=== PATIENT | female | born 1975 | race Caucasian/White ===

== ENCOUNTER → 2017-11-06 | Outpatient (CLI) | payer MEDICARE, OTHER ==
--- NOTE | 2017-11-06 09:29 | MR ---
EXAMINATION TYPE: MR faheem wo con DATE OF EXAM: 11/06/2017 COMPARISON: NONE HISTORY: Low back pain / Cervicalgia TECHNIQUE: T1 and T2 axial and sagittal images of the lumbar spine are submitted. FINDINGS: There is no abnormal signal seen within the visualized spinal cord or paraspinal soft tissu es. At T11-12 and T12-L1 there are severe degenerative disc disease. Central disc bulging at both levels greater at T11-T12. No spinal cord contact. Neural foramina remain patent At L1-2 there is disc desiccation. There is circumferential disc bulging but no canal stenosis or for aminal encroachment. At L2-3 there is no disc herniation or canal stenosis. No foraminal encroachment At L3-4 there is disc desiccation and hypertrophic change of the facets. No foraminal encroachment or canal stenosis. At L4-5 there is no disc herniation or canal stenosis. There is more advanced arthropathy of the face t joints. No foraminal encroachment At L5-S1 there is generative disc disease with focal broad-based central disc herniation abutting the anterior margin of the thecal sac. There may be mild compression of the left exiting nerve root. The re is facet arthropathy. IMPRESSION: 1. Broad-based central disc herniation L5-S1 abutting the anterior margin of the thecal sac with mild compression of the left exiting nerve root suspected. 2. Severe degenerative disc disease T11-T12 and T12-L1 and with a central disc bulging. T11-T12 is on ly partially included on exam and could be correlated with thoracic spine MRI. Cannot exclude a disc herniation at T11-T12. 3. Multilevel facet arthropathy and mild degenerative disc disease. EXAMINATION TYPE: MR eitan wo con DATE OF EXAM: 11/06/2017 COMPARISON: NONE HISTORY: Low back pain / Cervicalgia TECHNIQUE: T1 sagittal and coronal, T2 sagittal, and gradient echo axial views of the cervical spine are submitted. FINDINGS: The cranial cervical junction is preserved. There is no abnormal signal seen within the sp inal cord or paraspinal soft tissues. Hypertrophy in the posterior nasopharynx adenoids suggested on the sagittal view. At C2-3 there is no disc herniation or canal stenosis. No foraminal encroachment At C3-4 there is mild disc desiccation but no disc herniation or canal stenosis. No foraminal encroac hment. At C4-5 there is degenerative disc disease with central disc bulging. No canal stenosis or foraminal encroachment. At C5-6 there is mild left paracentral broad-based disc bulging but no canal stenosis or foraminal en croachment. At C6-7 there is there is a focal right paracentral disc herniation resulting compression of thecal s ac. Although, there is no spinal cord contact there is displacement of the cord secondary to thecal s ac compression. Neural foramina remain patent. At C7-T1 there is minimal central disc bulging but no canal stenosis or foraminal encroachment. IMPRESSION: 1. At C6-C7 there is a focal right paracentral disc herniation with compression of the thecal sac. S ee above. 2. Disc bulging C6-C7, C5-C6, and C4-C5 with no evidence of canal stenosis or foraminal encroachment. 3. Multilevel degenerative disc disease 4. There is prominence of the adenoids within the posterior nasopharynx correlate clinically.
--- NOTE | 2017-11-06 09:41 | XR ---
EXAMINATION TYPE: XR knee complete bilateral DATE OF EXAM: 11/06/2017 COMPARISON: NONE HISTORY: Pain TECHNIQUE: Three views are submitted bilaterally. FINDINGS: Joint mild narrowing the medial compartment knee joint bilaterally. No erosive change.. Osseous stru ctures are intact. No acute fracture seen. There is a small amount of fluid in the suprapatellar bu rsa bilaterally. IMPRESSION: 1. No acute fracture or dislocation. 2. Small amount of fluid in the suprapatellar bursa bilaterally.
== END | disposition home or self-care (01) ==
LOC: RADMRIMAIN 08:21
PROVIDERS: ATTEND Anesthesiology Pain Medicine
DX: M51.27 Other intervertebral disc displacement, lumbosacral region (principal); M51.25 Other intervertebral disc displacement, thoracolumbar region; M51.36 Other intervertebral disc degeneration, lumbar region; M46.96 Unspecified inflammatory spondylopathy, lumbar region; M50.221 Other cervical disc displacement at C4-C5 level; M50.321 Other cervical disc degeneration at C4-C5 level; M25.562 Pain in left knee; M25.561 Pain in right knee
CPT/HCPCS: 72141; 72148

== ENCOUNTER 2018-11-05 05:18 | Emergency (ER) | payer MEDICARE, OTHER ==
[2018-11-05 05:29] VITALS: TEMP 98.6
[2018-11-05] MEDS ORDERED: KETOROLAC 30 MG/ML 1 ML VIAL IVP STA (05:53)
[2018-11-05 06:07] LABS: Basophils # (A) 0.1 k/uL (0-0.2); Basophils % (A) 1 %; Eosinophils # (A) 0.4 k/uL (0-0.7); Eosinophils % (A) 2 %; HCT 41.8 % (34.0-46.0); Hypochromasia Slight; Lymphocytes % (A) 10 %; MCH 28.5 pg (25.0-35.0); MCHC 31.2 g/dL (31.0-37.0); MCV 91.3 fL (80.0-100.0); Mean Platelet Volume 6.8; Monocytes # (A) 0.7 k/uL (0-1.0); Monocytes % (A) 4 %; Neutrophils # (A) 16.5 k/uL (1.3-7.7); Neutrophils % (A) 83 %; Platelet Count 341 k/uL (150-450); RBC 4.58 m/uL (3.80-5.40); RDW 15.2 % (11.5-15.5); WBC 19.9 k/uL (3.8-10.6)
--- NOTE | 2018-11-05 06:10 | ED ---
General Adult HPI - General Chief complaint: Recheck/Abnormal Lab/Rx Stated complaint: Body Pain NOS Time Seen by Provider: 11/05/18 05:40 Source: patient Mode of arrival: ambulatory Limitations: no limitations - History of Present Illness Initial comments: 's patient is a 43-year-old woman who presents to be evaluated for which she is describing as body aches everywhere. She states that approximately 2 days ago she noticed she was having some aching in her left shoulder. She then also is having some pains in the bilateral knees. She currently states that she feels like she is aching everywhere. Patient denies fever. No other focal complaints . No neurologic complaints. Onset/Timin -: days(s) Quality: aching Consistency: constant Improves with: none Worsens with: none Treatments Prior to Arrival: none - Related Data Previous Rx's Medication Instructions Recorded Ibuprofen 800 mg PO TID #20 tablet 11/05/18 Allergies Allergy/AdvReac Type Severity Reaction Status Date / Time No Known Allergies Allergy Verified 11/05/18 05:29 Review of Systems ROS Statement: Those systems with pertinent positive or pertinent negative responses have been documented in the HPI. ROS Other: All systems not noted in ROS Statement are negative. Constitutional: Denies: fever, chills, weakness Respiratory: Denies: cough, dyspnea Cardiovascular: Denies: chest pain, palpitations Gastrointestinal: Denies: abdominal pain, vomiting, diarrhea Genitourinary: Denies: dysuria Musculoskeletal: Reports: back pain, arthralgia, myalgia Skin: Denies: rash Neurological: Denies: headache, weakness, numbness Past Medical History Past Medical History: Diabetes Mellitus, Hypertension History of Any Multi-Drug Resistant Organisms: MRSA Date of last positivie culture/infection: 2013 MDRO Source:: left axillae Past Surgical History: Section, Hysterectomy Additional Past Surgical History / Comment(s): tooth extraction Past Psychological History: No Psychological Hx Reported Smoking Status: Current every day smoker Past Alcohol Use History: None Reported Past Drug Use History: None Reported General Exam Limitations: no limitations General appearance: alert, in no apparent distress Head exam: Present: atraumatic, normocephalic Eye exam: Present: normal appearance. Absent: scleral icterus, conjunctival injection ENT exam: Present: normal oropharynx Neck exam: Present: normal inspection, full ROM Respiratory exam: Present: normal lung sounds bilaterally. Absent: respiratory distress, wheezes, rales, rhonchi, stridor Cardiovascular Exam: Present: regular rate, normal rhythm, normal heart sounds. Absent: systolic murmur, diastolic murmur, rubs, gallop GI/Abdominal exam: Present: soft. Absent: tenderness Extremities exam: Present: normal inspection, normal capillary refill. Absent: pedal edema, calf tenderness Back exam: Present: normal inspection. Absent: CVA tenderness (R), CVA tenderness (L) Neurological exam: Present: alert Skin exam: Present: warm, dry, intact, normal color. Absent: rash Course Vital Signs 11/05/18 05:24 Temperature 98.6 F Pulse Rate 84 Respiratory 16 Rate Blood Pressure 138/88 O2 Sat by Pulse 100 Oximetry Medical Decision Making - Medical Decision Making This patient is a 43-year-old woman presenting with complaints of myalgias and joint pains. The patient does not have a focal location of the pain, but more generalized. No exam findings of a focal infectious process. We will have the patient follow with rheumatology for further studies. Discussed appropriate follow-up and also return parameters. - Lab Data Result diagrams: 11/05/18 05:44 11/05/18 05:44 Lab Results 11/05/18 11/05/18 11/05/18 Range/Units 05:44 05:44 05:44 WBC 19.9 H (3.8-10.6) k/uL RBC 4.58 (3.80-5.40) m/uL Hgb 13.0 (11.4-16.0) gm/dL Hct 41.8 (34.0-46.0) % MCV 91.3 (80.0-100.0) fL MCH 28.5 (25.0-35.0) pg MCHC 31.2 (31.0-37.0) g/dL RDW 15.2 (11.5-15.5) % Plt Count 341 (150-450) k/uL Neutrophils % 83 % Lymphocytes % 10 % Monocytes % 4 % Eosinophils % 2 % Basophils % 1 % Neutrophils # 16.5 H (1.3-7.7) k/uL Lymphocytes # 2.0 (1.0-4.8) k/uL Monocytes # 0.7 (0-1.0) k/uL Eosinophils # 0.4 (0-0.7) k/uL Basophils # 0.1 (0-0.2) k/uL Hypochromasia Slight D-Dimer 0.49 (<0.60) mg/L FEU Sodium 140 (137-145) mmol/L Potassium 4.6 (3.5-5.1) mmol/L Chloride 109 H (98-107) mmol/L Carbon Dioxide 26 (22-30) mmol/L Anion Gap 5 mmol/L BUN 15 (7-17) mg/dL Creatinine 0.75 (0.52-1.04) mg/dL Est GFR (CKD-EPI)AfAm >90 (>60 ml/min/1.73 sqM) Est GFR (CKD-EPI)NonAf >90 (>60 ml/min/1.73 sqM) Glucose 136 H (74-99) mg/dL Calcium 9.2 (8.4-10.2) mg/dL Total Bilirubin 0.3 (0.2-1.3) mg/dL AST 16 (14-36) U/L ALT 41 (9-52) U/L Alkaline Phosphatase 89 (38-126) U/L C-Reactive Protein 55.2 H (<10.0) mg/L Total Protein 6.4 (6.3-8.2) g/dL Albumin 3.7 (3.5-5.0) g/dL Disposition Clinical Impression: Myalgia Disposition: HOME SELF-CARE Condition: Fair Instructions (If sedation given, give patient instructions): Musculoskeletal P ain (ED) Prescriptions: Ibuprofen 800 mg PO TID #20 tablet Is patient prescribed a controlled substance at d/c from ED?: No Referrals: Nonstaff,Physician [Primary Care Provider] - 1-2 days Brenda Martinez MD [STAFF PHYSICIAN] - 1-2 days
[2018-11-05 06:19] LABS: ALT 41 U/L (9-52); AST 16 U/L (14-36); Albumin 3.7 g/dL (3.5-5.0); Alkaline Phosphatase 89 U/L (38-126); Anion Gap 5 mmol/L; Blood Urea Nitrogen 15 mg/dL (7-17); C Reactive Protein 55.2 mg/L (<10.0); Calcium 9.2 mg/dL (8.4-10.2); Carbon Dioxide 26 mmol/L (22-30); Chloride 109 mmol/L (98-107); Glucose 136 mg/dL (74-99); Potassium 4.6 mmol/L (3.5-5.1); Sodium 140 mmol/L (137-145); Total Bilirubin 0.3 mg/dL (0.2-1.3); Total Protein 6.4 g/dL (6.3-8.2)
[2018-11-05] MEDS ORDERED: MORPHINE SULFATE 4 MG/ML SYRINGE IV STA (06:58)
[2018-11-05 07:09] VITALS: BP 139/86; PULSE 88; RESP 18
== END 2018-11-05 07:17 | disposition home or self-care (01) ==
LOC: EC 05:18
DX: M79.18 Myalgia, other site (principal); F17.200 Nicotine dependence, unspecified, uncomplicated; Z86.14 Personal history of Methicillin resistant Staphylococcus aureus infection
CPT/HCPCS: 36415; 85379; 80053; 85025; 86140; 99283; 96374; 96375; J2270; J1885

== ENCOUNTER 2019-05-06 21:09 | Inpatient (IN) | payer MEDICARE, OTHER ==
[2019-05-06] MEDS ORDERED: SODIUM CHLORIDE 0.9% 1,000 ML IV ONE ×3 (21:37→23:32)
[2019-05-06 21:42] LABS: Glucose,Whole Blood 149 mg/dL (75-99)
--- NOTE | 2019-05-06 21:43 | ED ---
Altered Mental Status HPI - General Chief Complaint: Altered Mental Status Stated Complaint: Confusion Time Seen by Provider: 05/06/19 21:30 Source: family Mode of arrival: wheelchair Limitations: altered mental status - History of Present Illness Initial Comments: This patient is a 43-year-old woman who is here to be evaluated for altered mental status. History is from the patient's partner who states that he arrived home from [facility] at 7 PM and found her to be agitated and disoriented. He states that it appeared she was hallucinating. She was engaging in repetitive movements and also appearing to react to things which were not there. When I question the patient she is not able to provide any history. Per the patient's partner no history of alcohol or street drug use other than some marijuana. He states that she had appeared to be her usual self before he had gone to work in the morning. MD Complaint: altered mental status -: unknown Severity: severe Consistency of Symptoms: constant - Related Data Home Medications Medication Instructions Recorded Confirmed Baclofen [Lioresal] 20 mg PO QID 05/06/19 05/06/19 Diclofenac Sodium [Voltaren] 75 mg PO BID PRN 05/06/19 05/06/19 Esomeprazole Magnesium [NexIUM 20 mg PO DAILY PRN 05/06/19 05/06/19 24Hr] Ferrous Sulfate [Feosol] 325 mg PO DAILY 05/06/19 05/06/19 Folic Acid 1 mg PO DAILY 05/06/19 05/06/19 Lisinopril-Hctz 20-25 mg 1 tab PO DAILY 05/06/19 05/06/19 [Zestoretic 20-25] Melatonin 10 mg PO HS PRN 05/06/19 05/06/19 Omeprazole [PriLOSEC] 40 mg PO DAILY 05/06/19 05/06/19 Umeclidinium [place] [Incruse 62.5 mcg INHALATION RT-DAILY 05/06/19 05/06/19 Ellipta] Ziprasidone HCl [Geodon] 40 mg PO HS 05/06/19 05/06/19 Ziprasidone HCl [Geodon] 80 mg PO HS 05/06/19 05/06/19 metFORMIN HCL 1,000 mg PO BID 05/06/19 05/06/19 traZODone HCL 100 mg PO HS 05/06/19 05/06/19 Allergies Allergy/AdvReac Type Severity Reaction Status Date / Time No Known Allergies Allergy Verified 05/06/19 21:57 Review of Systems ROS Statement: Those systems with pertinent positive or pertinent negative responses have been documented in the HPI. ROS Other: All systems not noted in ROS Statement are negative. Limitations: ROS unobtainable due to patients medical condition Past Medical History Past Medical History: Diabetes Mellitus, Hypertension History of Any Multi-Drug Resistant Organisms: MRSA Date of last positivie culture/infection: 2013 MDRO Source:: left axillae Past Surgical History: Section, Hysterectomy Additional Past Surgical History / Comment(s): tooth extraction Past Psychological History: No Psychological Hx Reported Smoking Status: Current every day smoker Past Alcohol Use History: None Reported Past Drug Use History: None Reported - Past Family History Mother Family Medical History: Diabetes Mellitus Father History Unknown: Yes General Exam Limitations: no limitations General appearance: other (Patient appears to be delirious and agitated, rolling [id number] on the bed and appearing to reach for objects which are not there.) Head exam: Present: atraumatic, normocephalic Eye exam: Present: normal appearance, PERRL, EOMI. Absent: scleral icterus, conjunctival injection ENT exam: Present: mucous membranes dry Neck exam: Present: full ROM. Absent: tenderness, meningismus Respiratory exam: Present: normal lung sounds bilaterally, respiratory distress (Mild tachypnea). Absent: wheezes, rales, rhonchi, stridor, accessory muscle use, decreased breath sounds, prolonged expiratory Cardiovascular Exam: Present: regular rate, normal rhythm, normal heart sounds. Absent: systolic murmur, diastolic murmur, rubs, gallop GI/Abdominal exam: Present: soft. Absent: distended, tenderness, guarding, rebound, rigid Extremities exam: Present: normal inspection, normal capillary refill. Absent: pedal edema, calf tenderness Back exam: Present: normal inspection Neurological exam: Present: alert, other (GCS is 13 (E=4, M=5, V=4). Patient is not following commands but is moving all 4 extremities.). Absent: motor sensory deficit Psychiatric exam: Present: agitated Skin exam: Present: warm, dry, intact, normal color. Absent: rash Course Vital Signs 05/06/19 05/06/19 05/06/19 21:14 22:50 23:00 Temperature 98.6 F Pulse Rate 98 99 Respiratory 24 20 Rate Blood Pressure 184/76 170/94 155/89 O2 Sat by Pulse 98 96 Oximetry 05/06/19 05/06/19 05/06/19 23:15 23:30 23:45 Temperature Pulse Rate 90 69 101 H Respiratory 18 20 28 H Rate Blood Pressure 168/104 165/104 O2 Sat by Pulse 99 83 L Oximetry 05/07/19 05/07/19 05/07/19 00:00 00:15 00:22 Temperature Pulse Rate 73 77 71 Respiratory 20 16 19 Rate Blood Pressure 172/100 186/97 174/111 O2 Sat by Pulse 97 98 98 Oximetry 05/07/19 05/07/19 05/07/19 00:30 00:45 01:00 Temperature Pulse Rate 65 61 61 Respiratory 20 20 20 Rate Blood Pressure 174/111 173/108 175/106 O2 Sat by Pulse 98 98 99 Oximetry 05/07/19 05/07/19 05/07/19 01:12 01:15 01:30 Temperature 98.2 F Pulse Rate 64 60 58 L Respiratory 20 20 20 Rate Blood Pressure 175/108 175/108 172/110 O2 Sat by Pulse 98 98 99 Oximetry 05/07/19 05/07/19 05/07/19 01:45 02:00 02:15 Temperature Pulse Rate 55 L 74 73 Respiratory 20 16 15 Rate Blood Pressure 185/113 182/112 170/114 O2 Sat by Pulse 99 99 99 Oximetry 05/07/19 05/07/19 05/07/19 02:30 02:45 03:00 Temperature Pulse Rate 69 67 64 Respiratory 20 20 20 Rate Blood Pressure 185/114 178/108 172/108 O2 Sat by Pulse 99 99 99 Oximetry 05/07/19 05/07/19 03:15 03:31 Temperature Pulse Rate 63 Respiratory 20 Rate Blood Pressure 177/112 O2 Sat by Pulse 100 99 Oximetry - Reevaluation(s) Reevaluation #1: 05/06/19 22:17 The patient is given Ativan to facilitate computed tomography scan, but then was not adequately protecting her airway and also having sonorous respirations requiring nasal trumpet. For this reason patient is intubated for airway protection pending the computed tomography scan. Reevaluation #2: 05/07/19 02:14 The IV fluid boluses based on ideal body weight. Procedures - Intubation Sedative: Etomidate Paralytic: Succinylcholine Assist Device Used: fiber optic device ET Tube Size: 7 ET Tube Uncuffed: No Tube Secured Depth (cm): 21 Tube Secured Location: lips Tube Placement Confirmation: visualized tube passing through cords, equal breath sounds bilaterally, no breath sounds over epigastrium, confirmation by capnometry Patient Tolerated Procedure: well Intubation Complications: none - Sepsis Sepsis Focused Exam #1 Sepsis Focused Exam Date: 05/07/19 Sepsis Focused Exam Time: 02:00 Sepsis Focused Exam Complete: Yes Vital Signs & RN Notes Reviewed: Yes Capillary Refill: < 2 Seconds: Fingers Peripheral Pulses: Strong: Radial (R) Skin Color: Normal for Patient Respiratory Exam: rhonchi Cardiovascular Exam: regular rate, normal rhythm Medical Decision Making - Medical Decision Making Patient is a 43-year-old woman presenting with acute delirium. At this point it appears the patient may have taken more of her home medications. It is not possible to obtain inaccurate pill count is there of vials of different ages. The case is discussed with admitting physician Dr. Davila, and also with the motors assembler, Dr. Gutierrez, and there treatment recommendations are incorporated. The case is also discussed with poison control regarding possibility of overdose with her medications and recommendation is to continues supportive care. Given the patient's leukocytosis and mental status change, she is given ceftr iaxone 2 g, as prophylaxis though no signs of meningitis on the exam. - Lab Data Result diagrams: 05/08/19 05:13 05/08/19 05:13 Lab Results 05/06/19 05/06/19 05/06/19 Range/Units 21:41 22:17 22:17 WBC (3.8-10.6) k/uL RBC (3.80-5.40) m/uL Hgb (11.4-16.0) gm/dL Hct (34.0-46.0) % MCV (80.0-100.0) fL MCH (25.0-35.0) pg MCHC (31.0-37.0) g/dL RDW (11.5-15.5) % Plt Count (150-450) k/uL Neutrophils % % Lymphocytes % % Monocytes % % Eosinophils % % Basophils % % Neutrophils # (1.3-7.7) k/uL Lymphocytes # (1.0-4.8) k/uL Monocytes # (0-1.0) k/uL Eosinophils # (0-0.7) k/uL Basophils # (0-0.2) k/uL Manual Slide Review Large Platelets Polychromasia Hypochromasia Anisocytosis (manual) PT (9.0-12.0) sec INR (<1.2) APTT (22.0-30.0) sec Sample Site ABG pH (7.35-7.45) ABG pCO2 (35-45) mmHg ABG pO2 (83-108) mmHg ABG HCO3 (21-25) mmol/L ABG Total CO2 (19-24) mmol/L ABG O2 Saturation (94-97) % ABG Base Excess mmol/L Clement Test VBG pH (7.31-7.41) VBG pCO2 (37-51) mmHg VBG HCO3 (24-28) mmol/L FiO2 % Sodium 139 (137-145) mmol/L Potassium 4.8 (3.5-5.1) mmol/L Chloride 107 (98-107) mmol/L Carbon Dioxide 10 L (22-30) mmol/L Anion Gap 22 mmol/L BUN 14 (7-17) mg/dL Creatinine 0.95 (0.52-1.04) mg/dL Est GFR (CKD-EPI)AfAm 87 (>60 ml/min/1.73 sqM) Est GFR (CKD-EPI)NonAf 75 (>60 ml/min/1.73 sqM) Glucose 200 H (74-99) mg/dL POC Glucose (mg/dL) 149 H (75-99) mg/dL POC Glu Director Transition ID Jaz Abigail Lactic Ac Sepsis Rflx Plasma Lactic Acid Bill 10.1 H* (0.7-2.0) mmol/L Calcium 8.7 (8.4-10.2) mg/dL Total Bilirubin 0.5 (0.2-1.3) mg/dL AST 30 (14-36) U/L ALT 37 (9-52) U/L Alkaline Phosphatase 69 (38-126) U/L Ammonia 95 H (<30) umol/L CK-MB (CK-2) (0.0-2.4) ng/mL Troponin I (0.000-0.034) ng/mL Total Protein 7.7 (6.3-8.2) g/dL Albumin 4.5 (3.5-5.0) g/dL Urine Color Urine Appearance (Clear) Urine pH (5.0-8.0) Ur Specific [place] (1.001-1.035) Urine Protein (Negative) Urine Glucose (UA) (Negative) Urine Ketones (Negative) Urine Blood (Negative) Urine Nitrite (Negative) Urine Bilirubin (Negative) Urine Urobilinogen (<2.0) mg/dL Ur Leukocyte Esterase (Negative) Urine RBC (0-5) /hpf Ur Squamous Epith Cells (0-4) /hpf Amorphous Sediment (None) /hpf Hyaline Casts (0-2) /lpf Urine Mucus (None) /hpf Urine HCG, Qual (Not Detectd) Salicylates mg/dL Urine Opiates Screen (NotDetected) Ur Oxycodone Screen (NotDetected) Urine Methadone Screen (NotDetected) Ur Propoxyphene Screen (NotDetected) Acetaminophen ug/mL Ur Barbiturates Screen (NotDetected) U Tricyclic Antidepress (NotDetected) Ur Phencyclidine Scrn (NotDetected) Ur Amphetamines Screen (NotDetected) U Methamphetamines Scrn (NotDetected) U Benzodiazepines Scrn (NotDetected) Urine Cocaine Screen (NotDetected) U Marijuana (THC) Screen (NotDetected) Serum Alcohol <10 mg/dL Acetone, Qual (Negative) 05/06/19 05/06/19 05/06/19 Range/Units 22:17 22:17 22:17 WBC 21.9 H (3.8-10.6) k/uL RBC 4.60 (3.80-5.40) m/uL Hgb 14.1 (11.4-16.0) gm/dL Hct 44.1 (34.0-46.0) % MCV 95.9 (80.0-100.0) fL MCH 30.6 (25.0-35.0) pg MCHC 31.9 (31.0-37.0) g/dL RDW 15.9 H (11.5-15.5) % Plt Count 376 (150-450) k/uL Neutrophils % 64 % Lymphocytes % 27 % Monocytes % 5 % Eosinophils % 2 % Basophils % 1 % Neutrophils # 14.0 H (1.3-7.7) k/uL Lymphocytes # 5.9 H (1.0-4.8) k/uL Monocytes # 1.0 (0-1.0) k/uL Eosinophils # 0.4 (0-0.7) k/uL Basophils # 0.2 (0-0.2) k/uL Manual Slide Review Performed Large Platelets Present Polychromasia Present Hypochromasia Slight Anisocytosis (manual) Present PT 9.4 (9.0-12.0) sec INR 0.9 (<1.2) APTT 21.4 L (22.0-30.0) sec Sample Site ABG pH (7.35-7.45) ABG pCO2 (35-45) mmHg ABG pO2 (83-108) mmHg ABG HCO3 (21-25) mmol/L ABG Total CO2 (19-24) mmol/L ABG O2 Saturation (94-97) % ABG Base Excess mmol/L Clement Test VBG pH (7.31-7.41) VBG pCO2 (37-51) mmHg VBG HCO3 (24-28) mmol/L FiO2 % Sodium (137-145) mmol/L Potassium (3.5-5.1) mmol/L Chloride (98-107) mmol/L Carbon Dioxide (22-30) mmol/L Anion Gap mmol/L BUN (7-17) mg/dL Creatinine (0.52-1.04) mg/dL Est GFR (CKD-EPI)AfAm (>60 ml/min/1.73 sqM) Est GFR (CKD-EPI)NonAf (>60 ml/min/1.73 sqM) Glucose (74-99) mg/dL POC Glucose (mg/dL) (75-99) mg/dL POC Glu Director Transition ID Lactic Ac Sepsis Rflx Plasma Lactic Acid Bill (0.7-2.0) mmol/L Calcium (8.4-10.2) mg/dL Total Bilirubin (0.2-1.3) mg/dL AST (14-36) U/L ALT (9-52) U/L Alkaline Phosphatase (38-126) U/L Ammonia (<30) umol/L CK-MB (CK-2) (0.0-2.4) ng/mL Troponin I <0.012 (0.000-0.034) ng/mL Total Protein (6.3-8.2) g/dL Albumin (3.5-5.0) g/dL Urine Color Urine Appearance (Clear) Urine pH (5.0-8.0) Ur Specific [place] (1.001-1.035) Urine Protein (Negative) Urine Glucose (UA) (Negative) Urine Ketones (Negative) Urine Blood (Negative) Urine Nitrite (Negative) Urine Bilirubin (Negative) Urine Urobilinogen (<2.0) mg/dL Ur Leukocyte Esterase (Negative) Urine RBC (0-5) /hpf Ur Squamous Epith Cells (0-4) /hpf Amorphous Sediment (None) /hpf Hyaline Casts (0-2) /lpf Urine Mucus (None) /hpf Urine HCG, Qual (Not Detectd) Salicylates mg/dL Urine Opiates Screen (NotDetected) Ur Oxycodone Screen (NotDetected) Urine Methadone Screen (NotDetected) Ur Propoxyphene Screen (NotDetected) Acetaminophen ug/mL Ur Barbiturates Screen (NotDetected) U Tricyclic Antidepress (NotDetected) Ur Phencyclidine Scrn (NotDetected) Ur Amphetamines Screen (NotDetected) U Methamphetamines Scrn (NotDetected) U Benzodiazepines Scrn (NotDetected) Urine Cocaine Screen (NotDetected) U Marijuana (THC) Screen (NotDetected) Serum Alcohol mg/dL Acetone, Qual (Negative) 05/06/19 05/06/19 05/06/19 Range/Units 22:17 22:17 23:07 WBC (3.8-10.6) k/uL RBC (3.80-5.40) m/uL Hgb (11.4-16.0) gm/dL Hct (34.0-46.0) % MCV (80.0-100.0) fL MCH (25.0-35.0) pg MCHC (31.0-37.0) g/dL RDW (11.5-15.5) % Plt Count (150-450) k/uL Neutrophils % % Lymphocytes % % Monocytes % % Eosinophils % % Basophils % % Neutrophils # (1.3-7.7) k/uL Lymphocytes # (1.0-4.8) k/uL Monocytes # (0-1.0) k/uL Eosinophils # (0-0.7) k/uL Basophils # (0-0.2) k/uL Manual Slide Review Large Platelets Polychromasia Hypochromasia Anisocytosis (manual) PT (9.0-12.0) sec INR (<1.2) APTT (22.0-30.0) sec Sample Site ABG pH (7.35-7.45) ABG pCO2 (35-45) mmHg ABG pO2 (83-108) mmHg ABG HCO3 (21-25) mmol/L ABG Total CO2 (19-24) mmol/L ABG O2 Saturation (94-97) % ABG Base Excess mmol/L Clement Test VBG pH (7.31-7.41) VBG pCO2 (37-51) mmHg VBG HCO3 (24-28) mmol/L FiO2 % Sodium (137-145) mmol/L Potassium (3.5-5.1) mmol/L Chloride (98-107) mmol/L Carbon Dioxide (22-30) mmol/L Anion Gap mmol/L BUN (7-17) mg/dL Creatinine (0.52-1.04) mg/dL Est GFR (CKD-EPI)AfAm (>60 ml/min/1.73 sqM) Est GFR (CKD-EPI)NonAf (>60 ml/min/1.73 sqM) Glucose (74-99) mg/dL POC Glucose (mg/dL) (75-99) mg/dL POC Glu Director Transition ID Lactic Ac Sepsis Rflx Y Plasma Lactic Acid Bill (0.7-2.0) mmol/L Calcium (8.4-10.2) mg/dL Total Bilirubin (0.2-1.3) mg/dL AST (14-36) U/L ALT (9-52) U/L Alkaline Phosphatase (38-126) U/L Ammonia (<30) umol/L CK-MB (CK-2) 4.8 H (0.0-2.4) ng/mL Troponin I (0.000-0.034) ng/mL Total Protein (6.3-8.2) g/dL Albumin (3.5-5.0) g/dL Urine Color Urine Appearance (Clear) Urine pH (5.0-8.0) Ur Specific [place] (1.001-1.035) Urine Protein (Negative) Urine Glucose (UA) (Negative) Urine Ketones (Negative) Urine Blood (Negative) Urine Nitrite (Negative) Urine Bilirubin (Negative) Urine Urobilinogen (<2.0) mg/dL Ur Leukocyte Esterase (Negative) Urine RBC (0-5) /hpf Ur Squamous Epith Cells (0-4) /hpf Amorphous Sediment (None) /hpf Hyaline Casts (0-2) /lpf Urine Mucus (None) /hpf Urine HCG, Qual (Not Detectd) Salicylates <1.0 mg/dL Urine Opiates Screen (NotDetected) Ur Oxycodone Screen (NotDetected) Urine Methadone Screen (NotDetected) Ur Propoxyphene Screen (NotDetected) Acetaminophen <10.0 ug/mL Ur Barbiturates Screen (NotDetected) U Tricyclic Antidepress (NotDetected) Ur Phencyclidine Scrn (NotDetected) Ur Amphetamines Screen (NotDetected) U Methamphetamines Scrn (NotDetected) U Benzodiazepines Scrn (NotDetected) Urine Cocaine Screen (NotDetected) U Marijuana (THC) Screen (NotDetected) Serum Alcohol mg/dL Acetone, Qual Negative (Negative) 05/06/19 05/06/19 05/07/19 Range/Units 23:25 23:25 00:10 WBC (3.8-10.6) k/uL RBC (3.80-5.40) m/uL Hgb (11.4-16.0) gm/dL Hct (34.0-46.0) % MCV (80.0-100.0) fL MCH (25.0-35.0) pg MCHC (31.0-37.0) g/dL RDW (11.5-15.5) % Plt Count (150-450) k/uL Neutrophils % % Lymphocytes % % Monocytes % % Eosinophils % % Basophils % % Neutrophils # (1.3-7.7) k/uL Lymphocytes # (1.0-4.8) k/uL Monocytes # (0-1.0) k/uL Eosinophils # (0-0.7) k/uL Basophils # (0-0.2) k/uL Manual Slide Review Large Platelets Polychromasia Hypochromasia Anisocytosis (manual) PT (9.0-12.0) sec INR (<1.2) APTT (22.0-30.0) sec Sample Site r rad ABG pH 7.26 L (7.35-7.45) ABG pCO2 48 H (35-45) mmHg ABG pO2 184 H (83-108) mmHg ABG HCO3 21 (21-25) mmol/L ABG Total CO2 23 (19-24) mmol/L ABG O2 Saturation 98.8 H (94-97) % ABG Base Excess -5.6 mmol/L Clement Test Yes VBG pH (7.31-7.41) VBG pCO2 (37-51) mmHg VBG HCO3 (24-28) mmol/L FiO2 100 % Sodium (137-145) mmol/L Potassium (3.5-5.1) mmol/L Chloride (98-107) mmol/L Carbon Dioxide (22-30) mmol/L Anion Gap mmol/L BUN (7-17) mg/dL Creatinine (0.52-1.04) mg/dL Est GFR (CKD-EPI)AfAm (>60 ml/min/1.73 sqM) Est GFR (CKD-EPI)NonAf (>60 ml/min/1.73 sqM) Glucose (74-99) mg/dL POC Glucose (mg/dL) (75-99) mg/dL POC Glu Director Transition ID Lactic Ac Sepsis Rflx Plasma Lactic Acid Bill (0.7-2.0) mmol/L Calcium (8.4-10.2) mg/dL Total Bilirubin (0.2-1.3) mg/dL AST (14-36) U/L ALT (9-52) U/L Alkaline Phosphatase (38-126) U/L Ammonia (<30) umol/L CK-MB (CK-2) (0.0-2.4) ng/mL Troponin I (0.000-0.034) ng/mL Total Protein (6.3-8.2) g/dL Albumin (3.5-5.0) g/dL Urine Color Yellow Urine Appearance Cloudy H (Clear) Urine pH 5.5 (5.0-8.0) Ur Specific [place] 1.016 (1.001-1.035) Urine Protein 2+ H (Negative) Urine Glucose (UA) 3+ H (Negative) Urine Ketones 1+ H (Negative) Urine Blood Small H (Negative) Urine Nitrite Negative (Negative) Urine Bilirubin Negative (Negative) Urine Urobilinogen <2.0 (<2.0) mg/dL Ur Leukocyte Esterase Negative (Negative) Urine RBC 2 (0-5) /hpf Ur Squamous Epith Cells 1 (0-4) /hpf Amorphous Sediment Few H (None) /hpf Hyaline Casts 32 H (0-2) /lpf Urine Mucus Rare H (None) /hpf Urine HCG, Qual Not Detected (Not Detectd) Salicylates mg/dL Urine Opiates Screen Not Detected (NotDetected) Ur Oxycodone Screen Not Detected (NotDetected) Urine Methadone Screen Not Detected (NotDetected) Ur Propoxyphene Screen Not Detected (NotDetected) Acetaminophen ug/mL Ur Barbiturates Screen Not Detected (NotDetected) U Tricyclic Antidepress Not Detected (NotDetected) Ur Phencyclidine Scrn Not Detected (NotDetected) Ur Amphetamines Screen Not Detected (NotDetected) U Methamphetamines Scrn Not Detected (NotDetected) U Benzodiazepines Scrn Not Detected (NotDetected) Urine Cocaine Screen Not Detected (NotDetected) U Marijuana (THC) Screen Detected H (NotDetected) Serum Alcohol mg/dL Acetone, Qual (Negative) 05/07/19 Range/Units 01:24 WBC (3.8-10.6) k/uL RBC (3.80-5.40) m/uL Hgb (11.4-16.0) gm/dL Hct (34.0-46.0) % MCV (80.0-100.0) fL MCH (25.0-35.0) pg MCHC (31.0-37.0) g/dL RDW (11.5-15.5) % Plt Count (150-450) k/uL Neutrophils % % Lymphocytes % % Monocytes % % Eosinophils % % Basophils % % Neutrophils # (1.3-7.7) k/uL Lymphocytes # (1.0-4.8) k/uL Monocytes # (0-1.0) k/uL Eosinophils # (0-0.7) k/uL Basophils # (0-0.2) k/uL Manual Slide Review Large Platelets Polychromasia Hypochromasia Anisocytosis (manual) PT (9.0-12.0) sec INR (<1.2) APTT (22.0-30.0) sec Sample Site ABG pH (7.35-7.45) ABG pCO2 (35-45) mmHg ABG pO2 (83-108) mmHg ABG HCO3 (21-25) mmol/L ABG Total CO2 (19-24) mmol/L ABG O2 Saturation (94-97) % ABG Base Excess mmol/L Clement Test VBG pH 7.31 (7.31-7.41) VBG pCO2 38 (37-51) mmHg VBG HCO3 19 L (24-28) mmol/L FiO2 % Sodium (137-145) mmol/L Potassium (3.5-5.1) mmol/L Chloride (98-107) mmol/L Carbon Dioxide (22-30) mmol/L Anion Gap mmol/L BUN (7-17) mg/dL Creatinine (0.52-1.04) mg/dL Est GFR (CKD-EPI)AfAm (>60 ml/min/1.73 sqM) Est GFR (CKD-EPI)NonAf (>60 ml/min/1.73 sqM) Glucose (74-99) mg/dL POC Glucose (mg/dL) (75-99) mg/dL POC Glu Director Transition ID Lactic Ac Sepsis Rflx Plasma Lactic Acid Bill (0.7-2.0) mmol/L Calcium (8.4-10.2) mg/dL Total Bilirubin (0.2-1.3) mg/dL AST (14-36) U/L ALT (9-52) U/L Alkaline Phosphatase (38-126) U/L Ammonia (<30) umol/L CK-MB (CK-2) (0.0-2.4) ng/mL Troponin I (0.000-0.034) ng/mL Total Protein (6.3-8.2) g/dL Albumin (3.5-5.0) g/dL Urine Color Urine Appearance (Clear) Urine pH (5.0-8.0) Ur Specific [place] (1.001-1.035) Urine Protein (Negative) Urine Glucose (UA) (Negative) Urine Ketones (Negative) Urine Blood (Negative) Urine Nitrite (Negative) Urine Bilirubin (Negative) Urine Urobilinogen (<2.0) mg/dL Ur Leukocyte Esterase (Negative) Urine RBC (0-5) /hpf Ur Squamous Epith Cells (0-4) /hpf Amorphous Sediment (None) /hpf Hyaline Casts (0-2) /lpf Urine Mucus (None) /hpf Urine HCG, Qual (Not Detectd) Salicylates mg/dL Urine Opiates Screen (NotDetected) Ur Oxycodone Screen (NotDetected) Urine Methadone Screen (NotDetected) Ur Propoxyphene Screen (NotDetected) Acetaminophen ug/mL Ur Barbiturates Screen (NotDetected) U Tricyclic Antidepress (NotDetected) Ur Phencyclidine Scrn (NotDetected) Ur Amphetamines Screen (NotDetected) U Methamphetamines Scrn (NotDetected) U Benzodiazepines Scrn (NotDetected) Urine Cocaine Screen (NotDetected) U Marijuana (THC) Screen (NotDetected) Serum Alcohol mg/dL Acetone, Qual (Negative) - EKG Data -: EKG Interpreted by Me EKG shows normal: sinus rhythm, axis (Normal), intervals (Normal), QRS complexes (Low voltage QRS complex), ST-T waves (Normal) Rate: normal (Rate 70 bpm) Critical Care Time Critical Care Time: Yes (60 minutes) Disposition Clinical Impression: Lactic acid acidosis, Altered mental status, Acute delirium, Acute respiratory failure Disposition: ADMITTED IP TO THIS [facility] Condition: Serious Is patient prescribed a controlled substance at d/c from ED?: No
[2019-05-06] MEDS: LORazepam 2 MG/ML INJ IV STA ×3 (21:47→22:23)
[2019-05-06] MEDS ORDERED: ETOMIDATE 2 MG/ML 10 ML VIAL IVP STA (22:02)
[2019-05-06] MEDS: SUCCINYLCHOLINE CHLORIDE VIAL 200 MG/10 ML VIAL IV STA ×2 (22:04→22:34)
[2019-05-06] MEDS ORDERED: ROCURONIUM BROMIDE 10 MG/ML 10 ML VIAL IV STA (22:37)
[2019-05-06 22:41] LABS: Basophils # (A) 0.2 k/uL (0-0.2); Basophils % (A) 1 %; Eosinophils # (A) 0.4 k/uL (0-0.7); Eosinophils % (A) 2 %; HCT 44.1 % (34.0-46.0); HGB 14.1 gm/dL (11.4-16.0); Hypochromasia Slight; Lymphocytes # (A) 5.9 k/uL (1.0-4.8); Lymphocytes % (A) 27 %; MCH 30.6 pg (25.0-35.0); MCHC 31.9 g/dL (31.0-37.0); MCV 95.9 fL (80.0-100.0); Mean Platelet Volume 7.7; Monocytes % (A) 5 %; Neutrophils % (A) 64 %; Platelet Count 376 k/uL (150-450); RDW 15.9 % (11.5-15.5); WBC 21.9 k/uL (3.8-10.6)
[2019-05-06 22:55] LABS: INR 0.9 (<1.2); Prothrombin Time 9.4 sec (9.0-12.0)
[2019-05-06 22:58] LABS: ALT 37 U/L (9-52); AST 30 U/L (14-36); African American GFR (CKD) 87 (>60 ml/min/1.73 sqM); Albumin 4.5 g/dL (3.5-5.0); Alcohol <10 mg/dL; Alkaline Phosphatase 69 U/L (38-126); Anion Gap 22 mmol/L; Blood Urea Nitrogen 14 mg/dL (7-17); Calcium 8.7 mg/dL (8.4-10.2); Carbon Dioxide 10 mmol/L (22-30); Chloride 107 mmol/L (98-107); Glucose 200 mg/dL (74-99); Sodium 139 mmol/L (137-145); Total Bilirubin 0.5 mg/dL (0.2-1.3); Total Protein 7.7 g/dL (6.3-8.2)
[2019-05-06] MEDS ORDERED: PROPOFOL 1,000 MG in EMPTY BAG 1 BAG IV ONE (23:01)
--- NOTE | 2019-05-06 23:03 | XR ---
EXAM: XR Chest, 1 View CLINICAL HISTORY: altered mental status TECHNIQUE: Frontal view of the chest. COMPARISON: No relevant prior studies available. FINDINGS: Lungs: Hypoventilatory lungs with bilateral volume loss. Pleural space: No significant pleural effusions or pneumothorax. Heart: Prominence of the cardiomediastinal silhouette is likely in part due to low lung volumes. Mediastinum: See above. Bones/joints: No acute osseous abnormality. Tubes, lines and devices: Endotracheal tube terminates approximately 3. 6 cm above the veena. Esophagogastric tube traverses the diaphragm and extends off the [id number]. IMPRESSION: 1. Endotracheal tube terminates approximately 3.6 cm above the veena. No pneumothorax. 2. Esophagogastric tube traverses the diaphragm and extends off the [id number].
[2019-05-06 23:05] LABS: Potassium 4.8 mmol/L (3.5-5.1)
[2019-05-06 23:06] LABS: Lactic Acid, Venous 10.1 mmol/L (0.7-2.0)
[2019-05-06 23:22] LABS: Partial Thromboplastin Time 21.4 sec (22.0-30.0)
--- NOTE | 2019-05-06 23:24 | CT ---
EXAM: CT Head Without Intravenous Contrast CLINICAL HISTORY: altered mental status TECHNIQUE: Axial computed tomography images of the head/brain without intravenous contrast. CTDI is 0.085, 0.085, 49.1 mGy and DLP is 1101.4 mGy-cm. This CT exam was performed using one or more of the following dose reduction techniques: automated exposure control, adjustment of the mA and/or kV according to patient size, and/or use of iterative reconstruction technique. COMPARISON: No relevant prior studies available. FINDINGS: Brain: Unremarkable. No acute hemorrhage, large hypodensity, or significant mass effect. Ventricles: Unremarkable. No ventriculomegaly. Bones/joints: Unremarkable. No acute fracture. Soft tissues: Unremarkable. Sinuses: Mild mucosal thickening in the paranasal sinuses. No air- fluid levels. Mastoid air cells: Opacification of bilateral mastoid air cells. IMPRESSION: 1. No acute intracranial abnormality. 2. Bilateral mastoid effusions.
[2019-05-06] MEDS ORDERED: SODIUM CHLORIDE 0.9% 500 ML 500 ML IV STA (23:32)
[2019-05-07 00:02] LABS: Amorphous Sediment,Urine Few /hpf; Appearance,Urine Cloudy (Clear); Bilirubin,Urine Negative (Negative); Blood,Urine Small (Negative); Color,Urine Yellow; Glucose,Urine (UA) 3+ (Negative); Hyaline Casts,Urine 32 /lpf (0-2); Ketones,Urine 1+ (Negative); Leukocyte Esterase,Urine Negative (Negative); Mucus,Urine Rare /hpf; Nitrite,Urine Negative (Negative); PH, Urine 5.5 (5.0-8.0); Protein,Urine 2+ (Negative); RBC,Urine 2 /hpf (0-5); Specific Gravity,Urine 1.016 (1.001-1.035); Squamous Epithelial Cell,Urine 1 /hpf (0-4); Urobilinogen,Urine <2.0 mg/dL (<2.0)
[2019-05-07 00:05] LABS: Amphetamine Screen,Urine Not Detected (NotDetected); Barbiturate Screen,Urine Not Detected (NotDetected); Benzodiazepines Screen,Urine Not Detected (NotDetected); Cocaine Screen,Urine Not Detected (NotDetected); Methadone Screen, Urine Not Detected (NotDetected); Opiate Screen,Urine Not Detected (NotDetected); Oxycodone Screen, Urine Not Detected (NotDetected); Phencyclidine Screen,Urine Not Detected (NotDetected); Tricyclic Antidepressant,Urine Not Detected (NotDetected); Urn Cannabinoid Scrn Detected (NotDetected)
[2019-05-07] MEDS: LORazepam 2 MG/ML INJ IV STA ×4 (00:05→03:53)
[2019-05-07 00:21] LABS: ABG Base Excess -5.6 mmol/L; ABG HCO3 21 mmol/L (21-25); ABG Oxygen Saturation 98.8 % (94-97); ABG PCO2 48 mmHg (35-45); ABG PH 7.26 (7.35-7.45); ABG PO2 184 mmHg (83-108); ABG TCO2 23 mmol/L (19-24); Allen Test Performed? Yes
[2019-05-07 00:50] LABS: Anisocytosis (M) Present; Large Platelets Present; Polychromasia Present
[2019-05-07] MEDS: MORPHINE SULFATE 4 MG/ML SYRINGE IVP PRN ×2 (01:08→03:52)
[2019-05-07] MEDS ORDERED: hydrALAZINE HCL 20 MG/ML 1 ML VIAL IVP STA (01:40)
[2019-05-07 01:43] LABS: VBG PH 7.31 (7.31-7.41)
[2019-05-07] MEDS ORDERED: NALOXONE 0.4 MG/ML 1 ML VIAL IV PRN (02:08)
[2019-05-07 02:15] LABS: Acetaminophen <10.0 ug/mL; Salicylate <1.0 mg/dL
[2019-05-07] MEDS: SODIUM CHLORIDE 0.9% 1,000 ML IV SCH ×2 (03:05→03:18)
[2019-05-07] MEDS ORDERED: ROCURONIUM BROMIDE 10 MG/ML 10 ML VIAL IV STA (03:51)
[2019-05-07 04:01] LABS: Glucose,Whole Blood 86 mg/dL (75-99)
[2019-05-07] MEDS: PROPOFOL 1,000 MG in EMPTY BAG 1 BAG IV SCH ×2 (04:36→07:38)
[2019-05-07 06:02] LABS: ABG HCO3 22 mmol/L (21-25); ABG Oxygen Saturation 98.9 % (94-97); ABG PCO2 35 mmHg (35-45); ABG PH 7.42 (7.35-7.45); ABG PO2 143 mmHg (83-108); ABG TCO2 24 mmol/L (19-24); Allen Test Performed? Yes
[2019-05-07 06:05] LABS: Basophils # (A) 0.1 k/uL (0-0.2); Basophils % (A) 0 %; Eosinophils # (A) 0.1 k/uL (0-0.7); Eosinophils % (A) 0 %; HCT 41.4 % (34.0-46.0); HGB 13.3 gm/dL (11.4-16.0); Lymphocytes # (A) 2.4 k/uL (1.0-4.8); Lymphocytes % (A) 15 %; MCH 29.6 pg (25.0-35.0); MCHC 32.1 g/dL (31.0-37.0); MCV 92.4 fL (80.0-100.0); Mean Platelet Volume 7.1; Monocytes # (A) 0.9 k/uL (0-1.0); Monocytes % (A) 6 %; Neutrophils # (A) 12.1 k/uL (1.3-7.7); Neutrophils % (A) 77 %; Platelet Count 322 k/uL (150-450); RBC 4.48 m/uL (3.80-5.40); WBC 15.7 k/uL (3.8-10.6)
[2019-05-07 06:34] LABS: African American GFR (CKD) >90 (>60 ml/min/1.73 sqM); Anion Gap 8 mmol/L; Blood Urea Nitrogen 12 mg/dL (7-17); Calcium 8.6 mg/dL (8.4-10.2); Carbon Dioxide 24 mmol/L (22-30); Chloride 112 mmol/L (98-107); Creatine Kinase 402 U/L (30-135); Glucose 75 mg/dL (74-99); Potassium 4.1 mmol/L (3.5-5.1); Sodium 144 mmol/L (137-145)
[2019-05-07 06:38] LABS: Appearance,Urine Clear (Clear); Bilirubin,Urine Negative (Negative); Blood,Urine Moderate (Negative); Color,Urine Light Yellow; Glucose,Urine (UA) Negative (Negative); Ketones,Urine 1+ (Negative); Leukocyte Esterase,Urine Negative (Negative); Mucus,Urine Rare /hpf; Nitrite,Urine Negative (Negative); PH, Urine 5.5 (5.0-8.0); Protein,Urine Negative (Negative); RBC,Urine 53 /hpf (0-5); Urobilinogen,Urine <2.0 mg/dL (<2.0)
[2019-05-07 07:26] LABS: Glucose,Whole Blood 90 mg/dL (75-99)
--- NOTE | 2019-05-07 08:27 | XR ---
EXAMINATION TYPE: XR chest 1V portable DATE OF EXAM: 05/07/2019 COMPARISON: 05/06/2019 HISTORY: Altered mental status TECHNIQUE: Single frontal view of the chest is obtained. FINDINGS: ET and NG tubes stable with bilateral infiltrate and pleural effusion. No sizable pneumoth orax. Heart size stable. Osseous structures stable. IMPRESSION: 1. Bilateral infiltrate and pleural effusion are stable. Correlate for pneumonia versus CHF.
[2019-05-07] MEDS: FAMOTIDINE 20 MG/2 ML VIAL IV SCH ×2 (08:28→20:32)
[2019-05-07] MEDS: NYSTATIN 100,000 UNIT/GM OINT 30 GM TUBE TOPICAL SCH ×2 (08:28→22:03)
[2019-05-07] MEDS ORDERED: CHLORHEXIDINE GLUCONATE 15 ML CUP MUCOUS MEM SCH (09:00)
[2019-05-07] MEDS ORDERED: IPRATROPIUM-ALBUTEROL 3 ML NEB INHALATION PRN (10:58)
--- NOTE | 2019-05-07 10:58 | P.CNPUL ---
<Denia Brooks M - Last Filed: 05/07/19 10:27> History of Present Illness Consult date: 05/07/19 Requesting physician: Juan Jose Davila Reason for consult: other Chief complaint: Altered mentation History of present illness: This is a 43-year-old white female patient with past medical history of psychiatric disorder, possibly depression or a mood disorder, who had a recent increase of her Geodon dose according to the patient's boyfriend related to her depressed mood, and patient was brought into the emergency department on 05/06/2019 at 20/100 in the evening for evaluation of altered mental status. A detailed medical history is not available to us, some limited history available from the boyfriend, history is positive for diabetes mellitus, hypertension, previous MRSA infection in the left axilla patient was hospitalized 2 months according to the boyfriend, previous history of , hysterectomy, current every day smoker. Apparently yesterday he arrived home from work at 7 PM and found to be agitated and disoriented and hallucinating. Patient was having repetitive movements and reacting to things that were not there. No history of alcohol or street drug use other than marijuana, urine drug screen was positive for marijuana only, salicylate level was less than 1, and serum alcohol was less than 10, serum acetone was negative, test was negative. White blood cell count was elevated at 21.9, coagulation profile was within normal limits, serum sodium was 139, potassium is 4.8, chloride was 107, CO2 on initial blood work was only 10, BUN was 14, creatinine was 0.95, serum glucose was 200, plasma lactic acid was 10.1 on the initial labs, urinalysis showed 3+ glucose and 1+ ketones small amount of blood, but negative for any signs of infection. Brain CT showed no acute intracranial abnormality, and bilateral mastoid effusions. In the emergency department patient was given a dose of Ativan for agitation, after which she became quite lethargic, with sonorous respirations requiring placement of a nasal trumpet, subsequently she was intubated and placed on mechanical ventilator for protection of her airway, blood gas was completed, showing pH of 7.26, pCO2 48, and pO2 of 184. This morning she seen in the intensive care unit, she is intubated, on mechanical ventilator, her current vent settings are assist control mode of ventilation with a rate of 20, tidal volume 500, FiO2 of 50% and PEEP of 5, and this morning's blood gas showed a pO2 is 143, pCO2 of 35, pH of 7.43, it was done on FiO2 of 60%. This morning chest x-ray shows bilateral infiltrates and pleural effusions, the possibility of pneumonia or fluid overload. A dose of IV Rocephin was given, patient was fluid resuscitated, this morning his blood work has been reviewed, with the lactic acid down to 0.8. Patient is not requiring any vasopressor support, hemodynamically stable, afebrile. Review of Systems All systems: negative Constitutional: Denies chills, Denies fever Eyes: denies blurred vision, denies pain Ears, nose, mouth and throat: Denies headache, Denies sore throat Cardiovascular: Denies chest pain, Denies shortness of breath Respiratory: Denies cough Gastrointestinal: Denies abdominal pain, Denies diarrhea, Denies nausea, Denies vomiting Genitourinary: Denies dysuria, Denies hematuria Musculoskeletal: Denies myalgias Integumentary: Denies pruritus, Denies rash Neurological: Reports change in mentation, Denies numbness, Denies weakness Psychiatric: Denies anxiety, Denies depression Endocrine: Denies fatigue, Denies weight change Past Medical History Past Medical History: Diabetes Mellitus, Hypertension Additional Past Medical History / Comment(s): Degenerative disc disease History of Any Multi-Drug Resistant Organisms: MRSA Date of last positivie culture/infection: 2013 MDRO Source:: left axillae Past Surgical History: Section, Hysterectomy Additional Past Surgical History / Comment(s): tooth extraction Smoking Status: Current every day smoker - Past Family History Mother Family Medical History: Diabetes Mellitus Father History Unknown: Yes Medications and Allergies Home Medications Medication Instructions Recorded Confirmed Type Baclofen [Lioresal] 20 mg PO QID 05/06/19 05/06/19 History Diclofenac Sodium [Voltaren] 75 mg PO BID PRN 05/06/19 05/06/19 History Esomeprazole Magnesium [NexIUM 20 mg PO DAILY PRN 05/06/19 05/06/19 History 24Hr] Ferrous Sulfate [Feosol] 325 mg PO DAILY 05/06/19 05/06/19 History Folic Acid 1 mg PO DAILY 05/06/19 05/06/19 History Lisinopril-Hctz 20-25 mg 1 tab PO DAILY 05/06/19 05/06/19 History [Zestoretic 20-25] Melatonin 10 mg PO HS PRN 05/06/19 05/06/19 History Omeprazole [PriLOSEC] 40 mg PO DAILY 05/06/19 05/06/19 History Umeclidinium [place] [Incruse 62.5 mcg INHALATION RT-DAILY 05/06/19 05/06/19 History Ellipta] Ziprasidone HCl [Geodon] 40 mg PO HS 05/06/19 05/06/19 History Ziprasidone HCl [Geodon] 80 mg PO HS 05/06/19 05/06/19 History metFORMIN HCL 1,000 mg PO BID 05/06/19 05/06/19 History traZODone HCL 100 mg PO HS 05/06/19 05/06/19 History Allergies Allergy/AdvReac Type Severity Reaction Status Date / Time No Known Allergies Allergy Verified 05/06/19 21:57 Physical Exam Vitals: Vital Signs Temp Pulse Pulse Resp BP BP Pulse Ox 05/07/19 07:00 58 L 20 153/109 99 05/07/19 06:00 61 20 143/92 100 05/07/19 05:11 98.8 F 64 65 20 143/92 152/96 99 05/07/19 03:31 99 05/07/19 03:15 63 20 177/112 100 05/07/19 03:00 64 20 172/108 99 05/07/19 02:45 67 20 178/108 99 05/07/19 02:30 69 20 185/114 99 05/07/19 02:15 73 15 170/114 99 05/07/19 02:00 74 16 182/112 99 05/07/19 01:45 55 L 20 185/113 99 05/07/19 01:30 58 L 20 172/110 99 05/07/19 01:15 60 20 175/108 98 05/07/19 01:12 98.2 F 64 20 175/108 98 05/07/19 01:00 61 20 175/106 99 05/07/19 00:45 61 20 173/108 98 05/07/19 00:30 65 20 174/111 98 05/07/19 00:22 71 19 174/111 98 05/07/19 00:15 77 16 186/97 98 05/07/19 00:00 73 20 172/100 97 05/06/19 23:45 101 H 28 H 165/104 83 L 05/06/19 23:30 69 20 168/104 99 05/06/19 23:15 90 18 05/06/19 23:00 155/89 05/06/19 22:50 99 20 170/94 96 05/06/19 21:14 98.6 F 98 24 184/76 98 Intake and Output 05/06/19 05/07/19 05/07/19 22:59 06:59 14:59 Intake Total 159.813 69.533 Output Total 1605 370 Balance -1445.187 -300.467 Intake: IV 60 20 Sodium Chloride 0.9% 1, 60 20 000 ml @ 20 mls/hr IV . Q24H [facility] Rx#:[id number] Intake, IV Titration 99.813 49.533 Amount Propofol 1,000 mg In 56.473 Empty Bag 1 bag @ Titrate IV .Q0M [facility] Rx#: [id number] Propofol 1,000 mg In 43.34 49.533 Empty Bag 1 bag @ Titrate IV .Q0M [facility] Rx#: [id number] Output: Gastric Drainage 250 270 Urine 1355 100 Other: Voiding Method Indwelling Catheter Weight 136.078 kg GENERAL EXAM: Intubated, sedated, 43-year-old obese white female, on mechanical ventilator, comfortable in no apparent distress. HEAD: Normocephalic/atraumatic. EYES: Normal reaction of pupils, equal size. Conjunctiva pink, sclera white. NOSE: Clear with pink turbinates. THROAT: No erythema or exudates. NECK: No masses, no JVD, no thyroid enlargement, no adenopathy. CHEST: No chest wall deformity. Symmetrical expansion. LUNGS: Equal air entry with no crackles, wheeze, rhonchi or dullness. CVS: Regular rate and rhythm, normal S1 and S2, no gallops, no murmurs, no rubs ABDOMEN: Soft, nontender. No hepatosplenomegaly, normal bowel sounds, no guarding or rigidity. EXTREMITIES: No clubbing, no edema, no cyanosis, 2+ pulses and upper and lower extremities. MUSCULOSKELETAL: Muscle strength and tone normal. SPINE: No scoliosis or deformity SKIN: No rashes CENTRAL NERVOUS SYSTEM: Intubated, sedated. No focal deficits, tone is normal in all 4 extremities. Results - Laboratory Findings CBC and BMP: 05/07/19 05:13 05/07/19 05:13 ABG ABG pH 7.42 (7.35-7.45) 05/07/19 06:00 ABG pCO2 35 mmHg (35-45) 05/07/19 06:00 ABG pO2 143 mmHg (83-108) H 05/07/19 06:00 ABG O2 Saturation 98.9 % (94-97) H 05/07/19 06:00 PT/INR, D-dimer PT 9.4 sec (9.0-12.0) 05/06/19 22:17 INR 0.9 (<1.2) 05/06/19 22:17 Abnormal lab findings: Abnormal Labs 05/06/19 05/06/19 05/06/19 21:41 22:17 22:17 WBC RDW Neutrophils # Lymphocytes # APTT ABG pH ABG pCO2 ABG pO2 ABG O2 Saturation VBG HCO3 Chloride Carbon Dioxide 10 L Glucose 200 H POC Glucose (mg/dL) 149 H Plasma Lactic Acid Bill 10.1 H* Ammonia 95 H Creatine Kinase CK-MB (CK-2) Urine Appearance Urine Protein Urine Glucose (UA) Urine Ketones Urine Blood Urine RBC Amorphous Sediment Hyaline Casts Urine Mucus U Marijuana (THC) Screen 05/06/19 05/06/19 05/06/19 22:17 22:17 22:17 WBC 21.9 H RDW 15.9 H Neutrophils # 14.0 H Lymphocytes # 5.9 H APTT 21.4 L ABG pH ABG pCO2 ABG pO2 ABG O2 Saturation VBG HCO3 Chloride Carbon Dioxide Glucose POC Glucose (mg/dL) Plasma Lactic Acid Bill Ammonia Creatine Kinase CK-MB (CK-2) 4.8 H Urine Appearance Urine Protein Urine Glucose (UA) Urine Ketones Urine Blood Urine RBC Amorphous Sediment Hyaline Casts Urine Mucus U Marijuana (THC) Screen 05/06/19 05/07/19 05/07/19 23:25 00:10 01:24 WBC RDW Neutrophils # Lymphocytes # APTT ABG pH 7.26 L ABG pCO2 48 H ABG pO2 184 H ABG O2 Saturation 98.8 H VBG HCO3 19 L Chloride Carbon Dioxide Glucose POC Glucose (mg/dL) Plasma Lactic Acid Bill Ammonia Creatine Kinase CK-MB (CK-2) Urine Appearance Cloudy H Urine Protein 2+ H Urine Glucose (UA) 3+ H Urine Ketones 1+ H Urine Blood Small H Urine RBC Amorphous Sediment Few H Hyaline Casts 32 H Urine Mucus Rare H U Marijuana (THC) Screen Detected H 05/07/19 05/07/19 05/07/19 05:13 05:13 05:30 WBC 15.7 H RDW 16.0 H Neutrophils # 12.1 H Lymphocytes # APTT ABG pH ABG pCO2 ABG pO2 ABG O2 Saturation VBG HCO3 Chloride 112 H Carbon Dioxide Glucose POC Glucose (mg/dL) Plasma Lactic Acid Bill Ammonia Creatine Kinase 402 H CK-MB (CK-2) Urine Appearance Urine Protein Urine Glucose (UA) Urine Ketones 1+ H Urine Blood Moderate H Urine RBC 53 H Amorphous Sediment Hyaline Casts Urine Mucus Rare H U Marijuana (THC) Screen 05/07/19 06:00 WBC RDW Neutrophils # Lymphocytes # APTT ABG pH ABG pCO2 ABG pO2 143 H ABG O2 Saturation 98.9 H VBG HCO3 Chloride Carbon Dioxide Glucose POC Glucose (mg/dL) Plasma Lactic Acid Bill Ammonia Creatine Kinase CK-MB (CK-2) Urine Appearance Urine Protein Urine Glucose (UA) Urine Ketones Urine Blood Urine RBC Amorphous Sediment Hyaline Casts Urine Mucus U Marijuana (THC) Screen - Diagnostic Findings Chest x-ray: report reviewed, image reviewed Additional studies: Brain CT, EKG reviewed Assessment and Plan Plan: Assessment: #1. Acute hypercapnic and hypoxemic respiratory failure related to hypoventilation, and decrease in level of consciousness, following administration of benzodiazepines #2. Acute agitated delirium, psychosis of unclear etiology, possible reaction of antipsychotics, drug screen is negative with the exception of marijuana #3. History of psychiatric disorder, possible mood disorder, on Geodon #4. Leukocytosis, lactic acidosis, rule out sepsis #5. Anion gap metabolic acidosis related to lactic acidosis #6. Diabetes mellitus type 2 #7. Morbid obesity #8. Possible sleep apnea #9. Hypertension #10. History of MRSA infection in the left axilla in 2013 #11. Current smoker Plan: We'll continue vent support, we will place the patient on Zosyn, blood cultures have been sent, and are pending at this time, patient is afebrile, today's chest x-ray shows bilateral infiltrates and pleural effusion, patient has been fluid resuscitated, did receive a flu and a half liters of 0.9 normal saline and today her lactic acid is within normal limits, hemodynamically stable, she is afebrile. Brain CT did not show any acute intracranial abnormality, we will likely proceed with the sedation holiday day, and assess patient's mentation. Patient's acute respiratory failure seems to have been related to administration of benzodiazepines for acute agitation, delirium and psychosis. We'll likely consult psychiatry after extubation. We'll try to obtain a more detailed medical history from the patient's primary care providers. We'll continue to monitor, will add DVT and GI prophylaxis. I performed a history & physical examination of the patient and discussed their management with my nurse practitioner, Denia Brooks. I reviewed the nurse practitioner's note and agree with the documented findings and plan of care. Lung sounds are positive for a few coarse rhonchi. The findings and the impression was discussed with the patient. I attest to the documentation by the nurse practitioner. Time with Patient: Greater than 30 <Donald Gutierrez - Last Filed: 05/07/19 16:55> Physical Exam Vitals: Vital Signs Temp Pulse Pulse Resp BP BP Pulse Ox 05/07/19 16:36 112 H 05/07/19 16:25 114 H 98 05/07/19 16:00 99.6 F 96 16 159/98 94 L 05/07/19 15:00 104 H 21 139/101 94 L 05/07/19 14:00 71 20 144/91 99 05/07/19 13:00 61 20 123/90 97 05/07/19 12:00 99.6 F 66 20 166/97 96 05/07/19 11:25 80 05/07/19 11:12 101 H 05/07/19 11:00 89 20 121/76 97 05/07/19 10:00 58 L 20 115/88 98 05/07/19 09:00 57 L 20 127/93 98 05/07/19 08:00 99.0 F 64 20 119/101 98 05/07/19 07:00 58 L 20 153/109 99 05/07/19 06:00 61 20 143/92 100 05/07/19 05:11 98.8 F 64 65 20 143/92 152/96 99 05/07/19 03:31 99 05/07/19 03:15 63 20 177/112 100 05/07/19 03:00 64 20 172/108 99 05/07/19 02:45 67 20 178/108 99 05/07/19 02:30 69 20 185/114 99 05/07/19 02:15 73 15 170/114 99 05/07/19 02:00 74 16 182/112 99 05/07/19 01:45 55 L 20 185/113 99 05/07/19 01:30 58 L 20 172/110 99 05/07/19 01:15 60 20 175/108 98 05/07/19 01:12 98.2 F 64 20 175/108 98 05/07/19 01:00 61 20 175/106 99 05/07/19 00:45 61 20 173/108 98 05/07/19 00:30 65 20 174/111 98 05/07/19 00:22 71 19 174/111 98 05/07/19 00:15 77 16 186/97 98 05/07/19 00:00 73 20 172/100 97 05/06/19 23:45 101 H 28 H 165/104 83 L 05/06/19 23:30 69 20 168/104 99 05/06/19 23:15 90 18 05/06/19 23:00 155/89 05/06/19 22:50 99 20 170/94 96 05/06/19 21:14 98.6 F 98 24 184/76 98 Intake and Output 05/07/19 05/07/19 05/07/19 06:59 14:59 22:59 Intake Total 159.813 209.533 90 Output Total 1605 820 135 Balance -1445.187 -610.467 -45 Intake: IV 60 160 90 Piperacillin-Tazobactam 3 50 .375 gm In Sodium Chloride 0.9% 100 ml @ 25 mls/hr IVPB Q8H [facility] Rx#: [id number] Sodium Chloride 0.9% 1, 60 160 40 000 ml @ 20 mls/hr IV . Q24H [facility] Rx#:[id number] Intake, IV Titration 99.813 49.533 Amount Propofol 1,000 mg In 56.473 Empty Bag 1 bag @ Titrate IV .Q0M [facility] Rx#: [id number] Propofol 1,000 mg In 43.34 49.533 Empty Bag 1 bag @ Titrate IV .Q0M [facility] Rx#: [id number] Output: Gastric Drainage 250 270 Urine 1355 550 135 Other: Voiding Method Indwelling Catheter Weight 136.078 kg Results - Laboratory Findings CBC and BMP: 05/07/19 05:13 05/07/19 05:13 ABG ABG pH 7.42 (7.35-7.45) 05/07/19 06:00 ABG pCO2 35 mmHg (35-45) 05/07/19 06:00 ABG pO2 143 mmHg (83-108) H 05/07/19 06:00 ABG O2 Saturation 98.9 % (94-97) H 05/07/19 06:00 PT/INR, D-dimer PT 9.4 sec (9.0-12.0) 05/06/19 22:17 INR 0.9 (<1.2) 05/06/19 22:17 Abnormal lab findings: Abnormal Labs 05/06/19 05/06/19 05/06/19 21:41 22:17 22:17 WBC RDW Neutrophils # Lymphocytes # APTT ABG pH ABG pCO2 ABG pO2 ABG O2 Saturation VBG HCO3 Chloride Carbon Dioxide 10 L Glucose 200 H POC Glucose (mg/dL) 149 H Plasma Lactic Acid Bill 10.1 H* Ammonia 95 H Creatine Kinase CK-MB (CK-2) Urine Appearance Urine Protein Urine Glucose (UA) Urine Ketones Urine Blood Urine RBC Amorphous Sediment Hyaline Casts Urine Mucus U Marijuana (THC) Screen 05/06/19 05/06/19 05/06/19 22:17 22:17 22:17 WBC 21.9 H RDW 15.9 H Neutrophils # 14.0 H Lymphocytes # 5.9 H APTT 21.4 L ABG pH ABG pCO2 ABG pO2 ABG O2 Saturation VBG HCO3 Chloride Carbon Dioxide Glucose POC Glucose (mg/dL) Plasma Lactic Acid Bill Ammonia Creatine Kinase CK-MB (CK-2) 4.8 H Urine Appearance Urine Protein Urine Glucose (UA) Urine Ketones Urine Blood Urine RBC Amorphous Sediment Hyaline Casts Urine Mucus U Marijuana (THC) Screen 05/06/19 05/07/19 05/07/19 23:25 00:10 01:24 WBC RDW Neutrophils # Lymphocytes # APTT ABG pH 7.26 L ABG pCO2 48 H ABG pO2 184 H ABG O2 Saturation 98.8 H VBG HCO3 19 L Chloride Carbon Dioxide Glucose POC Glucose (mg/dL) Plasma Lactic Acid Bill Ammonia Creatine Kinase CK-MB (CK-2) Urine Appearance Cloudy H Urine Protein 2+ H Urine Glucose (UA) 3+ H Urine Ketones 1+ H Urine Blood Small H Urine RBC Amorphous Sediment Few H Hyaline Casts 32 H Urine Mucus Rare H U Marijuana (THC) Screen Detected H 05/07/19 05/07/19 05/07/19 05:13 05:13 05:30 WBC 15.7 H RDW 16.0 H Neutrophils # 12.1 H Lymphocytes # APTT ABG pH ABG pCO2 ABG pO2 ABG O2 Saturation VBG HCO3 Chloride 112 H Carbon Dioxide Glucose POC Glucose (mg/dL) Plasma Lactic Acid Bill Ammonia Creatine Kinase 402 H CK-MB (CK-2) Urine Appearance Urine Protein Urine Glucose (UA) Urine Ketones 1+ H Urine Blood Moderate H Urine RBC 53 H Amorphous Sediment Hyaline Casts Urine Mucus Rare H U Marijuana (THC) Screen 05/07/19 06:00 WBC RDW Neutrophils # Lymphocytes # APTT ABG pH ABG pCO2 ABG pO2 143 H ABG O2 Saturation 98.9 H VBG HCO3 Chloride Carbon Dioxide Glucose POC Glucose (mg/dL) Plasma Lactic Acid Bill Ammonia Creatine Kinase CK-MB (CK-2) Urine Appearance Urine Protein Urine Glucose (UA) Urine Ketones Urine Blood Urine RBC Amorphous Sediment Hyaline Casts Urine Mucus U Marijuana (THC) Screen Assessment and Plan Plan: This is a joint evaluation that was done along with a nurse practitioner. The patient was seen earlier this morning and the patient was in acute hypoxic and hypercapnic respiratory failure probably later to her underlying del irium/psychosis which was further complicate by intake of benzodiazepine that was given to her in the emergency department. Note that the patient is morbidly obese and she has obvious features of obstructive sleep apnea. She is intubated by a #7 orotracheal tube. Adequate ventilation. Adequate o xygenation. Lactic acidosis recovered. Hemodynamically stable. EKG was discussed with the neurologist and there is some burst suppression consistent with metabolic encephalopathy rather than seizure activity. The patient has not been placed on any form of antiepileptic. She was placed on IV Zosyn as an empiric antibiotic coverage. I stopped the sedation later on during the day and on 10 mics of propofol the patient seemed to be alert. She was not following any commands pH was able to move all extremities. I made decision to extubate this patient to a nasal cannula and she is currently on 4 L. She is yelling at times. She is not fully communicating yet. There may be still a component of encephalopathy. Suspect drug-induced encephalopathy. Suspect acute psychosis. Will involve neurology. We'll also involve psychiatry. We'll control her agitation with IV Haldol. Avoid benzodiazepines. The chest with critical. We'll continue to follow and we'll keep the patient ICU for now.
[2019-05-07] MEDS: IPRATROPIUM-ALBUTEROL 3 ML NEB INHALATION SCH ×3 (11:06→19:14)
[2019-05-07 11:22] VITALS: BMI 58.6
[2019-05-07 11:54] LABS: Glucose,Whole Blood 96 mg/dL (75-99)
--- NOTE | 2019-05-07 12:13 | P.HPIM ---
History of Present Illness This is a pleasant 43 years old female who presents with altered mental status of one-day duration. She has past medical history of diabetes mellitus, hypertension, hysterectomy psychiatric disorder and she was on Geodon, which was increased recently by per family/boyfriend. Patient is nonverbal currently at all formation taken from the staff and medical records. Patient says that yesterday morning she was at herself however and he came back around evening patient was more confused so he brought her to the emergency room. She got 1 dose of benzodiazepine of the emergency room. Patient eventually she got more confused and obtunded, she has to be intubated to protect her airways. Was in control has been contacted emergency room and the recommended to continue with supportive care. Currently vitals are stable. Labs showing mild leukocytosis, down from 21.9k down to 15.7k, however she has history of leukocytosis on 11/05/2018@19.9k.However there is no fever. Creatinine within normal limits. Urinalysis of low suspicious source for infection. Urine drug screen is positive for marijuana only. Sputum cultures pending. Blood cultures ordered. neurologist recommended EEG. Chest x-ray showed bilateral infiltrates and pleural effusion. EKG showing normal sinus rhythm at 70 bpm with no significant ST-T changes CT of the head: No acute intracranial process. Patient got 1 dose of ceftriaxone in the emergency room, she was started on Zosyn. Review of Systems None applicable Past Medical History Past Medical History: Diabetes Mellitus, Hypertension Additional Past Medical History / Comment(s): Degenerative disc disease History of Any Multi-Drug Resistant Organisms: MRSA Date of last positivie culture/infection: 2013 MDRO Source:: left axillae Past Surgical History: Section, Hysterectomy Additional Past Surgical History / Comment(s): tooth extraction Smoking Status: Current every day smoker - Past Family History Mother Family Medical History: Diabetes Mellitus Father History Unknown: Yes Medications and Allergies Home Medications Medication Instructions Recorded Confirmed Type Baclofen [Lioresal] 20 mg PO QID 05/06/19 05/06/19 History Diclofenac Sodium [Voltaren] 75 mg PO BID PRN 05/06/19 05/06/19 History Esomeprazole Magnesium [NexIUM 20 mg PO DAILY PRN 05/06/19 05/06/19 History 24Hr] Ferrous Sulfate [Feosol] 325 mg PO DAILY 05/06/19 05/06/19 History Folic Acid 1 mg PO DAILY 05/06/19 05/06/19 History Lisinopril-Hctz 20-25 mg 1 tab PO DAILY 05/06/19 05/06/19 History [Zestoretic 20-25] Melatonin 10 mg PO HS PRN 05/06/19 05/06/19 History Omeprazole [PriLOSEC] 40 mg PO DAILY 05/06/19 05/06/19 History Umeclidinium [place] [Incruse 62.5 mcg INHALATION RT-DAILY 05/06/19 05/06/19 History Ellipta] Ziprasidone HCl [Geodon] 40 mg PO HS 05/06/19 05/06/19 History Ziprasidone HCl [Geodon] 80 mg PO HS 05/06/19 05/06/19 History metFORMIN HCL 1,000 mg PO BID 05/06/19 05/06/19 History traZODone HCL 100 mg PO HS 05/06/19 05/06/19 History Allergies Allergy/AdvReac Type Severity Reaction Status Date / Time No Known Allergies Allergy Verified 05/06/19 21:57 Physical Exam Vitals: Vital Signs Temp Pulse Pulse Resp BP BP Pulse Ox 05/07/19 11:25 80 05/07/19 11:12 101 H 05/07/19 11:00 89 20 121/76 97 05/07/19 10:00 58 L 20 115/88 98 05/07/19 09:00 57 L 20 127/93 98 05/07/19 08:00 99.0 F 64 20 119/101 98 05/07/19 07:00 58 L 20 153/109 99 05/07/19 06:00 61 20 143/92 100 05/07/19 05:11 98.8 F 64 65 20 143/92 152/96 99 05/07/19 03:31 99 05/07/19 03:15 63 20 177/112 100 05/07/19 03:00 64 20 172/108 99 05/07/19 02:45 67 20 178/108 99 05/07/19 02:30 69 20 185/114 99 05/07/19 02:15 73 15 170/114 99 05/07/19 02:00 74 16 182/112 99 05/07/19 01:45 55 L 20 185/113 99 05/07/19 01:30 58 L 20 172/110 99 05/07/19 01:15 60 20 175/108 98 05/07/19 01:12 98.2 F 64 20 175/108 98 05/07/19 01:00 61 20 175/106 99 05/07/19 00:45 61 20 173/108 98 05/07/19 00:30 65 20 174/111 98 05/07/19 00:22 71 19 174/111 98 05/07/19 00:15 77 16 186/97 98 05/07/19 00:00 73 20 172/100 97 05/06/19 23:45 101 H 28 H 165/104 83 L 05/06/19 23:30 69 20 168/104 99 05/06/19 23:15 90 18 05/06/19 23:00 155/89 05/06/19 22:50 99 20 170/94 96 05/06/19 21:14 98.6 F 98 24 184/76 98 Intake and Output 05/06/19 05/07/19 05/07/19 22:59 06:59 14:59 Intake Total 159.813 69.533 Output Total 1605 370 Balance -1445.187 -300.467 Intake: IV 60 20 Sodium Chloride 0.9% 1, 60 20 000 ml @ 20 mls/hr IV . Q24H [facility] Rx#:[id number] Intake, IV Titration 99.813 49.533 Amount Propofol 1,000 mg In 56.473 Empty Bag 1 bag @ Titrate IV .Q0M [facility] Rx#: [id number] Propofol 1,000 mg In 43.34 49.533 Empty Bag 1 bag @ Titrate IV .Q0M [facility] Rx#: [id number] Output: Gastric Drainage 250 270 Urine 1355 100 Other: Voiding Method Indwelling Catheter Weight 136.078 kg 136.078 kg -GENERAL: The patient is intubated and sedated. Obese HEENT: Pupils are round and equally reacting to light. EOMI. No scleral icterus. No conjunctival pallor. Normocephalic, atraumatic. No pharyngeal erythema. No thyromegaly. CARDIOVASCULAR: S1 and S2 present. No murmurs, rubs, or gallops. PULMONARY: Chest is clear to auscultation, no wheezing or crackles. ABDOMEN: Soft, nontender, nondistended, normoactive bowel sounds. No palpable organomegaly. MUSCULOSKELETAL: No joint swelling or deformity. EXTREMITIES: No cyanosis, clubbing, or pedal edema. NEUROLOGICAL: Gross neurological examination did not reveal any focal deficits. SKIN: No rashes. Results CBC & Chem 7: 05/07/19 05:13 05/07/19 05:13 Labs: Abnormal Lab Results - Last 24 Hours (Table) 05/06/19 05/06/19 05/06/19 Range/Units 21:41 22:17 22:17 WBC (3.8-10.6) k/uL RDW (11.5-15.5) % Neutrophils # (1.3-7.7) k/uL Lymphocytes # (1.0-4.8) k/uL APTT (22.0-30.0) sec ABG pH (7.35-7.45) ABG pCO2 (35-45) mmHg ABG pO2 (83-108) mmHg ABG O2 Saturation (94-97) % VBG HCO3 (24-28) mmol/L Chloride (98-107) mmol/L Carbon Dioxide 10 L (22-30) mmol/L Glucose 200 H (74-99) mg/dL POC Glucose (mg/dL) 149 H (75-99) mg/dL Plasma Lactic Acid Bill 10.1 H* (0.7-2.0) mmol/L Ammonia 95 H (<30) umol/L Creatine Kinase (30-135) U/L CK-MB (CK-2) (0.0-2.4) ng/mL Urine Appearance (Clear) Urine Protein (Negative) Urine Glucose (UA) (Negative) Urine Ketones (Negative) Urine Blood (Negative) Urine RBC (0-5) /hpf Amorphous Sediment (None) /hpf Hyaline Casts (0-2) /lpf Urine Mucus (None) /hpf U Marijuana (THC) Screen (NotDetected) 05/06/19 05/06/19 05/06/19 Range/Units 22:17 22:17 22:17 WBC 21.9 H (3.8-10.6) k/uL RDW 15.9 H (11.5-15.5) % Neutrophils # 14.0 H (1.3-7.7) k/uL Lymphocytes # 5.9 H (1.0-4.8) k/uL APTT 21.4 L (22.0-30.0) sec ABG pH (7.35-7.45) ABG pCO2 (35-45) mmHg ABG pO2 (83-108) mmHg ABG O2 Saturation (94-97) % VBG HCO3 (24-28) mmol/L Chloride (98-107) mmol/L Carbon Dioxide (22-30) mmol/L Glucose (74-99) mg/dL POC Glucose (mg/dL) (75-99) mg/dL Plasma Lactic Acid Bill (0.7-2.0) mmol/L Ammonia (<30) umol/L Creatine Kinase (30-135) U/L CK-MB (CK-2) 4.8 H (0.0-2.4) ng/mL Urine Appearance (Clear) Urine Protein (Negative) Urine Glucose (UA) (Negative) Urine Ketones (Negative) Urine Blood (Negative) Urine RBC (0-5) /hpf Amorphous Sediment (None) /hpf Hyaline Casts (0-2) /lpf Urine Mucus (None) /hpf U Marijuana (THC) Screen (NotDetected) 05/06/19 05/07/19 05/07/19 Range/Units 23:25 00:10 01:24 WBC (3.8-10.6) k/uL RDW (11.5-15.5) % Neutrophils # (1.3-7.7) k/uL Lymphocytes # (1.0-4.8) k/uL APTT (22.0-30.0) sec ABG pH 7.26 L (7.35-7.45) ABG pCO2 48 H (35-45) mmHg ABG pO2 184 H (83-108) mmHg ABG O2 Saturation 98.8 H (94-97) % VBG HCO3 19 L (24-28) mmol/L Chloride (98-107) mmol/L Carbon Dioxide (22-30) mmol/L Glucose (74-99) mg/dL POC Glucose (mg/dL) (75-99) mg/dL Plasma Lactic Acid Bill (0.7-2.0) mmol/L Ammonia (<30) umol/L Creatine Kinase (30-135) U/L CK-MB (CK-2) (0.0-2.4) ng/mL Urine Appearance Cloudy H (Clear) Urine Protein 2+ H (Negative) Urine Glucose (UA) 3+ H (Negative) Urine Ketones 1+ H (Negative) Urine Blood Small H (Negative) Urine RBC (0-5) /hpf Amorphous Sediment Few H (None) /hpf Hyaline Casts 32 H (0-2) /lpf Urine Mucus Rare H (None) /hpf U Marijuana (THC) Screen Detected H (NotDetected) 05/07/19 05/07/19 05/07/19 Range/Units 05:13 05:13 05:30 WBC 15.7 H (3.8-10.6) k/uL RDW 16.0 H (11.5-15.5) % Neutrophils # 12.1 H (1.3-7.7) k/uL Lymphocytes # (1.0-4.8) k/uL APTT (22.0-30.0) sec ABG pH (7.35-7.45) ABG pCO2 (35-45) mmHg ABG pO2 (83-108) mmHg ABG O2 Saturation (94-97) % VBG HCO3 (24-28) mmol/L Chloride 112 H (98-107) mmol/L Carbon Dioxide (22-30) mmol/L Glucose (74-99) mg/dL POC Glucose (mg/dL) (75-99) mg/dL Plasma Lactic Acid Bill (0.7-2.0) mmol/L Ammonia (<30) umol/L Creatine Kinase 402 H (30-135) U/L CK-MB (CK-2) (0.0-2.4) ng/mL Urine Appearance (Clear) Urine Protein (Negative) Urine Glucose (UA) (Negative) Urine Ketones 1+ H (Negative) Urine Blood Moderate H (Negative) Urine RBC 53 H (0-5) /hpf Amorphous Sediment (None) /hpf Hyaline Casts (0-2) /lpf Urine Mucus Rare H (None) /hpf U Marijuana (THC) Screen (NotDetected) 05/07/19 Range/Units 06:00 WBC (3.8-10.6) k/uL RDW (11.5-15.5) % Neutrophils # (1.3-7.7) k/uL Lymphocytes # (1.0-4.8) k/uL APTT (22.0-30.0) sec ABG pH (7.35-7.45) ABG pCO2 (35-45) mmHg ABG pO2 143 H (83-108) mmHg ABG O2 Saturation 98.9 H (94-97) % VBG HCO3 (24-28) mmol/L Chloride (98-107) mmol/L Carbon Dioxide (22-30) mmol/L Glucose (74-99) mg/dL POC Glucose (mg/dL) (75-99) mg/dL Plasma Lactic Acid Bill (0.7-2.0) mmol/L Ammonia (<30) umol/L Creatine Kinase (30-135) U/L CK-MB (CK-2) (0.0-2.4) ng/mL Urine Appearance (Clear) Urine Protein (Negative) Urine Glucose (UA) (Negative) Urine Ketones (Negative) Urine Blood (Negative) Urine RBC (0-5) /hpf Amorphous Sediment (None) /hpf Hyaline Casts (0-2) /lpf Urine Mucus (None) /hpf U Marijuana (THC) Screen (NotDetected) Microbiology - Last 24 Hours (Table) 05/07/19 04:00 Sputum Culture - Preliminary Sputum Thrombosis Risk Factor Assmnt - Choose All That Apply Each Factor Represents 1 point: Age 41-60 years, Medical pt on bed rest, Obesity (BMI >25) Thrombosis Risk Factor Assessment Total Risk Factor Score: 3 Thrombosis Risk Factor Assessment Level: Moderate Risk Assessment and Plan Assessment: Altered mental status, could be multifactorial related to GERD and toxicity,vs sepsis Bilateral pulmonary infiltrates, suspicious for pneumonia Systemic inflammatory response with tachycardia at 101 at times and leukocytosis Sepsis secondary to above Acute hypoxic respiratory failure and patient status post intubation and to protect her airways. Chronic psychiatric illness, possible bipolar Diabetes mellitus Hypertension History of hysterectomy Plan: This is a pleasant 43 years old female who presents with altered mental status, status post intubation. Possible pneumonia and Geodon toxicity patient is admitted to the ICU. Follow-up pulmonary/critical care team recommendation. Continue with antibiotics. Follow-up culture results. Follow-up neurology recommendation and EEG results. Labs and medication were reviewed.. Continue same treatment. Continue with symptomatic treatment. Resume home medication. Monitor lytes and vitals. DVT and GI prophylaxis. Further recommendations of the clinical course of the patient DVT prophylaxis: Subcutaneous heparin GI Prophylaxis: Pepcid PT/OT: Pending Prognosis is guarded
--- NOTE | 2019-05-07 12:57 | CDI ---
Documentation Clarification Form Date: 05/07/2019 12:42:31 PM From: Annie Funk RN, CCDS Admit Date: 05/07/2019 2:08:00 AM Patient Name: Dora Holguin Visit Number: [id number] ATTENTION: The Clinical Documentation Specialists (CDI) and [facility] Coding Staff appreciate your assistance in clarifying documentation. Please respond to the clarification below the line at the bottom and electronically sign. The CDI & [facility] Coding staff will review the response and follow-up if needed. Please note: Queries are made part of the Legal Health Record. If you have any questions, please contact the author of this message via ITS. Dr. Juan Jose Davila Altered Mental Status was documented in the H&P and Consult and requires further clarification History/Risk Factors: DM, HTN Clinical Indicators: 05/07 H&P: "Altered mental status of one day duration, could be multifactorial related to GERD and toxicity vs sepsis Plan: This is a pleasant 43 years old female who presents with altered mental status, status post intubation. Labs: WBC 21.9/15.7, Plasma Lactic Acid 10.1, + Marijuana 05/07 CXR: "Bilateral infiltrate and pleural effusion are stable. Correlate for pneumonia versus CHF." CT Brain: 1.No acute intracranial abnormality. Bilateral mastoid effusions. Treatment: IV Antibiotics Morphine 4 mg IVP PRN 3.5L IVF Bolus In your professional opinion, please clarify the etiology of the Altered Mental Status, if known. Encephalopathy (specify Type- Metabolic, Anoxic, Septic and Underlying Medical Illness) Delirium (specify cause): Dementia (if know, specify Type and if with/without Behavioral Disturbance) Encephalopathy (specify Type and Underlying Medical Illness) Other condition (please specify) Unable to determine (Last Revision: December 2017) mostly metabolic encephalopathy with possibility of drug toxicity MTDD
[2019-05-07] MEDS ORDERED: HALOPERIDOL LACTATE 5 MG/ML 1 ML VIAL IM PRN (15:11)
[2019-05-07] MEDS: hydrALAZINE HCL 20 MG/ML 1 ML VIAL IVP PRN ×2 (15:25→19:21)
[2019-05-07] MEDS: PIPERACILLIN-TAZOBACTAM 3.375 GM in SODIUM CHLORIDE 0.9% 100 ML IVPB SCH ×2 (15:28→20:05)
[2019-05-07] MEDS ORDERED: HALOPERIDOL LACTATE 5 MG/ML 1 ML VIAL IM STA (16:34)
--- NOTE | 2019-05-07 17:04 | EEG ---
ELECTROENCEPHALOGRAM REPORT PROCEDURE DATE: 05/07/2019. ELECTROENCEPHALOGRAM (EEG) REPORT: TECHNIQUE: A routine 18-channel EEG was performed with video using the 10/20 international electrode placement system. HISTORY: Suspected overdose. The patient was found at home, agitated and hallucinating. In the emergency room patient was given Ativan, intubated. Patient is currently on propofol 40 mcg. CURRENT MEDICATIONS: 1. Nystatin. 2. Morphine. 3. Apresoline. 4. Famotidine. 5. Peridex. STUDY DURATION: 25 minutes. FINDINGS: BACKGROUND: A sustained posterior-dominant rhythm was not seen. Occasionally, frequencies of the posterior quadrants consisted of poorly modulated 2-3 Hz waveforms. ACTIVATION: Hyperventilation: Not performed. Photic stimulation: Mild symmetric driving seen. Sleep: Distinctive sleep stages not seen. ABNORMALITIES: 1. This EEG demonstrated a burst/suppression pattern. The duration of suppression average was 2 seconds. The bursts consisted of moderate to high-voltage triphasic waves accompanied by delta range slowing. 2. Diffuse synchronous and asynchronous 2-3 Hz slow-wave activity was seen. IMPRESSION: Abnormal EEG. This EEG demonstrates a burst/suppression pattern. The bursts consisted of delta range slowing as well as triphasic waves. Triphasic waves are not epileptiform in nature and can be seen in the setting of a metabolic encephalopathy. The diffuse low-frequency delta range slowing mentioned above is also not epileptiform in nature. In combination, these findings indicate severe diffuse cerebral dysfunction as may be seen in a toxometabolic encephalopathy. These findings may also be in part due to medication effect. These findings were called to the nurse taking care of the patient on 05/07/2019 at 4:37 p.m. MMESTEFANYL / JANICEN: [id number] /
[2019-05-07] MEDS: HALOPERIDOL LACTATE 5 MG/ML 1 ML VIAL IVP PRN ×2 (17:59→22:01)
[2019-05-07 18:09] LABS: Glucose,Whole Blood 141 mg/dL (75-99)
[2019-05-07 18:29] LABS: Appearance,Urine Cloudy (Clear); Bilirubin,Urine Negative (Negative); Blood,Urine Moderate (Negative); Color,Urine Yellow; Glucose,Urine (UA) Negative (Negative); Ketones,Urine 1+ (Negative); Leukocyte Esterase,Urine Negative (Negative); Mucus,Urine Rare /hpf; Nitrite,Urine Negative (Negative); Protein,Urine 1+ (Negative); RBC,Urine 91 /hpf (0-5); Specific Gravity,Urine 1.027 (1.001-1.035); Urobilinogen,Urine <2.0 mg/dL (<2.0)
[2019-05-07] MEDS ORDERED: ACETAMINOPHEN IV (For NPO) 1,000 MG in EMPTY BAG 1 BAG IVPB PRN (20:01)
[2019-05-07] MEDS: HEPARIN SODIUM,PORCINE 5,000 UNIT/ML 1 ML VIAL SQ SCH (20:32)
--- NOTE | 2019-05-07 22:56 | P.CNNES ---
History of Present Illness Consult date: 05/07/19 Reason for Consult: Altered mental status Chief complaint: Altered mental status History of Present Illness: REFERRING PHYSICIAN: Dr. Richard Jorge HISTORY OF PRESENT ILLNESS: Thank you for allowing me to evaluate Ms. Dora Holguin. Mrs. Holguin is a 43-year-old woman with past medical history of diabetes, hypertension and depression, presenting to [facility] for altered mental status and agitation. Unable to obtain information from patient. Per ED report, patient got out of bed to facilitate computed tomography scan, but patient was not adequately tucking her airway and having sonorous respirations, and for this reason, patient was intubated for airway protection. Per RN, patient has a boyfriend, with whom the RN spoke. Boyfriend did not endorse any symptoms of depression, but upon speaking to patient's sister, there was report that patient had had suicidal ideation about 5 years ago. Patient came with all her medication bottles, but some bottles had medications, so it is difficult to assess whether patient had overdosed on any of her medications. PAST MEDICAL HISTORY: Diabetes, hypertension PAST SURGICAL HISTORY: , hysterectomy HOME MEDICATIONS: Melatonin, Incruse Ellipta, lisinopril-hydrochlorothiazide 20-25mg, omeprazole 40 mg daily, folic acid 1 mg daily, ferrous sulfate 325mg daily, diclofenac 75mg PRN, metformin 1000 mg twice a day, trazodone 100 mg daily at bedtime, Geodon 40 mg& 80 mg daily at bedtime, baclofen QID, Nexium PRN ALLERGIES: No known ALLERGIES SOCIAL HISTORY: Current everyday smoker. FAMILY HISTORY: Unknown at this time. REVIEW OF SYSTEMS: The 14 systems are reviewed and no additional points are identified compared to the review of systems documented history and physical PHYSICAL EXAMINATION: VITAL SIGNS: 98.8 pulse rate 65 respiratory rate 20 blood pressure 150/96 O2 saturation 99% on 60% FiO2 via mechanical ventilator GEN.: obese, in distress, keeps saying "baby, i just can't" HEENT: NCAT, sclera without icterus SKIN AND EXTREMITIES: Warm to touch, no edema NEURO: MENTAL STATUS: Patient opens eyes to verbal demand intermittently but otherwise not following any commands. CRANIAL NERVES II THROUGH XII: No obvious facial asymmetry. Patient too agitated to assess pupil size. Patient with difficulty opening her R eye. Per RN, boyfriend reported that patient has had the eye swelling for months but cannot be confirmed. MOTOR/SENSORY: Moving all 4 extremities spontaneously against restraint REFLEXES: 1+ throughout COORDINATION/GAIT: deferred due to patient's agitation DIAGNOSTIC TESTING: LABORATORY: WBC 15.7 hemoglobin 13.3 platelets 322 sodium 144 potassium 4.1 chloride 112 bicarb 24 BUN 122 Cr 0.68 glucose 75 calcium 8.6 ammonia <9 CK 402 urinalysis nitrite/esterase negative. 1+ ketones and moderate blood hCG non-detected IMAGING: CT head without contrast 05/07/2019: No acute intracranial abnormality. Bilateral mastoid effusions. EEG 05/07/2019: Abnormal EEG. Demonstrates burst/suppression pattern. Bursts consisted of delta range slowing as well as triphasic waves. Triphasic waves are not epileptiform in nature and can be seen in the setting of a metabolic encephalopathy. Severe diffuse cerebral dysfunction most likely indicative of toxometabolic encephalopathy ASSESSMENT/RECOMMENDATIONS: Mrs. Holguin is a 43-year-old woman with past medical history of diabetes, hypertension and depression, presenting to [facility] for altered mental status and agitation. There is a possibility that patient overdosed on her home medications. EEG showing toxometabolic encephalopathy. Recommend psychiatry consult. Neurology will sign off at this time. Please call with any further questions or concerns. Past Medical History Past Medical History: Diabetes Mellitus, Hypertension History of Any Multi-Drug Resistant Organisms: MRSA Date of last positivie culture/infection: 2013 MDRO Source:: left axillae Past Surgical History: Section, Hysterectomy Additional Past Surgical History / Comment(s): tooth extraction Smoking Status: Current every day smoker - Past Family History Mother Family Medical History: Diabetes Mellitus Father History Unknown: Yes Medications and Allergies Home Medications Medication Instructions Recorded Confirmed Type Baclofen [Lioresal] 20 mg PO QID 05/06/19 05/06/19 History Diclofenac Sodium [Voltaren] 75 mg PO BID PRN 05/06/19 05/06/19 History Esomeprazole Magnesium [NexIUM 20 mg PO DAILY PRN 05/06/19 05/06/19 History 24Hr] Ferrous Sulfate [Feosol] 325 mg PO DAILY 05/06/19 05/06/19 History Folic Acid 1 mg PO DAILY 05/06/19 05/06/19 History Lisinopril-Hctz 20-25 mg 1 tab PO DAILY 05/06/19 05/06/19 History [Zestoretic 20-25] Melatonin 10 mg PO HS PRN 05/06/19 05/06/19 History Omeprazole [PriLOSEC] 40 mg PO DAILY 05/06/19 05/06/19 History Umeclidinium [place] [Incruse 62.5 mcg INHALATION RT-DAILY 05/06/19 05/06/19 History Ellipta] Ziprasidone HCl [Geodon] 40 mg PO HS 05/06/19 05/06/19 History Ziprasidone HCl [Geodon] 80 mg PO HS 05/06/19 05/06/19 History metFORMIN HCL 1,000 mg PO BID 05/06/19 05/06/19 History traZODone HCL 100 mg PO HS 05/06/19 05/06/19 History Allergies Allergy/AdvReac Type Severity Reaction Status Date / Time No Known Allergies Allergy Verified 05/06/19 21:57 Physical Examination - Vital Signs Vital Signs: Vital Signs Temp Pulse Pulse Resp BP BP Pulse Ox 05/07/19 07:00 58 L 20 153/109 99 05/07/19 06:00 61 20 143/92 100 05/07/19 05:11 98.8 F 64 65 20 143/92 152/96 99 05/07/19 03:31 99 05/07/19 03:15 63 20 177/112 100 05/07/19 03:00 64 20 172/108 99 05/07/19 02:45 67 20 178/108 99 05/07/19 02:30 69 20 185/114 99 05/07/19 02:15 73 15 170/114 99 05/07/19 02:00 74 16 182/112 99 05/07/19 01:45 55 L 20 185/113 99 05/07/19 01:30 58 L 20 172/110 99 05/07/19 01:15 60 20 175/108 98 05/07/19 01:12 98.2 F 64 20 175/108 98 05/07/19 01:00 61 20 175/106 99 05/07/19 00:45 61 20 173/108 98 05/07/19 00:30 65 20 174/111 98 05/07/19 00:22 71 19 174/111 98 05/07/19 00:15 77 16 186/97 98 05/07/19 00:00 73 20 172/100 97 05/06/19 23:45 101 H 28 H 165/104 83 L 05/06/19 23:30 69 20 168/104 99 05/06/19 23:15 90 18 05/06/19 23:00 155/89 05/06/19 22:50 99 20 170/94 96 05/06/19 21:14 98.6 F 98 24 184/76 98 Intake and Output 05/06/19 05/07/19 05/07/19 22:59 06:59 14:59 Intake Total 159.813 69.533 Output Total 1605 370 Balance -1445.187 -300.467 Intake: IV 60 20 Sodium Chloride 0.9% 1, 60 20 000 ml @ 20 mls/hr IV . Q24H [facility] Rx#:[id number] Intake, IV Titration 99.813 49.533 Amount Propofol 1,000 mg In 56.473 Empty Bag 1 bag @ Titrate IV .Q0M [facility] Rx#: [id number] Propofol 1,000 mg In 43.34 49.533 Empty Bag 1 bag @ Titrate IV .Q0M [facility] Rx#: [id number] Output: Gastric Drainage 250 270 Urine 1355 100 Other: Voiding Method Indwelling Catheter Weight 136.078 kg Results - Laboratory Findings CBC and BMP: 05/07/19 05:13 05/07/19 05:13 Abnormal Lab Findings: Abnormal Labs 05/06/19 05/06/19 05/06/19 21:41 22:17 22:17 WBC RDW Neutrophils # Lymphocytes # APTT ABG pH ABG pCO2 ABG pO2 ABG O2 Saturation VBG HCO3 Chloride Carbon Dioxide 10 L Glucose 200 H POC Glucose (mg/dL) 149 H Plasma Lactic Acid Bill 10.1 H* Ammonia 95 H Creatine Kinase CK-MB (CK-2) Urine Appearance Urine Protein Urine Glucose (UA) Urine Ketones Urine Blood Urine RBC Amorphous Sediment Hyaline Casts Urine Mucus U Marijuana (THC) Screen 05/06/19 05/06/19 05/06/19 22:17 22:17 22:17 WBC 21.9 H RDW 15.9 H Neutrophils # 14.0 H Lymphocytes # 5.9 H APTT 21.4 L ABG pH ABG pCO2 ABG pO2 ABG O2 Saturation VBG HCO3 Chloride Carbon Dioxide Glucose POC Glucose (mg/dL) Plasma Lactic Acid Bill Ammonia Creatine Kinase CK-MB (CK-2) 4.8 H Urine Appearance Urine Protein Urine Glucose (UA) Urine Ketones Urine Blood Urine RBC Amorphous Sediment Hyaline Casts Urine Mucus U Marijuana (THC) Screen 05/06/19 05/07/19 05/07/19 23:25 00:10 01:24 WBC RDW Neutrophils # Lymphocytes # APTT ABG pH 7.26 L ABG pCO2 48 H ABG pO2 184 H ABG O2 Saturation 98.8 H VBG HCO3 19 L Chloride Carbon Dioxide Glucose POC Glucose (mg/dL) Plasma Lactic Acid Bill Ammonia Creatine Kinase CK-MB (CK-2) Urine Appearance Cloudy H Urine Protein 2+ H Urine Glucose (UA) 3+ H Urine Ketones 1+ H Urine Blood Small H Urine RBC Amorphous Sediment Few H Hyaline Casts 32 H Urine Mucus Rare H U Marijuana (THC) Screen Detected H 05/07/19 05/07/19 05/07/19 05:13 05:13 05:30 WBC 15.7 H RDW 16.0 H Neutrophils # 12.1 H Lymphocytes # APTT ABG pH ABG pCO2 ABG pO2 ABG O2 Saturation VBG HCO3 Chloride 112 H Carbon Dioxide Glucose POC Glucose (mg/dL) Plasma Lactic Acid Bill Ammonia Creatine Kinase 402 H CK-MB (CK-2) Urine Appearance Urine Protein Urine Glucose (UA) Urine Ketones 1+ H Urine Blood Moderate H Urine RBC 53 H Amorphous Sediment Hyaline Casts Urine Mucus Rare H U Marijuana (THC) Screen 05/07/19 06:00 WBC RDW Neutrophils # Lymphocytes # APTT ABG pH ABG pCO2 ABG pO2 143 H ABG O2 Saturation 98.9 H VBG HCO3 Chloride Carbon Dioxide Glucose POC Glucose (mg/dL) Plasma Lactic Acid Bill Ammonia Creatine Kinase CK-MB (CK-2) Urine Appearance Urine Protein Urine Glucose (UA) Urine Ketones Urine Blood Urine RBC Amorphous Sediment Hyaline Casts Urine Mucus U Marijuana (THC) Screen
[2019-05-07] MEDS ORDERED: HYDROmorphone 1 MG/ML 1 ML SYRINGE IVP STA (23:36)
[2019-05-08 00:10] LABS: Glucose,Whole Blood 114 mg/dL (75-99)
[2019-05-08] MEDS: HYDROmorphone 0.5 MG/0.5 ML SYRINGE IVP PRN ×5 (03:02→17:21)
[2019-05-08] MEDS: PIPERACILLIN-TAZOBACTAM 3.375 GM in SODIUM CHLORIDE 0.9% 100 ML IVPB SCH (03:05)
[2019-05-08] MEDS: hydrALAZINE HCL 20 MG/ML 1 ML VIAL IVP PRN (03:11)
[2019-05-08 05:40] LABS: Anisocytosis Slight; Basophils # (A) 0.1 k/uL (0-0.2); Basophils % (A) 1 %; Eosinophils # (A) 0.1 k/uL (0-0.7); Eosinophils % (A) 1 %; HCT 38.9 % (34.0-46.0); HGB 12.8 gm/dL (11.4-16.0); Lymphocytes # (A) 3.3 k/uL (1.0-4.8); Lymphocytes % (A) 19 %; MCH 30.7 pg (25.0-35.0); Mean Platelet Volume 7.6; Monocytes # (A) 1.1 k/uL (0-1.0); Monocytes % (A) 6 %; Neutrophils # (A) 12.8 k/uL (1.3-7.7); Neutrophils % (A) 72 %; Platelet Count 341 k/uL (150-450); RBC 4.19 m/uL (3.80-5.40); RDW 17.3 % (11.5-15.5); WBC 17.7 k/uL (3.8-10.6)
[2019-05-08 06:10] LABS: Glucose,Whole Blood 102 mg/dL (75-99)
[2019-05-08 06:54] LABS: African American GFR (CKD) >90 (>60 ml/min/1.73 sqM); Anion Gap 12 mmol/L; Blood Urea Nitrogen 12 mg/dL (7-17); Calcium 8.5 mg/dL (8.4-10.2); Carbon Dioxide 18 mmol/L (22-30); Chloride 109 mmol/L (98-107); Glucose 93 mg/dL (74-99); Sodium 139 mmol/L (137-145)
[2019-05-08] MEDS: IPRATROPIUM-ALBUTEROL 3 ML NEB INHALATION SCH ×3 (07:00→15:54)
[2019-05-08 07:04] LABS: Potassium 3.8 mmol/L (3.5-5.1)
[2019-05-08] MEDS ORDERED: Potassium Replacement Protocol 1 EACH MISC MISCELLANE PRN (07:05)
[2019-05-08] MEDS ORDERED: POTASSIUM CHLORIDE ER 20 MEQ TAB.ER PO SCH (08:00)
--- NOTE | 2019-05-08 08:20 | XR ---
EXAMINATION TYPE: XR chest 1V portable DATE OF EXAM: 05/08/2019 COMPARISON: 05/07/2019 HISTORY: Tube placement TECHNIQUE: Single frontal view of the chest is obtained. FINDINGS: There is no focal air space opacity, pleural effusion, or pneumothorax seen. The cardiac silhouette size is within normal limits. The osseous structures are intact. ET and NG tube have bee n removed. No overt failure. IMPRESSION: 1. Bilateral infiltrate and pleural effusion is demonstrated near complete resolution..
[2019-05-08] MEDS ORDERED: LISINOPRIL-HCTZ 20-25 MG 1 EACH TAB PO SCH (09:00)
[2019-05-08] MEDS ORDERED: FERROUS SULFATE 325 MG TAB PO SCH (09:00)
[2019-05-08] MEDS ORDERED: FOLIC ACID 1 MG TAB PO SCH (09:00)
[2019-05-08] MEDS: NYSTATIN 100,000 UNIT/GM OINT 30 GM TUBE TOPICAL SCH (09:30)
[2019-05-08] MEDS: FAMOTIDINE 20 MG/2 ML VIAL IV SCH (09:39)
[2019-05-08] MEDS: metFORMIN 500 MG TAB PO SCH ×2 (09:39→17:38)
[2019-05-08] MEDS: HEPARIN SODIUM,PORCINE 5,000 UNIT/ML 1 ML VIAL SQ SCH (09:40)
[2019-05-08 12:07] LABS: Glucose,Whole Blood 106 mg/dL (75-99)
--- NOTE | 2019-05-08 12:47 | P.PN ---
Objective - Vital Signs Vital signs: Vital Signs Temp 98.1 F 05/08/19 08:00 Pulse 74 05/08/19 11:00 Resp 20 05/08/19 11:00 BP 156/77 05/08/19 11:00 Pulse Ox 94 L 05/08/19 11:00 Intake & Output 05/07/19 05/08/19 05/08/19 18:59 06:59 18:59 Intake Total 831.605 1738 400 Output Total 1080 1350 2150 Balance -644.977 7697 -1750 Weight 136.078 kg Intake: IV 295 290 100 Piperacillin-Tazobactam 3 75 50 .375 gm In Sodium Chloride 0.9% 100 ml @ 25 mls/hr IVPB Q8H [facility] Rx#: [id number] Sodium Chloride 0.9% 1, 220 240 100 000 ml @ 20 mls/hr IV . Q24H [facility] Rx#:[id number] Intake, IV Titration 49.533 Amount Propofol 1,000 mg In 49.533 Empty Bag 1 bag @ Titrate IV .Q0M [facility] Rx#: [id number] Oral 2400 300 Output: Gastric Drainage 270 Urine 810 1350 2150 Other: Voiding Method Indwelling Catheter Indwelling Catheter Indwelling Catheter - Exam This is a pleasant 43 years old female who presents with altered mental status of one-day duration. She has past medical history of diabetes mellitus, hypertension, hysterectomy psychiatric disorder and she was on Geodon, which was increased recently by per family/boyfriend. Patient is nonverbal currently at all formation taken from the staff and medical records. Patient says that yesterday morning she was at herself however and he came back around evening patient was more confused so he brought her to the emergency room. She got 1 dose of benzodiazepine of the emergency room. Patient eventually she got more confused and obtunded, she has to be intubated to protect her airways. Was in control has been contacted emergency room and the recommended to continue with supportive care. Currently vitals are stable. Labs showing mild leukocytosis, down from 21.9k down to 15.7k, however she has history of leukocytosis on 11/05/2018@19.9k.However there is no fever. Creatinine within normal limits. Urinalysis of low suspicious source for infection. Urine drug screen is positive for marijuana only. Sputum cultures pending. Blood cultures ordered. neurologist recommended EEG. Chest x-ray showed bilateral infiltrates and pleural effusion. EKG showing normal sinus rhythm at 70 bpm with no significant ST-T changes CT of the head: No acute intracranial process. Patient got 1 dose of ceftriaxone in the emergency room, she was started on Zosyn. 05/08/2019 Patient remains in the ICU, she is status post extubation. She was psychotic last night with education, however she is more calm this morning. She knows and she is oriented to time, place and person. She can give appropriate history and information about her health. She states she has history of psychiatric illnesses including bipolar disorder, posttraumatic stress disorder, anxiety, however she denies history of schizophrenia despite her history of psychosis. She says she hasn't seen a psychiatrist before and she is been managed by her primary care doctor who saw her about 2 weeks ago who increased her Geodon dose but she does not know why she increased her medicine she denies other symptoms. No chest pain. No dyspnea. She has cough with some phlegm, she is not sure about the color Active Medications Generic Name Dose Route Start Last Admin Trade Name Freq PRN Reason Stop Dose Admin Albuterol/Ipratropium 3 ml 05/07/19 10:58 Duoneb 0.5 Mg-3 Mg/3 Ml Soln INHALATION RT-Q2H PRN Shortness Of Breath Or Wheezing Albuterol/Ipratropium 3 ml 05/08/19 08:00 05/08/19 11:08 Duoneb 0.5 Mg-3 Mg/3 Ml Soln INHALATION Not Given RT-QID [facility] Famotidine 20 mg 05/07/19 09:00 05/08/19 09:39 Pepcid IV 20 mg Q12HR [facility] Administration Ferrous Sulfate 325 mg 05/08/19 09:00 05/08/19 09:39 Feosol PO 325 mg DAILY [facility] Administration Folic Acid 1 mg 05/08/19 09:00 05/08/19 09:39 Folic Acid PO 1 mg DAILY [facility] Administration Lisinopril/HCTZ 1 each 05/08/19 09:00 05/08/19 09:39 Zestoretic 20-25 PO 1 each DAILY [facility] Administration Haloperidol Lactate 3 mg 05/07/19 15:26 05/07/19 22:01 Haldol IVP 3 mg Q3H PRN Administration Agitation or Acute Psychosis Heparin Sodium (Porcine) 5,000 unit 05/07/19 21:00 05/08/19 09:40 Heparin SQ 5,000 unit Q12HR [facility] Administration Hydralazine HCl 10 mg 05/07/19 04:17 05/08/19 03:11 Apresoline IVP 10 mg Q6HR PRN Administration Blood Pressure - High Hydromorphone HCl 0.5 mg 05/08/19 02:52 05/08/19 09:33 Dilaudid IVP 0.5 mg Q3HR PRN Administration Pain Sodium Chloride 1,000 mls @ 20 mls/hr 05/07/19 02:15 05/07/19 03:18 Saline 0.9% IV 20 mls/hr .Q24H [facility] Administration Metformin HCl 1,000 mg 05/08/19 09:00 05/08/19 09:39 Glucophage PO 1,000 mg BID-W/MEALS [facility] Administration Miscellaneous Information 1 each 05/08/19 07:05 Potassium Per Protocol MISCELLANE DAILY PRN Per Protocol Protocol Morphine Sulfate 4 mg 05/07/19 01:08 05/07/19 03:52 Morphine Sulfate (Inj) IVP 4 mg ONCE PRN Administration Pain Naloxone HCl 0.2 mg 05/07/19 02:08 Narcan IV Q2M PRN Opioid Reversal Nystatin 1 applic 05/07/19 09:00 05/07/19 22:03 Mycostatin Oint TOPICAL 1 applic BID [facility] Administration . No abdominal pain or nausea vomiting. No change in bowel habits. She is able to move in the hallway with no problems. She has low-grade fever of 100.2 yesterday night, she has leukocytosis of 17.7 K,repeat chest x-ray showed bilateral infiltrates and pleural effusion. EMG showed Metabolic Encephalopathy Picture. Neurology Following the Case. Patient wanted to be discharged today, I explained to the patient and she is medically ready for discharge. She wanted to leave AMA pain. However she wants to wait till psychiatry see her first. There is a sitter at bedside. Risks including but not limited to risk of worsening agitation, worsening confusion and mental status, worsening psychiatric illness, infection, loss of organ dysfunction and/or are explained for the patient she verbalized understanding however she still wants to leave AMA after psychiatrist evaluate her. Patient give no specific reason why she wanted to leave AGAINST MEDICAL ADVICE. Discussed with the staff to update psychiatrist consult for a testing capacity to make medical decision Review of systems CONSTITUTIONAL: No fever, no malaise, no fatigue. HEENT: No recent visual problems or hearing problems. Denied any sore throat. CARDIOVASCULAR: No orthopnea, PND, no palpitations, no syncope. PULMONARY: No shortness of breath, no cough, no hemoptysis. GASTROINTESTINAL: No diarrhea, no nausea, no vomiting, no abdominal pain. Normoactive bowel sounds. NEUROLOGICAL: No headaches, no weakness, no numbness. HEMATOLOGICAL: Denies any bleeding or petechiae. GENITOURINARY: Denies any burning micturition, frequency, or urgency. MUSCULOSKELETAL/RHEUMATOLOGICAL: Denies any joint pain, swelling, or any muscle pain. ENDOCRINE: Denies any polyuria or polydipsia. - Labs CBC & Chem 7: 05/08/19 05:13 05/08/19 05:13 Labs: Abnormal Lab Results - Last 24 Hours (Table) 05/07/19 05/07/19 05/08/19 Range/Units 17:55 17:56 00:07 WBC (3.8-10.6) k/uL RDW (11.5-15.5) % Neutrophils # (1.3-7.7) k/uL Monocytes # (0-1.0) k/uL Chloride (98-107) mmol/L Carbon Dioxide (22-30) mmol/L POC Glucose (mg/dL) 141 H 114 H (75-99) mg/dL Urine Appearance Cloudy H (Clear) Urine Protein 1+ H (Negative) Urine Ketones 1+ H (Negative) Urine Blood Moderate H (Negative) Urine RBC 91 H (0-5) /hpf Urine Mucus Rare H (None) /hpf 05/08/19 05/08/19 05/08/19 Range/Units 05:13 05:13 05:54 WBC 17.7 H (3.8-10.6) k/uL RDW 17.3 H (11.5-15.5) % Neutrophils # 12.8 H (1.3-7.7) k/uL Monocytes # 1.1 H (0-1.0) k/uL Chloride 109 H (98-107) mmol/L Carbon Dioxide 18 L (22-30) mmol/L POC Glucose (mg/dL) 102 H (75-99) mg/dL Urine Appearance (Clear) Urine Protein (Negative) Urine Ketones (Negative) Urine Blood (Negative) Urine RBC (0-5) /hpf Urine Mucus (None) /hpf 05/08/19 Range/Units 12:04 WBC (3.8-10.6) k/uL RDW (11.5-15.5) % Neutrophils # (1.3-7.7) k/uL Monocytes # (0-1.0) k/uL Chloride (98-107) mmol/L Carbon Dioxide (22-30) mmol/L POC Glucose (mg/dL) 106 H (75-99) mg/dL Urine Appearance (Clear) Urine Protein (Negative) Urine Ketones (Negative) Urine Blood (Negative) Urine RBC (0-5) /hpf Urine Mucus (None) /hpf Microbiology - Last 24 Hours (Table) 05/07/19 05:13 Blood Culture - Preliminary Blood No Growth after 24 hours 05/07/19 04:00 Gram Stain - Preliminary Sputum Sputum Culture - Preliminary Assessment and Plan Assessment: Altered mental status, could be multifactorial related to GERD and toxicity,vs s epsis. Or multifactorial. Improving Psychiatric illness with bipolar, anxiety, PTSD. Call psychiatrist consult and to assess capacity Bilateral pulmonary infiltrates, suspicious for pneumonia Systemic inflammatory response with tachycardia at 101 at times and leukocytosis Sepsis secondary to above Acute hypoxic respiratory failure and patient status post intubation and to protect her airways. Chronic psychiatric illness, possible bipolar Diabetes mellitus Hypertension History of hysterectomy Plan: This is a pleasant 43 years old female who presents with altered mental status, status post intubation/extubation. Possible pneumonia and patient is admitted to the ICU. Follow-up pulmonary/critical care team recommendation. Subjecting was stopped, Start Augmentin. Follow-up culture results. Follow-up neurology recommendation and EEG as above. Follow-up with psychiatry evaluation to assess her psychiatric illness and her capacity to make medical decisions as patient says that she wants to leave AMA.Labs and medication were reviewed.. Continue same treatment. Continue with symptomatic treatment. Resume home medication. Monitor lytes and vitals. DVT and GI prophylaxis. Further recommendations of the clinical course of the patient DVT prophylaxis: Subcutaneous heparin GI Prophylaxis: Pepcid PT/OT: Pending Prognosis is guarded
[2019-05-08] MEDS ORDERED: AMOXIC-POT CLAV 875-125MG 1 EACH TAB PO SCH (13:00)
[2019-05-08] MEDS ORDERED: PANTOPRAZOLE 40 MG TABLET PO SCH (13:28)
--- NOTE | 2019-05-08 14:08 | P.PN ---
Subjective Progress Note Date: 05/08/19 This is a 43-year-old white female patient with past medical history of psychia tric disorder, possibly depression or a mood disorder, who had a recent increase of her Geodon dose according to the patient's boyfriend related to her depressed mood, and patient was brought into the emergency department on 05/06/2019 at 20/100 in the evening for evaluation of altered mental status. A detailed medical history is not available to us, some limited history available from the boyfriend, history is positive for diabetes mellitus, hypertension, previous MRSA infection in the left axilla patient was hospitalized 2 months according to the boyfriend, previous history of , hysterectomy, current every day smoker. Apparently yesterday he arrived home from work at 7 PM and found to be agitated and disoriented and hallucinating. Patient was having repetitive movements and reacting to things that were not there. No history of alcohol or street drug use other than marijuana, urine drug screen was positive for marijuana only, salicylate level was less than 1, and serum alcohol was less than 10, serum acetone was negative, test was negative. White blood cell count was elevated at 21.9, coagulation profile was within normal limits, serum sodium was 139, potassium is 4.8, chloride was 107, CO2 on initial blood work was only 10, BUN was 14, creatinine was 0.95, serum glucose was 200, plasma lactic acid was 10.1 on the initial labs, urinalysis showed 3+ glucose and 1+ ketones small amount of blood, but negative for any signs of infection. Brain CT showed no acute intracranial abnormality, and bilateral mastoid effusions. In the emergency department patient was given a dose of Ativan for agitation, after which she became quite lethargic, with sonorous respirations requiring placement of a nasal trumpet, subsequently she was intubated and [facility] for protection of her airway, blood gas was completed, showing pH of 7.26, pCO2 48, and pO2 of 184. This morning she seen in the intensive care unit, she is intubated, on mechanical ventilator, her current vent settings are assist control mode of ventilation with a rate of 20, tidal volume 500, FiO2 of 50% and PEEP of 5, and this morning's blood gas showed a pO2 is 143, pCO2 of 35, pH of 7.43, it was done on FiO2 of 60%. This morning chest x-ray shows bilateral infiltrates and pleural effusions, the possibility of pneumonia or fluid overload. A dose of IV Rocephin was given, patient was fluid resuscitated, this morning his blood work has been reviewed, with the lactic acid down to 0.8. Patient is not requiring any vasopressor support, hemodynamically stable, afebrile. On 05/08/2019 I'm seeing this patient for a follow-up. As stated earlier, the patient was weaned off the mechanical ventilator and the patient was extubated yesterday. Following extubation she has significant agitation and psychosis. She is seated total of 14 mg of IV Haldol which controlled her agitation and earlier this morning the patient was evaluated and she seemed to be calm and com fortable and alert and oriented 3. Nevertheless she was very labile in terms of any motions. She will cry easily. She wanted to go home and I think there may be still ongoing issues with bipolar/depression and it's very reasonable for this patient to undergo a psychiatric evaluation prior to her even leaving the intensive care unit. As such, I'm night going to release her from the ICU to the patient undergoes a psychiatric evaluation and I will petition her if needed. The patient has no headache. No seizure activity. She is moving all 4 extremities without any limitation. He did have a low-grade fever yesterday with a temperature 100.2 and current temperature is down to 8.6. Her vitals are all stable and the patient is pulse oxing 96% on room air. No nausea. No vomiting. No abdominal pain. No cough or sputum production. The chest x-ray from today shows possibility of bilateral pulmonate infiltrates and pleural effusion which seemed to be near completely resolved compared to previous chest x-rays. Otherwise, no other significant events overnight. The patient has been complaining of chronic pain. Apparently she was taking Percocet on outpatient basis. The patient will be given morphine on a when necessary basis for pain control to be alternating with Dilaudid on an as-needed basis. She was taken off the IV Zosyn and the patient was placed on oral Augmentin for the next 3 days. No other significant events otherwise. Awaiting psychiatric evaluation. Objective - Vital Signs Vital signs: Vital Signs Temp 98.6 F 05/08/19 12:00 Pulse 92 05/08/19 13:00 Resp 12 05/08/19 13:00 BP 164/90 05/08/19 13:00 Pulse Ox 96 05/08/19 13:00 Intake & Output 05/07/19 05/08/19 05/08/19 18:59 06:59 18:59 Intake Total 719.249 4980 1440 Output Total 1080 1350 2151 Balance -447.545 7585 -711 Weight 136.078 kg Intake: IV 295 290 140 Piperacillin-Tazobactam 3 75 50 .375 gm In Sodium Chloride 0.9% 100 ml @ 25 mls/hr IVPB Q8H MARCELO Rx#: [id number] Sodium Chloride 0.9% 1, 220 240 140 000 ml @ 20 mls/hr IV . Q24H MARCELO Rx#:[id number] Intake, IV Titration 49.533 Amount Propofol 1,000 mg In 49.533 Empty Bag 1 bag @ Titrate IV .Q0M MARCELO Rx#: [id number] Oral 2400 1300 Output: Gastric Drainage 270 Urine 810 1350 2150 Stool 1 Other: Voiding Method Indwelling Catheter Indwelling Catheter Indwelling Catheter # Voids 3 - Exam Calm comfortable nonacute distress obese female patient with a BMI 58.6, emotionally very labile, occasionally she would cry and then she will stop crying within a few seconds. Head exam was generally normal. There was no scleral icterus or corneal arcus. Mucous membranes were moist. Neck was supple and without jugular venous distension, thyromegaly, or carotid bruits. Carotids were easily palpable bilaterally. There was no adenopathy. The patient has significant crowding of the posterior oropharynx and the patient is a Mallampati class IV Lungs sounds are diminished bilaterally and the patient has few scattered rhonchi otherwise within normal limits. Cardiac exam revealed the PMI to be normally situated and sized. The rhythm was regular and no extrasystoles were noted during several minutes of auscultation. The first and second heart sounds were normal and physiologic splitting of the second heart sound was noted. There were no murmurs, rubs, clicks, or gallops. Abdominal exam revealed normal bowel sounds. The abdomen was soft, non-tender, and without masses, organomegaly, or appreciable enlargement of the abdominal aorta. Patient is morbidly obese and the patient has no direct tenderness or rebound tenderness or guarding. Examination of the extremities revealed easily palpable radial, femoral and pedal pulses. There was no cyanosis, clubbing or edema. Examination of the skin revealed no evidence of significant rashes, suspicious appearing nevi or other concerning lesions. Neurologically the patient is awake and alert 3 and there is no focal neurological deficits. Psychiatric given her she is still pending and the patient is recovering from an acute psychosis/delirium - Labs CBC & Chem 7: 05/08/19 05:13 05/08/19 05:13 Labs: Abnormal Lab Results - Last 24 Hours (Table) 05/07/19 05/07/19 05/08/19 Range/Units 17:55 17:56 00:07 WBC (3.8-10.6) k/uL RDW (11.5-15.5) % Neutrophils # (1.3-7.7) k/uL Monocytes # (0-1.0) k/uL Chloride (98-107) mmol/L Carbon Dioxide (22-30) mmol/L POC Glucose (mg/dL) 141 H 114 H (75-99) mg/dL Urine Appearance Cloudy H (Clear) Urine Protein 1+ H (Negative) Urine Ketones 1+ H (Negative) Urine Blood Moderate H (Negative) Urine RBC 91 H (0-5) /hpf Urine Mucus Rare H (None) /hpf 05/08/19 05/08/19 05/08/19 Range/Units 05:13 05:13 05:54 WBC 17.7 H (3.8-10.6) k/uL RDW 17.3 H (11.5-15.5) % Neutrophils # 12.8 H (1.3-7.7) k/uL Monocytes # 1.1 H (0-1.0) k/uL Chloride 109 H (98-107) mmol/L Carbon Dioxide 18 L (22-30) mmol/L POC Glucose (mg/dL) 102 H (75-99) mg/dL Urine Appearance (Clear) Urine Protein (Negative) Urine Ketones (Negative) Urine Blood (Negative) Urine RBC (0-5) /hpf Urine Mucus (None) /hpf 05/08/19 Range/Units 12:04 WBC (3.8-10.6) k/uL RDW (11.5-15.5) % Neutrophils # (1.3-7.7) k/uL Monocytes # (0-1.0) k/uL Chloride (98-107) mmol/L Carbon Dioxide (22-30) mmol/L POC Glucose (mg/dL) 106 H (75-99) mg/dL Urine Appearance (Clear) Urine Protein (Negative) Urine Ketones (Negative) Urine Blood (Negative) Urine RBC (0-5) /hpf Urine Mucus (None) /hpf Microbiology - Last 24 Hours (Table) 05/07/19 04:00 Gram Stain - Preliminary Sputum Sputum Culture - Preliminary 05/07/19 05:13 Blood Culture - Preliminary Blood No Growth after 24 hours Assessment and Plan Plan: #1. Acute hypercapnic and hypoxemic respiratory failure related to hypoventilation, and decrease in level of consciousness, following administration of benzodiazepines. The patient was weaned off the mechanical ventilated and the patient was extubated yesterday and currently she is on room air oxygen. #2. Acute agitated delirium, psychosis of unclear etiology, possible reaction of antipsychotics, drug screen is negative with the exception of marijuana. On today's evaluation the patient is awake and alert 3. I think there is ongoing issues with her psychiatric health as the patient may have still an issue with depression/bipolar disorder/anxiety. She has also chronic insomnia. Awaiting a psychiatric evaluation. #3. History of psychiatric disorder, possible mood disorder such as bipolar disorder #4. Leukocytosis, lactic acidosis, rule out sepsis, recovered and the patient lactic acid level is normalized. The white cell count elevated at 17.7. The patient is currently on oral Augmentin. #5. Anion gap metabolic acidosis related to lactic acidosis, recovered #6. Diabetes mellitus type 2 #7. Morbid obesity #8. Possible sleep apnea, no official evaluation has been done #9. Hypertension #10. History of MRSA infection in the left axilla in 2013 #11. Current smoker PLAN Advance diet. Continue monitoring her mental status and keep the sitter at the bedside at all times. Awaiting a psychiatric evaluation. Haldol as needed. Dilaudid for pain control. We'll hold on the Geodon and the trazodone for now. Hold on the baclofen for now. Restart the lisinopril hydrochlorothiazide for blood pressure control. Completed a course of Augmentin. We'll continue to follow.
--- NOTE | 2019-05-08 16:01 | P.CN ---
Psychiatric Consult - . Consult date: 05/08/19 Consult:: 05/08/19 15:42 IDENTIFYING DATA: This patient is a 43-year-old female with a history of bipolar disorder who lives in a house with her boyfriend and 2 kids and currently collects Social Security disability. HISTORY OF PRESENT ILLNESS: The patient was brought into the hospital for concerns of altered mental status and need for evaluation. Patient was found by her partner to be agitated and disoriented in the house and grew concerned. There is thought the patient may have been hallucinating at home. Patient was evaluated in the ER and needs to be intubated, had leukocytosis urine analysis was negative and UDS was negative except for cannabis. Chest x-ray was positive for bilateral infiltrates which could've an ammonia. EKG showed QTc interval at 429. Patient is to be assessed today I psychiatry for bipolar disorder and assessment of capacity. Ultrasound Specialist spoke with patient at the bedside who appeared to be calm and directable. Patient states that she did not feel well at home and became confused which she states escalated and she became agitated. Patient has poor recall of events and is a poor historian. Patient is concrete in her explanation. Patient also admitted that she was coughing and felt off. At this time patient denies any problems with her mood denies any depression at this time. Patient denies any anxiety. At this time patient does not endorse any manic symptoms and speech is non-pressured. At this time patient denies any suicidal or homical ideations, intent or plan. Patient denies any auditory, visual hallucinations and denies any paranoia or delusions. PAST PSYCHIATRIC HISTORY: patient claims have a diagnosis of bipolar disorder and PTSD. Patient claims that she is on Geodon 120 mg at night for mood stabilization. She also claims that she is on trazodone 100 mg daily at bedtime for mood and insomnia. Patient denies being seen by psychiatrist outpatient and claims that her primary care provider is the one prescribing her medications. She denies any previous suicide attempts. She denies any previous admissions to psychiatric facilities. PAST MEDICAL HISTORY: Diabetes mellitus hypertension COPD GERD ALLERGIES: No known drug allergies CHEMICAL DEPENDENCY HISTORY: UDS is positive for marijuana however patient denies any substance use. FAMILY PSYCHIATRIC/SUBSTANCE USE HISTORY: claims her mother has bipolar disorder SOCIAL HISTORY: she states that she grew up in [place] [facility] and moved to [place]. Patient claims that she only related to eighth grade and currently collects Social Security disability. She lives with her boyfriend and 2 kids in a home. MENTAL STATUS EXAM: General Appearance: Patient appears to be overweight, alert however is directable and cooperative. Patient appears to have fair hygiene and fair grooming. Behavior: [Patient is sitting on the side of the bed without any agitated behavior. Speech: Patient's speech is fluent and nonpressured. Mood/Affect: Patient reports their mood is fine, affect is congruent Suicidality/Homicidality: Patient denies having any suicidal or homicidal ideation intent or plan. Perceptions: Patient denies any auditory or visual hallucinations. Though content/process: There is no evidence of any delusional thought content and thought process is linear and goal-directed. Patient is concrete. Memory and concentration: AOX3, grossly intact for the purposes of this session. Can spell "WORLD" backwards Judgment and insight: fair IMPRESSIONS: History of Bipolar disorder unspecified Cannabis abuse PLAN: At this time patient patient does NOT meet criteria for inpatient psychiatric admission. Patient DOES have decision making capacity at this time to sign AMA if she desires. Patient is able to appreciate and communicate the risks, benefits and alternatives to treatment. Delirium precautions recommended with patient including - avoiding use of narcotics and MINT MACHINE OPERATOR sedatives, limit anticholinergic medications when possible, frequent re-orientation, minimize use of restraints, open window shades during the day and close them at night -Would recommend the following medication changes/additions: restarted patient on home dose of Geodon at 120 mg daily at bedtime for mood stabilization. Can continue on trazodone 100 mg daily at bedtime for mood and insomnia. -Continue 1:1 sitter for safety. May discontinue sitter in 24 hours if patient does not have any behavioral concerns. -Cannot leave AMA at this time. Patient will need a petition and certification if attempting to leave AMA. Psychiatry will sign off at this point Thank you for the consult 05/08/19 15:51 05/08/19 15:59
[2019-05-08 17:24] LABS: Glucose,Whole Blood 106 mg/dL (75-99)
[2019-05-08 18:00] VITALS: BP 132/68; PULSE 86; RESP 21; TEMP 98.7
[2019-05-08] MEDS ORDERED: ZIPRASIDONE 60 MG CAP PO SCH ×2 (21:00)
--- NOTE | 2019-05-12 07:58 | CDI ---
Documentation Clarification Form Date: 05/12/2019 From: Rosalinda Gong Phone: If questions call Tika Carver @ [phone], Hours-8:30 am & 5 pm M- Jaja Admit Date: 05/07/2019 2:08:00 AM Patient Name: Dora Holguin Visit Number: [id number] Discharge Date: 05/08/2019 6:27:00 PM ATTENTION: The Clinical Documentation Specialists (CDI) and [facility] Coding Staff appreciate your assistance in clarifying documentation. Please respond to the clarification below the line at the bottom and electronically sign. The CDI & [facility] Coding staff will review the response and follow-up if needed. Please note: Queries are made part of the Legal Health Record. If you have any questions, please contact the author of this message via ITS. Dr. Ingram Sheet The diagnosis sepsis was documented in the ED Note, HP & PNs , but is not consistently noted in subsequent documentation. History/Risk Factors: DM, HTN, Bipolar Clinical Indicators: encephalopathy, acute respiratory failure, lactic acid 10.1, WBC 21.9, Neutrophils 14.0 Treatment: IV fluids, IV Rocephin, IV Zosyn Please clarify if the sepsis was: Present/active/Treated this admission Sepsis Ruled out Other, please specify Clinically unable to determine pt unlikely has sepsis MTDD
--- NOTE | 2019-05-13 09:36 | P.DS ---
Providers Date of admission: 05/07/19 02:08 Attending physician: Juan Jose Davila MD Consults: 05/07/19 02:08 Consult Physician Stat Consulting Provider: Donald Gutierrez Consult Reason/Comments: Altered mental status. Suspect overdose. Leukocytosis. Lactic acidosis. Do you want consulting provider notified?: Already Contacted Consult Physician Urgent Consulting Provider: Yoselin Ramirez Consult Reason/Comments: Altered mental status. Do you want consulting provider notified?: Yes 05/07/19 16:36 Consult Physician Routine Consulting Provider: Champ Collins Consult Reason/Comments: bipolar disorder, assess capacity to make medical decision Do you want consulting provider notified?: Yes, Notify in am Primary care physician: Stated None Hospital Course: PT WAS NOT DISCHARGED BUT SIGNED LEAVING AMA Dx Altered mental status, could be multifactorial related to Godon toxicity,vs sepsis. Or multifactorial. Improved and pt is back to her mental baseline on the day she singed AMA Bipolar disorder unspecified Cannabis abuse Bilateral pulmonary infiltrates, suspicious for pneumonia Systemic inflammatory response with tachycardia at 101 at times and leukocytosis Sepsis secondary to above Acute hypoxic respiratory failure and patient status post intubation and to protect her airways. Chronic psychiatric illness, possible bipolar Diabetes mellitus Hypertension History of hysterectomy hospital course This is a pleasant 43 years old female who presents with altered mental status of one-day duration. She has past medical history of diabetes mellitus, hypertension, hysterectomy psychiatric disorder and she was on Geodon, which was increased recently by per family/boyfriend. on admission pt recieved benzodiazepine in the ed and she eventually needed intubation to protect her airway and her mental status changes. in the ICU pt was extubated next day and she is back to her baseline mental status . pt showed interest in leaving ama abhilash castanon finishing her hospital stay . psychiatrist evaluated pt and found her to have capacity to make medical decision and he informed the bed side RN with this , however there was conflicting documentation in his note that he corrected later by his addendum and he confirmed that pt does has capacity to make medical decision. therefor medical team could not hold her against her will . i have already explained risks , benefits and alternerative for leaving AMA including but not limited to risk of and she verbalized understanding but refused to stay. later on she left AMA Before i have a chance to talk to he again. d/w bed side RN Patient Condition at Discharge: Serious Plan - Discharge Summary Discharge Rx Participant: Yes New Discharge Prescriptions: No Action Umeclidinium [place] [Incruse Ellipta] 62.5 mcg INHALATION RT-DAILY Melatonin 10 mg PO HS PRN PRN Reason: Insomnia Lisinopril-Hctz 20-25 mg [Zestoretic 20-25] 1 tab PO DAILY Omeprazole [PriLOSEC] 40 mg PO DAILY Folic Acid 1 mg PO DAILY Ferrous Sulfate [Feosol] 325 mg PO DAILY Diclofenac Sodium [Voltaren] 75 mg PO BID PRN PRN Reason: Pain traZODone HCL 100 mg PO HS metFORMIN HCL 1,000 mg PO BID Ziprasidone HCl [Geodon] 40 mg PO HS Ziprasidone HCl [Geodon] 80 mg PO HS Baclofen [Lioresal] 20 mg PO QID Esomeprazole Magnesium [NexIUM 24Hr] 20 mg PO DAILY PRN PRN Reason: Gi Upset Discharge Medication List Baclofen [Lioresal] 20 mg PO QID 05/06/19 [History] Diclofenac Sodium [Voltaren] 75 mg PO BID PRN 05/06/19 [History] Esomeprazole Magnesium [NexIUM 24Hr] 20 mg PO DAILY PRN 05/06/19 [History] Ferrous Sulfate [Feosol] 325 mg PO DAILY 05/06/19 [History] Folic Acid 1 mg PO DAILY 05/06/19 [History] Lisinopril-Hctz 20-25 mg [Zestoretic 20-25] 1 tab PO DAILY 05/06/19 [History] Melatonin 10 mg PO HS PRN 05/06/19 [History] Omeprazole [PriLOSEC] 40 mg PO DAILY 05/06/19 [History] Umeclidinium [place]is [Incruse Ellipta] 62.5 mcg INHALATION RT-DAILY 05/06/19 [History] Ziprasidone HCl [Geodon] 40 mg PO HS 05/06/19 [History] Ziprasidone HCl [Geodon] 80 mg PO HS 05/06/19 [History] metFORMIN HCL 1,000 mg PO BID 05/06/19 [History] traZODone HCL 100 mg PO HS 05/06/19 [History] Follow up Appointment(s)/Referral(s): Nonstaff,Physician [REFERRING] - 1-2 days Discharge Disposition: Left Against Medical Advice
== END 2019-05-08 18:27 | disposition left against medical advice (07) | DRG 91 ==
LOC: EC 21:09 → 2SICU 05-07 02:08
PROVIDERS: ADMIT Internal Medicine; ATTEND Internal Medicine
PROC: 0BH17EZ Insertion of Endotracheal Airway into Trachea, Via Natural or Artificial Opening (ICD-10-PCS; principal; 2019-05-06)
PROC: 5A1935Z Respiratory Ventilation, Less than 24 Consecutive Hours (ICD-10-PCS; 2019-05-06)
DX: G92 Toxic encephalopathy (principal); J96.02 Acute respiratory failure with hypercapnia; J96.01 Acute respiratory failure with hypoxia; J18.9 Pneumonia, unspecified organism; E87.2 Acidosis; Z68.43 Body mass index [BMI] 50.0-59.9, adult; J90 Pleural effusion, not elsewhere classified; E66.01 Morbid (severe) obesity due to excess calories; G47.33 Obstructive sleep apnea (adult) (pediatric); G89.29 Other chronic pain; F31.9 Bipolar disorder, unspecified; T43.505A Adverse effect of unspecified antipsychotics and neuroleptics, initial encounter; I10 Essential (primary) hypertension; F43.10 Post-traumatic stress disorder, unspecified; E11.9 Type 2 diabetes mellitus without complications; F12.10 Cannabis abuse, uncomplicated; F17.210 Nicotine dependence, cigarettes, uncomplicated; Z79.84 Long term (current) use of oral hypoglycemic drugs; Z79.899 Other long term (current) drug therapy; Z91.5 Personal history of self-harm; Z71.3 Dietary counseling and surveillance; Z86.14 Personal history of Methicillin resistant Staphylococcus aureus infection; Z98.891 History of uterine scar from previous surgery; Z90.710 Acquired absence of both cervix and uterus; Z98.890 Other specified postprocedural states; Y92.009 Unspecified place in unspecified non-institutional (private) residence as the place of occurrence of the external cause; Z83.3 Family history of diabetes mellitus
CPT/HCPCS: 31500; 36415; 36600; 70450; 71045; 80048; 80053; 80306; 80320; 80329; 81001; 81025; 82009; 82140; 82550; 82553; 82803; 82805; 83520; 83605; 83880; 84145; 84484; 84703; 85025; 85610; 85730; 87040; 87070; 87205; 93005; 94002; 94003; 94640; 95816; 96361; 96365; 96375; 96376; 99291

== ENCOUNTER 2019-05-31 00:24 | Observation (INO) | payer MEDICARE, OTHER ==
[2019-05-31 00:35] LABS: Glucose,Whole Blood 133 mg/dL (75-99)
[2019-05-31] MEDS ORDERED: SODIUM CHLORIDE 0.9% 1,000 ML IV ONE (00:40)
--- NOTE | 2019-05-31 00:44 | ED ---
Lower Extremity Injury HPI - General Chief Complaint: Extremity Injury, Lower Stated Complaint: syncope Time Seen by Provider: 05/31/19 00:25 Source: patient, family, EMS Mode of arrival: EMS Limitations: altered mental status - History of Present Illness Initial Comments: This patient is a 43-year-old woman who presents to be evaluated after she had a fall at home. The patient states that she had been in bed and then had gotten up to use the bathroom. She states that she then fell backwards landing on her buttocks and also injuring her right lower leg. She indicates pain in the low back and just above the ankle. The patient was given some medication by EMS. On arrival here, the patient also is having some difficulty remaining awake during the history and physical exam. History is therefore somewhat limited. MD Complaint: leg injury -: minutes(s) Injury: Leg: Right Place: home Severity: severe Improves With: nothing Worsens With: movement Context: fall - Related Data Home Medications Medication Instructions Recorded Confirmed Baclofen [Lioresal] 20 mg PO QID 05/06/19 05/31/19 Diclofenac Sodium [Voltaren] 75 mg PO BID PRN 05/06/19 05/31/19 Esomeprazole Magnesium [NexIUM 20 mg PO DAILY PRN 05/06/19 05/31/19 24Hr] Ferrous Sulfate [Feosol] 325 mg PO DAILY 05/06/19 05/31/19 Folic Acid 1 mg PO DAILY 05/06/19 05/31/19 Lisinopril-Hctz 20-25 mg 1 tab PO DAILY 05/06/19 05/31/19 [Zestoretic 20-25] Melatonin 10 mg PO HS PRN 05/06/19 05/31/19 Omeprazole [PriLOSEC] 40 mg PO DAILY 05/06/19 05/31/19 Umeclidinium [place] [Incruse 62.5 mcg INHALATION RT-DAILY 05/06/19 05/31/19 Ellipta] Ziprasidone HCl [Geodon] 40 mg PO HS 05/06/19 05/31/19 Ziprasidone HCl [Geodon] 80 mg PO HS 05/06/19 05/31/19 metFORMIN HCL 1,000 mg PO BID 05/06/19 05/31/19 traZODone HCL 100 mg PO HS 05/06/19 05/31/19 Previous Rx's Medication Instructions Recorded Aspirin 325 mg PO DAILY #30 tab 06/02/19 HYDROcodone/APAP 7.5-325MG [[place] 1 each PO Q6HR PRN #28 tab 06/02/19 7.5] Allergies Allergy/AdvReac Type Severity Reaction Status Date / Time No Known Allergies Allergy Verified 05/31/19 07:29 Review of Systems ROS Statement: Those systems with pertinent positive or pertinent negative responses have been documented in the HPI. ROS Other: All systems not noted in ROS Statement are negative. Limitations: ROS unobtainable due to patients medical condition Cardiovascular: Denies: chest pain Musculoskeletal: Reports: as per HPI, back pain, arthralgia Neurological: Denies: headache Past Medical History Past Medical History: Diabetes Mellitus, Hypertension Additional Past Medical History / Comment(s): Degenerative disc disease History of Any Multi-Drug Resistant Organisms: MRSA Date of last positivie culture/infection: 2013 MDRO Source:: left axillae Past Surgical History: Section, Hysterectomy Additional Past Surgical History / Comment(s): tooth extraction Past Psychological History: No Psychological Hx Reported Smoking Status: Current every day smoker Past Alcohol Use History: None Reported Past Drug Use History: None Reported - Past Family History Mother Family Medical History: Diabetes Mellitus Father History Unknown: Yes General Exam Limitations: no limitations General appearance: other (Patient is very somnolent and arouses only to noxious stimuli) Eye exam: Present: PERRL, nystagmus. Absent: scleral icterus, conjunctival injection ENT exam: Present: mucous membranes dry Neck exam: Present: normal inspection, full ROM. Absent: tenderness, meningismus Respiratory exam: Present: wheezes. Absent: respiratory distress, rales, rhonchi, stridor Cardiovascular Exam: Present: regular rate, normal rhythm, normal heart sounds. Absent: systolic murmur, diastolic murmur, rubs, gallop GI/Abdominal exam: Present: soft. Absent: distended, tenderness, guarding, rebound, rigid, mass Extremities exam: Present: tenderness, normal capillary refill, joint swelling. Absent: pedal edema, calf tenderness Neurological exam: Present: altered. Absent: motor sensory deficit Skin exam: Present: warm, dry, intact, normal color. Absent: rash Course Vital Signs 09/28/19 09/28/19 09/28/19 00:25 02:57 04:00 Temperature 99.5 F Pulse Rate 115 H 94 101 H Respiratory 20 18 18 Rate Blood Pressure 160/120 131/90 139/89 O2 Sat by Pulse 96 95 97 Oximetry 05/31/19 05/31/19 05/31/19 04:53 05:00 06:00 Temperature 99.3 F Pulse Rate 89 94 75 Respiratory 20 20 20 Rate Blood Pressure 143/87 130/90 145/85 O2 Sat by Pulse 97 97 97 Oximetry 05/31/19 07:00 Temperature Pulse Rate 85 Respiratory 20 Rate Blood Pressure 146/86 O2 Sat by Pulse 97 Oximetry Medical Decision Making - Lab Data Result diagrams: 06/02/19 06:25 05/31/19 00:43 Lab Results 05/31/19 05/31/19 05/31/19 Range/Units 00:33 00:43 00:43 WBC 17.5 H (3.8-10.6) k/uL RBC 4.47 (3.80-5.40) m/uL Hgb 13.3 (11.4-16.0) gm/dL Hct 39.3 (34.0-46.0) % MCV 88.0 D (80.0-100.0) fL MCH 29.8 (25.0-35.0) pg MCHC 33.9 (31.0-37.0) g/dL RDW 14.6 (11.5-15.5) % Plt Count 479 H (150-450) k/uL Neutrophils % 63 % Lymphocytes % 26 % Monocytes % 5 % Eosinophils % 3 % Basophils % 1 % Neutrophils # 11.0 H (1.3-7.7) k/uL Lymphocytes # 4.6 (1.0-4.8) k/uL Monocytes # 0.9 (0-1.0) k/uL Eosinophils # 0.5 (0-0.7) k/uL Basophils # 0.1 (0-0.2) k/uL PT (9.0-12.0) sec INR (<1.2) APTT (22.0-30.0) sec VBG pH (7.31-7.41) VBG pCO2 (37-51) mmHg VBG HCO3 (24-28) mmol/L Sodium 134 L (137-145) mmol/L Potassium 4.6 (3.5-5.1) mmol/L Chloride 97 L (98-107) mmol/L Carbon Dioxide 26 (22-30) mmol/L Anion Gap 11 mmol/L BUN 24 H (7-17) mg/dL Creatinine 0.97 (0.52-1.04) mg/dL Est GFR (CKD-EPI)AfAm 84 (>60 ml/min/1.73 sqM) Est GFR (CKD-EPI)NonAf 73 (>60 ml/min/1.73 sqM) Glucose 138 H (74-99) mg/dL POC Glucose (mg/dL) 133 H (75-99) mg/dL POC Glu Medical Aide ID Hortencia Shipman Plasma Lactic Acid Bill (0.7-2.0) mmol/L Calcium 8.8 (8.4-10.2) mg/dL Total Bilirubin 0.2 (0.2-1.3) mg/dL AST 21 (14-36) U/L ALT 30 (9-52) U/L Alkaline Phosphatase 98 (38-126) U/L Troponin I (0.000-0.034) ng/mL Total Protein 7.1 (6.3-8.2) g/dL Albumin 3.9 (3.5-5.0) g/dL Urine Color Urine Appearance (Clear) Urine pH (5.0-8.0) Ur Specific [place] (1.001-1.035) Urine Protein (Negative) Urine Glucose (UA) (Negative) Urine Ketones (Negative) Urine Blood (Negative) Urine Nitrite (Negative) Urine Bilirubin (Negative) Urine Urobilinogen (<2.0) mg/dL Ur Leukocyte Esterase (Negative) Urine Opiates Screen (NotDetected) Ur Oxycodone Screen (NotDetected) Urine Methadone Screen (NotDetected) Ur Propoxyphene Screen (NotDetected) Ur Barbiturates Screen (NotDetected) U Tricyclic Antidepress (NotDetected) Ur Phencyclidine Scrn (NotDetected) Ur Amphetamines Screen (NotDetected) U Methamphetamines Scrn (NotDetected) U Benzodiazepines Scrn (NotDetected) Urine Cocaine Screen (NotDetected) U Marijuana (THC) Screen (NotDetected) Serum Alcohol <10 mg/dL 0905/31/19 05/31/19 Range/Units 00:43 00:43 00:43 WBC (3.8-10.6) k/uL RBC (3.80-5.40) m/uL Hgb (11.4-16.0) gm/dL Hct (34.0-46.0) % MCV (80.0-100.0) fL MCH (25.0-35.0) pg MCHC (31.0-37.0) g/dL RDW (11.5-15.5) % Plt Count (150-450) k/uL Neutrophils % % Lymphocytes % % Monocytes % % Eosinophils % % Basophils % % Neutrophils # (1.3-7.7) k/uL Lymphocytes # (1.0-4.8) k/uL Monocytes # (0-1.0) k/uL Eosinophils # (0-0.7) k/uL Basophils # (0-0.2) k/uL PT 9.3 (9.0-12.0) sec INR 0.8 (<1.2) APTT 23.8 (22.0-30.0) sec VBG pH (7.31-7.41) VBG pCO2 (37-51) mmHg VBG HCO3 (24-28) mmol/L Sodium (137-145) mmol/L Potassium (3.5-5.1) mmol/L Chloride (98-107) mmol/L Carbon Dioxide (22-30) mmol/L Anion Gap mmol/L BUN (7-17) mg/dL Creatinine (0.52-1.04) mg/dL Est GFR (CKD-EPI)AfAm (>60 ml/min/1.73 sqM) Est GFR (CKD-EPI)NonAf (>60 ml/min/1.73 sqM) Glucose (74-99) mg/dL POC Glucose (mg/dL) (75-99) mg/dL POC Glu Medical Aide ID Plasma Lactic Acid Bill 1.5 (0.7-2.0) mmol/L Calcium (8.4-10.2) mg/dL Total Bilirubin (0.2-1.3) mg/dL AST (14-36) U/L ALT (9-52) U/L Alkaline Phosphatase (38-126) U/L Troponin I <0.012 (0.000-0.034) ng/mL Total Protein (6.3-8.2) g/dL Albumin (3.5-5.0) g/dL Urine Color Urine Appearance (Clear) Urine pH (5.0-8.0) Ur Specific [place] (1.001-1.035) Urine Protein (Negative) Urine Glucose (UA) (Negative) Urine Ketones (Negative) Urine Blood (Negative) Urine Nitrite (Negative) Urine Bilirubin (Negative) Urine Urobilinogen (<2.0) mg/dL Ur Leukocyte Esterase (Negative) Urine Opiates Screen (NotDetected) Ur Oxycodone Screen (NotDetected) Urine Methadone Screen (NotDetected) Ur Propoxyphene Screen (NotDetected) Ur Barbiturates Screen (NotDetected) U Tricyclic Antidepress (NotDetected) Ur Phencyclidine Scrn (NotDetected) Ur Amphetamines Screen (NotDetected) U Methamphetamines Scrn (NotDetected) U Benzodiazepines Scrn (NotDetected) Urine Cocaine Screen (NotDetected) U Marijuana (THC) Screen (NotDetected) Serum Alcohol mg/dL 05/31/19 05/31/19 Range/Units 01:38 01:40 WBC (3.8-10.6) k/uL RBC (3.80-5.40) m/uL Hgb (11.4-16.0) gm/dL Hct (34.0-46.0) % MCV (80.0-100.0) fL MCH (25.0-35.0) pg MCHC (31.0-37.0) g/dL RDW (11.5-15.5) % Plt Count (150-450) k/uL Neutrophils % % Lymphocytes % % Monocytes % % Eosinophils % % Basophils % % Neutrophils # (1.3-7.7) k/uL Lymphocytes # (1.0-4.8) k/uL Monocytes # (0-1.0) k/uL Eosinophils # (0-0.7) k/uL Basophils # (0-0.2) k/uL PT (9.0-12.0) sec INR (<1.2) APTT (22.0-30.0) sec VBG pH 7.41 (7.31-7.41) VBG pCO2 44 (37-51) mmHg VBG HCO3 28 (24-28) mmol/L Sodium (137-145) mmol/L Potassium (3.5-5.1) mmol/L Chloride (98-107) mmol/L Carbon Dioxide (22-30) mmol/L Anion Gap mmol/L BUN (7-17) mg/dL Creatinine (0.52-1.04) mg/dL Est GFR (CKD-EPI)AfAm (>60 ml/min/1.73 sqM) Est GFR (CKD-EPI)NonAf (>60 ml/min/1.73 sqM) Glucose (74-99) mg/dL POC Glucose (mg/dL) (75-99) mg/dL POC Glu Medical Aide ID Plasma Lactic Acid [place] (0.7-2.0) mmol/L Calcium (8.4-10.2) mg/dL Total Bilirubin (0.2-1.3) mg/dL AST (14-36) U/L ALT (9-52) U/L Alkaline Phosphatase (38-126) U/L Troponin I (0.000-0.034) ng/mL Total Protein (6.3-8.2) g/dL Albumin (3.5-5.0) g/dL Urine Color Light Yellow Urine Appearance Clear (Clear) Urine pH 6.5 (5.0-8.0) Ur Specific [place] 1.005 (1.001-1.035) Urine Protein Negative (Negative) Urine Glucose (UA) Negative (Negative) Urine Ketones Negative (Negative) Urine Blood Negative (Negative) Urine Nitrite Negative (Negative) Urine Bilirubin Negative (Negative) Urine Urobilinogen <2.0 (<2.0) mg/dL Ur Leukocyte Esterase Negative (Negative) Urine Opiates Screen Not Detected (NotDetected) Ur Oxycodone Screen Not Detected (NotDetected) Urine Methadone Screen Not Detected (NotDetected) Ur Propoxyphene Screen Not Detected (NotDetected) Ur Barbiturates Screen Not Detected (NotDetected) U Tricyclic Antidepress Not Detected (NotDetected) Ur Phencyclidine Scrn Not Detected (NotDetected) Ur Amphetamines Screen Not Detected (NotDetected) U Methamphetamines Scrn Not Detected (NotDetected) U Benzodiazepines Scrn Not Detected (NotDetected) Urine Cocaine Screen Not Detected (NotDetected) U Marijuana (THC) Screen Detected H (NotDetected) Serum Alcohol mg/dL - EKG Data -: EKG Interpreted by Me EKG shows normal: sinus rhythm, axis (Normal), intervals (Normal), QRS complexes (Low-voltage QRS complex), ST-T waves (Normal) Rate: tachycardia (Rate 104 bpm) Disposition Clinical Impression: Ankle fracture Narrative: This is the initial visit for a right ankle trimalleolar fracture. Disposition: ADMITTED IP TO THIS [facility] Condition: Good Is patient prescribed a controlled substance at d/c from ED?: No
[2019-05-31 00:56] LABS: Basophils # (A) 0.1 k/uL (0-0.2); Basophils % (A) 1 %; Eosinophils # (A) 0.5 k/uL (0-0.7); Eosinophils % (A) 3 %; HCT 39.3 % (34.0-46.0); HGB 13.3 gm/dL (11.4-16.0); Lymphocytes # (A) 4.6 k/uL (1.0-4.8); Lymphocytes % (A) 26 %; MCH 29.8 pg (25.0-35.0); MCHC 33.9 g/dL (31.0-37.0); Mean Platelet Volume 6.1; Monocytes # (A) 0.9 k/uL (0-1.0); Monocytes % (A) 5 %; Neutrophils % (A) 63 %; Platelet Count 479 k/uL (150-450); RBC 4.47 m/uL (3.80-5.40); RDW 14.6 % (11.5-15.5); WBC 17.5 k/uL (3.8-10.6)
[2019-05-31 01:04] LABS: ALT 30 U/L (9-52); AST 21 U/L (14-36); African American GFR (CKD) 84 (>60 ml/min/1.73 sqM); Albumin 3.9 g/dL (3.5-5.0); Alcohol <10 mg/dL; Alkaline Phosphatase 98 U/L (38-126); Anion Gap 11 mmol/L; Blood Urea Nitrogen 24 mg/dL (7-17); Calcium 8.8 mg/dL (8.4-10.2); Carbon Dioxide 26 mmol/L (22-30); Chloride 97 mmol/L (98-107); Glucose 138 mg/dL (74-99); Potassium 4.6 mmol/L (3.5-5.1); Sodium 134 mmol/L (137-145); Total Bilirubin 0.2 mg/dL (0.2-1.3); Total Protein 7.1 g/dL (6.3-8.2)
[2019-05-31 01:10] LABS: INR 0.8 (<1.2); Partial Thromboplastin Time 23.8 sec (22.0-30.0); Prothrombin Time 9.3 sec (9.0-12.0)
--- NOTE | 2019-05-31 01:31 | XR ---
EXAMINATION TYPE: XR tibia fibula RT DATE OF EXAM: 05/31/2019 COMPARISON: NONE HISTORY: Pain after fall TECHNIQUE: 5 views FINDINGS: There is nondisplaced oblique fracture of the distal shaft of the fibula. There is mild sof t tissue swelling around the lower leg. The posterior malleolus appears to have nondisplaced chip fra cture. There is probably of vertical fracture through the medial malleolus. The knee joint appears in tact. IMPRESSION: There is evidence of trimalleolar fracture of the ankle without significant displacement. Soft tissue swelling.
--- NOTE | 2019-05-31 01:31 | XR ---
EXAMINATION TYPE: XR lumbar spine 2 or 3V DATE OF EXAM: 05/31/2019 COMPARISON: NONE HISTORY: Pain TECHNIQUE: 4 views FINDINGS: Exam is limited by patient's size. Lumbar vertebra have normal alignment. Disc spaces are f airly normal. There is no compression fracture. Posterior elements are intact. Sacroiliac joints are intact. IMPRESSION: Negative lumbar spine exam. No fracture.
--- NOTE | 2019-05-31 01:36 | CT ---
EXAMINATION TYPE: CT brain wo con DATE OF EXAM: 05/31/2019 COMPARISON: 05/06/2019 HISTORY: syncope CT DLP: 1149.40 mGycm. Automated Exposure Control for Dose Reduction was Utilized. TECHNIQUE: CT scan of the head is performed without contrast. FINDINGS: Ventricles have normal size. There is no mass effect nor midline shift. There is no sign of intracranial hemorrhage. The calvarium is intact. IMPRESSION: Negative CT scan of the brain. No change.
[2019-05-31 01:44] LABS: Appearance,Urine Clear (Clear); Bilirubin,Urine Negative (Negative); Blood,Urine Negative (Negative); Color,Urine Light Yellow; Glucose,Urine (UA) Negative (Negative); Ketones,Urine Negative (Negative); Leukocyte Esterase,Urine Negative (Negative); Nitrite,Urine Negative (Negative); PH, Urine 6.5 (5.0-8.0); Protein,Urine Negative (Negative); Specific Gravity,Urine 1.005 (1.001-1.035); Urobilinogen,Urine <2.0 mg/dL (<2.0)
[2019-05-31 01:54] LABS: VBG PH 7.41 (7.31-7.41)
[2019-05-31 02:03] LABS: Amphetamine Screen,Urine Not Detected (NotDetected); Barbiturate Screen,Urine Not Detected (NotDetected); Benzodiazepines Screen,Urine Not Detected (NotDetected); Cocaine Screen,Urine Not Detected (NotDetected); Methadone Screen, Urine Not Detected (NotDetected); Opiate Screen,Urine Not Detected (NotDetected); Oxycodone Screen, Urine Not Detected (NotDetected); Phencyclidine Screen,Urine Not Detected (NotDetected); Tricyclic Antidepressant,Urine Not Detected (NotDetected); Urn Cannabinoid Scrn Detected (NotDetected)
[2019-05-31] MEDS ORDERED: MORPHINE SULFATE 4 MG/ML SYRINGE IV STA (04:24)
[2019-05-31] MEDS ORDERED: NALOXONE 0.4 MG/ML 1 ML VIAL IV PRN (06:01)
[2019-05-31] MEDS ORDERED: MELATONIN 5 MG TABLET PO PRN (06:03)
[2019-05-31] MEDS ORDERED: ETODOLAC 400 MG TAB PO PRN (06:03)
[2019-05-31] MEDS ORDERED: NON FORMULARY DRUG (Esomeprazole Magnesium [Nexium 24hr] 20 MG) PO PRN (06:03)
[2019-05-31] MEDS: MORPHINE SULFATE 4 MG/ML SYRINGE IV PRN ×5 (06:14→23:08)
[2019-05-31] MEDS: SODIUM CHLORIDE 0.9% 1,000 ML IV SCH ×2 (06:16→20:09)
--- NOTE | 2019-05-31 06:47 | XR ---
EXAMINATION TYPE: XR ankle limited RT DATE OF EXAM: 05/31/2019 COMPARISON: Today HISTORY: Ankle fracture TECHNIQUE: 2 views FINDINGS: Frontal and lateral views show fractures of the posterior and lateral malleolus. There is l ateral subluxation of the talus. The medial malleolus is not seen to best advantage. Exam is limited by the splint. IMPRESSION: Fractures of the distal fibula and the posterior malleolus with lateral displacement of t he talus. No dislocation. There is probably no change compared to exam 5 hours ago.
[2019-05-31] MEDS ORDERED: metFORMIN 500 MG TAB PO SCH (07:30)
[2019-05-31] MEDS: PANTOPRAZOLE 40 MG TABLET PO SCH (08:17)
[2019-05-31] MEDS: FOLIC ACID 1 MG TAB PO SCH (08:17)
[2019-05-31] MEDS: FERROUS SULFATE 325 MG TAB PO SCH (08:17)
[2019-05-31] MEDS: BACLOFEN 10 MG TAB PO SCH ×4 (08:17→20:09)
[2019-05-31] MEDS: HYDROcodone/APAP 5-325MG 1 EACH TAB PO PRN ×3 (08:18→20:14)
[2019-05-31 08:20] LABS: Glucose,Whole Blood 114 mg/dL (75-99)
[2019-05-31] MEDS: LISINOPRIL-HCTZ 20-25 MG 1 EACH TAB PO SCH (08:23)
[2019-05-31] MEDS: IPRATROPIUM 0.5 MG/2.5 ML NEBU INHALATION SCH ×3 (08:24→19:32)
[2019-05-31 09:07] VITALS: BMI 51.5
[2019-05-31 11:00] LABS: Glucose,Whole Blood 94 mg/dL (75-99)
--- NOTE | 2019-05-31 11:06 | P.CONS ---
History of Present Illness - Reason for Consult Consult date: 05/31/19 - History of Present Illness The patient is a 43 yo F with a PMH of morbid obesity, HTN, and HLD who presented to the ED after a mechanical fall at home. The patient notes that she was walking to the bathroom when she slipped and fell backwards on her buttocks. She denied loss of consciousness or any head trauma. She stated she hurt her ankle during the fall. She also denied chest pain, SOB, or palpitations prior to the episode. She was brought into the ED via EMS and underwent an extensive evaluation w/ ankle x-rays showing fractures of the R distal fibula along with posterior malleolus. Brain CT was unremarkable and EKG (as reviewed by me) revealed a sinus tachycardia of [address]-T wave changes noted. Laboratory evaluation had revealed WBC count of 17.5, Na 134, BUN 24, Cr 0.97 and glucose 133. The patient was admitted under the surgical service for further management with medicine on consult. The patient was seen at the surgical unit at the bedside. She noted continued R ankle pain, currently at a 5/10, non- radiating. She otherwise denied fever, chills, chest pain, SOB, nausea, or vomiting. Review of Systems Pertinent positives and negatives as discussed in HPI, a complete review of systems was performed and all other systems are negative. Past Medical History Past Medical History: Diabetes Mellitus, Hypertension Additional Past Medical History / Comment(s): Degenerative disc disease History of Any Multi-Drug Resistant Organisms: MRSA Year Discovered:: 2013 MDRO Source:: left axillae Past Surgical History: Section, Hysterectomy Additional Past Surgical History / Comment(s): tooth extraction Past Psychological History: No Psychological Hx Reported Smoking Status: Former smoker Past Alcohol Use History: None Reported Past Drug Use History: None Reported - Past Family History Mother Family Medical History: Diabetes Mellitus Father History Unknown: Yes Medications and Allergies Home Medications Medication Instructions Recorded Confirmed Type Baclofen [Lioresal] 20 mg PO QID 05/06/19 05/31/19 History Diclofenac Sodium [Voltaren] 75 mg PO BID PRN 05/06/19 05/31/19 History Esomeprazole Magnesium [NexIUM 20 mg PO DAILY PRN 05/06/19 05/31/19 History 24Hr] Ferrous Sulfate [Feosol] 325 mg PO DAILY 05/06/19 05/31/19 History Folic Acid 1 mg PO DAILY 05/06/19 05/31/19 History Lisinopril-Hctz 20-25 mg 1 tab PO DAILY 05/06/19 05/31/19 History [Zestoretic 20-25] Melatonin 10 mg PO HS PRN 05/06/19 05/31/19 History Omeprazole [PriLOSEC] 40 mg PO DAILY 05/06/19 05/31/19 History Umeclidinium [place] [Incruse 62.5 mcg INHALATION RT-DAILY 05/06/19 05/31/19 History Ellipta] Ziprasidone HCl [Geodon] 40 mg PO HS 05/06/19 05/31/19 History Ziprasidone HCl [Geodon] 80 mg PO HS 05/06/19 05/31/19 History metFORMIN HCL 1,000 mg PO BID 05/06/19 05/31/19 History traZODone HCL 100 mg PO HS 05/06/19 05/31/19 History Allergies Allergy/AdvReac Type Severity Reaction Status Date / Time No Known Allergies Allergy Verified 05/31/19 07:29 Physical Exam Vitals: Vital Signs Temp Pulse Pulse Resp BP BP Pulse Ox 05/31/19 08:56 98.3 F 60 19 95/52 92 L 05/31/19 08:36 92 05/31/19 08:26 92 05/31/19 08:00 60 19 05/31/19 07:00 85 20 146/86 97 05/31/19 06:00 75 20 145/85 97 05/31/19 05:00 94 20 130/90 97 05/31/19 04:53 99.3 F 89 20 143/87 97 05/31/19 04:00 101 H 18 139/89 97 05/31/19 02:57 94 18 131/90 95 05/31/19 00:25 99.5 F 115 H 20 160/120 96 Intake and Output 05/30/19 05/31/19 05/31/19 22:59 06:59 14:59 Other: Voiding Method Incontinent Weight 136.078 kg General: non toxic, no distress, appears older than stated age, morbidly obese Derm: no unusual rashes/lesions no unusual ecchymoses, warm, dry Head: atraumatic, normocephalic, symmetric Eyes: EOMI, no lid lag, anicteric sclera, pupils equal round reactive to light ENT: Nose and ears atraumatic, no thrush, no pharyngeal erythema Neck: No thyromegaly, no cervical lymphadenopathy, trachea midline, supple Mouth: no lip lesion, mucus membranes moist Cardiovascular: S1S2 reg, no murmur, positive posterior tibial pulse bilateral, no edema, capillary refill less than 2 seconds Lungs: CTA bilateral, no rhonchi, no rales , no accessory muscle use Abdominal: obese, soft, nontender to palpation, no guarding, no appreciable organomegaly, normal bowel sounds Ext: R ankle brace with BRITNI bandage in place, clean, and dry, no gross muscle atrophy, muscle strength 5 out of 5 in all 4 extremities grossly, no contractures Neuro: CN II-XI grossly intact, light touch intact all 4 extremities, finger to nose within normal limits, Psych: Alert, oriented, appropriate affect Results CBC & Chem 7: 05/31/19 00:43 05/31/19 00:43 Labs: Abnormal Lab Results - Last 24 Hours (Table) 05/31/19 05/31/19 05/31/19 Range/Units 00:33 00:43 00:43 WBC 17.5 H (3.8-10.6) k/uL Plt Count 479 H (150-450) k/uL Neutrophils # 11.0 H (1.3-7.7) k/uL Sodium 134 L (137-145) mmol/L Chloride 97 L (98-107) mmol/L BUN 24 H (7-17) mg/dL Glucose 138 H (74-99) mg/dL POC Glucose (mg/dL) 133 H (75-99) mg/dL U Marijuana (THC) Screen (NotDetected) 05/31/19 05/31/19 Range/Units 01:38 08:07 WBC (3.8-10.6) k/uL Plt Count (150-450) k/uL Neutrophils # (1.3-7.7) k/uL Sodium (137-145) mmol/L Chloride (98-107) mmol/L BUN (7-17) mg/dL Glucose (74-99) mg/dL POC Glucose (mg/dL) 114 H (75-99) mg/dL U Marijuana (THC) Screen Detected H (NotDetected) Assessment and Plan Plan: R ankle fracture s/p mechanical fall -Management including pain control As per orthopedic surgery Type 2 DM -DASHA with FS -Patient notes good control of her DM at home HTN -C/w home meds Leukocytosis -Likely reactive from stress -No signs of infection at this time -Monitor CBC Morbid obesity -Advised on outpatient f/u for possible bariatric surgery vs lifestyle modifications
--- NOTE | 2019-05-31 11:06 | P.HPOR ---
History of Present Illness H&P Date: 05/31/19 Chief Complaint: Right trimalleolar ankle fracture Patient is a 43-year-old female who presented to [facility] early this morning after a fall that occurred at home. She was attending out of the bathroom when she lost her balance and fell twisting her right ankle. She was unable to weight-bear, EMS was called and brought patient hospital. On arrival to the hospital, multiple imaging test were done of the right lower extremity. She was noted to have a right trimalleolar displaced ankle fracture. I was contacted by the emergency room physician, I was able to review the images. Patient was admitted under our care with plan for likely surgical intervention. Internal medicine was placed on consult for medical management and clearance for surgery. Patient was evaluated today on the surgical floor, she is resting comfortably in bed. There is a posterior splint intact. She notes no other orthopedic complaints this time. She denies any previous surgery involving the right lower extremity. Review of Systems Constitutional: Reports as per HPI Past Medical History Past Medical History: Diabetes Mellitus, Hypertension Additional Past Medical History / Comment(s): Degenerative disc disease History of Any Multi-Drug Resistant Organisms: MRSA Date of last positivie culture/infection: 2013 MDRO Source:: left axillae Past Surgical History: Section, Hysterectomy Additional Past Surgical History / Comment(s): tooth extraction Past Psychological History: No Psychological Hx Reported Smoking Status: Former smoker Past Alcohol Use History: None Reported Past Drug Use History: None Reported - Past Family History Mother Family Medical History: Diabetes Mellitus Father History Unknown: Yes Medications and Allergies Home Medications Medication Instructions Recorded Confirmed Type Baclofen [Lioresal] 20 mg PO QID 05/06/19 05/31/19 History Diclofenac Sodium [Voltaren] 75 mg PO BID PRN 05/06/19 05/31/19 History Esomeprazole Magnesium [NexIUM 20 mg PO DAILY PRN 05/06/19 05/31/19 History 24Hr] Ferrous Sulfate [Feosol] 325 mg PO DAILY 05/06/19 05/31/19 History Folic Acid 1 mg PO DAILY 05/06/19 05/31/19 History Lisinopril-Hctz 20-25 mg 1 tab PO DAILY 05/06/19 05/31/19 History [Zestoretic 20-25] Melatonin 10 mg PO HS PRN 05/06/19 05/31/19 History Omeprazole [PriLOSEC] 40 mg PO DAILY 05/06/19 05/31/19 History Umeclidinium [place] [Incruse 62.5 mcg INHALATION RT-DAILY 05/06/19 05/31/19 History Ellipta] Ziprasidone HCl [Geodon] 40 mg PO HS 05/06/19 05/31/19 History Ziprasidone HCl [Geodon] 80 mg PO HS 05/06/19 05/31/19 History metFORMIN HCL 1,000 mg PO BID 05/06/19 05/31/19 History traZODone HCL 100 mg PO HS 05/06/19 05/31/19 History Allergies Allergy/AdvReac Type Severity Reaction Status Date / Time No Known Allergies Allergy Verified 05/31/19 07:29 Physical Examination Right lower extremity: Posterior splint is in good position and condition. She is able to wiggle the toes to minimal difficulty, her sensory exam to light touch. Proximal distal splinter intact. Logroll maneuver of the right lower extremity reproduces no groin pain. No effusion present over the knee, no tenderness with palpation. Results - Labs Labs: Abnormal Lab Results - Last 24 Hours (Table) 05/31/19 05/31/19 05/31/19 Range/Units 00:33 00:43 00:43 WBC 17.5 H (3.8-10.6) k/uL Plt Count 479 H (150-450) k/uL Neutrophils # 11.0 H (1.3-7.7) k/uL Sodium 134 L (137-145) mmol/L Chloride 97 L (98-107) mmol/L BUN 24 H (7-17) mg/dL Glucose 138 H (74-99) mg/dL POC Glucose (mg/dL) 133 H (75-99) mg/dL U Marijuana (THC) Screen (NotDetected) 05/31/19 05/31/19 Range/Units 01:38 08:07 WBC (3.8-10.6) k/uL Plt Count (150-450) k/uL Neutrophils # (1.3-7.7) k/uL Sodium (137-145) mmol/L Chloride (98-107) mmol/L BUN (7-17) mg/dL Glucose (74-99) mg/dL POC Glucose (mg/dL) 114 H (75-99) mg/dL U Marijuana (THC) Screen Detected H (NotDetected) H & H 05/31/19 Range/Units 00:43 Hgb 13.3 (11.4-16.0) gm/dL Hct 39.3 (34.0-46.0) % Coagulation 05/31/19 Range/Units 00:43 INR 0.8 (<1.2) Result Diagrams: 05/31/19 00:43 05/31/19 00:43 - Diagnostic results Ankle/Foot x-ray: report reviewed, image reviewed Assessment and Plan Plan: Imaging: X-rays of the right ankle were reviewed, demonstrated displaced right trimalleolar ankle fracture. Assessment: 1. Displaced right trimalleolar ankle fracture 2. Status post fall from standing 3. Multiple medical comorbidities Plan: I was able to discuss the case, including with physical exam findings and imaging studies and the tendon Dr. Moon. We would like to proceed with surgical intervention, more specifically a open reduction internal fixation of the right trimalleolar ankle fracture. We would like to proceed with this on 06/01/2019. Obtain consent Pain control Nonweightbearing right lower extremity Nothing by mouth after midnight Ice and elevate Further recommendations to follow Time with Patient: Less than 30
[2019-05-31] MEDS: INSULIN ASPART (NovoLOG) 100 UNIT/ML VIAL SQ SCH ×3 (12:12→20:05)
[2019-05-31 16:47] LABS: Glucose,Whole Blood 101 mg/dL (75-99)
[2019-05-31] MEDS: traZODone HCL 100 MG TAB PO SCH (20:08)
[2019-05-31] MEDS: ZIPRASIDONE 40 MG CAP PO SCH (20:09)
[2019-05-31 20:17] LABS: Glucose,Whole Blood 107 mg/dL (75-99)
[2019-05-31] MEDS ORDERED: ZIPRASIDONE 80 MG CAP PO SCH (21:00)
[2019-06-01] MEDS: MORPHINE SULFATE 4 MG/ML SYRINGE IV PRN ×2 (03:24→08:36)
[2019-06-01] MEDS: HYDROcodone/APAP 5-325MG 1 EACH TAB PO PRN (06:38)
[2019-06-01 07:05] LABS: Glucose,Whole Blood 97 mg/dL (75-99)
[2019-06-01] MEDS: IPRATROPIUM 0.5 MG/2.5 ML NEBU INHALATION SCH ×4 (07:13→19:00)
[2019-06-01] MEDS: INSULIN ASPART (NovoLOG) 100 UNIT/ML VIAL SQ SCH ×4 (07:50→20:49)
[2019-06-01] MEDS ORDERED: SODIUM CHLORIDE 0.9% 1,000 ML IV ONE (09:04)
[2019-06-01] MEDS ORDERED: SUCCINYLCHOLINE CHLORIDE 100 MG/5 ML SYR IV ONE (09:09)
[2019-06-01] MEDS ORDERED: fentaNYL (PF) 50 MCG/ML 2 ML AMP ONE (09:09)
[2019-06-01] MEDS ORDERED: ROCURONIUM BROMIDE 10 MG/ML 10 ML VIAL IV ONE (09:09)
[2019-06-01] MEDS ORDERED: KETAMINE 10 MG/ML 20 ML VIAL ONE (09:09)
[2019-06-01] MEDS ORDERED: MIDAZOLAM 2 MG/2 ML VIAL ONE (09:09)
[2019-06-01] MEDS ORDERED: SODIUM CHLORIDE 0.9% 100 ML with ceFAZolin 3,000 MG IV ONE ×2 (09:15)
[2019-06-01] MEDS ORDERED: BUPIVACAINE (PF) 0.5% 30 ML VIAL SQ ONE ×2 (10:06)
--- NOTE | 2019-06-01 10:21 | FL ---
FLUOROSCOPY 12 seconds of fluoroscopy time were utilized during internal fixation of the right fibula. 3 images d ocument the procedure.
[2019-06-01] MEDS ORDERED: ACETAMINOPHEN TAB 325 MG TAB PO PRN (10:28)
[2019-06-01] MEDS ORDERED: MAGNESIUM HYDROXIDE 2,400 MG/10 ML CUP PO PRN (10:28)
[2019-06-01] MEDS ORDERED: ONDANSETRON 4 MG/2 ML VIAL IVP PRN (10:28)
[2019-06-01] MEDS ORDERED: HYDROmorphone 0.5 MG/0.5 ML SYRINGE IVP PRN (10:28)
[2019-06-01] MEDS ORDERED: traMADol 50 MG TAB PO PRN ×2 (10:28→10:38)
[2019-06-01] MEDS ORDERED: HYDROcodone/APAP 7.5-325MG 1 EACH TAB PO PRN (10:30)
--- NOTE | 2019-06-01 10:35 | P.OP ---
Date of Procedure: 06/01/19 Preoperative Diagnosis: Displaced right ankle lateral malleolus fracture Postoperative Diagnosis: Same Procedure(s) Performed: Open reduction and internal fixation right ankle lateral malleolus fracture Implants: Synthes 6-hole one third semitubular plate with 6 appropriate length screws Anesthesia: KELSIE local Surgeon: Darrell Moon Leasing Machine Tender #1: Dylan Cuevas Estimated Blood Loss (ml): 10 Pathology: none sent Condition: stable Disposition: PACU Indications for Procedure: 43-year-old patient seen with displaced right ankle lateral malleolus fracture along with a posterior malleolus fracture. I recommended open reduction and internal fixation. Patient was agreeable and consent was obtained. Operative Findings: See description of procedure Description of Procedure: The patient was taken to the operative suite. A spinal anesthetic was attempted and anesthesia decided to proceed with a general anesthetic. A general anesthetic was achieved. The patient received preoperative IV antibiotics. A well-padded tourniquet placed proximal right thigh. Right lower extremity prepped and draped in the normal sterile fashion. The tourniquet was insufflated to 300. An incision was made over the lateral malleolus. I dissected down to the lateral meniscus. I evacuated hematoma. There was a displaced comminuted lateral malleolar fracture. It was reduced anatomic position. I chose a 6 hole one third semitubular plate and appropriate contoured. It was secured. Appropriate drill holes were made appropriately screws were inserted all having good bite and purchase. I now reviewed the construct under AP lateral and oblique intraoperative imaging. The fracture was anatomically reduced. The mortise was congruent. The posterior malleolar fracture reduced nicely. It appeared stable intraoperatively while under fluoroscopy. The wound was irrigated with interbody irrigant. The subcu soft tissues were approximated 2-0 Vicryl. The skin is proximal skin evie. The area was infiltrated with 20 mL half percent plain Marcaine for postoperative pain control. Sterile dressings were applied. The tourniquet was released with immediate capillary refill of all toes noted. We then placed into a modified bulky Mckeon with ankle in neutral position. The patient was awakened, transferred to a bed and recovery stable condition. James LAINEZ assisted with the procedure.
[2019-06-01] MEDS: HYDROmorphone 1 MG/ML 1 ML SYRINGE IVP ONE ×2 (10:53→10:59)
[2019-06-01 11:10] LABS: Glucose,Whole Blood 96 mg/dL (75-99)
[2019-06-01] MEDS: BACLOFEN 10 MG TAB PO SCH ×4 (12:01→20:57)
[2019-06-01] MEDS: FERROUS SULFATE 325 MG TAB PO SCH (12:01)
[2019-06-01] MEDS: PANTOPRAZOLE 40 MG TABLET PO SCH (12:02)
[2019-06-01] MEDS: FOLIC ACID 1 MG TAB PO SCH (12:02)
[2019-06-01] MEDS: LISINOPRIL-HCTZ 20-25 MG 1 EACH TAB PO SCH (12:02)
[2019-06-01] MEDS: HYDROmorphone 1 MG/ML 1 ML SYRINGE IVP PRN ×4 (12:03→20:57)
[2019-06-01] MEDS: HYDROcodone/APAP 7.5-325MG 1 EACH TAB PO PRN ×3 (12:53→23:46)
--- NOTE | 2019-06-01 14:47 | P.PN ---
Subjective Progress Note Date: 06/01/19 Patient is a 43-year-old female with a PMH of obesity, hypertension, and hyperlipidemia, who presented to the ED after a fall, was noted to have a right ankle fracture for which she underwent an open reduction internal fixation with repair on 06/01/2019. Patient was seen at the bedside and noted continued pain 8 out of 10 at the right ankle. She denied fever, chills, chest pain, shortness of breath, nausea, or vomiting. Objective - Vital Signs Vital signs: Vital Signs Temp 98.3 F 06/01/19 11:15 Pulse 79 06/01/19 12:45 Resp 16 06/01/19 11:15 BP 144/93 06/01/19 12:45 Pulse Ox 94 L 06/01/19 11:15 Intake & Output 05/31/19 06/01/19 06/01/19 18:59 06:59 18:59 Intake Total 838 570 Output Total 10 Balance 838 560 Weight 136.078 kg Intake: IV 350 Oral 838 220 Output: Estimated Blood Loss 10 Other: Voiding Method Bedside Commode Bedside Commode # Voids 2 3 # Bowel Movements 1 - Exam General: Non-toxic, in no acute distress, appears older than stated age, morbidly obese HEENT: NC/AT, anicteric sclerae, moist conjunctiva, no lid-lag, PERRLA Cardiovascular: S1/S2 wnl, no murmurs, rubs, or gallops Lungs: Clear to auscultation, normal respiratory effort, no accessory muscle use Abdominal: Obese, soft, non-tender, non-distended, no guarding, rebound, or rigidity Skin: Warm, dry Extremities: No edema or contractures, right ankle brace and dressings in place, clean and dry Psychiatric: Alert and oriented to person, place and time, appropriate affect Neuro: CN II-XII grossly intact, Strength 5/5 in all 4 extremities except for right lower extremity due to pain, Speech intact, Sensation to light touch grossly intact throughout - Labs CBC & Chem 7: 05/31/19 00:43 05/31/19 00:43 Labs: Abnormal Lab Results - Last 24 Hours (Table) 05/31/19 05/31/19 Range/Units 16:36 20:05 POC Glucose (mg/dL) 101 H 107 H (75-99) mg/dL Assessment and Plan Plan: R ankle fracture s/p ORIF POD # 0 -Management including pain control as per orthopedic surgery Type 2 DM -DASHA with FS -Patient notes good control of her DM at home HTN -C/w home meds Leukocytosis -Likely reactive from stress -No signs of infection at this time -Monitor CBC Morbid obesity -Advised on outpatient f/u for possible bariatric surgery vs lifestyle modifications
[2019-06-01] MEDS: ceFAZolin 3 GM in SODIUM CHLORIDE 0.9% 100 ML IVPB SCH ×2 (16:20→23:12)
[2019-06-01 16:59] LABS: Glucose,Whole Blood 112 mg/dL (75-99)
[2019-06-01] MEDS: traZODone HCL 100 MG TAB PO SCH (20:57)
[2019-06-01 21:00] LABS: Glucose,Whole Blood 117 mg/dL (75-99)
[2019-06-01] MEDS ORDERED: SENNOSIDES-DOCUSATE SODIUM 1 EACH TAB PO SCH (21:00)
[2019-06-01] MEDS: ZIPRASIDONE 40 MG CAP PO SCH (21:41)
[2019-06-02 02:05] VITALS: PULSE 86
[2019-06-02] MEDS: HYDROmorphone 1 MG/ML 1 ML SYRINGE IVP PRN (03:28)
[2019-06-02] MEDS: SODIUM CHLORIDE 0.9% 1,000 ML IV SCH (05:45)
[2019-06-02 07:00] LABS: HCT 33.4 % (34.0-46.0); HGB 11.1 gm/dL (11.4-16.0); Hypochromasia Slight; MCH 30.1 pg (25.0-35.0); MCHC 33.2 g/dL (31.0-37.0); MCV 90.8 fL (80.0-100.0); Mean Platelet Volume 6.2; Platelet Count 345 k/uL (150-450); RBC 3.67 m/uL (3.80-5.40); RDW 14.7 % (11.5-15.5); WBC 10.9 k/uL (3.8-10.6)
[2019-06-02 07:07] LABS: Glucose,Whole Blood 108 mg/dL (75-99)
[2019-06-02] MEDS: HYDROcodone/APAP 7.5-325MG 1 EACH TAB PO PRN ×2 (07:17→12:52)
[2019-06-02] MEDS: BACLOFEN 10 MG TAB PO SCH ×2 (07:17→12:53)
[2019-06-02] MEDS: FOLIC ACID 1 MG TAB PO SCH (07:17)
[2019-06-02] MEDS: PANTOPRAZOLE 40 MG TABLET PO SCH (07:19)
[2019-06-02] MEDS: LISINOPRIL-HCTZ 20-25 MG 1 EACH TAB PO SCH (07:19)
[2019-06-02] MEDS: FERROUS SULFATE 325 MG TAB PO SCH (07:19)
[2019-06-02] MEDS: IPRATROPIUM 0.5 MG/2.5 ML NEBU INHALATION SCH ×2 (07:34→10:52)
[2019-06-02 07:41] VITALS: BP 164/86; RESP 16; TEMP 98.8
[2019-06-02] MEDS: INSULIN ASPART (NovoLOG) 100 UNIT/ML VIAL SQ SCH ×2 (08:29→12:52)
[2019-06-02] MEDS ORDERED: ENOXAPARIN 40 MG/0.4 ML SYRINGE SQ SCH (09:00)
[2019-06-02 11:39] LABS: Glucose,Whole Blood 108 mg/dL (75-99)
--- NOTE | 2019-06-02 12:14 | P.PN ---
Subjective Progress Note Date: 06/02/19 Patient is a 43-year-old female with a PMH of obesity, hypertension, and hyperlipidemia, who presented to the ED after a fall, was noted to have a right ankle fracture for which she underwent an open reduction internal fixation with repair on 06/01/2019. Patient was seen at the bedside on 06/02. The patient notes significant improvement in her right ankle pain, currently at a 4 out of 10. She otherwise denied any additional complaints and was in good spirits. She denied chest pain, shortness of no nausea, vomiting, fever, or chills. Objective - Vital Signs Vital signs: Vital Signs Temp 98.8 F 06/02/19 07:00 Pulse 86 06/02/19 07:00 Resp 16 06/02/19 07:00 BP 164/86 06/02/19 07:00 Pulse Ox 97 06/02/19 07:00 Intake & Output 06/01/19 06/02/19 06/02/19 18:59 06:59 18:59 Intake Total 570 Output Total 10 Balance 560 Weight 136.078 kg Intake: IV 350 Oral 220 Output: Estimated Blood Loss 10 Other: Voiding Method Bedside Commode Bedside Commode # Voids 2 - Exam General: Non-toxic, in no acute distress, appears older than stated age, morbidly obese HEENT: NC/AT, anicteric sclerae, moist conjunctiva, no lid-lag, PERRLA Cardiovascular: S1/S2 wnl, no murmurs, rubs, or gallops Lungs: Clear to auscultation, normal respiratory effort, no accessory muscle use Abdominal: Obese, soft, non-tender, non-distended, no guarding, rebound, or rigidity Skin: Warm, dry Extremities: No edema or contractures, right ankle brace and dressings in place, clean and dry Psychiatric: Alert and oriented to person, place and time, appropriate affect Neuro: CN II-XII grossly intact, Strength 5/5 in all 4 extremities except for right lower extremity due to pain, Speech intact, Sensation to light touch grossly intact throughout - Labs CBC & Chem 7: 06/02/19 06:25 05/31/19 00:43 Labs: Abnormal Lab Results - Last 24 Hours (Table) 06/01/19 06/01/19 06/02/19 Range/Units 16:42 20:49 06:25 WBC 10.9 H (3.8-10.6) k/uL RBC 3.67 L (3.80-5.40) m/uL Hgb 11.1 L (11.4-16.0) gm/dL Hct 33.4 L (34.0-46.0) % POC Glucose (mg/dL) 112 H 117 H (75-99) mg/dL 06/02/19 06/02/19 Range/Units 07:05 11:36 WBC (3.8-10.6) k/uL RBC (3.80-5.40) m/uL Hgb (11.4-16.0) gm/dL Hct (34.0-46.0) % POC Glucose (mg/dL) 108 H 108 H (75-99) mg/dL Assessment and Plan Plan: R ankle fracture s/p ORIF POD # 1 -Management including pain control as per orthopedic surgery Type 2 DM -DASHA with FS -Patient notes good control of her DM at home HTN -C/w home meds Leukocytosis -Resolved Morbid obesity -Advised on outpatient f/u for possible bariatric surgery vs lifestyle modifications
--- NOTE | 2019-06-02 12:58 | P.PN ---
Subjective Progress Note Date: 06/02/19 Principal diagnosis: Status post ORIF right lateral malleolus fracture Patient evaluated at bedside today, she is resting comfortably. Pain is well- controlled. She has no chest pain or shortness of breath. Objective - Vital Signs Vital signs: Vital Signs Temp 98.8 F 06/02/19 07:00 Pulse 86 06/02/19 07:00 Resp 16 06/02/19 07:00 BP 164/86 06/02/19 07:00 Pulse Ox 97 06/02/19 07:00 Intake & Output 06/01/19 06/02/19 06/02/19 18:59 06:59 18:59 Intake Total 570 Output Total 10 Balance 560 Weight 136.078 kg Intake: IV 350 Oral 220 Output: Estimated Blood Loss 10 Other: Voiding Method Bedside Commode Bedside Commode # Voids 2 - Exam Right lower extremity: Postop splint is in good position and condition. sensation to light touch proximal distal splinter intact. She is able to wiggle the toes with no difficulty. - Labs CBC & Chem 7: 06/02/19 06:25 05/31/19 00:43 Labs: Abnormal Lab Results - Last 24 Hours (Table) 06/01/19 06/01/19 06/02/19 Range/Units 16:42 20:49 06:25 WBC 10.9 H (3.8-10.6) k/uL RBC 3.67 L (3.80-5.40) m/uL Hgb 11.1 L (11.4-16.0) gm/dL Hct 33.4 L (34.0-46.0) % POC Glucose (mg/dL) 112 H 117 H (75-99) mg/dL 06/02/19 06/02/19 Range/Units 07:05 11:36 WBC (3.8-10.6) k/uL RBC (3.80-5.40) m/uL Hgb (11.4-16.0) gm/dL Hct (34.0-46.0) % POC Glucose (mg/dL) 108 H 108 H (75-99) mg/dL Assessment and Plan Plan: Assessment: 1. Postop day 1 status post ORIF lateral malleolus fracture right ankle Plan: Pain control, we'll discharge home on oral medication GI and DVT prophylaxis, aspirin 325 mg daily Nonweightbearing right lower extremity Other center medical specialist recommendations Plan for discharge home today Time with Patient: Less than 30
--- NOTE | 2019-06-02 13:01 | P.DS ---
Providers Date of admission: 05/31/19 06:02 Expected date of discharge: 06/02/19 Attending physician: Darrell Moon Consults: 05/31/19 09:19 Consult Physician Routine Consulting Provider: Patricia Gamez Consult Reason/Comments: Medical Management Do you want consulting provider notified?: Yes Primary care physician: Stated None Hospital Course: Date of admission: 05/31/2019 Date of discharge: 06/02/2019 Admission diagnosis: Displaced right ankle lateral malleolus fracture Discharge diagnosis: Status post ORIF right ankle lateral malleolus fracture Attending physician: Dr. Moon Surgical procedures: Open reduction internal fixation right ankle lateral malleolus fracture Brief history: Patient is a 43-year-old female who was brought to [facility] on 05/31/2019 after falling at her home. She injured her right ankle at that time, it was determined she had a displaced lateral malleolus fracture. Patient was scheduled for surgery on 06/01/[address] Moon. Hospital course: Details of patient's surgery can be found in operative report. Patient tolerated the procedure well and was subsequently transported to orthopedic floor. Patient's orthopeidc and medical care was provided daily. Patient had daily laboratory tests performed for evaluation of overall blood counts. Patient had daily physical therapy to include strengthening range of motion as well as education with walker ambulation. Patient was treated with Lovenox for their postoperative DVT prophylaxis during their inpatient stay. Patient was noted to have a relatively uneventful postoperative course. Patient reported satisfactory pain control with oral pain medications by postoperative day 0. Patient showed satisfactory progress with physical therapy. Patient mov ed steadily through the program and had no difficulty meeting the goals by postoperative day 1. Given patient's otherwise satisfactory course and having met physical therapy goals, plan is to discharge patient home on postoperative day 1. Discharge condition/disposition: Patient will be discharged home in stable condition. Discharge medications: Instructions are given on resumption of patient's normal daily medications per primary care recommendation, in addition patient will be prescribed Picabo 7.5 mg/25 mg, aspirin 325 mg. Discharge instructions: 1. Wound care and infection precautions, keep incision dry and covered while showering, no lotions, creams, moisturizers. No soaking, tubs, pools, hottubs. Do not scrub over the incision. 2. Nonweightbearing right lower extremity, utilize a walker or wheelchai. 3. Ice and elevate when necessary. Do not exceed 20 minutes per hour with ice pack. 4. Utilize compression sleeve until seen at first follow up appointment. 7. Pain meds and anticoagulants per prescription. 8. Pain medication has potential to cause constipation. Increase oral fluid and fiber intake. Contact primary care provider if you have not had a bowel movement within 48 hours after discharge 9. No anti-inflammatory medication until discussed at first post operative visit, this including Motrin, Aleve, Mobic, Diclofenac 10. Follow up in office at 2 weeks postop with James Cuevas PA-C 11. Follow up with your primary care doctor 7-10 days after discharge. 12. Contact [facility] with any questions, . Procedures: Open reduction internal fixation right ankle lateral malleolus fracture Patient Condition at Discharge: Good Plan - Discharge Summary New Discharge Prescriptions: New Aspirin 325 mg PO DAILY #30 tab HYDROcodone/APAP 7.5-325MG [Picabo 7.5] 1 each PO Q6HR PRN #28 tab PRN Reason: Pain No Action Umeclidinium Prospect [Incruse Ellipta] 62.5 mcg INHALATION RT-DAILY Melatonin 10 mg PO HS PRN PRN Reason: Insomnia Lisinopril-Hctz 20-25 mg [Zestoretic 20-25] 1 tab PO DAILY Omeprazole [PriLOSEC] 40 mg PO DAILY Folic Acid 1 mg PO DAILY Ferrous Sulfate [Feosol] 325 mg PO DAILY Diclofenac Sodium [Voltaren] 75 mg PO BID PRN PRN Reason: Pain traZODone HCL 100 mg PO HS metFORMIN HCL 1,000 mg PO BID Ziprasidone HCl [Geodon] 40 mg PO HS Ziprasidone HCl [Geodon] 80 mg PO HS Baclofen [Lioresal] 20 mg PO QID Esomeprazole Magnesium [NexIUM 24Hr] 20 mg PO DAILY PRN PRN Reason: Gi Upset Discharge Medication List Baclofen [Lioresal] 20 mg PO QID 05/06/19 [History] Diclofenac Sodium [Voltaren] 75 mg PO BID PRN 05/06/19 [History] Esomeprazole Magnesium [NexIUM 24Hr] 20 mg PO DAILY PRN 05/06/19 [History] Ferrous Sulfate [Feosol] 325 mg PO DAILY 05/06/19 [History] Folic Acid 1 mg PO DAILY 05/06/19 [History] Lisinopril-Hctz 20-25 mg [Zestoretic 20-25] 1 tab PO DAILY 05/06/19 [History] Melatonin 10 mg PO HS PRN 05/06/19 [History] Omeprazole [PriLOSEC] 40 mg PO DAILY 05/06/19 [History] Umeclidinium Prospect [Incruse Ellipta] 62.5 mcg INHALATION RT-DAILY 05/06/19 [History] Ziprasidone HCl [Geodon] 40 mg PO HS 05/06/19 [History] Ziprasidone HCl [Geodon] 80 mg PO HS 05/06/19 [History] metFORMIN HCL 1,000 mg PO BID 05/06/19 [History] traZODone HCL 100 mg PO HS 05/06/19 [History] Aspirin 325 mg PO DAILY #30 tab 06/02/19 [Rx] HYDROcodone/APAP 7.5-325MG [[place] 7.5] 1 each PO Q6HR PRN #28 tab 06/02/19 [Rx] Follow up Appointment(s)/Referral(s): [facility], [NON-STAFF] - Dylan Cuevas PAC [PHYSICIAN CROSS ROLLER] - 2 Weeks None,Stated [Primary Care Provider] - 1-2 days Activity/Diet/Wound Care/Special Instructions: Orthopedic discharge instructions: 1. Resume home medications 2. Pain medication as needed 3. Aspirin 325 mg daily for DVT prophylaxis 4. Nonweightbearing right lower extremity 5. Ice and elevate often 6. Plan for follow-up at [facility] in 2 weeks Discharge Disposition: HOME SELF-CARE
[2019-06-02 17:52] LABS: Hemoglobin A1C 6.2 % (4.0-6.0)
== END 2019-06-02 14:42 | disposition home or self-care (01) ==
LOC: EC 00:24 → 4SSUR 06:02
PROVIDERS: ADMIT Orthopaedic Surgery; ATTEND Orthopaedic Surgery
DX: S82.61XA Displaced fracture of lateral malleolus of right fibula, initial encounter for closed fracture (principal); M54.5 Low back pain; I10 Essential (primary) hypertension; E78.5 Hyperlipidemia, unspecified; E66.01 Morbid (severe) obesity due to excess calories; Z68.43 Body mass index [BMI] 50.0-59.9, adult; E11.9 Type 2 diabetes mellitus without complications; D72.829 Elevated white blood cell count, unspecified; Y92.002 Bathroom of unspecified non-institutional (private) residence as the place of occurrence of the external cause; Z86.14 Personal history of Methicillin resistant Staphylococcus aureus infection; Z87.891 Personal history of nicotine dependence; Z79.899 Other long term (current) drug therapy; Z79.84 Long term (current) use of oral hypoglycemic drugs; W01.0XXA Fall on same level from slipping, tripping and stumbling without subsequent striking against object, initial encounter; Y93.01 Activity, walking, marching and hiking; Z83.3 Family history of diabetes mellitus
CPT/HCPCS: 27792; 96376 ×2; 96361; 96374; 96375; 99285; 36415; 94640 ×2; 94760; 93005; 97161; 80053; 82803; 83605; 84484; 85025; 85027; 85610; 85730; 81003; 80306; 83036; 72100; 73590; 73600 ×2; 70450; G0378 ×3; C1713; G0480; J2250; J2270 ×2; J0690 ×2; J1650; J3010; J1170 ×2; J0330; 80320

== ENCOUNTER 2019-08-21 15:06 | Day surgery (SDC) | payer MEDICARE, OTHER ==
[2019-08-20 09:22] VITALS: BMI 53.1
--- NOTE | 2019-08-20 14:59 | HP ---
HISTORY AND PHYSICAL DATE OF SURGERY: 08/21/2019 Dora Holguin is a 43-year-old patient who was seen after having undergone ORIF right lateral malleolar fracture on 06/01/2019. She was seen in the office on 08/19/2019 AND noted to have some dehiscence of the wound. I recommended repair. We discussed the procedure, risks, complications, benefits, recovery. She was agreeable. Consent was obtained. PAST MEDICAL HISTORY: Akj-[id number] diabetes, hypertension. PAST SURGICAL HISTORY: ORIF right ankle. DAILY MEDICATIONS: 1. Lisinopril. 2. Metformin. 3. Nexium. ALLERGIES: None reported. SOCIAL HISTORY: Smokes 1 pack of cigarettes a day. PHYSICAL EVALUATION OF THE RIGHT ANKLE: There is some dehiscence of the wound measuring 2 cm, approximately 1 cm distally. There is no exposed hardware. There is no erythema or infective process. There is no obvious drainage. There is limited range of motion. Distal neurovascular exam is intact. RADIOGRAPHS OF RIGHT ANKLE: Revealed a stable ORIF of the lateral malleolar fracture. Mortise remains congruent. IMPRESSION: 1. Right ankle lateral wound dehiscence .. 2. Status post ORIF right ankle lateral malleolar fracture. 3. Hef-lwqpejv-juwliwxzl diabetes. 4. Hypertension. 5. Morbid obesity. 6. Tobacco use. PLAN: Repair right ankle wound dehiscence. MMODL / IJN: [id number] /
[~2019-08-21 15:06] MED LIST: DEXAMETHASONE SOD PHOSPHATE 10 MG/ML 1 ML VIAL IV ONE; LACTATED RINGERS 1,000 ML IV SCH; LIDOCAINE 1% 20 ML VIAL (10MG/ML) FOR IV START INTRADERMA PRN; MIDAZOLAM 2 MG/2 ML VIAL IV PRN; ONDANSETRON 4 MG/2 ML VIAL IVP ONE; SCOPOLAMINE 1.5MG/72HR PATCH TRANSDERM ONE; ceFAZolin 3 GM in SODIUM CHLORIDE 0.9% 100 ML IVPB ONE
[2019-08-21] MEDS ORDERED: LACTATED RINGERS 1,000 ML IV ONE (15:31)
[2019-08-21 15:38] LABS: Glucose,Whole Blood 112 mg/dL (75-99)
[2019-08-21 15:43] LABS: Basophils # (A) 0.1 k/uL (0-0.2); Basophils % (A) 1 %; Eosinophils # (A) 0.2 k/uL (0-0.7); Eosinophils % (A) 2 %; HCT 41.3 % (34.0-46.0); HGB 13.2 gm/dL (11.4-16.0); Lymphocytes % (A) 18 %; MCH 29.2 pg (25.0-35.0); Mean Platelet Volume 7.5; Monocytes # (A) 0.6 k/uL (0-1.0); Monocytes % (A) 5 %; Neutrophils # (A) 8.4 k/uL (1.3-7.7); Neutrophils % (A) 73 %; Platelet Count 316 k/uL (150-450); RBC 4.54 m/uL (3.80-5.40); RDW 15.7 % (11.5-15.5); WBC 11.5 k/uL (3.8-10.6)
[2019-08-21 15:55] LABS: African American GFR (CKD) >90 (>60 ml/min/1.73 sqM); Anion Gap 6 mmol/L; Blood Urea Nitrogen 9 mg/dL (7-17); Calcium 9.1 mg/dL (8.4-10.2); Carbon Dioxide 29 mmol/L (22-30); Chloride 104 mmol/L (98-107); Glucose 114 mg/dL (74-99); Non-African American GFR(CKD) >90 (>60 ml/min/1.73 sqM); Potassium 3.9 mmol/L (3.5-5.1); Sodium 139 mmol/L (137-145)
[2019-08-21] MEDS ORDERED: PROPOFOL 10 MG/ML 20 ML VIAL IV ONE (16:10)
[2019-08-21] MEDS ORDERED: MIDAZOLAM 2 MG/2 ML VIAL ONE (16:10)
[2019-08-21] MEDS ORDERED: SUCCINYLCHOLINE CHLORIDE 100 MG/5 ML SYR IV ONE (16:10)
[2019-08-21] MEDS ORDERED: fentaNYL (PF) 50 MCG/ML 2 ML AMP ONE (16:10)
[2019-08-21] MEDS ORDERED: LIDOCAINE 1% INJ 10MG/ML (20 ML MDV) ONE (16:10)
[2019-08-21] MEDS ORDERED: ONDANSETRON 4 MG/2 ML VIAL IVP PRN (16:17)
[2019-08-21] MEDS ORDERED: HYDROcodone/APAP 5-325MG 1 EACH TAB PO PRN (16:17)
[2019-08-21] MEDS ORDERED: HYDROmorphone 0.5 MG/0.5 ML SYRINGE IVP PRN (16:17)
[2019-08-21] MEDS ORDERED: BUPIVACAINE (PF) 0.5% 30 ML VIAL SQ ONE (16:43)
--- NOTE | 2019-08-21 16:55 | P.OP ---
Date of Procedure: 08/21/19 Preoperative Diagnosis: right ankle lateral wound dehiscence Postoperative Diagnosis: right ankle lateral wound dehiscence measuring 2 cm and 1 cm Procedure(s) Performed: incision with irrigation/debridement and secondary closure right lateral ankle wounds Anesthesia: KELSIE, local Surgeon: Darrell Moon Estimated Blood Loss (ml): 10 Pathology: none sent Condition: stable Disposition: PACU Indications for Procedure: 43-year-old patient seen with right lateral ankle wound dehiscence with previous ORIF lateral ankle fracture. I recommended incision irrigation debridement and secondary closure. Patient was agreeable and consent was obtained. Operative Findings: see description of procedure Description of Procedure: Patient was taken to the operative suite. The patient did received preoperative IV antibiotics. A well-padded tourniquet placed proximal right thigh. The right lower extremity was prepped and draped in the normal sterile orthopedic fashion. I now evaluated the lateral wounds. There was 2 separate wounds. One measured 2 cm which was more distal in the more proximal wound measured 1 cm. I debrided some of the necrotic appearing tissue with a 15 blade getting down to viable tissue. The depth of both wound debridements measured 3-4 mm. Again the length was 2 cm and 1 cm. We had good bleeding tissue. Both wounds were irrigated with irresept. I did not see any exposed hardware. There was no evidence for any deep infective soft tissue process. I repaired both the wounds with nylon suture. I infiltrated the area with half percent plain Marcaine totaling 20 mL for postoperative analgesia. Sterile dressings were applied. The patient was awakened transferred to a bed and taken recovery stable condition. No tourniquet was utilized.
[2019-08-21] MEDS ORDERED: MELATONIN 5 MG TABLET PO PRN (17:00)
[2019-08-21] MEDS: HYDROmorphone 0.5 MG/0.5 ML SYRINGE IVP PRN ×2 (17:00→17:34)
[2019-08-21] MEDS: HYDROcodone/APAP 5-325MG 1 EACH TAB PO PRN (20:30)
[2019-08-21] MEDS ORDERED: PANTOPRAZOLE 40 MG TABLET PO SCH (21:00)
[2019-08-21] MEDS ORDERED: ZIPRASIDONE 80 MG CAP PO SCH (21:00)
[2019-08-21] MEDS: traZODone HCL 100 MG TAB PO SCH ×2 (21:41→21:46)
[2019-08-21] MEDS: BACLOFEN 10 MG TAB PO SCH (21:41)
[2019-08-21] MEDS: ceFAZolin 3 GM in SODIUM CHLORIDE 0.9% 100 ML IVPB SCH (22:57)
[2019-08-22 07:35] VITALS: BP 153/88; PULSE 70; RESP 15; TEMP 98.2
[2019-08-22] MEDS: ceFAZolin 3 GM in SODIUM CHLORIDE 0.9% 100 ML IVPB SCH (08:25)
[2019-08-22] MEDS: BACLOFEN 10 MG TAB PO SCH (08:25)
[2019-08-22] MEDS: HYDROcodone/APAP 5-325MG 1 EACH TAB PO PRN (08:26)
[2019-08-22] MEDS ORDERED: LISINOPRIL-HCTZ 20-25 MG 1 EACH TAB PO SCH (09:00)
--- NOTE | 2019-08-22 11:37 | P.PN ---
Subjective Progress Note Date: 08/22/19 Principal diagnosis: status post incision with irrigation and debridement and secondary wound closure right ankle wound Patient evaluated today, she is doing very well. Her pain is under control. She denies chest pain or shortness of breath Objective - Vital Signs Vital signs: Vital Signs Temp 98.2 F 08/22/19 07:00 Pulse 70 08/22/19 08:00 Resp 15 08/22/19 08:00 BP 153/88 08/22/19 07:00 Pulse Ox 97 08/22/19 07:00 Intake & Output 08/21/19 08/22/19 08/22/19 18:59 06:59 18:59 Intake Total 950 Output Total 10 Balance 940 Weight 140.2 kg 140.2 kg Intake: IV 950 Output: Estimated Blood Loss 10 Other: Voiding Method Toilet Toilet # Voids 2 - Exam Right lower extremity: Initial postoperative bandage is in good position and condition. Sensory exam light touch is intact throughout the extremity, skin is warm to touch - Labs CBC & Chem 7: 08/21/19 15:34 08/21/19 15:34 Labs: Abnormal Lab Results - Last 24 Hours (Table) 08/21/19 08/21/19 08/21/19 Range/Units 15:34 15:34 15:36 WBC 11.5 H (3.8-10.6) k/uL RDW 15.7 H (11.5-15.5) % Neutrophils # 8.4 H (1.3-7.7) k/uL Glucose 114 H (74-99) mg/dL POC Glucose (mg/dL) 112 H (75-99) mg/dL Assessment and Plan Plan: Assessment: 1. Postop day #1 status post incision with irrigation and debridement and secondary wound closure right ankle wound Plan: Pain control, plan for discharge on oral medication Weight-bear as tolerated Wound care instructions discussed Plan for discharge home today, follow-up in 2 weeks Time with Patient: Less than 30
--- NOTE | 2019-08-22 11:42 | P.DS ---
Providers Date of admission: 08/21/2019 Expected date of discharge: 08/22/19 Attending physician: Darrell Moon Primary care physician: Jacqueline Abad Hospital Course: Date of admission: 08/21/2019 Date of discharge: 08/22/2019 Admission diagnosis: Status post incision with irrigation and debridement and secondary wound closure right ankle wound Discharge diagnosis: Same Attending physician: Dr. Moon Surgical procedures: Incision with irrigation and debridement and secondary wound closure right ankle wound Brief history: Patient is a 43-year-old female with a history of a previous ORIF of her right ankle. Patient had been doing very well for about 2 months, she also noticed a dehiscence and her wound along the right ankle. She was evaluated by Dr. Moon in the outpatient setting, she was scheduled for surgery on 08/21/2019. Hospital course: Details of patient's surgery can be found in operative report. Patient tolerated the procedure well and was subsequently transported to orthopedic floor. Patient's orthopeidc and medical care was provided daily. Patient had daily laboratory tests performed for evaluation of overall blood counts. Patient had daily physical therapy to include strengthening range of motion as well as education with walker ambulation. Patient was noted to have a relatively uneventful postoperative course. Patient reported satisfactory pain control with oral pain medications by postoperative day 0. Patient showed satisfactory progress with physical therapy. Patient moved steadily through the program and had no difficulty meeting the goals by postoperative day 1. Given patient's otherwise satisfactory course and having met physical therapy goals, plan is to discharge patient home on postoperative day 1. Discharge condition/disposition: Patient will be discharged home in stable condition. Discharge medications: Instructions are given on resumption of patient's normal daily medications per primary care recommendation, in addition patient will be prescribed [place] 5 mg/25 mg. Discharge instructions: 1. Wound care and infection precautions, keep incision dry and covered while showering, no lotions, creams, moisturizers. No soaking, tubs, pools, hottubs. Do not scrub over the incision. 2. Weight-bear as tolerated with walker / cane until follow-up. 3. Ice and elevate when necessary. Do not exceed 20 minutes per hour with ice pack. Procedures: Incision with irrigation and debridement and secondary wound closure right ankle wound Patient Condition at Discharge: Good Plan - Discharge Summary Discharge Rx Participant: Yes New Discharge Prescriptions: New Hydrocodone/Acetaminophen [[place] 5-325] 1 each PO Q6HR PRN #15 tab PRN Reason: Pain No Action Umeclidinium [place] [Incruse Ellipta] 62.5 mcg INHALATION RT-DAILY Melatonin 10 mg PO HS PRN PRN Reason: Insomnia Lisinopril-Hctz 20-25 mg [Zestoretic 20-25] 1 tab PO DAILY Omeprazole [PriLOSEC] 40 mg PO HS Diclofenac Sodium [Voltaren] 75 mg PO BID PRN PRN Reason: Pain traZODone HCL 300 mg PO HS Ziprasidone HCl [Geodon] 160 mg PO HS Baclofen [Lioresal] 20 mg PO QID Esomeprazole Magnesium [NexIUM 24Hr] 20 mg PO DAILY PRN PRN Reason: Gi Upset Discharge Medication List Baclofen [Lioresal] 20 mg PO QID 05/06/19 [History] Diclofenac Sodium [Voltaren] 75 mg PO BID PRN 05/06/19 [History] Esomeprazole Magnesium [NexIUM 24Hr] 20 mg PO DAILY PRN 05/06/19 [History] Lisinopril-Hctz 20-25 mg [Zestoretic 20-25] 1 tab PO DAILY 05/06/19 [History] Melatonin 10 mg PO HS PRN 05/06/19 [History] Omeprazole [PriLOSEC] 40 mg PO HS 05/06/19 [History] Umeclidinium [place] [Incruse Ellipta] 62.5 mcg INHALATION RT-DAILY 05/06/19 [History] Ziprasidone HCl [Geodon] 160 mg PO HS 05/06/19 [History] traZODone HCL 300 mg PO HS 05/06/19 [History] Hydrocodone/Acetaminophen [[place] 5-325] 1 each PO Q6HR PRN #15 tab 08/22/19 [Rx] Follow up Appointment(s)/Referral(s): Dylan Cuevas PAC [[employer]] - 2 Weeks Activity/Diet/Wound Care/Special Instructions: Orthopedic discharge instructions: 1. Okay to remove postop bandage on Sunday 2. Keep incision covered and dry while showering 3. Ice and elevate often 4. Pain medication as needed 5. Plan [facility] weeks Discharge Disposition: HOME SELF-CARE
--- NOTE | 2019-08-22 13:47 | P.CONS ---
History of Present Illness - Reason for Consult Consult date: 08/22/19 medical management Requesting physician: Darrell Moon - Chief Complaint ankle swelling, pain - History of Present Illness Dora Holguin is a 43 yo F with hx recent R mallolar fracture, bipolar disorder, HTN who is admitted for R ankle wound dehiscence. She underwent ORIF on 06/01 and was recently seen in ortho clinic where she complained of ankle swelling and pain as well as skin dehiscence. This was operatively repaired on 08/21 and currently pt is feeling well. She reports only minimal pain and is ambulating without difficulty. Her vitals and labs are stable and pt denies chest pain, shortness of breath, fever, chills. Review of Systems All systems: negative Constitutional: Denies chills, Denies fever Eyes: denies blurred vision, denies pain Ears, nose, mouth and throat: Denies headache, Denies sore throat Cardiovascular: Denies chest pain, Denies shortness of breath Respiratory: Denies cough Gastrointestinal: Denies abdominal pain, Denies diarrhea, Denies nausea, Denies vomiting Genitourinary: Denies dysuria, Denies hematuria Musculoskeletal: Denies myalgias Integumentary: Reports lesions, Reports wounds, Denies pruritus, Denies rash Neurological: Denies numbness, Denies weakness Psychiatric: Denies anxiety, Denies depression Endocrine: Denies fatigue, Denies weight change Past Medical History Past Medical History: COPD, Diabetes Mellitus, GERD/Reflux, Hypertension, Musculoskeletal Disorder Additional Past Medical History / Comment(s): Degenerative disc disease, right ankle boot, drsg. to wound right ankle, no longer on med for diabetes, edema lower extremities History of Any Multi-Drug Resistant Organisms: MRSA Year Discovered:: 2013 MDRO Source:: left axillae Past Surgical History: Appendectomy, Section, Hysterectomy Additional Past Surgical History / Comment(s): tooth extraction, ORIF right an kle Past Anesthesia/Blood Transfusion Reactions: No Reported Reaction Past Psychological History: Bipolar Smoking Status: Current every day smoker Past Alcohol Use History: None Reported Additional Past Alcohol Use History / Comment(s): 1ppd Past Drug Use History: None Reported - Past Family History Mother Family Medical History: Diabetes Mellitus Father History Unknown: Yes Medications and Allergies Home Medications Medication Instructions Recorded Confirmed Type Baclofen [Lioresal] 20 mg PO QID 05/06/19 08/21/19 History Diclofenac Sodium [Voltaren] 75 mg PO BID PRN 05/06/19 08/20/19 History Esomeprazole Magnesium [NexIUM 20 mg PO DAILY PRN 05/06/19 08/20/19 History 24Hr] Lisinopril-Hctz 20-25 mg 1 tab PO DAILY 05/06/19 08/20/19 History [Zestoretic 20-25] Melatonin 10 mg PO HS PRN 05/06/19 08/20/19 History Omeprazole [PriLOSEC] 40 mg PO HS 05/06/19 08/20/19 History Umeclidinium [place] [Incruse 62.5 mcg INHALATION RT-DAILY 05/06/19 08/20/19 History Ellipta] Ziprasidone HCl [Geodon] 160 mg PO HS 05/06/19 08/20/19 History traZODone HCL 300 mg PO HS 05/06/19 08/20/19 History Hydrocodone/Acetaminophen [[place] 1 each PO Q6HR PRN #15 tab 08/22/19 Rx 5-325] Allergies Allergy/AdvReac Type Severity Reaction Status Date / Time No Known Allergies Allergy Verified 08/20/19 09:16 Physical Exam Vitals: Vital Signs Temp Pulse Pulse Resp BP BP Pulse Ox 08/22/19 08:00 70 15 08/22/19 07:00 98.2 F 70 15 153/88 97 08/22/19 03:02 18 08/22/19 02:20 98.3 F 59 L 18 141/77 95 08/22/19 00:00 18 08/21/19 20:21 18 08/21/19 19:58 98.0 F 74 18 146/83 94 L 08/21/19 18:06 73 16 122/74 92 L 08/21/19 17:50 65 16 124/68 91 L 08/21/19 17:35 76 16 123/80 92 L 08/21/19 17:20 75 16 130/75 93 L 08/21/19 17:08 85 16 115/58 93 L 08/21/19 16:53 97.0 F L 100 16 145/84 96 08/21/19 15:29 97.8 F 78 18 147/73 96 Intake and Output 08/21/19 08/22/19 08/22/19 22:59 06:59 14:59 Intake Total 950 Output Total 10 Balance 940 Intake: IV 950 Output: Estimated Blood Loss 10 Other: Voiding Method Toilet Toilet Toilet # Voids 2 Weight 140.2 kg General: well nourished, well developed, NAD. Vitals reviewed Eyes: PERRL, EOMI, conjunctiva normal HENT: normocephalic, mucus membranes moist Neck: supple, no JVD Lungs: normal respiratory effort, no wheezes or rales CV: Regular rate and rhythm, no murmur. Peripheral pulses 2+ Abdomen: soft, nondistended, no organomegaly Lymph: no cervical or axillary LAD Skin: warm and dry. R ankle incision c/d/i Neuro: A&Ox3, normal mood and affect Results CBC & Chem 7: 08/21/19 15:34 08/21/19 15:34 Labs: Abnormal Lab Results - Last 24 Hours (Table) 08/21/19 08/21/19 08/21/19 Range/Units 15:34 15:34 15:36 WBC 11.5 H (3.8-10.6) k/uL RDW 15.7 H (11.5-15.5) % Neutrophils # 8.4 H (1.3-7.7) k/uL Glucose 114 H (74-99) mg/dL POC Glucose (mg/dL) 112 H (75-99) mg/dL Assessment and Plan (1) Wound dehiscence Status: Acute Code(s): T81.30XA - DISRUPTION OF WOUND, UNSPECIFIED, INITIAL ENCOUNTER SNOMED Code(s): 349992828 (2) Bipolar disorder in remission Status: Acute Code(s): F31.70 - BIPOLAR DISORD, CURRENTLY IN REMIS, MOST RECENT EPISODE UNSP SNOMED Code(s): 00323963 (3) Hypertension Status: Acute Code(s): I10 - ESSENTIAL (PRIMARY) HYPERTENSION SNOMED Code(s): 06915561 (4) Insomnia Status: Acute Code(s): G47.00 - INSOMNIA, UNSPECIFIED SNOMED Code(s): 972046377 Plan: 1. Wound dehiscence. Operatively repaired. Medically stable for dc. F/u with PCP and ortho outpatient 2. Bipolar disorder. Continue geodon, baclofen, trazodone 3. HTN. Continue lisinopril, HCTZ
== END 2019-08-22 13:20 | disposition home or self-care (01) ==
LOC: OR 15:06 → 4SSUR 17:41 → OR 08-22 13:20
PROVIDERS: ATTEND Orthopaedic Surgery
DX: T81.30XA Disruption of wound, unspecified, initial encounter (principal); E11.9 Type 2 diabetes mellitus without complications; I10 Essential (primary) hypertension; F17.210 Nicotine dependence, cigarettes, uncomplicated; E66.01 Morbid (severe) obesity due to excess calories; Z68.43 Body mass index [BMI] 50.0-59.9, adult; J44.9 Chronic obstructive pulmonary disease, unspecified; K21.9 Gastro-esophageal reflux disease without esophagitis; Z86.14 Personal history of Methicillin resistant Staphylococcus aureus infection; F31.70 Bipolar disorder, currently in remission, most recent episode unspecified; G47.00 Insomnia, unspecified; Z90.710 Acquired absence of both cervix and uterus; Z83.3 Family history of diabetes mellitus; Z79.1 Long term (current) use of non-steroidal anti-inflammatories (NSAID); Z79.84 Long term (current) use of oral hypoglycemic drugs; Z79.899 Other long term (current) drug therapy
CPT/HCPCS: 80048; 85025; 12020; J2250; J1100; J0690 ×2; J2405; J2001; J3010; J0330; J2704; J1170 ×2

== ENCOUNTER 2019-11-23 15:13 | Emergency (ER) | payer MEDICARE, OTHER ==
[2019-11-23 15:22] VITALS: BP 176/110; PULSE 90; RESP 18; TEMP 98.5
[2019-11-23] MEDS ORDERED: Acetaminophen-Codeine 300-30mg TAB PO STA (15:39)
--- NOTE | 2019-11-23 15:42 | ED ---
Skin/Abscess/FB HPI - General Chief complaint: Skin/Abscess/Foreign Body Stated complaint: infected wound Time Seen by Provider: 11/23/19 15:26 Source: patient Mode of arrival: ambulatory Limitations: no limitations - History of Present Illness Initial comments: Patient is a 44-year-old diabetic female presenting to the emergency department with a chief complaint of ankle pain. Patient reports a wound that started on her right ankle about a week ago. Patient states she has a home nurse that comes in 3 times per week. Patient reports about 5 days ago the wound care nurse came and contacted the wound care center who prescribed her antibiotics. Patient states she is unsure of the antibiotic. Patient reports that the debridement, she developed pain in the region. States it feels sore. Patient does report some numbness and tingling but states that his due to her diabetic neuropathy. Denies any fevers or chills. Denies any temperature changes. Denies any ecchymosis in the region. - Related Data Home Medications Medication Instructions Recorded Confirmed Baclofen [Lioresal] 20 mg PO QID 05/06/19 08/21/19 Diclofenac Sodium [Voltaren] 75 mg PO BID PRN 05/06/19 08/20/19 Esomeprazole Magnesium [NexIUM 20 mg PO DAILY PRN 05/06/19 08/20/19 24Hr] Lisinopril-Hctz 20-25 mg 1 tab PO DAILY 05/06/19 08/20/19 [Zestoretic 20-25] Melatonin 10 mg PO HS PRN 05/06/19 08/20/19 Omeprazole [PriLOSEC] 40 mg PO HS 05/06/19 08/20/19 Umeclidinium [place] [Incruse 62.5 mcg INHALATION RT-DAILY 05/06/19 08/20/19 Ellipta] Ziprasidone HCl [Geodon] 160 mg PO HS 05/06/19 08/20/19 traZODone HCL 300 mg PO HS 05/06/19 08/20/19 Previous Rx's Medication Instructions Recorded Hydrocodone/Acetaminophen [[place] 1 each PO Q6HR PRN #15 tab 08/22/19 5-325] Allergies Allergy/AdvReac Type Severity Reaction Status Date / Time No Known Allergies Allergy Verified 11/23/19 15:22 Review of Systems ROS Statement: Those systems with pertinent positive or pertinent negative responses have been documented in the HPI. ROS Other: All systems not noted in ROS Statement are negative. Past Medical History Past Medical History: COPD, Diabetes Mellitus, GERD/Reflux, Hypertension, Musculoskeletal Disorder Additional Past Medical History / Comment(s): Degenerative disc disease, right ankle boot, drsg. to wound right ankle, no longer on med for diabetes, edema lower extremities History of Any Multi-Drug Resistant Organisms: MRSA Date of last positivie culture/infection: 2013 MDRO Source:: left axillae Past Surgical History: Appendectomy, Section, Hysterectomy Additional Past Surgical History / Comment(s): tooth extraction, ORIF right ankle Past Anesthesia/Blood Transfusion Reactions: No Reported Reaction Past Psychological History: Bipolar Smoking Status: Current every day smoker Past Alcohol Use History: None Reported Past Drug Use History: None Reported - Past Family History Mother Family Medical History: Diabetes Mellitus Father History Unknown: Yes General Exam Limitations: no limitations General appearance: alert, in no apparent distress Head exam: Present: atraumatic, normocephalic, normal inspection Eye exam: Present: normal appearance Pupils: Present: normal accommodation ENT exam: Present: normal exam Neck exam: Present: normal inspection, full ROM Respiratory exam: Present: normal lung sounds bilaterally Cardiovascular Exam: Present: regular rate, normal rhythm, normal heart sounds Extremities exam: Present: full ROM, tenderness. Absent: normal inspection (2 open wounds on the lateral aspect of the right lower leg slightly superior to the lateral malleolus. Not erythematous. No cellulitic changes. Medihoney notede from last dressing change) Back exam: Present: normal inspection, full ROM Neurological exam: Present: alert, oriented X3 Psychiatric exam: Present: normal affect, normal mood Skin exam: Present: warm, dry, intact, normal color Course Vital Signs 11/23/19 15:19 Temperature 98.5 F Pulse Rate 90 Respiratory 18 Rate Blood Pressure 176/110 O2 Sat by Pulse 97 Oximetry Disposition Clinical Impression: Open wound, lower leg, Ankle pain, right Disposition: HOME SELF-CARE Condition: Stable Instructions (If sedation given, give patient instructions): Wound Infection (DC), Acute Wound Care (ED) Additional Instructions: Follow-up with [facility]. Return to emergency department if symptoms worsen. Continue taking antibiotics. Is patient prescribed a controlled substance at d/c from ED?: No Referrals: Jacqueline Abad DO [Primary Care Provider] - 1-2 days Time of Disposition: 16:27
--- NOTE | 2019-11-23 15:59 | XR ---
EXAMINATION TYPE: XR ankle complete RT DATE OF EXAM: 11/23/2019 COMPARISON: 05/31/2019 HISTORY: Pain nonhealing wound. TECHNIQUE: 3 views. FINDINGS: There is a plate with screws fixing the distal fibula. Detail is limited by the bandages around the a nkle. Ankle mortise is anatomic. There is plantar calcaneal spurring. There is apparent ulcer defect over the lateral aspect of the di stal fibula. This is at the proximal end of the plate. IMPRESSION: No sign of osteomyelitis. There is probably also over the lateral aspect of the distal fi bula. There is subcutaneous edema around the lower leg.
[2019-11-23] MEDS ORDERED: ACET/COD 300 MG/30 MG STARTER PACK 6 TAB BTL PO STA (16:25)
== END 2019-11-23 16:37 | disposition home or self-care (01) ==
LOC: EC 15:13
DX: S91.001A Unspecified open wound, right ankle, initial encounter (principal); J44.9 Chronic obstructive pulmonary disease, unspecified; E11.40 Type 2 diabetes mellitus with diabetic neuropathy, unspecified; I10 Essential (primary) hypertension; K21.9 Gastro-esophageal reflux disease without esophagitis; F31.9 Bipolar disorder, unspecified; F17.200 Nicotine dependence, unspecified, uncomplicated; Z79.899 Other long term (current) drug therapy
CPT/HCPCS: 99283

== ENCOUNTER 2019-12-15 16:48 | Inpatient (IN) | payer MEDICARE, OTHER ==
[2019-12-15] MEDS ORDERED: SODIUM CHLORIDE 0.9% 500 ML 500 ML IV ONE (18:07)
[2019-12-15] MEDS ORDERED: MORPHINE SULFATE 4 MG/ML SYRINGE IV STA (18:07)
[2019-12-15] MEDS ORDERED: PIPERACILLIN-TAZOBACTAM 3.375 GM in SODIUM CHLORIDE 0.9% 100 ML IVPB STA (18:09)
[2019-12-15] MEDS ORDERED: VANCOMYCIN IV PER PHARMACY 1 EACH MISC MISCELLANE PRN (18:09)
--- NOTE | 2019-12-15 18:21 | ED ---
General Adult HPI - General Chief complaint: Skin/Abscess/Foreign Body Stated complaint: incision infection Time Seen by Provider: 12/15/19 17:05 Source: patient, family, RN notes reviewed, old records reviewed Mode of arrival: wheelchair Limitations: no limitations - History of Present Illness Initial comments: 44-year-old female patient past history significant for COPD, type 2 diabetes, hypertension, status post hysterectomy presents to ED for evaluation of possible right ankle infection. Patient reports that she had an operation by Dr. Sarai mai in May. Reports that she has had persistent wound issues since. States that for the last month she has had pain, redness, ulceration around her lateral malleoli region where she had hardware placed. States that she hasn't following up at the wound clinic. Reports that the wound was mary jo rided and her visiting nurse believes that there is infection. Patient denies any systemic symptoms of infection including nausea fever. Does report pain in the ankle but denies any other area of focal pain. Systemic: Pt denies fatigue, fever/chills, rash. Pt denies weakness, night sweats, weight loss. Neuro: Pt denies headache, visual disturbances, syncope or pre-syncope. HEENT: Pt denies ocular discharge or irritation, otalgia, rhinorrhea, pharyngitis or notable lymphadenopathy. Cardiopulmonary: Pt denies chest pain, SOB, heart palpitations, dyspnea on exertion. Abdominal/GI: Pt denies abdominal pain, n/v/d. : Pt denies dysuria, burning w/ urination, frequency/urgency. Denies new onset urinary or bowel incontinence. MSK: Pt denies myalgia, loss of strength or function in extremities. Neuro: Pt denies new onset weakness, paresthesias. - Related Data Home Medications Medication Instructions Recorded Confirmed Baclofen [Lioresal] 20 mg PO QID 05/06/19 08/21/19 Diclofenac Sodium [Voltaren] 75 mg PO BID PRN 05/06/19 08/20/19 Esomeprazole Magnesium [NexIUM 20 mg PO DAILY PRN 05/06/19 08/20/19 24Hr] Lisinopril-Hctz 20-25 mg 1 tab PO DAILY 05/06/19 08/20/19 [Zestoretic 20-25] Melatonin 10 mg PO HS PRN 05/06/19 08/20/19 Omeprazole [PriLOSEC] 40 mg PO HS 05/06/19 08/20/19 Umeclidinium [place] [Incruse 62.5 mcg INHALATION RT-DAILY 05/06/19 08/20/19 Ellipta] Ziprasidone HCl [Geodon] 160 mg PO HS 05/06/19 08/20/19 traZODone HCL 300 mg PO HS 05/06/19 08/20/19 Previous Rx's Medication Instructions Recorded Hydrocodone/Acetaminophen [[place] 1 each PO Q6HR PRN #15 tab 08/22/19 5-325] Allergies Allergy/AdvReac Type Severity Reaction Status Date / Time No Known Allergies Allergy Verified 11/23/19 15:22 Review of Systems ROS Statement: Those systems with pertinent positive or pertinent negative responses have been documented in the HPI. ROS Other: All systems not noted in ROS Statement are negative. Past Medical History Past Medical History: COPD, Diabetes Mellitus, GERD/Reflux, Hypertension, Musculoskeletal Disorder Additional Past Medical History / Comment(s): Degenerative disc disease, right ankle boot, drsg. to wound right ankle, no longer on med for diabetes, edema lower extremities History of Any Multi-Drug Resistant Organisms: MRSA Date of last positivie culture/infection: 2013 MDRO Source:: left axillae Past Surgical History: Appendectomy, Section, Hysterectomy Additional Past Surgical History / Comment(s): tooth extraction, ORIF right ankle Past Anesthesia/Blood Transfusion Reactions: No Reported Reaction Past Psychological History: Bipolar Smoking Status: Current every day smoker Past Alcohol Use History: None Reported Past Drug Use History: None Reported - Past Family History Mother Family Medical History: Diabetes Mellitus Father History Unknown: Yes General Exam - General Exam Comments Initial Comments: Constitutional: NAD, AOX3, Pt has pleasant affect. HEENT: NC/AT, trachea midline, neck supple, no lymphadenopathy. Posterior pharynx non erythematous, without exudates. External ears appear normal, without discharge. Mucous membranes moist. Eyes PERRLA, EOM intact. There is no scleral icterus. No pallor noted. Cardiopulmonary: RRR, no murmurs, rubs or gallops, no JVD noted. Lungs CTAB in anterior and posterior barbour. Abdominal exam: Abdomen soft and non-distended. Abdomen non-tender to palpation in all 4 quadrants. Bowel sounds active in LLQ. No hepatosplenomegaly. No ecchymosis Neuro: CN II-XII grossly intact. No nuchal rigidity. No raccon eyes, no antonio sign, no hemotympanum. No cervical spinal tenderness. MSK: 5 x 2 cm region of skin ulceration noted on the lateral aspect of right ankle. Mild amount of surrounding erythema. No posterior calf tenderness bilaterally, homans sign negative bilaterally. Posterior tibialis and radial pulse +2 bilaterally. Sensation intact in upper and lower extremities. Full active ROM in upper and lower extremities, 5/5 stregnth. Limitations: no limitations Course Vital Signs 12/15/19 16:54 Temperature 98.2 F Pulse Rate 72 Respiratory 18 Rate Blood Pressure 108/69 O2 Sat by Pulse 97 Oximetry Medical Decision Making - Medical Decision Making 44-year-old female patient presents to ED for evaluation of potential infection from Luis and right ankle. Patient had at fever fracture in which a plate was put in in May 2019. At that issues displayed poorly since. Patient has had an open wound on her right lateral malleolus region for the last 4 weeks. This felt similar stable, afebrile. Physical exam displayed approximate 5 x 2 cm ulceration right malleolar region. I do not appreciate any exposed hardware at this time. Left investigations were conducted. Mild leukocytosis noted. Plain films displayed soft tissue cellulitis. Patient should have vancomycin and Zosyn. Prior culture grew Pseudomonas Klebsiella and staph aureus. Case discussed with dylan wilkins PA-C [facility]. He recommended admission, nothing by mouth from midnight and plan for operative management tomorrow. This was discussed with patient. Infectious disease and internal medicine will be consulted. Case discussed with Dr. Ruiz. - Lab Data Result diagrams: 12/15/19 18:00 12/15/19 18:00 Lab Results 12/15/19 12/15/19 12/15/19 Range/Units 18:00 18:00 18:00 WBC 11.5 H (3.8-10.6) k/uL RBC 4.47 (3.80-5.40) m/uL Hgb 13.4 (11.4-16.0) gm/dL Hct 39.9 (34.0-46.0) % MCV 89.4 (80.0-100.0) fL MCH 30.1 (25.0-35.0) pg MCHC 33.7 (31.0-37.0) g/dL RDW 15.0 (11.5-15.5) % Plt Count 326 (150-450) k/uL Neutrophils % 56 % Lymphocytes % 34 % Monocytes % 5 % Eosinophils % 3 % Basophils % 1 % Neutrophils # 6.4 (1.3-7.7) k/uL Lymphocytes # 3.9 (1.0-4.8) k/uL Monocytes # 0.6 (0-1.0) k/uL Eosinophils # 0.4 (0-0.7) k/uL Basophils # 0.1 (0-0.2) k/uL Sodium 131 L (137-145) mmol/L Potassium 4.7 (3.5-5.1) mmol/L Chloride 99 (98-107) mmol/L Carbon Dioxide 26 (22-30) mmol/L Anion Gap 6 mmol/L BUN 19 H (7-17) mg/dL Creatinine 0.79 (0.52-1.04) mg/dL Est GFR (CKD-EPI)AfAm >90 (>60 ml/min/1.73 sqM) Est GFR (CKD-EPI)NonAf >90 (>60 ml/min/1.73 sqM) Glucose 100 H (74-99) mg/dL Plasma Lactic Acid Bill 1.3 (0.7-2.0) mmol/L Calcium 9.4 (8.4-10.2) mg/dL Total Bilirubin 0.5 (0.2-1.3) mg/dL AST 29 (14-36) U/L ALT 25 (4-34) U/L Alkaline Phosphatase 58 (38-126) U/L Total Protein 6.6 (6.3-8.2) g/dL Albumin 3.8 (3.5-5.0) g/dL Urine Color Urine Appearance (Clear) Urine pH (5.0-8.0) Ur Specific [place] (1.001-1.035) Urine Protein (Negative) Urine Glucose (UA) (Negative) Urine Ketones (Negative) Urine Blood (Negative) Urine Nitrite (Negative) Urine Bilirubin (Negative) Urine Urobilinogen (<2.0) mg/dL Ur Leukocyte Esterase (Negative) 12/15/19 Range/Units 18:00 WBC (3.8-10.6) k/uL RBC (3.80-5.40) m/uL Hgb (11.4-16.0) gm/dL Hct (34.0-46.0) % MCV (80.0-100.0) fL MCH (25.0-35.0) pg MCHC (31.0-37.0) g/dL RDW (11.5-15.5) % Plt Count (150-450) k/uL Neutrophils % % Lymphocytes % % Monocytes % % Eosinophils % % Basophils % % Neutrophils # (1.3-7.7) k/uL Lymphocytes # (1.0-4.8) k/uL Monocytes # (0-1.0) k/uL Eosinophils # (0-0.7) k/uL Basophils # (0-0.2) k/uL Sodium (137-145) mmol/L Potassium (3.5-5.1) mmol/L Chloride (98-107) mmol/L Carbon Dioxide (22-30) mmol/L Anion Gap mmol/L BUN (7-17) mg/dL Creatinine (0.52-1.04) mg/dL Est GFR (CKD-EPI)AfAm (>60 ml/min/1.73 sqM) Est GFR (CKD-EPI)NonAf (>60 ml/min/1.73 sqM) Glucose (74-99) mg/dL Plasma Lactic Acid Bill (0.7-2.0) mmol/L Calcium (8.4-10.2) mg/dL Total Bilirubin (0.2-1.3) mg/dL AST (14-36) U/L ALT (4-34) U/L Alkaline Phosphatase (38-126) U/L Total Protein (6.3-8.2) g/dL Albumin (3.5-5.0) g/dL Urine Color Yellow Urine Appearance Clear (Clear) Urine pH 6.0 (5.0-8.0) Ur Specific [place] 1.015 (1.001-1.035) Urine Protein Negative (Negative) Urine Glucose (UA) Negative (Negative) Urine Ketones Negative (Negative) Urine Blood Negative (Negative) Urine Nitrite Negative (Negative) Urine Bilirubin Negative (Negative) Urine Urobilinogen <2.0 (<2.0) mg/dL Ur Leukocyte Esterase Negative (Negative) Disposition Clinical Impression: Post-operative infection Disposition: ADMITTED IP TO THIS HOSP Condition: Serious Is patient prescribed a controlled substance at d/c from ED?: No Referrals: Jacqueline Abad DO [Primary Care Provider] - 1-2 days
[2019-12-15 18:31] LABS: Basophils # (A) 0.1 k/uL (0-0.2); Basophils % (A) 1 %; Eosinophils # (A) 0.4 k/uL (0-0.7); Eosinophils % (A) 3 %; HCT 39.9 % (34.0-46.0); HGB 13.4 gm/dL (11.4-16.0); Lymphocytes # (A) 3.9 k/uL (1.0-4.8); Lymphocytes % (A) 34 %; MCH 30.1 pg (25.0-35.0); MCHC 33.7 g/dL (31.0-37.0); MCV 89.4 fL (80.0-100.0); Mean Platelet Volume 7.6; Monocytes # (A) 0.6 k/uL (0-1.0); Monocytes % (A) 5 %; Neutrophils # (A) 6.4 k/uL (1.3-7.7); Neutrophils % (A) 56 %; Platelet Count 326 k/uL (150-450); RBC 4.47 m/uL (3.80-5.40); WBC 11.5 k/uL (3.8-10.6)
[2019-12-15 18:33] LABS: Appearance,Urine Clear (Clear); Bilirubin,Urine Negative (Negative); Blood,Urine Negative (Negative); Color,Urine Yellow; Glucose,Urine (UA) Negative (Negative); Ketones,Urine Negative (Negative); Leukocyte Esterase,Urine Negative (Negative); Nitrite,Urine Negative (Negative); Protein,Urine Negative (Negative); Specific Gravity,Urine 1.015 (1.001-1.035); Urobilinogen,Urine <2.0 mg/dL (<2.0)
--- NOTE | 2019-12-15 18:39 | XR ---
EXAMINATION TYPE: XR ankle complete RT DATE OF EXAM: 12/15/2019 COMPARISON: 11/23/2019 HISTORY: Pain FINDINGS: Three views of the ankle demonstrate the ankle mortise to be intact and symmetric. The joint spaces are preserved. Extensive soft tissue edema is noted. There is postsurgical changes across the fractur e of the distal fibula. Slight irregularity of the epidermis could be related to a soft tissue wound. No acute fracture. Calcaneal spur noted. Fracture also seen involving the posterior margin of the ti tarun suspected. Mildly displaced. IMPRESSION: 1. Extensive soft tissue edema questionable skin wound adjacent to the postsurgical site across the f racture of the distal fibula correlate for cellulitis. 2. Fracture involving the posterior tibia stable from prior exam.
[2019-12-15 18:42] LABS: ALT 25 U/L (4-34); AST 29 U/L (14-36); African American GFR (CKD) >90 (>60 ml/min/1.73 sqM); Albumin 3.8 g/dL (3.5-5.0); Alkaline Phosphatase 58 U/L (38-126); Anion Gap 6 mmol/L; Blood Urea Nitrogen 19 mg/dL (7-17); Calcium 9.4 mg/dL (8.4-10.2); Carbon Dioxide 26 mmol/L (22-30); Chloride 99 mmol/L (98-107); Glucose 100 mg/dL (74-99); Non-African American GFR(CKD) >90 (>60 ml/min/1.73 sqM); Potassium 4.7 mmol/L (3.5-5.1); Sodium 131 mmol/L (137-145); Total Bilirubin 0.5 mg/dL (0.2-1.3); Total Protein 6.6 g/dL (6.3-8.2)
[2019-12-15] MEDS ORDERED: VANCOMYCIN 2,500 MG in SODIUM CHLORIDE 0.9% 500 ML 500 ML IVPB ONE (19:00)
[2019-12-15] MEDS ORDERED: NALOXONE 0.4 MG/ML 1 ML VIAL IV PRN (19:24)
[2019-12-15] MEDS: SODIUM CHLORIDE 0.9% 1,000 ML IV SCH (19:53)
[2019-12-15] MEDS: MORPHINE SULFATE 4 MG/ML SYRINGE IV PRN (21:31)
[2019-12-15] MEDS: traZODone HCL 100 MG TAB PO SCH (22:23)
[2019-12-15] MEDS: MELATONIN 5 MG TABLET PO PRN (22:23)
[2019-12-15] MEDS: PANTOPRAZOLE 40 MG TABLET PO SCH (22:24)
[2019-12-15] MEDS: tiZANidine 4 MG TAB PO SCH (22:45)
[2019-12-15] MEDS: ZIPRASIDONE 80 MG CAP PO SCH (22:45)
[2019-12-16] MEDS: PIPERACILLIN-TAZOBACTAM 3.375 GM in SODIUM CHLORIDE 0.9% 100 ML IVPB SCH ×3 (01:40→18:58)
[2019-12-16] MEDS: MORPHINE SULFATE 4 MG/ML SYRINGE IV PRN ×3 (02:31→11:43)
[2019-12-16] MEDS ORDERED: DOXYCYCLINE 100 MG CAP PO SCH (09:00)
[2019-12-16] MEDS: SODIUM CHLORIDE 0.9% 1,000 ML IV SCH (09:37)
[2019-12-16] MEDS: OXcarbazepine 150 MG TAB PO SCH (09:40)
[2019-12-16] MEDS: tiZANidine 4 MG TAB PO SCH ×3 (09:40→21:05)
[2019-12-16] MEDS: POTASSIUM CHLORIDE ER 20 MEQ TAB.ER PO SCH (09:40)
[2019-12-16] MEDS: FUROSEMIDE 40 MG TAB PO SCH ×2 (09:40→20:30)
[2019-12-16] MEDS: VANCOMYCIN 2,500 MG in SODIUM CHLORIDE 0.9% 500 ML 500 ML IVPB SCH ×2 (09:41→21:04)
[2019-12-16 11:51] LABS: Glucose,Whole Blood 94 mg/dL (75-99)
--- NOTE | 2019-12-16 13:51 | P.HPOR ---
History of Present Illness H&P Date: 12/16/19 Chief Complaint: Right ankle wound Patient is a 44-year-old female who presented to [facility] yesterday due to increasing pain involving a wound on her right ankle. Patient has a known history of an open reduction internal fixation procedure of a lateral malleolus fracture of the right ankle back in May [address] Moon. She subsequently develope wound dehiscence on 2 separate areas of the incision, she was taken back for an incision and irrigation with debridement along with secondary closure of those wounds in August 2019. We have not seen the patient in the office for quite some time, she had been doing fairly well. She states about 4 weeks ago she developed to separate wounds along that same incision. She has been followed by the wound care center along with home care visits be available wound care nurse for checks of the right ankle. She was evaluated in the emergency room on 11/22/2018 with regards to the same problem. She was started prescribed antibiotics by the wound care center, she's been taking them as prescribed. A wound culture was obtained on 12/08/2019, the final results have revealed 3 different organisms. She's resting today at bedside, she notes discomfort along the right ankle wound. She is very agitated and upset at this time, she was crying at bedside. She has no other orthopedic complaints. Review of Systems Constitutional: Reports as per HPI Past Medical History Past Medical History: COPD, Diabetes Mellitus, GERD/Reflux, Hypertension, Musculoskeletal Disorder Additional Past Medical History / Comment(s): Degenerative disc disease, right ankle boot, drsg. to wound right ankle, no longer on med for diabetes, edema lower extremities History of Any Multi-Drug Resistant Organisms: MRSA Date of last positivie culture/infection: 2013 MDRO Source:: left axillae Past Surgical History: Appendectomy, Section, Hysterectomy Additional Past Surgical History / Comment(s): tooth extraction, ORIF right ankle Past Anesthesia/Blood Transfusion Reactions: No Reported Reaction Past Psychological History: Bipolar Smoking Status: Current every day smoker Past Alcohol Use History: None Reported Additional Past Alcohol Use History / Comment(s): 1ppd Past Drug Use History: None Reported - Past Family History Mother Family Medical History: Diabetes Mellitus Father History Unknown: Yes Medications and Allergies Home Medications Medication Instructions Recorded Confirmed Type Lisinopril-Hctz 20-25 mg 1 tab PO DAILY 05/06/19 12/15/19 History [Zestoretic 20-25] Melatonin 10 mg PO HS PRN 05/06/19 12/15/19 History Omeprazole [PriLOSEC] 40 mg PO HS 05/06/19 12/15/19 History Ziprasidone HCl [Geodon] 160 mg PO HS 05/06/19 12/15/19 History Albuterol Inhaler [Ventolin Hfa 2 puff INHALATION RT-Q4H PRN 12/15/19 12/15/19 History Inhaler] Ciprofloxacin HCl [Cipro] 500 mg PO BID 12/15/19 12/15/19 History Doxycycline Monohydrate [Monodox] 100 mg PO BID 12/15/19 12/15/19 History Furosemide [Lasix] 40 mg PO BID 12/15/19 12/15/19 History Hydrocodone/Acetaminophen [[place] 1 each PO BID PRN 12/15/19 12/15/19 History 5-325] OXcarbazepine [Trileptal] 150 mg PO DAILY 12/15/19 12/15/19 History Potassium Chloride ER [K-Dur 20] 20 meq PO DAILY 12/15/19 12/15/19 History Tiotropium [place] [Spiriva] 1 cap INHALATION RT-DAILY 12/15/19 12/15/19 History metFORMIN HCL ER [Glucophage Xr] 1,000 mg PO BID 12/15/19 12/15/19 History tiZANidine HCL 4 mg PO TID 12/15/19 12/15/19 History traZODone HCL 300 mg PO HS 12/15/19 12/15/19 History Allergies Allergy/AdvReac Type Severity Reaction Status Date / Time No Known Allergies Allergy Verified 12/15/19 20:26 Physical Examination Right lower extremity: Obvious wound noted over the lateral ankle, measures about 5 cm x 3 cm, it is noted along the more proximal aspect of the previous incision. There is granulation tissue present throughout the area. The skin edges are slightly red. There is no obvious drainage. There is no fall odor appreciated. I'm unable to appreciate any areas of fluctuance along the skin edges. There is no streaking erythema noted. She has known diabetic neuropathy, her sensory exam to light touch is diminished throughout most the foot. Radial pulses 2+. Calf is soft, no tenderness with palpation. Results - Labs Labs: Abnormal Lab Results - Last 24 Hours (Table) 12/15/19 12/15/19 Range/Units 18:00 18:00 WBC 11.5 H (3.8-10.6) k/uL Sodium 131 L (137-145) mmol/L BUN 19 H (7-17) mg/dL Glucose 100 H (74-99) mg/dL H & H 12/15/19 Range/Units 18:00 Hgb 13.4 (11.4-16.0) gm/dL Hct 39.9 (34.0-46.0) % Result Diagrams: 12/15/19 18:00 12/15/19 18:00 - Diagnostic results Ankle/Foot x-ray: report reviewed, image reviewed Assessment and Plan Plan: Imaging: X-rays were reviewed of the right ankle. Images demonstrated hardware involving the distal fibula. The hardware appears to be intact. Ankle mortise is in good position. Obvious soft tissue defect is appreciated on x-ray. Assessment: Right lateral ankle wound/infection History of right ankle fracture with surgical fixation Plan: I was able to discuss the case, including with physical exam findings and imaging studies my attending Dr. Moon. We like to proceed with a incision with irrigation and debridement of the right lateral ankle wound along with hardware removal. We'll also attempt a secondary wound closure. I discussed with the patient the risk of the surgery, this to include infection, blood loss, neurovascular injury, development blood clots, and adequate healing of wound, need for subsequent surgery. Discussed with her specifically that she may need a plastic surgery evaluation with possible skin graft procedure depending on her findings at surgery. Obtain consent Continue nothing by mouth until after surgery Other medical assembler recommendations Further recommendations to follow after surgery Time with Patient: Less than 30
[2019-12-16] MEDS ORDERED: IV FLUID CONTINUATION 1,000 ML IV ONE (14:44)
[2019-12-16] MEDS ORDERED: ONDANSETRON 4 MG/2 ML VIAL IVP ONE (14:52)
[2019-12-16] MEDS ORDERED: DEXAMETHASONE SOD PHOS (MDV) 100 MG/10 ML VIAL IVP ONE (14:52)
[2019-12-16] MEDS ORDERED: LACTATED RINGERS 1,000 ML IV ONE (16:24)
[2019-12-16] MEDS ORDERED: ACETAMINOPHEN TAB 325 MG TAB PO PRN (16:54)
--- NOTE | 2019-12-16 16:56 | P.OP ---
Date of Procedure: 12/16/19 Preoperative Diagnosis: Right ankle lateral wound with probable infected hardware Postoperative Diagnosis: Same Procedure(s) Performed: Removal hardware right ankle with irrigation and secondary wound closure Anesthesia: KELSIE Surgeon: Darrell Moon [employer] Servicer #1: Dlyan Cuevas Estimated Blood Loss (ml): 10 Pathology: none sent Condition: stable Disposition: PACU Indications for Procedure: 46-year-old patient seen with persistent right ankle lateral wound with with probable underlying infected hardware. I recommended removal of the hardware with irrigation and wound closure. Patient was agreeable. Consent was obtained. Operative Findings: See description of procedure Description of Procedure: Patient was taken to the operative suite. Patient underwent a general anesthetic by the department of anesthesia. A well-padded tourniquet placed proximal right thigh. The right lower extremity was prepped and draped in the normal extremity fashion. Extremity elevated. Tourniquet insufflated to 300. An incision was now made over the midportion of the wound as well as the remaining cicatrix distally sharply through skin. I debrided some of the superficial wound with a 15 blade knife abrading out any necrotic-appearing tissue getting down to stable healthy looking tissue. We now dissected down to the hardware. There was no evidence for any purulence or abnormal fluid. The hardware was now removed without difficulty. The lateral malleolar fracture. Well-healed. The wound was irrigated copiously with saline solution. We noted good bleeding along the soft tissue edges. I now repaired the wound utilizing #1 nylon sutures and multiple simple interrupted suture fashion. We had reasonable approximation of the wound with excellent soft tissue coverage of the bone. We now applied sterile dressings. Strength is May capillary refill the entire extremity noted. Sterile web roll and [place] bandage were applied. The patient was awakened, transferred to a stable satisfactory condition. Her prognosis remains guarded given the long-standing wound healing issues this patient has.
[2019-12-16 16:57] LABS: Glucose,Whole Blood 116 mg/dL (75-99)
[2019-12-16] MEDS ORDERED: diphenhydrAMINE 50 MG/ML 1 ML VIAL IVP ONE (17:03)
[2019-12-16] MEDS ORDERED: KETOROLAC 30 MG/ML 1 ML VIAL IVP ONE (17:07)
[2019-12-16] MEDS: HYDROmorphone 1 MG/ML 1 ML SYRINGE IVP ONE ×4 (17:11→17:29)
[2019-12-16] MEDS: traMADol 50 MG TAB PO SCH ×2 (19:41→21:09)
[2019-12-16] MEDS: traZODone HCL 100 MG TAB PO SCH (20:30)
[2019-12-16] MEDS: MELATONIN 5 MG TABLET PO PRN (20:30)
[2019-12-16] MEDS: PANTOPRAZOLE 40 MG TABLET PO SCH (20:30)
[2019-12-16] MEDS: HYDROcodone/APAP 7.5-325MG 1 EACH TAB PO PRN (20:31)
[2019-12-16] MEDS: ZIPRASIDONE 80 MG CAP PO SCH (21:04)
[2019-12-16 21:16] LABS: Glucose,Whole Blood 178 mg/dL (75-99)
--- NOTE | 2019-12-16 23:27 | P.CONS ---
History of Present Illness - Reason for Consult Consult date: 12/16/19 infected right ankle wound Requesting physician: Darrell Moon - Chief Complaint non healing right lateral ankle wound and pain x weeks - History of Present Illness Patient is 44-year-old female with a past medical history significant for lateral malleolus fracture of the right ankle back in May 2019 that was surgically repaired by apparently the patient seemed to have problem with nonhealing wound and the patient did have a I&D with secondary closure of these wounds in August 2019 primarily patient was doing well however did have reopening of the wound in November 2019 and has been under care of home care nurse local wound care has been shanel honey she was noticed to have a more drainage and erythema around the wound around December 07, the home care nurse did took some cultures which are now growing 3 different pathogen including MSSA Pseudomonas and Klebsiella patient says she was on antibiotic however is not sure about the name of those antibiotic with persistent nonhealing of this wound and worsening pain patient presented to hospital and apparently is scheduled for removal of the infected hardware this afternoon patient was started on vancomycin and Zosyn infectious disease was consulted for further recommendation about antibiotics. Patient has been complaining of excruciating pain to the right lateral ankle wound area describing to be 10 out of 10 with no radiation denies high-grade fever did have some chills no nausea no vomiting abdominal pain no diarrhea Review of Systems positive point has been mentioned in HPI rest of the systems are negative. Past Medical History Past Medical History: COPD, Diabetes Mellitus, GERD/Reflux, Hypertension, Musculoskeletal Disorder Additional Past Medical History / Comment(s): Degenerative disc disease, right ankle boot, drsg. to wound right ankle, no longer on med for diabetes, edema lower extremities History of Any Multi-Drug Resistant Organisms: MRSA Year Discovered:: 2013 MDRO Source:: left axillae Past Surgical History: Appendectomy, Section, Hysterectomy Additional Past Surgical History / Comment(s): tooth extraction, ORIF right ank le Past Anesthesia/Blood Transfusion Reactions: No Reported Reaction Past Psychological History: Bipolar Smoking Status: Current every day smoker Past Alcohol Use History: None Reported Additional Past Alcohol Use History / Comment(s): 1ppd Past Drug Use History: None Reported - Past Family History Mother Family Medical History: Diabetes Mellitus Father History Unknown: Yes Medications and Allergies Home Medications Medication Instructions Recorded Confirmed Type Lisinopril-Hctz 20-25 mg 1 tab PO DAILY 05/06/19 12/15/19 History [Zestoretic 20-25] Melatonin 10 mg PO HS PRN 05/06/19 12/15/19 History Omeprazole [PriLOSEC] 40 mg PO HS 05/06/19 12/15/19 History Ziprasidone HCl [Geodon] 160 mg PO HS 05/06/19 12/15/19 History Albuterol Inhaler [Ventolin Hfa 2 puff INHALATION RT-Q4H PRN 12/15/19 12/15/19 History Inhaler] Ciprofloxacin HCl [Cipro] 500 mg PO BID 12/15/19 12/15/19 History Doxycycline Monohydrate [Monodox] 100 mg PO BID 12/15/19 12/15/19 History Furosemide [Lasix] 40 mg PO BID 12/15/19 12/15/19 History Hydrocodone/Acetaminophen [[place] 1 each PO BID PRN 12/15/19 12/15/19 History 5-325] OXcarbazepine [Trileptal] 150 mg PO DAILY 12/15/19 12/15/19 History Potassium Chloride ER [K-Dur 20] 20 meq PO DAILY 12/15/19 12/15/19 History Tiotropium [place] [Spiriva] 1 cap INHALATION RT-DAILY 12/15/19 12/15/19 History metFORMIN HCL ER [Glucophage Xr] 1,000 mg PO BID 12/15/19 12/15/19 History tiZANidine HCL 4 mg PO TID 12/15/19 12/15/19 History traZODone HCL 300 mg PO HS 12/15/19 12/15/19 History Allergies Allergy/AdvReac Type Severity Reaction Status Date / Time No Known Allergies Allergy Verified 12/15/19 20:26 Physical Exam Vitals: Vital Signs Temp Pulse Resp BP Pulse Ox 12/16/19 22:00 98.4 F 77 108/69 93 L 12/16/19 17:31 72 16 175/79 92 L 12/16/19 17:15 83 16 160/79 100 12/16/19 17:04 83 16 156/83 100 12/16/19 16:51 97.0 F L 94 16 126/89 99 12/16/19 15:52 77 12/16/19 14:45 98.0 F 77 18 170/74 99 12/16/19 08:10 80 12/16/19 06:00 98.3 F 80 18 135/83 96 Intake and Output 12/16/19 12/16/19 12/17/19 14:59 22:59 06:59 Intake Total 700 1450 Output Total 210 Balance 700 1240 Intake: IV 700 600 Oral 850 Output: Urine 200 Estimated Blood Loss 10 Other: Voiding Method Bedside Commode # Voids 4 1 Weight 142.882 kg GENERAL DESCRIPTION: Middle-aged female lying in bed, no distress. No tachypnea or accessory muscle of respiration use. HEENT: Shows Pallor , no scleral icterus. Oral mucous membrane is dry. NECK: Trachea central, no thyromegaly. LUNGS: Unlabored breathing. Clear to auscultation anteriorly. No wheeze or crackle. HEART: S1, S2, regular rate and rhythm. ABDOMEN: Soft, no tenderness , guarding or rigidity EXTREMITIES: Right lateral ankle wound slough tissue at the base some soreness swelling no redness or any foul-smelling drainage. SKIN: No rash, no masses palpable. NEUROLOGICAL: The patient is awake, alert, oriented x3, mood and affect very agitated and abusive. Results CBC & Chem 7: 12/15/19 18:00 12/15/19 18:00 Labs: Abnormal Lab Results - Last 24 Hours (Table) 12/16/19 12/16/19 Range/Units 16:55 21:15 POC Glucose (mg/dL) 116 H 178 H (75-99) mg/dL Microbiology - Last 24 Hours (Table) 12/15/19 18:00 Blood Culture - Preliminary Blood No Growth after 24 hours Assessment and Plan Assessment: patient presented to hospital with chronic nonhealing wound to the right lateral ankle area in this patient who did have a previous ORIF of the right lateral malleolus back in May subsequent nonhealing of this wound with concern for underlying hardware infection and likely underlying osteomyelitis, with outpatient culture did grew MSSA Pseudomonas and Klebsiella (1) Ankle osteomyelitis, right Current Visit: Yes Status: Acute Code(s): M86.9 - OSTEOMYELITIS, UNSPECIFIED SNOMED Code(s): 3000495525704377 (2) Post-operative infection Current Visit: Yes Status: Acute Code(s): T81.40XA - INFECTION FOLLOWING A PROCEDURE, UNSPECIFIED, INIT SNOMED Code(s): 91711530 Plan: 1-we will recommend obtaining deep cultures at the time of surgical removal hardware today 2-discontinue the vancomycin and Zosyn 3-we will start the patient cefepime 2 g every 12 hours 4-patient will likely need PICC line for outpatient IV antibiotic therapy We will follow on clinical condition and cultures to further adjust medication if needed Thank you for this consultation we will follow the patient along with you
[2019-12-17] MEDS: CEFEPIME 2 GM in SODIUM CHLORIDE 0.9% 100 ML IVPB SCH ×3 (00:13→19:33)
[2019-12-17] MEDS: SODIUM CHLORIDE 0.9% 1,000 ML IV SCH ×3 (00:14→23:08)
--- NOTE | 2019-12-17 00:56 | P.CONS ---
History of Present Illness - Reason for Consult Consult date: 12/16/19 wound Requesting physician: Darrell Moon - Chief Complaint pain - History of Present Illness Dora Holguin is a 44 yo F with hx asthma, T2DM, fibromyalgia who presnted to the ED for worsening R ankle pain. She states she has been dealing with a chronic nonhealing wound of the ankle since August 2019, she had a previous surgical correction but wound continued to slowly drain clear fluid and did not heal. Pt had been following with her PCP and ortho about this the past few months, she was initially given lasix and antibiotics, then seen at the wound center where she had sharp debridement. She had a wound culture performed last week which was positive for multiple organisms. Pt again followed up in PCP office and home care was ordered. During a dressing change pt's home care nurse saw hardware protruding so recommended pt to present to the ED. On arrival her WBC was 11.5, she was started on zosyn and vancomycin and scheduled for hardware removal. Review of Systems All systems: negative Constitutional: Reports as per HPI, Reports malaise, Reports weakness, Denies chills, Denies fever Eyes: denies blurred vision, denies pain Ears, nose, mouth and throat: Denies headache, Denies sore throat Cardiovascular: Denies chest pain, Denies shortness of breath Respiratory: Denies cough Gastrointestinal: Denies abdominal pain, Denies diarrhea, Denies nausea, Denies vomiting Genitourinary: Denies dysuria, Denies hematuria Musculoskeletal: Denies myalgias Musculoskeletal: right: ankle pain, ankle swelling, as per HPI Integumentary: Denies pruritus, Denies rash Neurological: Denies numbness, Denies weakness Psychiatric: Denies anxiety, Denies depression Endocrine: Denies fatigue, Denies weight change Past Medical History Past Medical History: COPD, Diabetes Mellitus, GERD/Reflux, Hypertension, Musculoskeletal Disorder Additional Past Medical History / Comment(s): Degenerative disc disease, right ankle boot, drsg. to wound right ankle, no longer on med for diabetes, edema lower extremities History of Any Multi-Drug Resistant Organisms: MRSA Year Discovered:: 2013 MDRO Source:: left axillae Past Surgical History: Appendectomy, Section, Hysterectomy Additional Past Surgical History / Comment(s): tooth extraction, ORIF right ankle Past Anesthesia/Blood Transfusion Reactions: No Reported Reaction Past Psychological History: Bipolar Smoking Status: Current every day smoker Past Alcohol Use History: None Reported Additional Past Alcohol Use History / Comment(s): 1ppd Past Drug Use History: None Reported - Past Family History Mother Family Medical History: Diabetes Mellitus Father History Unknown: Yes Medications and Allergies Home Medications Medication Instructions Recorded Confirmed Type Lisinopril-Hctz 20-25 mg 1 tab PO DAILY 05/06/19 12/15/19 History [Zestoretic 20-25] Melatonin 10 mg PO HS PRN 05/06/19 12/15/19 History Omeprazole [PriLOSEC] 40 mg PO HS 05/06/19 12/15/19 History Ziprasidone HCl [Geodon] 160 mg PO HS 05/06/19 12/15/19 History Albuterol Inhaler [Ventolin Hfa 2 puff INHALATION RT-Q4H PRN 12/15/19 12/15/19 History Inhaler] Ciprofloxacin HCl [Cipro] 500 mg PO BID 12/15/19 12/15/19 History Doxycycline Monohydrate [Monodox] 100 mg PO BID 12/15/19 12/15/19 History Furosemide [Lasix] 40 mg PO BID 12/15/19 12/15/19 History Hydrocodone/Acetaminophen [[place] 1 each PO BID PRN 12/15/19 12/15/19 History 5-325] OXcarbazepine [Trileptal] 150 mg PO DAILY 12/15/19 12/15/19 History Potassium Chloride ER [K-Dur 20] 20 meq PO DAILY 12/15/19 12/15/19 History Tiotropium [place] [Spiriva] 1 cap INHALATION RT-DAILY 12/15/19 12/15/19 History metFORMIN HCL ER [Glucophage Xr] 1,000 mg PO BID 12/15/19 12/15/19 History tiZANidine HCL 4 mg PO TID 12/15/19 12/15/19 History traZODone HCL 300 mg PO HS 12/15/19 12/15/19 History Allergies Allergy/AdvReac Type Severity Reaction Status Date / Time No Known Allergies Allergy Verified 12/15/19 20:26 Physical Exam Vitals: Vital Signs Temp Pulse Resp BP Pulse Ox 12/16/19 22:00 98.4 F 77 108/69 93 L 12/16/19 17:31 72 16 175/79 92 L 12/16/19 17:15 83 16 160/79 100 12/16/19 17:04 83 16 156/83 100 12/16/19 16:51 97.0 F L 94 16 126/89 99 12/16/19 15:52 77 12/16/19 14:45 98.0 F 77 18 170/74 99 12/16/19 08:10 80 12/16/19 06:00 98.3 F 80 18 135/83 96 Intake and Output 12/16/19 12/16/19 12/17/19 14:59 22:59 06:59 Intake Total 700 1450 Output Total 210 Balance 700 1240 Intake: IV 700 600 Oral 850 Output: Urine 200 Estimated Blood Loss 10 Other: Voiding Method Bedside Commode # Voids 4 1 Weight 142.882 kg General: well nourished, well developed, obese, NAD. Vitals reviewed Eyes: PERRL, EOMI, conjunctiva normal HENT: normocephalic, mucus membranes moist Neck: supple, no JVD Lungs: normal respiratory effort, no wheezes or rales CV: Regular rate and rhythm, no murmur. Peripheral pulses 2+. BLE edema 2+ Abdomen: soft, nondistended, no organomegaly Lymph: no cervical or axillary LAD Skin: R ankle wound wrapped in gauze Neuro: A&Ox3, normal mood and affect Results CBC & Chem 7: 12/15/19 18:00 12/15/19 18:00 Labs: Abnormal Lab Results - Last 24 Hours (Table) 12/16/19 12/16/19 Range/Units 16:55 21:15 POC Glucose (mg/dL) 116 H 178 H (75-99) mg/dL Microbiology - Last 24 Hours (Table) 12/15/19 18:00 Blood Culture - Preliminary Blood No Growth after 24 hours Assessment and Plan (1) Ankle osteomyelitis, right Current Visit: Yes Status: Acute Code(s): M86.9 - OSTEOMYELITIS, UNSPECIFIED SNOMED Code(s): 2093159946157702 (2) Post-operative infection Current Visit: Yes Status: Acute Code(s): T81.40XA - INFECTION FOLLOWING A PROCEDURE, UNSPECIFIED, INIT SNOMED Code(s): 40887532 (3) Bipolar disorder in remission Current Visit: No Status: Acute Code(s): F31.70 - BIPOLAR DISORD, CURRENTLY IN REMIS, MOST RECENT EPISODE [facility] SNOMED Code(s): 09380170 (4) Open wound, lower leg Current Visit: No Status: Acute Code(s): S81.809A - UNSPECIFIED OPEN WOUND, UNSPECIFIED LOWER LEG, INIT ENCNTR SNOMED Code(s): 410421901 Plan: 1. Chronic nonhealing ankle wound. Pt for hardware removal per ortho. ID consulted. Wound culture growing multiple organisms. Continue cefepime and vanc omycin. Pain control 2. Bipolar disorder. Continue geodon, trileptal, zanaflex 3. Lower extremity edema. Continue lasix 40 mg 4. Insomina. continue trazodone
[2019-12-17] MEDS: HYDROcodone/APAP 7.5-325MG 1 EACH TAB PO PRN ×3 (01:21→14:01)
[2019-12-17 06:55] LABS: Glucose,Whole Blood 114 mg/dL (75-99)
[2019-12-17 07:53] LABS: Basophils % (A) 0 %; Eosinophils % (A) 0 %; HCT 42.1 % (34.0-46.0); HGB 13.4 gm/dL (11.4-16.0); Lymphocytes # (A) 2.4 k/uL (1.0-4.8); Lymphocytes % (A) 15 %; MCH 29.2 pg (25.0-35.0); MCHC 31.8 g/dL (31.0-37.0); MCV 91.9 fL (80.0-100.0); Monocytes # (A) 0.9 k/uL (0-1.0); Monocytes % (A) 5 %; Neutrophils # (A) 13.1 k/uL (1.3-7.7); Neutrophils % (A) 79 %; Platelet Count 275 k/uL (150-450); RBC 4.58 m/uL (3.80-5.40); RDW 15.2 % (11.5-15.5); WBC 16.6 k/uL (3.8-10.6)
[2019-12-17] MEDS: POTASSIUM CHLORIDE ER 20 MEQ TAB.ER PO SCH (08:00)
[2019-12-17] MEDS: FUROSEMIDE 40 MG TAB PO SCH ×2 (08:00→19:35)
[2019-12-17] MEDS: OXcarbazepine 150 MG TAB PO SCH (08:00)
[2019-12-17] MEDS: tiZANidine 4 MG TAB PO SCH ×3 (08:00→20:57)
[2019-12-17] MEDS: traMADol 50 MG TAB PO SCH ×4 (08:01→20:55)
[2019-12-17 08:25] LABS: Potassium 4.3 mmol/L (3.5-5.1)
[2019-12-17 10:09] LABS: Erythrocyte Sedimentation Rate 9 mm/hr (0-20)
--- NOTE | 2019-12-17 11:23 | P.PN ---
Subjective Progress Note Date: 12/17/19 Dora Holguin is a 44 yo F with hx asthma, T2DM, fibromyalgia who presnted to the ED for worsening R ankle pain. She states she has been dealing with a chronic nonhealing wound of the ankle since August 2019, she had a previous surgical correction but wound continued to slowly drain clear fluid and did not heal. Pt had been following with her PCP and ortho about this the past few months, she was initially given lasix and antibiotics, then seen at the wound center where she had sharp debridement. She had a wound culture performed last week which was positive for multiple organisms. Pt again followed up in PCP office and home care was ordered. During a dressing change pt's home care nurse saw hardware protruding so recommended pt to present to the ED. On arrival her WBC was 11.5, she was started on zosyn and vancomycin and scheduled for hardware removal. 12/17/2019 status post hardware removal yesterday as per orthopedic surgery, tolerated procedure well. Antibiotics adjusted as per infectious disease currently covered with cefepime. Positive bowel movement last night denies abdominal pain. No nausea vomiting or diarrhea. Afebrile, WBC 16.6 Objective - Vital Signs Vital signs: Vital Signs Temp 98.6 F 12/17/19 07:00 Pulse 77 12/17/19 07:00 Resp 16 12/17/19 07:00 BP 155/101 12/17/19 07:00 Pulse Ox 98 12/17/19 07:00 Intake & Output 12/16/19 12/17/19 12/17/19 18:59 06:59 18:59 Intake Total 1300 1330 Output Total 10 200 Balance 1290 1130 Weight 142.882 kg Intake: IV 1300 Oral 1330 Output: Urine 200 Estimated Blood Loss 10 Other: Voiding Method Bedside Commode # Voids 4 1 - Exam General: well nourished, well developed, obese, NAD. Vitals reviewed Eyes: PERRL, EOMI, conjunctiva normal HENT: normocephalic, mucus membranes moist Neck: supple, no JVD Lungs: normal respiratory effort, no wheezes or rales CV: Regular rate and rhythm, no murmur. Peripheral pulses 2+. BLE edema decreas ed Abdomen: soft, nondistended, no organomegaly Lymph: no cervical or axillary LAD Skin: R ankle [place] wrap clean dry and intact Neuro: A&Ox3, normal mood and affect - Labs CBC & Chem 7: 12/17/19 07:07 12/17/19 07:07 Labs: Abnormal Lab Results - Last 24 Hours (Table) 12/16/19 12/16/19 12/17/19 Range/Units 16:55 21:15 06:54 WBC (3.8-10.6) k/uL Neutrophils # (1.3-7.7) k/uL POC Glucose (mg/dL) 116 H 178 H 114 H (75-99) mg/dL 12/17/19 Range/Units 07:07 WBC 16.6 H (3.8-10.6) k/uL Neutrophils # 13.1 H (1.3-7.7) k/uL POC Glucose (mg/dL) (75-99) mg/dL Microbiology - Last 24 Hours (Table) 12/15/19 18:00 Blood Culture - Preliminary Blood No Growth after 24 hours Assessment and Plan Assessment: (1) Ankle osteomyelitis, right.Outpatient culture 12/07 reporting Pseudomonas aeruginosa, Klebsiella and MSSA Current Visit: Yes Status: Acute Code(s): M86.9 - OSTEOMYELITIS, UNSPECIFIED SNOMED Code(s): 6530578261419878 (2) Post-operative infection. Previous ORIF of right lateral malleous. Status post removal hardware right ankle with irrigation Current Visit: Yes Status: Acute Code(s): T81.40XA - INFECTION FOLLOWING A PROCEDURE, UNSPECIFIED, INIT SNOMED Code(s): 43311112 (3) Bipolar disorder in remission Current Visit: No Status: Acute Code(s): F31.70 - BIPOLAR DISORD, CURRENTLY IN REMIS, MOST RECENT EPISODE [facility] SNOMED Code(s): 87951673 (4) Open wound, lower leg Current Visit: No Status: Acute Code(s): S81.809A - UNSPECIFIED OPEN WOUND, UNSPECIFIED LOWER LEG, INIT ENCNTR SNOMED Code(s): 714345332 (5) Insomnia Plan: Continue on current medication regime ,monitoring and symptomatic treatment. Medically cleared for discharge pending DC antibiotic recommendations/PICC line as per ID. Follow with PCP in 1 week. Thank you for the consult. The impression and plan of care has been dictated as directed. : I performed a history and examination of this patient, discussed the same with the dictator. I agree with the dictator's note ,documented as a scribe. Any additional findings or plans will be noted.
[2019-12-17 11:28] LABS: Glucose,Whole Blood 102 mg/dL (75-99)
--- NOTE | 2019-12-17 15:14 | P.PN ---
Subjective Progress Note Date: 12/17/19 Principal diagnosis: Status post incision with irrigation and debridement right ankle wound/hardware removal removal Patient evaluated today at bedside, she is resting comfortably. She admits to some generalized discomfort in the ankle region. She denies any fevers or chills. Objective - Vital Signs Vital signs: Vital Signs Temp 98.6 F 12/17/19 07:00 Pulse 77 12/17/19 08:06 Resp 16 12/17/19 08:06 BP 155/101 12/17/19 07:00 Pulse Ox 98 12/17/19 07:00 Intake & Output 12/16/19 12/17/19 12/17/19 18:59 06:59 18:59 Intake Total 1300 1330 100 Output Total 10 200 2 Balance 1290 1130 98 Weight 142.882 kg Intake: IV 1300 Intake, IV Titration 100 Amount Cefepime 2 gm In Sodium 100 Chloride 0.9% 100 ml @ 200 mls/hr IVPB Q12HR [facility] Rx#:[id number] Oral 1330 Output: Urine 200 Stool 2 Estimated Blood Loss 10 Other: Voiding Method Bedside Commode Bedside Commode # Voids 4 1 - Exam Right lower extremity: [place] bandage was removed today at bedside. The postsurgical silver dressing is intact. There is bloody drainage noted to the bandage, no active drainage visualized. Dorsalis pedis pulses 2+. - Labs CBC & Chem 7: 12/17/19 07:07 12/17/19 07:07 Labs: Abnormal Lab Results - Last 24 Hours (Table) 12/16/19 12/16/19 12/17/19 Range/Units 16:55 21:15 06:54 WBC (3.8-10.6) k/uL Neutrophils # (1.3-7.7) k/uL POC Glucose (mg/dL) 116 H 178 H 114 H (75-99) mg/dL C-Reactive Protein (<10.0) mg/L 12/17/19 12/17/19 12/17/19 Range/Units 07:07 07:07 11:26 WBC 16.6 H (3.8-10.6) k/uL Neutrophils # 13.1 H (1.3-7.7) k/uL POC Glucose (mg/dL) 102 H (75-99) mg/dL C-Reactive Protein 16.0 H (<10.0) mg/L Microbiology - Last 24 Hours (Table) 12/15/19 18:00 Blood Culture - Preliminary Blood No Growth after 24 hours Assessment and Plan Plan: Assessment: Postoperative day #1 status post incision with irrigation and debridement right ankle wound/hardware removal Plan: Discussed the case with infectious disease doctor today, she'll be scheduled for a PICC line likely tomorrow. She will remain inpatient until then. Dressing change before discharge, place on another silver dressing Patient will need wound care set up before discharge Pain control, continue current medication Other medical aides teacher and recommendations Further recommendations to follow Time with Patient: Less than 30
[2019-12-17 16:26] LABS: Glucose,Whole Blood 126 mg/dL (75-99)
--- NOTE | 2019-12-17 16:47 | PN ---
PROGRESS NOTE DATE OF SERVICE: 12/17/2019 REASON FOR FOLLOWUP: Left lateral ankle infected wound and a question of osteomyelitis. INTERVAL HISTORY: The patient is currently afebrile. She seems to be appropriate today than yesterday. Still complaining of pain, though controlled with pain medication. No chest pain or cough. No abdominal pain or any diarrhea. The patient is insistent on going home. PHYSICAL EXAMINATION: Blood pressure 165/95 with a pulse of 77, temperature 98.6. She is 98% on room air. General description is a middle-aged female lying in bed in no distress. EXAMINATION OF THE LEFT LATERAL ANKLE: Wound is currently dressed with a dressing. Minimal drainage on the dressing. Some surrounding swelling. No redness was noticed. LABS: Hemoglobin is 13.4, white count 16.3. BUN of 13, creatinine 0.91. DIAGNOSTIC IMPRESSION AND PLAN: Patient with left lateral ankle chronic nonhealing wound with secondary cellulitis in this patient who did have hardware which has been removed. No OR cultures were done. Outpatient culture positive for MSSA and Pseudomonas and Klebsiella. Currently on cefepime 2 grams q.12. Will get a PICC line to continue with IV antibiotic for at least 4-6 weeks with close outpatient followup in view of chronicity of this wound. Plan of care was discussed with Orthopedics. MMODL / IJN: [id number] /
[2019-12-17] MEDS: MORPHINE SULFATE 4 MG/ML SYRINGE IV PRN (19:33)
[2019-12-17] MEDS: traZODone HCL 100 MG TAB PO SCH (19:34)
[2019-12-17] MEDS: ZIPRASIDONE 80 MG CAP PO SCH (19:35)
[2019-12-17] MEDS: MELATONIN 5 MG TABLET PO PRN (19:35)
[2019-12-17] MEDS: PANTOPRAZOLE 40 MG TABLET PO SCH (19:35)
[2019-12-17 20:28] LABS: Glucose,Whole Blood 115 mg/dL (75-99)
[2019-12-18] MEDS: HYDROcodone/APAP 7.5-325MG 1 EACH TAB PO PRN ×2 (01:38→12:37)
[2019-12-18 06:55] LABS: Glucose,Whole Blood 94 mg/dL (75-99)
[2019-12-18] MEDS ORDERED: VANCOMYCIN TROUGH DUE 1 EACH MISC MISCELLANE ONE (07:00)
[2019-12-18] MEDS: MORPHINE SULFATE 4 MG/ML SYRINGE IV PRN (07:17)
[2019-12-18 08:08] LABS: African American GFR (CKD) >90 (>60 ml/min/1.73 sqM); Non-African American GFR(CKD) 84 (>60 ml/min/1.73 sqM)
[2019-12-18] MEDS: POTASSIUM CHLORIDE ER 20 MEQ TAB.ER PO SCH (08:15)
[2019-12-18] MEDS: traMADol 50 MG TAB PO SCH ×2 (08:15→12:38)
[2019-12-18] MEDS: FUROSEMIDE 40 MG TAB PO SCH (08:15)
[2019-12-18] MEDS: tiZANidine 4 MG TAB PO SCH (08:16)
[2019-12-18] MEDS: CEFEPIME 2 GM in SODIUM CHLORIDE 0.9% 100 ML IVPB SCH ×2 (08:16→14:18)
[2019-12-18] MEDS: OXcarbazepine 150 MG TAB PO SCH (08:16)
[2019-12-18] MEDS: SODIUM CHLORIDE 0.9% 1,000 ML IV SCH (11:21)
[2019-12-18 11:26] LABS: Glucose,Whole Blood 126 mg/dL (75-99)
--- NOTE | 2019-12-18 12:43 | P.PN ---
Subjective Progress Note Date: 12/18/19 Principal diagnosis: Status post incision with irrigation and debridement right ankle wound/hardware removal removal Patient evaluated today at bedside, she is resting comfortably. She admits to some generalized discomfort in the ankle region. She denies any fevers or chills. Objective - Vital Signs Vital signs: Vital Signs Temp 98.6 F 12/18/19 07:00 Pulse 81 12/18/19 07:00 Resp 22 12/18/19 07:00 BP 168/93 12/18/19 07:00 Pulse Ox 95 12/18/19 07:00 Intake & Output 12/17/19 12/18/19 12/18/19 18:59 06:59 18:59 Intake Total 100 480 Output Total 2 1 Balance 98 480 -1 Intake: Intake, IV Titration 100 Amount Cefepime 2 gm In Sodium 100 Chloride 0.9% 100 ml @ 200 mls/hr IVPB Q12HR [facility] Rx#:[id number] Oral 480 Output: Stool 2 1 Other: Voiding Method Bedside Commode Bedside Commode Bedside Commode # Voids 2 1 - Exam Right lower extremity: [place] bandage was removed today at bedside. The postsurgical silver dressing was removed at bedside, the nylon sutures are intact. There is some bloody drainage. There is no obvious purulent material noted. Dorsalis pedis pulses 2+. - Labs CBC & Chem 7: 12/17/19 07:07 12/18/19 07:27 Labs: Abnormal Lab Results - Last 24 Hours (Table) 12/17/19 12/17/19 12/18/19 Range/Units 16:24 20:27 11:25 POC Glucose (mg/dL) 126 H 115 H 126 H (75-99) mg/dL Microbiology - Last 24 Hours (Table) 12/15/19 18:00 Blood Culture - Preliminary Blood No Growth after 48 hours Assessment and Plan Plan: Assessment: Postoperative day #2 status post incision with irrigation and debridement right ankle wound/hardware removal Plan: Awaiting PICC line placement, she will be on IV antibiotics in the outpatient setting A silver dressing was again placed today on the wound. An order will be placed for dressing change instructions for home care nurse Anticipate the need for wound care follow-up after sutures are removed Pain control, plan for discharge on [place] 7.5 mg/325 mg for 7-10 days Other esthetician and manager medical spa and recommendations Hopeful discharge home today after the PICC line has been placed Time with Patient: Less than 30
--- NOTE | 2019-12-18 13:38 | P.PN ---
Subjective Progress Note Date: 12/18/19 Dora Holguin is a 44 yo F with hx asthma, T2DM, fibromyalgia who presnted to the ED for worsening R ankle pain. She states she has been dealing with a chronic nonhealing wound of the ankle since August 2019, she had a previous surgical correction but wound continued to slowly drain clear fluid and did not heal. Pt had been following with her PCP and ortho about this the past few months, she was initially given lasix and antibiotics, then seen at the wound center where she had sharp debridement. She had a wound culture performed last week which was positive for multiple organisms. Pt again followed up in PCP office and home care was ordered. During a dressing change pt's home care nurse saw hardware protruding so recommended pt to present to the ED. On arrival her WBC was 11.5, she was started on zosyn and vancomycin and scheduled for hardware removal. 12/17/2019 status post hardware removal yesterday as per orthopedic surgery, tolerated procedure well. Antibiotics adjusted as per infectious disease currently covered with cefepime. Positive bowel movement last night denies abdominal pain. No nausea vomiting or diarrhea. Afebrile, WBC 16.6 12/18/2019 no overnight events. Maintained on cefepime. Afebrile. Good diet intake with no nausea vomiting or diarrhea. Denies abdominal pain. Positive flatus, positive bowel movement. PICC line placement pending. Denies chest pain, palpitations or shortness of breath. Blood sugars controlled. Eager for discharge. Objective - Vital Signs Vital signs: Vital Signs Temp 98.6 F 12/18/19 07:00 Pulse 81 12/18/19 07:00 Resp 22 12/18/19 07:00 BP 168/93 12/18/19 07:00 Pulse Ox 95 12/18/19 07:00 Intake & Output 12/17/19 12/18/19 12/18/19 18:59 06:59 18:59 Intake Total 100 480 Output Total 2 1 Balance 98 480 -1 Intake: Intake, IV Titration 100 Amount Cefepime 2 gm In Sodium 100 Chloride 0.9% 100 ml @ 200 mls/hr IVPB Q12HR [facility] Rx#:[id number] Oral 480 Output: Stool 2 1 Other: Voiding Method Bedside Commode Bedside Commode Bedside Commode # Voids 2 1 - Exam General: Sitting up in bed, NAD. Vitals reviewed Eyes: PERRL, EOMI, conjunctiva normal HENT: normocephalic, mucus membranes moist Neck: supple, no JVD Lungs: normal respiratory effort, no wheezes or rales CV: Regular rate and rhythm, no murmur. Peripheral pulses 2+. BLE edema decreased Abdomen: soft, nondistended, no organomegaly Lymph: no cervical or axillary LAD Skin: R ankle [place] wrap clean dry and intact. Neuro: A&Ox3, normal mood and affect - Labs CBC & Chem 7: 12/17/19 07:07 12/18/19 07:27 Labs: Abnormal Lab Results - Last 24 Hours (Table) 12/17/19 12/17/19 12/18/19 Range/Units 16:24 20:27 11:25 POC Glucose (mg/dL) 126 H 115 H 126 H (75-99) mg/dL Microbiology - Last 24 Hours (Table) 12/15/19 18:00 Blood Culture - Preliminary Blood No Growth after 48 hours Assessment and Plan Assessment: (1) Ankle osteomyelitis, right.Outpatient culture 12/07 reporting Pseudomonas aeruginosa, Klebsiella and MSSA Current Visit: Yes Status: Acute Code(s): M86.9 - OSTEOMYELITIS, UNSPECIFIED SNOMED Code(s): 9015963485397360 (2) Post-operative infection. Previous ORIF of right lateral malleous. Status post removal hardware right ankle with irrigation Current Visit: Yes Status: Acute Code(s): T81.40XA - INFECTION FOLLOWING A PROCEDURE, UNSPECIFIED, INIT SNOMED Code(s): 92635313 (3) Bipolar disorder in remission Current Visit: No Status: Acute Code(s): F31.70 - BIPOLAR DISORD, CURRENTLY IN REMIS, MOST RECENT EPISODE [facility] SNOMED Code(s): 46448769 (4) Open wound, lower leg Current Visit: No Status: Acute Code(s): S81.809A - UNSPECIFIED OPEN WOUND, UNSPECIFIED LOWER LEG, INIT ENCNTR SNOMED Code(s): 391554728 (5) Insomnia Plan: Continue on current medication regime ,monitoring and symptomatic t reatment. Medically cleared for discharge pending DC antibiotic recommendations/PICC line as per ID. Follow with PCP in 1 week. Thank you for the consult. The impression and plan of care has been dictated as directed. : I performed a history and examination of this patient, discussed the same with the dictator. I agree with the dictator's note ,documented as a scribe. Any additional findings or plans will be noted.
[2019-12-18] MEDS ORDERED: LIDOCAINE 1% INJ 10MG/ML (20 ML MDV) SQ ONE (13:42)
--- NOTE | 2019-12-18 14:08 | PN ---
PROGRESS NOTE DATE OF SERVICE: 12/18/2019 REASON FOR FOLLOWUP: Left heel infection and osteomyelitis. INTERVAL HISTORY: The patient is currently afebrile, has been breathing comfortably, denies having any chest pain or cough. No nausea, no vomiting, no abdominal pain. The pain to the right left heel area has improved. PHYSICAL EXAMINATION: Blood pressure 150/93 with a pulse of 81, temperature 98.6, she is 95% on room air. General description is a middle-aged female, lying in bed in no distress. RESPIRATORY SYSTEM: Unlabored breathing, clear to auscultation anteriorly. HEART: S1, S2. Regular rate and rhythm. ABDOMEN: Soft, no tenderness. LABS: Blood culture has been negative. No CBC done today. DIAGNOSTIC IMPRESSION AND PLAN: Patient with left heel wound infection with concern for possible osteo. She is currently waiting for a PICC line and outpatient IV antibiotic therapy before discharge. Plan for cefepime 2 g q.12 for 4-6 week and close outpatient followup. MMODL / IJN: [id number] /
[2019-12-18 14:54] VITALS: BP 148/98; PULSE 80; RESP 18; TEMP 98.5
--- NOTE | 2019-12-18 14:59 | IR ---
EXAMINATION TYPE: IR cvc insert >=5 years DATE OF EXAM: 12/18/2019 COMPARISON: NONE CLINICAL HISTORY: Infection Needs long-term intravenous access for antibiotics. PROCEDURE: Hand hygiene obtained with alcohol-based hand rub. After informed consent, the skin overlying the left basilic vein was localized with ultrasound and no eitan to be compressible and patent. An ultrasound image was obtained and submitted on the patient's c cary. The overlying skin was prepped and draped and Lidocaine was used for local anesthesia. A skin dylan was made with a scalpel. Access was gained to the vein under ultrasound guidance with a 21 gau Vungle needle and a 0.018 inch wire was advanced. Access site was dilated with Peel-Away sheath and cath eter tailored to the appropriate length and advanced such that the distal tip is at the cavoatrial ju nction. Spot image was obtained verifying placement. Catheter was fixed to the skin and a sterile d ressing was placed following hemostasis. Catheter was aspirated and flushed with saline. Patient wa s discharged in stable condition without complication. Maximal barrier technique is utilized. Ultras ound image is documented on the chart. Ultrasound used with sterile technique. Fluoro time and fluoroscopic images submitted to document procedure: 178 intraoperative images, 0.5 m inutes fluoroscopy time IMPRESSION: STATUS POST ULTRASOUND AND FLUOROSCOPIC GUIDED PICC LINE PLACEMENT, READY FOR USE. THIS PROCEDURE WAS PERFORMED BY THE UNDERSIGNED.
--- NOTE | 2019-12-18 15:02 | P.DS ---
Providers Date of admission: 12/15/19 19:47 Expected date of discharge: 12/18/19 Attending physician: Darrell Moon Consults: 12/15/19 19:24 Consult Physician Stat Consulting Provider: Jae Morley Consult Reason/Comments: medical management, right ankle post operative infection Do you want consulting provider notified?: Yes Consult Physician Stat Consulting Provider: Gokul Jesus Consult Reason/Comments: post operative infection, right ankle Do you want consulting provider notified?: Yes Primary care physician: Jacqueline Abad Hospital Course: Date of admission: 12/15/2019 Date of discharge: 12/18/2019 Admission diagnosis: Infected right ankle wound Discharge diagnosis: Status post incision with irrigation and debridement right ankle wound/hardware removal Attending physician: Dr. Moon Surgical procedures: incision with irrigation and debridement right ankle wound/hardware removal Brief history: Patient is aa 44-year-old female who presented to [facility] in hospital on 12/15/2019 with regards to worsening pain of a right ankle wound. Patient had originally underwent a open reduction internal fixation of her right ankle back in May [address] Moon. 3 months postop she did develop wound dehiscence to her wound on the lateral aspect of the right ankle And subsequently underwent surgery in August 2019. After her most recent surgery, we did recommend wound care to help with management, we have last seen the patient in September 2019. After evaluating the patient in the hospital on recent admission, she admits to worsening changes of the wound, cultures were obtained by home nurse in early December. Upon arrival to the hospital at the most recent admission, she was admitted for worsening changes of the wound with likely infection involving the hardware. She was scheduled for surgery Dr. Moon on 12/16/2019. Hospital course: Details of patient's surgery can be found in operative report. Patient tolerated the procedure well and was subsequently transported to orthopedic floor. Patient's orthopeidc and medical care was provided daily. Patient had daily laboratory tests performed for evaluation of overall blood counts. Patient was noted to have a relatively uneventful postoperative course. Patient reported satisfactory pain control with oral pain medications by postoperative day 0. Patient showed satisfactory progress with physical therapy. Patient moved steadily through the program and had no difficulty meeting the goals by postoperative day 2. Given patient's otherwise satisfactory course and having met physical therapy goals, plan is to discharge patient home on postoperative day 2. Discharge condition/disposition: Patient will be discharged home in stable condition. Discharge medications: Instructions are given on resumption of patient's normal daily medications per primary care recommendation, in addition patient will be prescribed for 7.5 mg/325 mg, Cefepime 2g. Discharge instructions: 1. Wound care and infection precautions, keep incision dry and covered while showering, no lotions, creams, moisturizers. No soaking, tubs, pools, hottubs. Do not scrub over the incision. 2. Limit the amount of activity on the right lower extremity due to wound 3. Ice and elevate often 4. Visiting home nurse will change dressings every 3 days 5. Follow up in office at 2 weeks postop with James Cuevas PA-C 6. Follow up with your primary care doctor 7-10 days after discharge. 7. Contact [facility] with any questions, . Procedures: Incision with irrigation and debridement right ankle wound/hardware removal Patient Condition at Discharge: Serious Plan - Discharge Summary Discharge Rx Participant: No New Discharge Prescriptions: New HYDROcodone/APAP 7.5-325MG [[place] 7.5] 1 - 2 each PO Q6HR PRN #56 tab PRN Reason: Pain No Action Melatonin 10 mg PO HS PRN PRN Reason: Insomnia Lisinopril-Hctz 20-25 mg [Zestoretic 20-25] 1 tab PO DAILY Omeprazole [PriLOSEC] 40 mg PO HS Ziprasidone HCl [Ge[place]] 160 mg PO HS Hydrocodone/Acetaminophen [[place] 5-325] 1 each PO BID PRN PRN Reason: Pain Albuterol Inhaler [Ventolin Hfa Inhaler] 2 puff INHALATION RT-Q4H PRN PRN Reason: Shortness Of Breath Ciprofloxacin HCl [Cipro] 500 mg PO BID Doxycycline Monohydrate [Monodox] 100 mg PO BID Furosemide [Lasix] 40 mg PO BID metFORMIN HCL ER [Glucophage Xr] 1,000 mg PO BID OXcarbazepine [Trileptal] 150 mg PO DAILY Potassium Chloride ER [K-Dur 20] 20 meq PO DAILY Tiotropium [place] [Spiriva] 1 cap INHALATION RT-DAILY tiZANidine HCL 4 mg PO TID traZODone HCL 300 mg PO HS Discharge Medication List Lisinopril-Hctz 20-25 mg [Zestoretic 20-25] 1 tab PO DAILY 05/06/19 [History] Melatonin 10 mg PO HS PRN 05/06/19 [History] Omeprazole [PriLOSEC] 40 mg PO HS 05/06/19 [History] Ziprasidone HCl [Geodon] 160 mg PO HS 05/06/19 [History] Albuterol Inhaler [Ventolin Hfa Inhaler] 2 puff INHALATION RT-Q4H PRN 12/15/19 [History] Ciprofloxacin HCl [Cipro] 500 mg PO BID 12/15/19 [History] Doxycycline Monohydrate [Monodox] 100 mg PO BID 12/15/19 [History] Furosemide [Lasix] 40 mg PO BID 12/15/19 [History] Hydrocodone/Acetaminophen [[place] 5-325] 1 each PO BID PRN 12/15/19 [History] OXcarbazepine [Trileptal] 150 mg PO DAILY 12/15/19 [History] Potassium Chloride ER [K-Dur 20] 20 meq PO DAILY 12/15/19 [History] Tiotropium [place] [Spiriva] 1 cap INHALATION RT-DAILY 12/15/19 [History] metFORMIN HCL ER [Glucophage Xr] 1,000 mg PO BID 12/15/19 [History] tiZANidine HCL 4 mg PO TID 12/15/19 [History] traZODone HCL 300 mg PO HS 12/15/19 [History] HYDROcodone/APAP 7.5-325MG [[place] 7.5] 1 - 2 each PO Q6HR PRN #56 tab 12/18/19 [Rx] Follow up Appointment(s)/Referral(s): [facility], [NON-STAFF] - Dylan Cuevas PAC [PHYSICIAN PEER SPECIALIST] - 2 Weeks [facility], [REFERRING] - Jacqueline Abad DO [Primary Care Provider] - 1-2 days Activity/Diet/Wound Care/Special Instructions: Orthopedic discharge instructions: 1. Home nursing to change silver dressing every 3 days, okay to utilize basic [place] bandage over the dressing 2. Recommend limited ambulation and flexion of the ankle for wound healing purposes 3. Ice and elevate often 4. Keep incision covered and dry while showering 5. Plan for follow-up at [facility] days *Rx faxed to [facility] for Cefepime 2 grams IV every 12 hours for 6 weeks. [facility] will deliver supplies this evening between 6pm and 8pm (they will call first). [facility] will contact patient to set up a visit for 12/19/2019 in the morning to begin IV antibiotic infusions. Discharge Disposition: HOME WITH HOME HEALTH SERVICES
== END 2019-12-18 15:55 | disposition home health service (06) | DRG 464 ==
LOC: EC 16:48 → 6NMEDSUR 19:47 → 4SSUR 12-16 17:44
PROVIDERS: ADMIT Orthopaedic Surgery; ATTEND Orthopaedic Surgery
PROC: 0SPF04Z Removal of Internal Fixation Device from Right Ankle Joint, Open Approach (ICD-10-PCS; principal; 2019-12-16 16:00)
PROC: 0JBQ0ZZ Excision of Right Foot Subcutaneous Tissue and Fascia, Open Approach (ICD-10-PCS; principal; 2019-12-16 16:00)
PROC: 02HV33Z Insertion of Infusion Device into Superior Vena Cava, Percutaneous Approach (ICD-10-PCS; 2019-12-18)
DX: T84.624A Infection and inflammatory reaction due to internal fixation device of right fibula, initial encounter (principal); L03.115 Cellulitis of right lower limb; M86.161 Other acute osteomyelitis, right tibia and fibula; Z68.43 Body mass index [BMI] 50.0-59.9, adult; E11.40 Type 2 diabetes mellitus with diabetic neuropathy, unspecified; E11.69 Type 2 diabetes mellitus with other specified complication; E66.9 Obesity, unspecified; B95.61 Methicillin susceptible Staphylococcus aureus infection as the cause of diseases classified elsewhere; B96.5 Pseudomonas (aeruginosa) (mallei) (pseudomallei) as the cause of diseases classified elsewhere; B96.1 Klebsiella pneumoniae [K. pneumoniae] as the cause of diseases classified elsewhere; J44.9 Chronic obstructive pulmonary disease, unspecified; I10 Essential (primary) hypertension; M79.7 Fibromyalgia; K21.9 Gastro-esophageal reflux disease without esophagitis; F31.70 Bipolar disorder, currently in remission, most recent episode unspecified; G47.00 Insomnia, unspecified; F17.200 Nicotine dependence, unspecified, uncomplicated; Z79.84 Long term (current) use of oral hypoglycemic drugs; Z79.899 Other long term (current) drug therapy; Z86.14 Personal history of Methicillin resistant Staphylococcus aureus infection; Z90.710 Acquired absence of both cervix and uterus; Z90.49 Acquired absence of other specified parts of digestive tract; Z98.890 Other specified postprocedural states; Y83.4 Other reconstructive surgery as the cause of abnormal reaction of the patient, or of later complication, without mention of misadventure at the time of the procedure; Z83.3 Family history of diabetes mellitus
CPT/HCPCS: 36415; 36573; 80048; 80053; 81003; 82565; 83605; 85025; 85652; 86140; 87040; 96365; 96367; 96375; 99285

== ENCOUNTER 2020-02-29 11:34 | Inpatient (IN) | payer MEDICARE, OTHER ==
[2020-02-29] MEDS ORDERED: SODIUM CHLORIDE 0.9% 1,000 ML IV ONE (11:56)
[2020-02-29] MEDS ORDERED: HYDROcodone/APAP 5-325MG 1 EACH TAB PO STA (11:57)
[2020-02-29] MEDS ORDERED: VANCOMYCIN IV PER PHARMACY 1 EACH MISC MISCELLANE PRN (12:08)
[2020-02-29] MEDS ORDERED: PIPERACILLIN-TAZOBACTAM 3.375 GM in SODIUM CHLORIDE 0.9% 100 ML IVPB STA (12:08)
[2020-02-29] MEDS ORDERED: VANCOMYCIN 2,000 MG in SODIUM CHLORIDE 0.9% 500 ML 500 ML IVPB STA (12:12)
--- NOTE | 2020-02-29 12:12 | ED ---
General Adult HPI - General Chief complaint: Skin/Abscess/Foreign Body Stated complaint: infected surgical site rt foot Time Seen by Provider: 02/29/20 11:39 Source: patient, RN notes reviewed, old records reviewed Mode of arrival: wheelchair Limitations: no limitations - History of Present Illness Initial comments: Patient is a 44-year-old female who presents emergency department today for evaluation with chief complaint of a wound to the right ankle. Patient reports that she's been dealing with a chronic wound with poor healing due to diabetes after she broke her right ankle. Patient had ankle fracture in May and recently had hardware removed with the past 2 months. Patient with orthopedic surgeon is Dr. brayan Sanchez. Patient has been treated with IV antibiotics up until the past 3 weeks and was recently switched to Keflex and Bactrim by her primary care physician. She's been on the Keflex and Bactrim antibiotic for the past week. She reports that she is now developing a fever as well as having worsening pain and redness around the site of the wound. Patient states that she has positive wound culture for MRSA, pseudomonas and E cloacae. Patient does have a visiting nurse at this time comes to the report home to evaluate the wound and completely dressing changes and visiting nurse reported it seemed to be worse as well. Patient reports she does not see infectious disease doctor wound care doctor at this time. - Related Data Home Medications Medication Instructions Recorded Confirmed Lisinopril-Hctz 20-25 mg 1 tab PO DAILY 05/06/19 12/15/19 [Zestoretic 20-25] Melatonin 10 mg PO HS PRN 05/06/19 12/15/19 Omeprazole [PriLOSEC] 40 mg PO HS 05/06/19 12/15/19 Ziprasidone HCl [Geodon] 160 mg PO HS 05/06/19 12/15/19 Albuterol Inhaler [Ventolin Hfa 2 puff INHALATION RT-Q4H PRN 12/15/19 12/15/19 Inhaler] Ciprofloxacin HCl [Cipro] 500 mg PO BID 12/15/19 12/15/19 Doxycycline Monohydrate [Monodox] 100 mg PO BID 12/15/19 12/15/19 Furosemide [Lasix] 40 mg PO BID 12/15/19 12/15/19 Hydrocodone/Acetaminophen [[place] 1 each PO BID PRN 12/15/19 12/15/19 5-325] OXcarbazepine [Trileptal] 150 mg PO DAILY 12/15/19 12/15/19 Potassium Chloride ER [K-Dur 20] 20 meq PO DAILY 12/15/19 12/15/19 Tiotropium [place] [Spiriva] 1 cap INHALATION RT-DAILY 12/15/19 12/15/19 metFORMIN HCL ER [Glucophage Xr] 1,000 mg PO BID 12/15/19 12/15/19 tiZANidine HCL 4 mg PO TID 12/15/19 12/15/19 traZODone HCL 300 mg PO HS 12/15/19 12/15/19 Previous Rx's Medication Instructions Recorded HYDROcodone/APAP 7.5-325MG [[place] 1 - 2 each PO Q6HR PRN #56 tab 12/18/19 7.5] Allergies Allergy/AdvReac Type Severity Reaction Status Date / Time No Known Allergies Allergy Verified 02/29/20 11:39 Review of Systems ROS Statement: Those systems with pertinent positive or pertinent negative responses have been documented in the HPI. ROS Other: All systems not noted in ROS Statement are negative. Past Medical History Past Medical History: COPD, Diabetes Mellitus, GERD/Reflux, Hypertension, Musculoskeletal Disorder Additional Past Medical History / Comment(s): Degenerative disc disease, right ankle boot, drsg. to wound right ankle, no longer on med for diabetes, edema l ower extremities History of Any Multi-Drug Resistant Organisms: MRSA Date of last positivie culture/infection: 02/20/20 MDRO Source:: left axillae Past Surgical History: Appendectomy, Section, Hysterectomy Additional Past Surgical History / Comment(s): tooth extraction, ORIF right ankle Past Anesthesia/Blood Transfusion Reactions: No Reported Reaction Past Psychological History: Bipolar Smoking Status: Current every day smoker Past Alcohol Use History: None Reported Past Drug Use History: None Reported - Past Family History Mother Family Medical History: Diabetes Mellitus Father History Unknown: Yes General Exam - General Exam Comments Initial Comments: 44-year-old female. Alert and oriented 3. Limitations: no limitations General appearance: alert, in no apparent distress Head exam: Present: atraumatic, normocephalic, normal inspection Eye exam: Present: normal appearance, PERRL, EOMI. Absent: scleral icterus, conjunctival injection, periorbital swelling ENT exam: Present: normal exam, mucous membranes moist Neck exam: Present: normal inspection. Absent: tenderness, meningismus, lymphadenopathy Respiratory exam: Present: normal lung sounds bilaterally. Absent: respiratory distress, wheezes, rales, rhonchi, stridor Cardiovascular Exam: Present: regular rate, normal rhythm, normal heart sounds. Absent: systolic murmur, diastolic murmur, rubs, gallop, clicks GI/Abdominal exam: Present: soft, normal bowel sounds. Absent: distended, ten derness, guarding, rebound, rigid Right Upper Leg exam: Present: normal inspection, full ROM Knee exam: Present: normal inspection, full ROM Lower Leg exam: Present: normal inspection, full ROM Ankle exam: Present: full ROM, swelling, erythema (Patient has erythema surrounding ulceration wound over the lateral malleolus. Foot has some purulent drainage. Does have Adaptic dressing over top which is removed and wound was probed and culture swab completed.). Absent: normal inspection Foot/Toe exam: Present: normal inspection, full ROM Neurovascular tendon exam: Present: no vascular compromise Neurological exam: Present: alert, oriented X3, CN II-XII intact Psychiatric exam: Present: normal affect, normal mood Course Vital Signs 02/29/20 11:36 Temperature 99.3 F Pulse Rate 103 H Respiratory 18 Rate Blood Pressure 163/66 O2 Sat by Pulse 98 Oximetry - Reevaluation(s) Reevaluation #1: 02/29/20 12:11 Reviewed patient's previous wound culture from 02/20/20. Is positive for MRSA, pseudomonas and E. coli CA. This will be sensitive to Zosyn and vancomycin and Patient will be initiated on his antibiotics at this time. Medical Decision Making - Medical Decision Making 44-year-old female presents return today for failure of outpatient treatment for right ankle wound. She's been taking Bactrim and Keflex, and reports worsening drainage and swelling and pain to the right ankle. She had history of chronic wound since he ankle fracture in May. Patient's previous wound culture was positive for pseudomonas, MRSA, and E. coli CA. This was sensitive to use Zosyn and vancomycin and Patient was started on this at this time. X-ray today is completed and shows no signs of osteomyelitis. Due to concern for consistent worsening wound according to Patient and persist antibiotics and low-grade temperature 90.3 Patient will be admitted at this time. Inflammatory markers were mildly elevated with a CRP of 50. - Lab Data Result diagrams: 02/29/20 12:17 Lab Results 02/29/20 02/29/20 02/29/20 Range/Units 12:17 12:17 12:17 PT 9.4 (9.0-12.0) sec INR 0.9 (<1.2) APTT 22.4 (22.0-30.0) sec Sodium 132 L (137-145) mmol/L Potassium 5.0 (3.5-5.1) mmol/L Chloride 101 (98-107) mmol/L Carbon Dioxide 25 (22-30) mmol/L Anion Gap 6 mmol/L BUN 9 (7-17) mg/dL Creatinine 0.74 (0.52-1.04) mg/dL Est GFR (CKD-EPI)AfAm >90 (>60 ml/min/1.73 sqM) Est GFR (CKD-EPI)NonAf >90 (>60 ml/min/1.73 sqM) Glucose 101 H (74-99) mg/dL Plasma Lactic Acid Bill 1.3 (0.7-2.0) mmol/L Calcium 9.3 (8.4-10.2) mg/dL Total Bilirubin 0.9 (0.2-1.3) mg/dL AST 24 (14-36) U/L ALT 33 (4-34) U/L Alkaline Phosphatase 73 (38-126) U/L C-Reactive Protein 51.0 H (<10.0) mg/L Total Protein 6.7 (6.3-8.2) g/dL Albumin 3.8 (3.5-5.0) g/dL - Radiology Data Radiology results: report reviewed Ankle x-ray shows no acute osseous lesion. Calcaneal spur. Postsurgical clips. Disposition Clinical Impression: Wound of right ankle, Failure of outpatient treatment Disposition: ADMITTED IP TO THIS [facility] Condition: Stable Is patient prescribed a controlled substance at d/c from ED?: No Referrals: Jae Morley MD [Primary Care Provider] - 1-2 days Time of Disposition: 13:08
[2020-02-29 12:33] LABS: Basophils # (A) 0.1 k/uL (0-0.2); Basophils % (A) 1 %; Eosinophils # (A) 0.4 k/uL (0-0.7); Eosinophils % (A) 3 %; HCT 37.3 % (34.0-46.0); HGB 12.3 gm/dL (11.4-16.0); Lymphocytes # (A) 2.4 k/uL (1.0-4.8); Lymphocytes % (A) 18 %; MCH 29.5 pg (25.0-35.0); Mean Platelet Volume 7.4; Monocytes # (A) 0.6 k/uL (0-1.0); Monocytes % (A) 4 %; Neutrophils # (A) 9.7 k/uL (1.3-7.7); Neutrophils % (A) 73 %; Platelet Count 445 k/uL (150-450); RBC 4.17 m/uL (3.80-5.40); RDW 15.4 % (11.5-15.5); WBC 13.4 k/uL (3.8-10.6)
[2020-02-29] MEDS: SODIUM CHLORIDE 0.9% 1,000 ML IV SCH (12:38)
[2020-02-29 12:47] LABS: ALT 33 U/L (4-34); AST 24 U/L (14-36); African American GFR (CKD) >90 (>60 ml/min/1.73 sqM); Albumin 3.8 g/dL (3.5-5.0); Alkaline Phosphatase 73 U/L (38-126); Anion Gap 6 mmol/L; Blood Urea Nitrogen 9 mg/dL (7-17); Calcium 9.3 mg/dL (8.4-10.2); Carbon Dioxide 25 mmol/L (22-30); Chloride 101 mmol/L (98-107); Glucose 101 mg/dL (74-99); Non-African American GFR(CKD) >90 (>60 ml/min/1.73 sqM); Sodium 132 mmol/L (137-145); Total Bilirubin 0.9 mg/dL (0.2-1.3); Total Protein 6.7 g/dL (6.3-8.2)
[2020-02-29 12:48] LABS: INR 0.9 (<1.2); Partial Thromboplastin Time 22.4 sec (22.0-30.0); Prothrombin Time 9.4 sec (9.0-12.0)
--- NOTE | 2020-02-29 12:49 | XR ---
EXAMINATION TYPE: XR ankle complete RT , 3 VIEWS DATE OF EXAM ORDERED: 02/29/2020 HISTORY: wound. COMPARISON: Previous study dated 12/15/2019. FINDINGS: Metallic hardware has been removed. No fracture, dislocation or joint effusion is seen. No bony destructive lesion is seen. There is a small plantar calcaneal spur. IMPRESSION: 1. NO ACUTE OSSEOUS LESION. 2. CALCANEAL SPUR. 3. POSTSURGICAL CHANGE.
[2020-02-29] MEDS ORDERED: IBUPROFEN 400 MG TAB PO PRN (13:08)
[2020-02-29] MEDS ORDERED: ACETAMINOPHEN TAB 325 MG TAB PO PRN (13:08)
[2020-02-29] MEDS ORDERED: NALOXONE 0.4 MG/ML 1 ML VIAL IV PRN (13:08)
[2020-02-29] MEDS ORDERED: ONDANSETRON 4 MG/2 ML VIAL IVP PRN (13:08)
[2020-02-29 13:16] LABS: MCV 89.4 fL (80.0-100.0)
[2020-02-29 13:46] LABS: Glucose,Whole Blood 114 mg/dL (75-99)
[2020-02-29] MEDS: oxyCODONE-APAP 5-325MG 1 EACH TAB PO PRN (16:17)
[2020-02-29] MEDS ORDERED: ZIPRASIDONE 20 MG CAP PO STA (20:04)
[2020-02-29] MEDS: HYDROcodone/APAP 5-325MG 1 EACH TAB PO PRN (20:37)
[2020-02-29] MEDS ORDERED: HYDROmorphone 0.5 MG/0.5 ML SYRINGE IVP PRN (20:48)
[2020-02-29] MEDS ORDERED: MELATONIN 5 MG TABLET PO SCH (21:00)
[2020-02-29] MEDS ORDERED: traZODone HCL 100 MG TAB PO SCH (21:00)
[2020-02-29] MEDS ORDERED: MELATONIN 5 MG TABLET PO PRN (21:13)
[2020-02-29] MEDS ORDERED: ALBUTEROL NEBULIZED 2.5 MG/3 ML INHALATION PRN (21:13)
[2020-02-29] MEDS ORDERED: TEMAZEPAM 15 MG CAP PO PRN (21:15)
[2020-02-29] MEDS: CEFEPIME 2 GM in SODIUM CHLORIDE 0.9% 100 ML IVPB SCH (21:37)
[2020-02-29 21:50] LABS: Glucose,Whole Blood 166 mg/dL (75-99)
[2020-02-29] MEDS ORDERED: tiZANidine 4 MG TAB PO PRN (22:00)
[2020-03-01] MEDS ORDERED: VANCOMYCIN 2,250 MG in SODIUM CHLORIDE 0.9% 500 ML 500 ML IVPB SCH ×2
[2020-03-01] MEDS ORDERED: PIPERACILLIN-TAZOBACTAM 3.375 GM in SODIUM CHLORIDE 0.9% 100 ML IVPB SCH ×2
[2020-03-01 02:03] VITALS: PULSE 84
[2020-03-01] MEDS: HYDROcodone/APAP 5-325MG 1 EACH TAB PO PRN (02:06)
[2020-03-01] MEDS: SODIUM CHLORIDE 0.9% 1,000 ML IV SCH ×2 (02:12→11:09)
[2020-03-01] MEDS: oxyCODONE-APAP 5-325MG 1 EACH TAB PO PRN (07:32)
[2020-03-01] MEDS: CEFEPIME 2 GM in SODIUM CHLORIDE 0.9% 100 ML IVPB SCH (07:33)
[2020-03-01 07:36] LABS: Glucose,Whole Blood 110 mg/dL (75-99)
[2020-03-01] MEDS ORDERED: IPRATROPIUM 0.5 MG/2.5 ML NEBU INHALATION SCH (08:00)
[2020-03-01 08:06] LABS: African American GFR (CKD) >90 (>60 ml/min/1.73 sqM); Non-African American GFR(CKD) >90 (>60 ml/min/1.73 sqM)
[2020-03-01 08:15] VITALS: BP 192/99; RESP 18; TEMP 98.4
--- NOTE | 2020-03-01 08:44 | CONS ---
CONSULTATION DATE OF SERVICE: 02/29/2020 REASON FOR CONSULTATION: Right lateral ankle wound and a question of osteomyelitis. HISTORY OF PRESENT ILLNESS: The patient is a 44-year-old female with a past medical history significant for admission to this facility in December of 2019, the patient noticed a chronic nonhealing wound to the right lateral ankle area. This patient has previous history of fracture and did have a hardware placement. The patient did have I and D of the right lateral ankle along with removal of the hardware by Dr. Moon on December 16, 2019. The patient did have local wound cultures obtained, which came back positive for MSSA, Klebsiella and Pseudomonas aeruginosa. The patient did get a PICC line and she was advised a 6 week course of IV cefepime 2 grams q.12 hours which the patient completed in outpatient setting. The patient never followed up in the office and she was supposed to follow up within a week or 2 of discharge from the hospital, the patient apparently continued to have nonhealing of her right lateral ankle wound and is being managed by her primary care physician and home care nurse. The patient did have repeat cultures obtained on February 20, 2020, did grow MRSA Enterobacter and Pseudomonas. The patient apparently has been treated with oral Keflex and Bactrim by the primary care physician which the patient has been taking for about a week. However, the patient is now presenting to the hospital with worsening pain to the right lateral ankle wound area, describing it to be throbbing, almost 10/10 in severity, and worse with touching of the wound. Some relief with pain medication. The patient complaining of some fever and chills at home. With these symptoms, the patient presented to the hospital. On arrival to the ER, the patient did have a low-grade fever of 99.3. She did have white count of 13.4. The patient did have local wound cultures obtained, which are currently pending. X-rays of the ankle did show no acute osseous lesion. Calcaneus spur and postsurgical changes. The patient was started on vancomycin and Zosyn. Infectious Disease was consulted for further management of antibiotic therapy. REVIEW OF SYSTEMS: Positive points have been mentioned in HPI. Rest of systems are negative. PAST MEDICAL HISTORY: History of COPD, diabetes mellitus, GERD, hypertension, history of right ankle fracture. PAST SURGICAL HISTORY: Appendectomy, , hysterectomy, ORIF right ankle with recent removal of the hardware and debridement of the wound. SOCIAL HISTORY: Patient a current everyday smoker. Denies drinking or drug use. FAMILY HISTORY: Mother with history of diabetes mellitus. ALLERGIES: No known drug allergies. MEDICATIONS: The patient is currently on Tylenol, Jennings, Zosyn 3.375 grams q.8 hours. She is on Motrin, melatonin, Narcan, Zofran, Percocet, Protonix and vancomycin. Pharmacy to dose. PHYSICAL EXAMINATION: Blood pressure 158/79 with a pulse of 81, temperature 98.5. She is 95% on room air. General description: The patient is a middle-aged female lying in bed in no distress. No tachypnea or accessory muscles of respiration use. HEENT: Examination shows no pallor or scleral icterus. Oral mucosa membranes dry. No pharyngeal erythema or thrush. NECK: Trachea central. No thyromegaly. LUNGS unlabored breathing. Clear to auscultation anteriorly. No wheeze or crackles. HEART S1, S2. Regular rate and rhythm. ABDOMEN: Soft, no tenderness. No guarding or rigidity. EXTREMITIES: No edema of the feet. Examination right lateral ankle wound did have significant amount of slough tissue with some surrounding redness and tender to touch. NEUROLOGICAL: Patient is awake, alert and oriented times three. Mood and affect normal. LABS: White count 13.5, creatinine has been normal. X-ray did not show any acute changes. Cultures currently pending. DIAGNOSTIC IMPRESSION AND PLAN: Patient with chronic nonhealing wound with previous hardware that has been removed and concern for osteomyelitis for which the patient completed a 6 week course of IV cefepime as previous culture positive for MSSA, Pseudomonas and Klebsiella. The patient never followed up in the office or in the Wound Care for continued local wound care and has been managed by her PCP with recent culture in outpatient setting shows MRSA and Pseudomonas with likely concern for secondary infection of an open wound that has not healed. PLAN: 1. Local wound care with Medihoney followed by moist dressing to be changed daily. 2. Vancomycin, pharmacy to dose, vanc trough closely. 3. Cefepime 2 g q.12h. 4. Orthopedic evaluation for possible debridement of the wound and removal of the devitalized tissue. 5. We will follow on clinical condition and repeat culture to further adjust medication if needed. Thank you for this consultation. Will follow this patient with you. MMODL / IJN: [id number] /
[2020-03-01] MEDS ORDERED: metFORMIN 500 MG TAB PO SCH (09:00)
[2020-03-01] MEDS ORDERED: POTASSIUM CHLORIDE ER 20 MEQ TAB.ER PO SCH (09:00)
[2020-03-01] MEDS: INSULIN ASPART (NovoLOG) 100 UNIT/ML VIAL SQ SCH ×2 (09:00→11:13)
[2020-03-01] MEDS ORDERED: HEPARIN SODIUM,PORCINE 5,000 UNIT/ML 1 ML VIAL SQ SCH (09:00)
[2020-03-01] MEDS ORDERED: BUMETANIDE 1 MG TAB PO SCH (09:00)
[2020-03-01] MEDS ORDERED: LISINOPRIL-HCTZ 20-25 MG 1 EACH TAB PO SCH (09:00)
[2020-03-01] MEDS ORDERED: PANTOPRAZOLE 40 MG/10 ML VIAL IV SCH (09:00)
[2020-03-01] MEDS ORDERED: PANTOPRAZOLE 40 MG TABLET PO SCH (09:00)
--- NOTE | 2020-03-01 09:13 | HP ---
HISTORY AND PHYSICAL I am covering for Dr. Morley. DATE OF SERVICE: 02/29/2020 CHIEF COMPLAINTS: Nonhealing ulcer of the right ankle. HISTORY OF PRESENT ILLNESS: This 44-year-old woman with a past medical history of multiple medical problems including history of COPD, diabetes, GERD, hypertension, history of DJD being followed by Dr. Morley in the outpatient setting, having right ankle ulcer since last May. The patient had multiple treatments and also seen by Orthopedic surgery and as well as Infectious Disease and patient apparently had a PICC line insertion as well. The patient was treated with IV antibiotics for the past 3 weeks Keflex and Bactrim, but however the patient is complaining of increased swelling and pain and yellowish discharge and the patient came to [facility] for further evaluation and treatment. Patient also had some fever. The previous culture report showed a combination of MRSA, Enterobacter cloacae and Pseudomonas aeruginosa which were some other organisms rather resistant. There is no history any headache, loss conscious or seizures at this time. PAST MEDICAL HISTORY: History of COPD, diabetes, GERD, hypertension, DJD, history of appendectomy, Caesarean section. MEDICATIONS: Home medications are: 1. Trazodone 300 mg q.h.s. 3. Metformin 500 mg p.o. b.i.d. 4. Geodon 60 mg q.h.s. 5. Spiriva 1 puff daily. 6. K-Dur 10 mEq daily. 7. Prilosec 20 mg b.i.d. 8. Melatonin 10 mg q.h.s. 9. Zestoretic 1 tablet p.o. daily. 10.Clindamycin 300 mg q.h.s. 11.Bumex 2 mg. 12.Albuterol p.r.n. ALLERGIES: None. FAMILY HISTORY: Diabetes mellitus. SOCIAL HISTORY: History of smoking continued ongoing. REVIEW OF SYSTEMS: ENT: No diminished vision/hearing. CARDIOVASCULAR no angina or palpitations. RESPIRATORY: As mentioned earlier. GI: As mentioned earlier. no dysuria. NERVOUS SYSTEM: No numbness or weakness. ALLERGY/IMMUNOLOGY: None. MUSCULOSKELETAL as mentioned earlier. HEMATOLOGY/ONCOLOGY: No history of anemia. ENDOCRINE mentioned earlier. CONSTITUTIONAL: As mentioned. DERMATOLOGY: Negative. RHEUMATOLOGY: Negative. PSYCHIATRY: As mentioned earlier. PHYSICAL EXAMINATION: The patient is alert and oriented times three. Pulse 81. Blood pressure 150/70, respirations 14, temperature 98.4, pulse ox 94% on room air. HEENT: Conjunctivae normal. Oral mucosa moist. NECK is no jugular venous distention. No carotid bruit. No lymph node enlargement. CARDIOVASCULAR: S1, S2 muffled. No S3. No S4. RESPIRATORY: Breath sounds diminished in the bases. A few scattered rhonchi. ABDOMEN: Soft, obese, nontender. No mass palpable. LEGS: Significant ulceration and tenderness in the right ankle present. NERVOUS SYSTEM: Higher functions as mentioned. Moves all four limbs. LYMPHATICS: No lymph nodes palpable in the neck, axillae or groin. SKIN no ulcers, rashes or bleeding. JOINTS no active deforming arthropathy. LABS: WBC 13.2, hemoglobin 12.3, sodium 132. C-reactive protein is 51. ASSESSMENT: 1. Right ankle ulceration, acute on chronic, with failure of outpatient treatment. 2. Rule out osteomyelitis. 3. Hyponatremia. 4. Increased WBC. 5. Chronic obstructive pulmonary disease. 6. Diabetes mellitus type 2. 7. Hypertension. 8. History of degenerative joint disease. 9. History of MRSA, Enterobacter cloacae and Pseudomonas aeruginosa from the previous cultures. 10.History of appendectomy. 11.History of section. 12.History of bipolar. 13.Continued ongoing nicotine dependence. 14.Morbid obesity with body mass index of 58.5. RECOMMENDATIONS AND DISCUSSION: This 44-year-old woman who presented with multiple complex medical issues, at this time I recommend to continue current medications, symptomatic treatment and cultures. I would also recommend a bone scan. Otherwise, closely follow with Infectious Disease and continue to monitor. Monitor blood sugars closely. Resume the home medications. A copy of this dictation being forwarded to Dr. Morley who is the primary physician. Dr. Morley will follow the patient tomorrow. MMODL / IJN: [id number] / MTDD
[2020-03-01 11:12] LABS: Glucose,Whole Blood 122 mg/dL (75-99)
--- NOTE | 2020-03-01 15:49 | P.DS ---
<Do Wiseman - Last Filed: 03/01/20 15:43> Providers Expected date of discharge: 03/01/20 Hospital Course: Final diagnoses Right ankle ulceration, chronic with failure of outpatient treatment. Previous hardware removed, previous ORIF of right lateral malleus, completed 6 week course of IV cefepime for possible osteomyelitis. Recent outpatient culture reporting MRSA and Pseudomonas, suspected secondary infection. Current wound cultures reporting gram-negative bacilli. Bipolar disorder in remission Hospital course: This a 44-year-old female presented to the ER with nonhealing ulcer of the right ankle. Evaluated by infectious disease. Patient was discharged home on oral Zyvox, in a stable condition with guarded prognosis. Microbiology 02/29/20 12:17 Blood Blood Culture - Preliminary No Growth after 24 hours 02/29/20 12:17 Ankle - Right Gram Stain - Preliminary 02/29/20 12:17 Ankle - Right Wound Culture - Preliminary Gram Neg Bacilli The impression and plan of care has been dictated as directed. : I performed a history and examination of this patient, discussed the same with the dictator. I agree with the dictator's note ,documented as a scribe. Any additional findings or plans will be noted. Patient Condition at Discharge: Stable Plan - Discharge Summary Discharge Rx Participant: No New Discharge Prescriptions: New Linezolid 600 mg PO Q12H #28 tablet Continue Melatonin 10 mg PO HS PRN PRN Reason: Insomnia Lisinopril-Hctz 20-25 mg [Zestoretic 20-25] 1 tab PO DAILY Omeprazole [PriLOSEC] 20 mg PO BID Ziprasidone HCl [Geodon] 160 mg PO HS Albuterol Inhaler [Ventolin Hfa Inhaler] 2 puff INHALATION RT-Q4H PRN PRN Reason: Shortness Of Breath Potassium Chloride ER [K-Dur 20] 20 meq PO DAILY Tiotropium Hunters [Spiriva] 1 cap INHALATION RT-DAILY tiZANidine HCL 4 mg PO TID PRN PRN Reason: Muscle Spasticity traZODone HCL 300 mg PO HS Bumetanide 2 mg PO BID Clindamycin HCl 300 mg PO Q6H metFORMIN HCL [metFORMIN HCL ER] 500 mg PO BID Discharge Medication List Lisinopril-Hctz 20-25 mg [Zestoretic 20-25] 1 tab PO DAILY 09/03/19 [History] Melatonin 10 mg PO HS PRN 05/06/19 [History] Omeprazole [PriLOSEC] 20 mg PO BID 05/06/19 [History] Ziprasidone HCl [Geodon] 160 mg PO HS 05/06/19 [History] Albuterol Inhaler [Ventolin Hfa Inhaler] 2 puff INHALATION RT-Q4H PRN 12/15/19 [History] Potassium Chloride ER [K-Dur 20] 20 meq PO DAILY 12/15/19 [History] Tiotropium Hunters [Spiriva] 1 cap INHALATION RT-DAILY 12/15/19 [History] tiZANidine HCL 4 mg PO TID PRN 12/15/19 [History] traZODone HCL 300 mg PO HS 12/15/19 [History] Bumetanide 2 mg PO BID 02/29/20 [History] Clindamycin HCl 300 mg PO Q6H 02/29/20 [History] metFORMIN HCL [metFORMIN HCL ER] 500 mg PO BID 02/29/20 [History] Linezolid 600 mg PO Q12H #28 tablet 03/01/20 [Rx] Follow up Appointment(s)/Referral(s): Jae Morley MD [Primary Care Provider] - 3 Days Discharge Disposition: Left Against Medical Advice <Jae Morley - Last Filed: 03/01/20 22:54> Providers Date of admission: 02/29/20 12:07 Attending physician: Jae Morley MD Consults: 02/29/20 13:08 Consult Physician Stat Consulting Provider: Gokul Jesus Consult Reason/Comments: R ankle wound, failure outpt Do you want consulting provider notified?: Yes Primary care physician: Jae Morley MD Hospital Course: She was evaluated by ID and recommended to remain hospitalized or at the very least have a PICC line placed, but she insisted on signing out AMA to be with her children at home. Discussed risks and will dc on oral zyvox with close outpatient follow up.
[2020-03-01] MEDS ORDERED: ZIPRASIDONE 80 MG CAP PO SCH (21:00)
[2020-03-01] MEDS ORDERED: traZODone HCL 100 MG TAB PO SCH (21:00)
--- NOTE | 2020-03-02 13:37 | CDI ---
Documentation Clarification Form Date: 03/02/2020 01:16:51 PM From: Sharifa Calle Phone: If you have a question about this query, please contact Tika Carver, Tail Ripper at [phone] between 8am and 5pm. Admit Date: 02/29/2020 12:07:00 PM Patient Name: Dora Holguin Visit Number: [id number] Discharge Date: 03/01/2020 11:30:00 AM ATTENTION: The Clinical Documentation Specialists (CDI) and [facility] Coding Staff appreciate your assistance in clarifying documentation. Please respond to the clarification below the line at the bottom and electronically sign. The CDI & [facility] Coding staff will review the response and follow-up if needed. Please note: Queries are made part of the Legal Health Record. If you have any questions, please contact the author of this message via ITS. Dr. Jae Morley Conflicting documentation has been found in the medical record: ER documents patients infected ulcer is a surgical wound infection. H and P documents possible non healing wound due to Diabetes. Patient has had hardware removed from previous ankle fx. Please clarify if patients non healing would is post op surgical wound infection, possible osteomyelitis recently treated with course of IV Cefepime, or due to Diabetes. History/Risk Factors: woulnd culture positive for psuedomonas and MRSA, DM, Morbid obesity BMI 58.5 Clinical Indicators: MRSA Pseudomonas Treatment: Zyvox In your opinion, what is the most clinically appropriate diagnosis for this patient? non healing infected ankle ulcer post op infection Due to diabetes Due to osteomyelitis Other explanation of clinical findings Unable to determine (no explanation for clinical findings) Non healing infected ankle ulcer post op infection Complicated by diabetes and CHF MTDD
[2020-03-02] MEDS ORDERED: VANCOMYCIN TROUGH DUE 1 EACH MISC MISCELLANE ONE (23:00)
== END 2020-03-01 11:30 | disposition left against medical advice (07) | DRG 863 ==
LOC: EC 11:34 → 4SSUR 12:07 → 5NMEDONC 18:22 → 4SSUR 20:07
PROVIDERS: ADMIT Family Medicine; ATTEND Family Medicine
DX: T81.41XA Infection following a procedure, superficial incisional surgical site, initial encounter (principal); L97.319 Non-pressure chronic ulcer of right ankle with unspecified severity; Z68.43 Body mass index [BMI] 50.0-59.9, adult; E87.1 Hypo-osmolality and hyponatremia; B96.5 Pseudomonas (aeruginosa) (mallei) (pseudomallei) as the cause of diseases classified elsewhere; B95.62 Methicillin resistant Staphylococcus aureus infection as the cause of diseases classified elsewhere; E66.01 Morbid (severe) obesity due to excess calories; E11.622 Type 2 diabetes mellitus with other skin ulcer; Z79.84 Long term (current) use of oral hypoglycemic drugs; F17.210 Nicotine dependence, cigarettes, uncomplicated; F31.70 Bipolar disorder, currently in remission, most recent episode unspecified; J44.9 Chronic obstructive pulmonary disease, unspecified; I10 Essential (primary) hypertension; M77.30 Calcaneal spur, unspecified foot; Z83.3 Family history of diabetes mellitus; Z90.49 Acquired absence of other specified parts of digestive tract; K21.9 Gastro-esophageal reflux disease without esophagitis; Z90.710 Acquired absence of both cervix and uterus; M19.90 Unspecified osteoarthritis, unspecified site; Z87.81 Personal history of (healed) traumatic fracture; Z11.59 Encounter for screening for other viral diseases
CPT/HCPCS: 36415; 80053; 82565; 83605; 85025; 85610; 85730; 86140; 87040; 87070; 87077; 87186; 87205; 96361; 96365; 96366; 96367; 96368; 99285

== ENCOUNTER 2020-04-26 17:38 | Observation (INO) | payer MEDICARE, OTHER ==
[2020-04-26] MEDS ORDERED: PIPERACILLIN-TAZOBACTAM 3.375 GM in SODIUM CHLORIDE 0.9% 100 ML IVPB STA (18:34)
--- NOTE | 2020-04-26 18:40 | ED ---
General Adult HPI - General Chief complaint: Wound/Laceration Stated complaint: Wound infection sent from DR Time Seen by Provider: 04/26/20 17:40 Source: patient, family, RN notes reviewed, old records reviewed Mode of arrival: wheelchair Limitations: no limitations - History of Present Illness Initial comments: Is a 44-year-old female who presents emergency Department complaining of the wound on her right leg is infected again and she was told to come the emergency department and be admitted. Patient states the wound is more drainage it's more red and it's more painful. Patient states his been ongoing since May. Patient denies any new injury. Patient denies any fever or chills. Patient denies any other complaints. Patient denies any difficulty breathing first breath per patient denies any chest pain patient denies abdominal pain patient denies nausea vomiting diarrhea. - Related Data Home Medications Medication Instructions Recorded Confirmed Lisinopril-Hctz 20-25 mg 1 tab PO DAILY 05/06/19 04/26/20 [Zestoretic 20-25] Melatonin 10 mg PO HS PRN 05/06/19 04/26/20 Omeprazole [PriLOSEC] 20 mg PO BID 05/06/19 04/26/20 Ziprasidone HCl [Geodon] 160 mg PO HS 05/06/19 04/26/20 Albuterol Inhaler [Ventolin Hfa 2 puff INHALATION RT-Q4H PRN 12/15/19 04/26/20 Inhaler] Potassium Chloride ER [K-Dur 20] 20 meq PO DAILY 12/15/19 04/26/20 Tiotropium Purvis [Spiriva] 1 cap INHALATION RT-DAILY 12/15/19 04/26/20 tiZANidine HCL 4 mg PO TID PRN 12/15/19 04/26/20 traZODone HCL 300 mg PO HS 12/15/19 04/26/20 Bumetanide 2 mg PO BID 02/29/20 04/26/20 metFORMIN HCL [metFORMIN HCL ER] 500 mg PO BID 02/29/20 04/26/20 HYDROcodone/APAP 5-325MG [[place] 1 tab PO QID PRN 04/26/20 04/26/20 5-325] Allergies Allergy/AdvReac Type Severity Reaction Status Date / Time No Known Allergies Allergy Verified 04/26/20 19:18 Review of Systems ROS Statement: Those systems with pertinent positive or pertinent negative responses have been documented in the HPI. ROS Other: All systems not noted in ROS Statement are negative. Past Medical History Past Medical History: COPD, Diabetes Mellitus, Eye Disorder, GERD/Reflux, Hypertension, Musculoskeletal Disorder, Pneumonia Additional Past Medical History / Comment(s): NIDDM type II, neuropathy bilateral hands/feet, chronic cervical/back pain, DDD, edema bilateral lower legs/feet, bilateral astigmatism. History of Any Multi-Drug Resistant Organisms: MRSA Date of last positivie culture/infection: 02/29/20 MDRO Source:: R ankle Past Surgical History: Appendectomy, Section, Hysterectomy, Orthopedic Surgery Additional Past Surgical History / Comment(s): 05/2019 ORIF R ankle, R ankle repair of wound dehiscence, 12/2019 R ankle hardware removed/I&D, PICC, mulriple teeth extracted Past Anesthesia/Blood Transfusion Reactions: No Reported Reaction Past Psychological History: Bipolar, Depression Past Alcohol Use History: None Reported Past Drug Use History: None Reported - Past Family History Mother Family Medical History: Hyperlipidemia, Hypertension Additional Family Medical History / Comment(s): Pt does not know her mother's medical history very well, they do not communicate much. Father History Unknown: Yes Family Medical History: Congestive Heart Failure (CHF) Additional Family Medical History / Comment(s): Father of CHF at the age of 46 yrs. General Exam - General Exam Comments Initial Comments: GENERAL: Patient is well-developed and well-nourished. Patient is nontoxic and well-hydrated and is in mild distress. ENT: Neck is soft and supple. No significant lymphadenopathy is noted. Oropharynx is clear. Moist mucous membranes. Neck has full range of motion without eliciting any pain. EYES: The sclera were anicteric and conjunctiva were pink and moist. Extraocular movements were intact and pupils were equal round and reactive to light. Eyelids were unremarkable. PULMONARY: Unlabored respirations. Good breath sounds bilaterally. No audible rales rhonchi or wheezing was noted. CARDIOVASCULAR: There is a regular rate and rhythm without any murmurs gallops or rubs. ABDOMEN: Soft and nontender with normal bowel sounds. SKIN: Patient has an open wound on the distal aspect of the right leg it is erythematous around bright tender to palpation and there is quite a bit of drainage. NEUROLOGIC: Patient is alert and oriented x3. Cranial nerves II through XII are grossly intact. Motor and sensory are also intact. Normal speech, volume and content. Symmetrical smile. MUSCULOSKELETAL: Normal extremities with adequate strength and full range of motion. LYMPHATICS: No significant lymphadenopathy is noted PSYCHIATRIC: Normal psychiatric evaluation. Limitations: no limitations Course Vital Signs 04/26/20 17:39 Temperature 99.2 F Pulse Rate 101 H Respiratory 18 Rate Blood Pressure 152/89 O2 Sat by Pulse 98 Oximetry Medical Decision Making - Medical Decision Making X-ray shows no acute abnormality. The wound appears infected I started the patient on Zosyn and Vanco. I spoke with Dr. Morley he agreed to admit the patient admitted the patient wrote admitting orders. Consulted Dr. Medrano. EKG showed normal sinus rhythm at 90 bpm DE interval 134 QRS is 72 QT interval 346 QTC is 423. Patient's EKG shows no ST segment elevation or depression. - Lab Data Result diagrams: 04/26/20 19:14 04/26/20 19:14 Lab Results 04/26/20 04/26/20 04/26/20 Range/Units 19:14 19:14 19:14 WBC 16.8 H (3.8-10.6) k/uL RBC 4.64 (3.80-5.40) m/uL Hgb 11.8 (11.4-16.0) gm/dL Hct 38.4 (34.0-46.0) % MCV 82.7 D (80.0-100.0) fL MCH 25.5 (25.0-35.0) pg MCHC 30.8 L (31.0-37.0) g/dL RDW 15.8 H (11.5-15.5) % Plt Count 488 H (150-450) k/uL Neutrophils % 66 % Lymphocytes % 21 % Monocytes % 7 % Eosinophils % 4 % Basophils % 1 % Neutrophils # 11.1 H (1.3-7.7) k/uL Lymphocytes # 3.5 (1.0-4.8) k/uL Monocytes # 1.1 H (0-1.0) k/uL Eosinophils # 0.7 (0-0.7) k/uL Basophils # 0.2 (0-0.2) k/uL Hypochromasia Slight PT 9.6 (9.0-12.0) sec INR 0.9 (<1.2) APTT 21.6 L (22.0-30.0) sec Sodium 130 L (137-145) mmol/L Potassium 5.1 (3.5-5.1) mmol/L Chloride 101 (98-107) mmol/L Carbon Dioxide 23 (22-30) mmol/L Anion Gap 6 mmol/L BUN 12 (7-17) mg/dL Creatinine 0.84 (0.52-1.04) mg/dL Est GFR (CKD-EPI)AfAm >90 (>60 ml/min/1.73 sqM) Est GFR (CKD-EPI)NonAf 86 (>60 ml/min/1.73 sqM) Glucose 98 (74-99) mg/dL Plasma Lactic Acid Bill (0.7-2.0) mmol/L Calcium 8.7 (8.4-10.2) mg/dL Total Bilirubin 1.3 (0.2-1.3) mg/dL AST 40 H (14-36) U/L ALT 26 (4-34) U/L Alkaline Phosphatase 59 (38-126) U/L Total Protein 6.5 (6.3-8.2) g/dL Albumin 3.7 (3.5-5.0) g/dL 04/26/20 Range/Units 19:14 WBC (3.8-10.6) k/uL RBC (3.80-5.40) m/uL Hgb (11.4-16.0) gm/dL Hct (34.0-46.0) % MCV (80.0-100.0) fL MCH (25.0-35.0) pg MCHC (31.0-37.0) g/dL RDW (11.5-15.5) % Plt Count (150-450) k/uL Neutrophils % % Lymphocytes % % Monocytes % % Eosinophils % % Basophils % % Neutrophils # (1.3-7.7) k/uL Lymphocytes # (1.0-4.8) k/uL Monocytes # (0-1.0) k/uL Eosinophils # (0-0.7) k/uL Basophils # (0-0.2) k/uL Hypochromasia PT (9.0-12.0) sec INR (<1.2) APTT (22.0-30.0) sec Sodium (137-145) mmol/L Potassium (3.5-5.1) mmol/L Chloride (98-107) mmol/L Carbon Dioxide (22-30) mmol/L Anion Gap mmol/L BUN (7-17) mg/dL Creatinine (0.52-1.04) mg/dL Est GFR (CKD-EPI)AfAm (>60 ml/min/1.73 sqM) Est GFR (CKD-EPI)NonAf (>60 ml/min/1.73 sqM) Glucose (74-99) mg/dL Plasma Lactic Acid Bill 0.9 (0.7-2.0) mmol/L Calcium (8.4-10.2) mg/dL Total Bilirubin (0.2-1.3) mg/dL AST (14-36) U/L ALT (4-34) U/L Alkaline Phosphatase (38-126) U/L Total Protein (6.3-8.2) g/dL Albumin (3.5-5.0) g/dL Disposition Clinical Impression: Infected wound Disposition: ADMITTED IP TO THIS HOSP Referrals: Jae Morley MD [Primary Care Provider] - 1-2 days Time of Disposition: 20:40
[2020-04-26 19:38] LABS: Basophils # (A) 0.2 k/uL (0-0.2); Basophils % (A) 1 %; Eosinophils # (A) 0.7 k/uL (0-0.7); Eosinophils % (A) 4 %; HCT 38.4 % (34.0-46.0); HGB 11.8 gm/dL (11.4-16.0); Hypochromasia Slight; Lymphocytes # (A) 3.5 k/uL (1.0-4.8); Lymphocytes % (A) 21 %; MCH 25.5 pg (25.0-35.0); MCHC 30.8 g/dL (31.0-37.0); Mean Platelet Volume 7.4; Monocytes # (A) 1.1 k/uL (0-1.0); Monocytes % (A) 7 %; Neutrophils # (A) 11.1 k/uL (1.3-7.7); Neutrophils % (A) 66 %; Platelet Count 488 k/uL (150-450); RBC 4.64 m/uL (3.80-5.40); RDW 15.8 % (11.5-15.5); WBC 16.8 k/uL (3.8-10.6)
[2020-04-26 19:40] LABS: MCV 82.7 fL (80.0-100.0)
[2020-04-26 19:45] LABS: ALT 26 U/L (4-34); AST 40 U/L (14-36); African American GFR (CKD) >90 (>60 ml/min/1.73 sqM); Albumin 3.7 g/dL (3.5-5.0); Alkaline Phosphatase 59 U/L (38-126); Anion Gap 6 mmol/L; Blood Urea Nitrogen 12 mg/dL (7-17); Calcium 8.7 mg/dL (8.4-10.2); Carbon Dioxide 23 mmol/L (22-30); Chloride 101 mmol/L (98-107); Glucose 98 mg/dL (74-99); INR 0.9 (<1.2); Non-African American GFR(CKD) 86 (>60 ml/min/1.73 sqM); Potassium 5.1 mmol/L (3.5-5.1); Prothrombin Time 9.6 sec (9.0-12.0); Sodium 130 mmol/L (137-145); Total Bilirubin 1.3 mg/dL (0.2-1.3); Total Protein 6.5 g/dL (6.3-8.2)
[2020-04-26] MEDS ORDERED: HYDROmorphone 0.5 MG/0.5 ML SYRINGE IVP STA (19:45)
[2020-04-26] MEDS ORDERED: KETOROLAC 15 MG/ML 1 ML VIAL IVP STA (19:45)
[2020-04-26 19:48] LABS: Partial Thromboplastin Time 21.6 sec (22.0-30.0)
[2020-04-26] MEDS ORDERED: SODIUM CHLORIDE 0.9% 1,000 ML IV ONE (20:41)
[2020-04-26] MEDS ORDERED: VANCOMYCIN IV PER PHARMACY 1 EACH MISC MISCELLANE PRN (20:44)
[2020-04-26] MEDS ORDERED: VANCOMYCIN 2,000 MG in SODIUM CHLORIDE 0.9% 500 ML 500 ML IVPB STA (20:46)
--- NOTE | 2020-04-26 21:03 | XR ---
EXAMINATION TYPE: XR ankle limited RT DATE OF EXAM: 04/26/2020 CLINICAL HISTORY: Wound lateral side of right ankle. TECHNIQUE: Frontal and lateral images of the right ankle are obtained. COMPARISON: Right ankle radiograph 02/29/2020 FINDINGS: There is no acute fracture/dislocation evident in the right ankle. The ankle mortise appe ars within normal limits. Diffuse soft tissue swelling about the ankle. There is redemonstrated ulcer ation of the right lateral ankle at the distal fibula. There are redemonstrated postsurgical fracture deformity changes of the distal fibula, with no significant change in cortical contour or periosteal reaction. No definitive evidence of osseous erosion. The distal fibular fixation screw holes are les s evident than 02/29/2020 comparison. IMPRESSION: 1. No acute fracture or dislocation in the right ankle. 2. Diffuse ankle soft tissue swelling and right lateral ankle wound. The fracture deformity and perio steal reaction of the distal fibula in this region is not significantly changed versus 02/29/2020 comp bernarda, and there is no osseous erosion.
[2020-04-26] MEDS ORDERED: MELATONIN 5 MG TABLET PO PRN (23:09)
[2020-04-26] MEDS ORDERED: tiZANidine 4 MG TAB PO PRN (23:09)
[2020-04-27] MEDS: MORPHINE SULFATE 2 MG/ML SYRINGE IVP PRN ×2 (00:27→06:30)
[2020-04-27] MEDS: HYDROcodone/APAP 5-325MG 1 EACH TAB PO PRN ×2 (02:53→19:29)
[2020-04-27 03:15] LABS: Appearance,Urine Clear (Clear); Bilirubin,Urine Negative (Negative); Blood,Urine Negative (Negative); Color,Urine Colorless; Glucose,Urine (UA) Negative (Negative); Ketones,Urine Negative (Negative); Leukocyte Esterase,Urine Negative (Negative); Nitrite,Urine Negative (Negative); PH, Urine 6.5 (5.0-8.0); Protein,Urine Negative (Negative); Specific Gravity,Urine 1.005 (1.001-1.035); Urobilinogen,Urine <2.0 mg/dL (<2.0)
[2020-04-27] MEDS: PIPERACILLIN-TAZOBACTAM 3.375 GM in SODIUM CHLORIDE 0.9% 100 ML IVPB SCH ×3 (04:04→19:38)
[2020-04-27] MEDS: metFORMIN 500 MG TAB PO SCH ×2 (07:48→22:17)
[2020-04-27] MEDS: POTASSIUM CHLORIDE ER 20 MEQ TAB.ER PO SCH (07:48)
[2020-04-27] MEDS: LISINOPRIL-HCTZ 20-25 MG 1 EACH TAB PO SCH (07:48)
[2020-04-27] MEDS: PANTOPRAZOLE 40 MG TABLET PO SCH (07:49)
[2020-04-27] MEDS: VANCOMYCIN 2,000 MG in SODIUM CHLORIDE 0.9% 500 ML 500 ML IVPB SCH ×2 (08:14→23:46)
[2020-04-27] MEDS: LORazepam 0.5 MG TAB PO PRN ×3 (08:54→22:16)
[2020-04-27] MEDS: MORPHINE SULFATE 4 MG/ML SYRINGE IVP PRN ×3 (09:47→22:20)
[2020-04-27] MEDS ORDERED: ZIPRASIDONE 80 MG CAP PO SCH (21:00)
[2020-04-27] MEDS ORDERED: traZODone HCL 100 MG TAB PO SCH (21:00)
[2020-04-27] MEDS ORDERED: COLLAGENASE 250 UNIT/GM OINTMENT 30 GM TUBE TOPICAL SCH (21:00)
--- NOTE | 2020-04-27 23:26 | P.HPIM ---
History of Present Illness H&P Date: 04/27/20 Chief Complaint: R ankle wound Dora Holguin is a 44 yo F with PMH of morbid obesity, T2DM, diastolic CHF, HTN who presented from PCP office with worsening pain and drainage from RLE wound. She has been dealing with this since May 2019 after she had ORIF of a R ankle fracture. She initially suffered repeated dehiscence and then December of this year was admitted with removal of the hardware. The site subsequently became infected and became increasingly painful. Pt was recommended to complete a course of IV vancomycin but she left AMA and proceeded to try oral antibiotics at home. She has also been receiving home nursing. Over the past 4 months pt has not had any substantial healing of the RLE wound, she did complete a 14 day course of oral zyvox last month and although her pain improved during treatment it is now again severe and she rates 10/10. She denies fever or chills. On presentation she was tachycardic, T 99.2, WBC 16k. Ankle XR with no bony involvement. Review of Systems All systems: negative Constitutional: Denies chills, Denies fever Eyes: denies blurred vision, denies pain Ears, nose, mouth and throat: Denies headache, Denies sore throat Cardiovascular: Denies chest pain, Denies shortness of breath Respiratory: Denies cough Gastrointestinal: Denies abdominal pain, Denies diarrhea, Denies nausea, Denies vomiting Genitourinary: Denies dysuria, Denies hematuria Musculoskeletal: Denies myalgias Integumentary: Reports as per HPI, Reports sores, Reports wounds, Denies pruritus, Denies rash Neurological: Denies numbness, Denies weakness Psychiatric: Denies anxiety, Denies depression Endocrine: Denies fatigue, Denies weight change Past Medical History Past Medical History: COPD, Diabetes Mellitus, Eye Disorder, GERD/Reflux, Hypertension, Musculoskeletal Disorder, Pneumonia Additional Past Medical History / Comment(s): NIDDM type II, neuropathy bilateral hands/feet, chronic cervical/back pain, DDD, edema bilateral lower legs/feet, bilateral astigmatism. History of Any Multi-Drug Resistant Organisms: MRSA Date of last positivie culture/infection: 02/29/20 MDRO Source:: R ankle Past Surgical History: Appendectomy, Section, Hysterectomy, Orthopedic Surgery Additional Past Surgical History / Comment(s): 05/2019 ORIF R ankle, R ankle repair of wound dehiscence, 12/2019 R ankle hardware removed/I&D, PICC, mulriple teeth extracted Past Anesthesia/Blood Transfusion Reactions: No Reported Reaction Past Psychological History: Bipolar, Depression Additional Psychological History / Comment(s): Pt resides with her significant other. She has VNA for wound care to R ankle. She is in a wheelchair. She does not drive, significant other drives her to [employer]. Smoking Status: Current every day smoker Additional Past Alcohol Use History / Comment(s): pt states smokes 1 pck per day Past Drug Use History: None Reported - Past Family History Mother Family Medical History: Hyperlipidemia, Hypertension Additional Family Medical History / Comment(s): Pt does not know her mother's medical history very well, they do not communicate much. Father History Unknown: Yes Family Medical History: Congestive Heart Failure (CHF) Additional Family Medical History / Comment(s): Father of CHF at the age of 46 yrs. Medications and Allergies Home Medications Medication Instructions Recorded Confirmed Type Lisinopril-Hctz 20-25 mg 1 tab PO DAILY 05/06/19 04/26/20 History [Zestoretic 20-25] Melatonin 10 mg PO HS PRN 05/06/19 04/26/20 History Omeprazole [PriLOSEC] 20 mg PO BID 05/06/19 04/26/20 History Ziprasidone HCl [Geodon] 160 mg PO HS 05/06/19 04/26/20 History Albuterol Inhaler [Ventolin Hfa 2 puff INHALATION RT-Q4H PRN 12/15/19 04/26/20 History Inhaler] Potassium Chloride ER [K-Dur 20] 20 meq PO DAILY 12/15/19 04/26/20 History Tiotropium [place] [Spiriva] 1 cap INHALATION RT-DAILY 12/15/19 04/26/20 History tiZANidine HCL 4 mg PO TID PRN 12/15/19 04/26/20 History traZODone HCL 300 mg PO HS 12/15/19 04/26/20 History Bumetanide 2 mg PO BID 02/29/20 04/26/20 History metFORMIN HCL [metFORMIN HCL ER] 500 mg PO BID 02/29/20 04/26/20 History HYDROcodone/APAP 5-325MG [[place] 1 tab PO QID PRN 04/26/20 04/26/20 History 5-325] Allergies Allergy/AdvReac Type Severity Reaction Status Date / Time No Known Allergies Allergy Verified 04/26/20 19:18 Physical Exam Vitals: Vital Signs Temp Pulse Resp BP Pulse Ox 04/27/20 19:46 75 18 04/27/20 19:45 98.5 F 75 18 113/69 94 L 04/27/20 14:52 98.8 F 81 14 161/88 97 04/27/20 07:46 97.8 F 87 14 117/59 97 04/27/20 03:40 98.8 F 88 14 135/64 95 Intake and Output 04/27/20 04/27/20 04/27/20 06:59 14:59 22:59 Output Total 500 Balance -500 Output: Urine 500 Other: Voiding Method Toilet Toilet Toilet # Voids 2 1 1 # Bowel Movements 1 General: morbidly obese, well developed, NAD. Vitals reviewed Eyes: PERRL, EOMI, conjunctiva normal HENT: normocephalic, mucus membranes moist Neck: supple, no JVD Lungs: normal respiratory effort, no wheezes or rales CV: Regular rate and rhythm, no murmur. Peripheral pulses 2+ Abdomen: soft, nondistended, no organomegaly Lymph: no cervical or axillary LAD Skin: R lateral malleolus with 6x8x0.8 cm region of ulceration eroded to subcut aneous fat, there is scant purulent drainage, surrounding erythema Neuro: A&Ox3, normal mood and affect Results CBC & Chem 7: 04/26/20 19:14 04/26/20 19:14 Labs: Microbiology - Last 24 Hours (Table) 04/26/20 19:14 Blood Culture - Preliminary Blood No Growth after 24 hours Thrombosis Risk Factor Assmnt - Choose All That Apply Any of the Below Risk Factors Present?: Yes Each Factor Represents 1 point: Age 41-60 years Thrombosis Risk Factor Assessment Total Risk Factor Score: 1 Thrombosis Risk Factor Assessment Level: Low Risk Assessment and Plan (1) Nonhealing nonsurgical wound with fat layer exposed Current Visit: Yes Status: Acute Code(s): T14.8XXA - OTHER INJURY OF UNSPECIFIED BODY REGION, INITIAL ENCOUNTER SNOMED Code(s): 593283169 (2) Cellulitis Current Visit: Yes Status: Acute Code(s): L03.90 - CELLULITIS, UNSPECIFIED SNOMED Code(s): 882114476 (3) Sepsis Current Visit: Yes Status: Acute Code(s): A41.9 - SEPSIS, UNSPECIFIED ORGANISM SNOMED Code(s): 55275881 (4) Infected wound Current Visit: Yes Status: Acute Code(s): T14.8XXA - OTHER INJURY OF UNSPECIFIED BODY REGION, INITIAL ENCOUNTER; L08.9 - LOCAL INFECTION OF THE SKIN AND SUBCUTANEOUS TISSUE, UNSP SNOMED Code(s): 15093070 (5) Wound of right ankle Current Visit: No Status: Acute Code(s): S91.001A - UNSPECIFIED OPEN WOUND, RIGHT ANKLE, INITIAL ENCOUNTER SNOMED Code(s): 182996332 (6) Type 2 diabetes mellitus Current Visit: Yes Status: Acute Code(s): E11.9 - TYPE 2 DIABETES MELLITUS WITHOUT COMPLICATIONS SNOMED Code(s): 67403984 (7) Chronic diastolic CHF (congestive heart failure), NYHA class 1 Current Visit: Yes Status: Acute Code(s): I50.32 - CHRONIC DIASTOLIC (CONGESTIVE) HEART FAILURE SNOMED Code(s): 874149518 Plan: 1. Sepsis due to R lateral mallolus wound. ID consult. Start vancomycin and zosyn. Wound and blood cultures. Set pt up for PICC line anticipate IV antibiotics 2. Chronic diastolic CHF. Continue home lasix 3. T2DM. Continue metformin 4. HTN. Cont lisinopril, HCTZ
--- NOTE | 2020-04-27 23:43 | P.CONS ---
History of Present Illness - Reason for Consult Consult date: 04/27/20 Right lateral ankle wound and cellulitis Requesting physician: Jae Morley - Chief Complaint Nonhealing wound to the right lateral ankle and pain x months - History of Present Illness Patient is a 44-year-old female with a past medical history significant for a chronic nonhealing wound on the right lateral ankle area and this patient previous history of fracture repair with hardware and subsequently had removal of the hardware. An I&D of the right lateral ankle wound that was done on 12/16/2019 patient: Jorge L, positive for MSSA and the patient is a 6 week course of IV cefepime however the patient never follow-up in the office subsequently was readmitted to the hospital in February culture at that time were positive for Enterobacter pseudomonas and MRSA, patient was treated with vancomycin and cefepime subsequently the patient has been lost to follow-up patient has been following with her primary care physician for local wound care patient of presenting to [facility] yesterday with chief complaints of persistent nonhealing of her right lateral ankle wound patient complaining of exertional pain to the right lateral ankle wound area with pain intensity on nystatin and no radiation some surrounding swelling with significant redness she did have some yellowish drainage from the wound denies having any fever, wound to the patient did have low-grade fever of 99.2F did have white count is 16.8, ankle x-ray did not show any acute infection it was diffuse ankle soft tissue swelling and right lateral ankle wound the fracture d eformity and periosteal reaction of the distal for the is a significant change and no erosion patient has been started on Zosyn and vancomycin and infectious disease was consulted for management of antibiotic therapy Review of Systems .Positive point has been mentioned in the HPI rest of the systems are negative Past Medical History Past Medical History: COPD, Diabetes Mellitus, Eye Disorder, GERD/Reflux, Hypertension, Musculoskeletal Disorder, Pneumonia Additional Past Medical History / Comment(s): NIDDM type II, neuropathy bilateral hands/feet, chronic cervical/back pain, DDD, edema bilateral lower legs/feet, bilateral astigmatism. History of Any Multi-Drug Resistant Organisms: MRSA Year Discovered:: 02/29/20 MDRO Source:: R ankle Past Surgical History: Appendectomy, Section, Hysterectomy, Orthopedic Surgery Additional Past Surgical History / Comment(s): 05/2019 ORIF R ankle, R ankle repair of wound dehiscence, 12/2019 R ankle hardware removed/I&D, PICC, mulriple teeth extracted Past Anesthesia/Blood Transfusion Reactions: No Reported Reaction Past Psychological History: Bipolar, Depression Additional Psychological History / Comment(s): Pt resides with her significant other. She has VNA for wound care to R ankle. She is in a wheelchair. She does not drive, significant other drives her to [employer]. Smoking Status: Current every day smoker Additional Past Alcohol Use History / Comment(s): pt states smokes 1 pck per day Past Drug Use History: None Reported - Past Family History Mother Family Medical History: Hyperlipidemia, Hypertension Additional Family Medical History / Comment(s): Pt does not know her mother's medical history very well, they do not communicate much. Father History Unknown: Yes Family Medical History: Congestive Heart Failure (CHF) Additional Family Medical History / Comment(s): Father of CHF at the age of 46 yrs. Medications and Allergies Home Medications Medication Instructions Recorded Confirmed Type Lisinopril-Hctz 20-25 mg 1 tab PO DAILY 05/06/19 04/26/20 History [Zestoretic 20-25] Melatonin 10 mg PO HS PRN 05/06/19 04/26/20 History Omeprazole [PriLOSEC] 20 mg PO BID 05/06/19 04/26/20 History Ziprasidone HCl [Geodon] 160 mg PO HS 05/06/19 04/26/20 History Albuterol Inhaler [Ventolin Hfa 2 puff INHALATION RT-Q4H PRN 12/15/19 04/26/20 History Inhaler] Potassium Chloride ER [K-Dur 20] 20 meq PO DAILY 12/15/19 04/26/20 History Tiotropium [place] [Spiriva] 1 cap INHALATION RT-DAILY 12/15/19 04/26/20 History tiZANidine HCL 4 mg PO TID PRN 12/15/19 04/26/20 History traZODone HCL 300 mg PO HS 12/15/19 04/26/20 History Bumetanide 2 mg PO BID 02/29/20 04/26/20 History metFORMIN HCL [metFORMIN HCL ER] 500 mg PO BID 02/29/20 04/26/20 History HYDROcodone/APAP 5-325MG [[place] 1 tab PO QID PRN 04/26/20 04/26/20 History 5-325] Allergies Allergy/AdvReac Type Severity Reaction Status Date / Time No Known Allergies Allergy Verified 04/26/20 19:18 Physical Exam Vitals: Vital Signs Temp Pulse Pulse Resp BP BP Pulse Ox 04/27/20 07:46 97.8 F 87 14 117/59 97 04/27/20 03:40 98.8 F 88 14 135/64 95 04/26/20 21:43 98.4 F 85 14 159/74 95 04/26/20 21:16 98.3 F 52 L 18 141/86 98 04/26/20 17:39 99.2 F 101 H 18 152/89 98 Intake and Output 04/26/20 04/27/20 04/27/20 22:59 06:59 14:59 Intake Total 600 Output Total 500 Balance 600 -500 Intake: Oral 600 Output: Urine 500 Other: Voiding Method Toilet Toilet # Voids 2 1 Weight 142.882 kg GENERAL DESCRIPTION: Middle-aged female lying in bed, no distress. No tachypnea or accessory muscle of respiration use. HEENT: Shows Pallor , no scleral icterus. Oral mucous membrane is dry. No pharyngeal erythema or thrush NECK: Trachea central, no thyromegaly. LUNGS: Unlabored breathing. Clear to auscultation anteriorly. No wheeze or crackle. HEART: S1, S2, regular rate and rhythm. No loud murmur ABDOMEN: Soft, no tenderness , guarding or rigidity, no organomegaly EXTREMITIES: Right lateral ankle wound with slough tissue at the base some surrounding swelling no significant redness did have some drainage on the dressing SKIN: No rash, no masses palpable. NEUROLOGICAL: The patient is awake, alert, oriented x3, mood and affect normal. Results CBC & Chem 7: 04/26/20 19:14 04/26/20 19:14 Labs: Abnormal Lab Results - Last 24 Hours (Table) 04/26/20 04/26/20 04/26/20 Range/Units 19:14 19:14 19:14 WBC 16.8 H (3.8-10.6) k/uL MCHC 30.8 L (31.0-37.0) g/dL RDW 15.8 H (11.5-15.5) % Plt Count 488 H (150-450) k/uL Neutrophils # 11.1 H (1.3-7.7) k/uL Monocytes # 1.1 H (0-1.0) k/uL APTT 21.6 L (22.0-30.0) sec Sodium 130 L (137-145) mmol/L AST 40 H (14-36) U/L Assessment and Plan Assessment: 1- patient with a chronic nonhealing wound to the right lateral ankle area this started with the infected hardware that has been removed on 12/16/2019 this patient unfortunately did have significant noncompliance to outpatient follow-up more likely responsible for nonhealing of this wound last culture were positive for Enterobacter pseudomonas and MRSA and could be dealing with these pathogens this admission as well (1) Cellulitis of right leg Current Visit: Yes Status: Acute Code(s): L03.115 - CELLULITIS OF RIGHT LOWER LIMB SNOMED Code(s): 856105680 (2) Nonhealing nonsurgical wound with fat layer exposed Current Visit: Yes Status: Acute Code(s): T14.8XXA - OTHER INJURY OF UNSPECIFIED BODY REGION, INITIAL ENCOUNTER SNOMED Code(s): 374341016 Plan: 1- we will obtain a bone scan to rule out underlying osteomyelitis 2- check a sed rate and CRP 3- Vancomycin pharmacy to dose target trough of 15 while watching her kidney function and Vanco trough closely 4- switched to Zosyn to cefepime decrease risk of nephrotoxicity 5- local wound care with Santyl followed by moist dressing to be changed daily We will follow on clinical condition and cultures to further adjust medication if needed Thank you for this consultation will follow this patient with you Time with Patient: Greater than 30
[2020-04-28] MEDS: HYDROcodone/APAP 5-325MG 1 EACH TAB PO PRN ×2 (01:24→09:34)
[2020-04-28] MEDS: PIPERACILLIN-TAZOBACTAM 3.375 GM in SODIUM CHLORIDE 0.9% 100 ML IVPB SCH (04:17)
[2020-04-28] MEDS: MORPHINE SULFATE 4 MG/ML SYRINGE IVP PRN ×2 (05:45→11:42)
[2020-04-28 05:47] LABS: Basophils # (A) 0.1 k/uL (0-0.2); Basophils % (A) 1 %; Eosinophils # (A) 0.4 k/uL (0-0.7); Eosinophils % (A) 5 %; HCT 36.8 % (34.0-46.0); HGB 11.3 gm/dL (11.4-16.0); Hypochromasia Moderate; Lymphocytes # (A) 2.8 k/uL (1.0-4.8); Lymphocytes % (A) 29 %; MCHC 30.6 g/dL (31.0-37.0); MCV 84.8 fL (80.0-100.0); Mean Platelet Volume 7.3; Monocytes # (A) 0.6 k/uL (0-1.0); Monocytes % (A) 6 %; Neutrophils # (A) 5.5 k/uL (1.3-7.7); Neutrophils % (A) 57 %; Platelet Count 434 k/uL (150-450); RBC 4.34 m/uL (3.80-5.40); RDW 15.9 % (11.5-15.5); WBC 9.6 k/uL (3.8-10.6)
[2020-04-28 06:02] LABS: African American GFR (CKD) >90 (>60 ml/min/1.73 sqM); Anion Gap 4 mmol/L; Blood Urea Nitrogen 11 mg/dL (7-17); C Reactive Protein 9.2 mg/L (<10.0); Calcium 8.7 mg/dL (8.4-10.2); Carbon Dioxide 22 mmol/L (22-30); Chloride 108 mmol/L (98-107); Glucose 140 mg/dL (74-99); Non-African American GFR(CKD) >90 (>60 ml/min/1.73 sqM); Potassium 4.4 mmol/L (3.5-5.1); Sodium 134 mmol/L (137-145)
[2020-04-28 06:28] LABS: Erythrocyte Sedimentation Rate 16 mm/hr (0-20)
[2020-04-28] MEDS: metFORMIN 500 MG TAB PO SCH ×2 (07:12→07:17)
[2020-04-28] MEDS: PANTOPRAZOLE 40 MG TABLET PO SCH (07:12)
[2020-04-28] MEDS: LORazepam 0.5 MG TAB PO PRN (07:13)
[2020-04-28] MEDS: POTASSIUM CHLORIDE ER 20 MEQ TAB.ER PO SCH (07:13)
[2020-04-28] MEDS: LISINOPRIL-HCTZ 20-25 MG 1 EACH TAB PO SCH (07:13)
[2020-04-28 07:18] VITALS: BP 178/84; PULSE 76; RESP 14; TEMP 98.9
[2020-04-28] MEDS: VANCOMYCIN 2,000 MG in SODIUM CHLORIDE 0.9% 500 ML 500 ML IVPB SCH (08:05)
[2020-04-28] MEDS ORDERED: ENOXAPARIN 40 MG/0.4 ML SYRINGE SQ SCH (09:00)
[2020-04-28] MEDS ORDERED: CEFEPIME 2 GM in SODIUM CHLORIDE 0.9% 100 ML IVPB ONE (12:00)
--- NOTE | 2020-04-28 12:25 | P.PN ---
Subjective Progress Note Date: 04/28/20 Dora Holguin is a 44 yo F with PMH of morbid obesity, T2DM, diastolic CHF, HTN who presented from PCP office with worsening pain and drainage from RLE wound. She has been dealing with this since May 2019 after she had ORIF of a R ankle fracture. She initially suffered repeated dehiscence and then December of this year was admitted with removal of the hardware. The site subsequently became infected and became increasingly painful. Pt was recommended to complete a course of IV vancomycin but she left AMA and proceeded to try oral antibiotics at home. She has also been receiving home nursing. Over the past 4 months pt has not had any substantial healing of the RLE wound, she did complete a 14 day course of oral zyvox last month and although her pain improved during treatment it is now again severe and she rates 10/10. She denies fever or chills. On presentation she was tachycardic, T 99.2, WBC 16k. Ankle XR with no bony involvemen 04/28/2020 antibiotics adjusted, currently on cefepime ,vancomycin, local wound care with Santyl dressing. Bone scan in progress. PICC line placement on hold pending bone scan results. Creatinine 0.81. Afebrile, normal WBC. Objective - Vital Signs Vital signs: Vital Signs Temp 98.9 F 04/28/20 07:17 Pulse 76 04/28/20 07:17 Resp 14 04/28/20 07:17 BP 178/84 04/28/20 07:17 Pulse Ox 95 04/28/20 07:17 Intake & Output 04/27/20 04/28/20 04/28/20 18:59 06:59 18:59 Intake Total 500 Balance 500 Intake: Intake, IV Titration 500 Amount Vancomycin 2,000 mg In 500 Sodium Chloride 0.9% 500 ml 500 ml @ 167 mls/hr IVPB Q12H [facility] Rx#: [id number] Other: Voiding Method Toilet Toilet Toilet # Voids 1 1 3 # Bowel Movements 1 - Exam General: morbidly obese, sitting up in bed, NAD. Vitals reviewed Eyes: PERRL, EOMI, conjunctiva normal HENT: normocephalic, mucus membranes moist Neck: supple, no JVD Lungs: normal respiratory effort, no wheezes or rales CV: Regular rate and rhythm, no murmur. Peripheral pulses 2+ Abdomen: soft, nondistended, no organomegaly Skin: Right lower leg dressing clean dry and intact (R lateral malleolus with 6x8x0.8 cm region of ulceration eroded to subcutaneous fat, there is scant purulent drainage, surrounding erythema) Neuro: A&Ox3, normal mood and affect, no focal deficits Microbiology 04/26/20 19:14 Blood Blood Culture - Preliminary No Growth after 24 hours - Labs CBC & Chem 7: 04/28/20 05:27 04/28/20 05:27 Labs: Abnormal Lab Results - Last 24 Hours (Table) 04/28/20 04/28/20 Range/Units 05:27 05:27 Hgb 11.3 L (11.4-16.0) gm/dL MCHC 30.6 L (31.0-37.0) g/dL RDW 15.9 H (11.5-15.5) % Sodium 134 L (137-145) mmol/L Chloride 108 H (98-107) mmol/L Glucose 140 H (74-99) mg/dL Microbiology - Last 24 Hours (Table) 04/26/20 19:14 Blood Culture - Preliminary Blood No Growth after 24 hours Assessment and Plan Assessment: Sepsis secondary to chronic right lateral malleus wound, cellulitis , cultures pending. Possible osteomyelitis, bone scan in progress. Recent culture prior to admission reported Enterobacter pseudomonas, MRSA. Chronic diastolic CHF, NYHA class I Diabetes mellitus type 2 Hypertension Plan: Continue on current medication regime ,monitoring and symptomatic treatment. Continue IV antibiotics/local wound care as per ID, bone scan in progress. Hold off on PICC line placement-pending bone scan results. Discharge planning in progress. The impression and plan of care has been dictated as directed. : I performed a history and examination of this patient, discussed the same with the dictator. I agree with the dictator's note ,documented as a scribe. Any additional findings or plans will be noted.
--- NOTE | 2020-04-28 14:09 | NM ---
EXAMINATION TYPE: NM bone 3 phase DATE OF EXAM: 04/28/2020 COMPARISON: Limited right ankle radiograph 04/26/2020 HISTORY: Right lateral ankle nonhealing wound Triple phase bone scintigraphy was performed following the injection of 24 mCi Tc 99m MDP. Immediate images and 4 hours post injection images acquired. FINDINGS: Very minimal lateral ankle hyperemia seen on flow imaging. There is increased activity of the right l ateral ankle seen on blood pool and delayed images. Additional uptake of the bilateral ankles and fee t likely degenerative. IMPRESSION: Positive 3 phase nuclear medicine bone scan of the right lateral ankle. Findings may represent osteom yelitis of the distal fibula.
[2020-04-28] MEDS ORDERED: VANCOMYCIN TROUGH DUE 1 EACH MISC MISCELLANE ONE (20:00)
[2020-04-29] MEDS ORDERED: CEFEPIME 2 GM in SODIUM CHLORIDE 0.9% 100 ML IVPB SCH ×2
--- NOTE | 2020-05-04 23:04 | P.DS ---
Providers Date of admission: 04/26/20 20:41 Attending physician: Jae Morley MD Consults: 04/26/20 20:41 Consult Physician Urgent Consulting Provider: Gokul Jesus Consult Reason/Comments: Infected wound Do you want consulting provider notified?: Yes Primary care physician: Jae Morley MD - Discharge Diagnosis(es) (1) Nonhealing nonsurgical wound with fat layer exposed Status: Acute (2) Cellulitis Status: Acute (3) Sepsis Status: Acute (4) Infected wound Status: Acute (5) Wound of right ankle Status: Acute (6) Type 2 diabetes mellitus Status: Acute (7) Chronic diastolic CHF (congestive heart failure), NYHA class 1 Status: Acute Hospital Course: Dora Holguin is a 44 yo F with PMH of morbid obesity, T2DM, diastolic CHF, HTN who presented from PCP office with worsening pain and drainage from RLE wound. She has been dealing with this since May 2019 after she had ORIF of a R ankle fracture. She initially suffered repeated dehiscence and then December of this year was admitted with removal of the hardware. The site subsequently became infected and became increasingly painful. Pt was recommended to complete a course of IV vancomycin but she left AMA and proceeded to try oral antibiotics at home. She has also been receiving home nursing. Over the past 4 months pt has not had any substantial healing of the RLE wound, she did complete a 14 day course of oral zyvox last month and although her pain improved during treatment it is now again severe and she rates 10/10. She denies fever or chills. On presentation she was tachycardic, T 99.2, WBC 16k. Ankle XR with no bony involvemen 04/28/2020 antibiotics adjusted, currently on cefepime ,vancomycin, local wound care with Santyl dressing. Bone scan in progress. PICC line placement on hold pending bone scan results. Creatinine 0.81. Afebrile, normal WBC. On 04/28, pt left AMA before her bone scan could be read or PICC line placed. She is recommended to follow up with her PCP and the wound center for further management. Plan - Discharge Summary Discharge Rx Participant: No New Discharge Prescriptions: No Action Melatonin 20 mg PO HS PRN PRN Reason: Insomnia Lisinopril-Hctz 20-25 mg [Zestoretic 20-25] 1 tab PO DAILY Omeprazole [PriLOSEC] 40 mg PO HS Ziprasidone HCl [Geodon] 160 mg PO HS Albuterol Inhaler [Ventolin Hfa Inhaler] 2 puff INHALATION RT-QID PRN PRN Reason: Shortness Of Breath Potassium Chloride ER [K-Dur 20] 20 meq PO DAILY Tiotropium [place] [Spiriva] 1 cap INHALATION RT-DAILY tiZANidine HCL 4 mg PO QID PRN PRN Reason: Muscle Spasm traZODone HCL 300 mg PO HS Bumetanide 2 mg PO BID metFORMIN HCL [metFORMIN HCL ER] 1,000 mg PO BID HYDROcodone/APAP 5-325MG [[place] 5-325] 1 tab PO QID PRN PRN Reason: Pain HYDROcodone/APAP 7.5-325MG [[place] 7.5-325] 1 tab PO Q6HR PRN PRN Reason: Pain Naproxen Sodium [Aleve] 220 mg PO BID PRN PRN Reason: Pain Discharge Medication List Lisinopril-Hctz 20-25 mg [Zestoretic 20-25] 1 tab PO DAILY 05/06/19 [History] Melatonin 20 mg PO HS PRN 05/06/19 [History] Omeprazole [PriLOSEC] 40 mg PO HS 05/06/19 [History] Ziprasidone HCl [Geodon] 160 mg PO HS 05/06/19 [History] Albuterol Inhaler [Ventolin Hfa Inhaler] 2 puff INHALATION RT-QID PRN 12/15/19 [History] Potassium Chloride ER [K-Dur 20] 20 meq PO DAILY 12/15/19 [History] Tiotropium [place] [Spiriva] 1 cap INHALATION RT-DAILY 12/15/19 [History] tiZANidine HCL 4 mg PO QID PRN 12/15/19 [History] traZODone HCL 300 mg PO HS 12/15/19 [History] Bumetanide 2 mg PO BID 02/29/20 [History] metFORMIN HCL [metFORMIN HCL ER] 1,000 mg PO BID 02/29/20 [History] HYDROcodone/APAP 5-325MG [[place] 5-325] 1 tab PO QID PRN 04/26/20 [History] HYDROcodone/APAP 7.5-325MG [[place] 7.5-325] 1 tab PO Q6HR PRN 05/04/20 [History] Naproxen Sodium [Aleve] 220 mg PO BID PRN 05/04/20 [History] Follow up Appointment(s)/Referral(s): Jae Morley MD [Primary Care Provider] - 3 Days Activity/Diet/Wound Care/Special Instructions: Wound care center with Dr. Jesus, [place]. Discharge Disposition: Left Against Medical Advice
--- NOTE | 2020-05-05 15:45 | P.PN ---
Progress Note - Text Progress Note Date: 04/28/20 Patient is a 44-year-old female with a chronic healing wound to the right lateral ankle area with the patient has for more than a year now with previous episode of cellulitis admitted to hospital with worsening pain and nonhealing of this wound On today's evaluation that is 04/28/2020, the patient denies having any fever or any chills, pain to the right lateral ankle wound is currently controlled, denies any chest pain shortness with cough involvement no diarrhea On examination : Vital signs are stable T-max of 98 General description : Middle-age female up in the chair in no distress Respiratory system : Unlabored breathing clear auscultation anteriorly Heart: S1-S2 regular rate rhythm Right lateral leg wound is currently dressed no drainage on the dressing Labs : Reviewed bone scan suspicious for osteomyelitis 1-patient with a chronic nonhealing wound to the right lateral ankle area now with a bone scan suspicious for osteomyelitis patient will need a PICC line and outpatient IV antibiotic therapy and will likely need to cover for the gram- negative that she has grown in the past such as Pseudomonas however the patient has been insisting on going home and not waiting for the PICC line outpatient antibiotic arrangement she has been told, not healing or noncompliance can lead to worsening infection and limb loss however the patient is adamant about leaving
== END 2020-04-28 13:25 | disposition left against medical advice (07) ==
LOC: EC 17:38 → 1SOBS 20:41
PROVIDERS: ADMIT Family Medicine; ATTEND Family Medicine
DX: S91.001A Unspecified open wound, right ankle, initial encounter (principal); L03.115 Cellulitis of right lower limb; T81.49XA Infection following a procedure, other surgical site, initial encounter; A41.9 Sepsis, unspecified organism; Z53.29 Procedure and treatment not carried out because of patient's decision for other reasons; I11.0 Hypertensive heart disease with heart failure; I50.32 Chronic diastolic (congestive) heart failure; J44.9 Chronic obstructive pulmonary disease, unspecified; H52.203 Unspecified astigmatism, bilateral; K21.9 Gastro-esophageal reflux disease without esophagitis; E11.42 Type 2 diabetes mellitus with diabetic polyneuropathy; G89.29 Other chronic pain; M54.2 Cervicalgia; M54.9 Dorsalgia, unspecified; M51.9 Unspecified thoracic, thoracolumbar and lumbosacral intervertebral disc disorder; F31.9 Bipolar disorder, unspecified; F17.210 Nicotine dependence, cigarettes, uncomplicated; E66.01 Morbid (severe) obesity due to excess calories; Z91.19 Patient's noncompliance with other medical treatment and regimen; Z68.43 Body mass index [BMI] 50.0-59.9, adult; Z79.899 Other long term (current) drug therapy; Z79.84 Long term (current) use of oral hypoglycemic drugs; Z87.39 Personal history of other diseases of the musculoskeletal system and connective tissue; Z87.01 Personal history of pneumonia (recurrent); Z86.14 Personal history of Methicillin resistant Staphylococcus aureus infection; Z90.49 Acquired absence of other specified parts of digestive tract; Z98.890 Other specified postprocedural states; Z90.710 Acquired absence of both cervix and uterus; Z87.81 Personal history of (healed) traumatic fracture; Z87.2 Personal history of diseases of the skin and subcutaneous tissue; Z86.19 Personal history of other infectious and parasitic diseases; Z83.438 Family history of other disorder of lipoprotein metabolism and other lipidemia; Z82.49 Family history of ischemic heart disease and other diseases of the circulatory system; X58.XXXA Exposure to other specified factors, initial encounter
CPT/HCPCS: 96361; 96366 ×3; 96367 ×2; 96375 ×2; 96376 ×2; 96365; 99285; 36415; 93005; 80053; 80048; 85652; 83605; 85025 ×2; 85610; 85730; 86140; 81003; 87040; 73600; 78315; G0378 ×3; A9503; J2543 ×3; J3370 ×3; J2270 ×3; J0692; J1885; J1170

== ENCOUNTER 2020-05-04 15:30 | Inpatient (IN) | payer MEDICARE, OTHER ==
[2020-05-04] MEDS ORDERED: MORPHINE SULFATE 4 MG/ML SYRINGE IVP STA (15:56)
--- NOTE | 2020-05-04 15:56 | ED ---
Recheck HPI <Cristi Mckeon - Last Filed: 05/04/20 17:58> - General Source: patient Mode of arrival: wheelchair Limitations: no limitations <Michael Leach - Last Filed: 05/04/20 18:28> - General Chief Complaint: Recheck/Abnormal Lab/Rx Stated Complaint: Revisit R Ankle Infection Time Seen by Provider: 05/04/20 15:47 - History of Present Illness Initial Comments: Patient is a 44-year-old morbidly obese female with history of type 2 diabetes presenting to emergency Department with chief complaint of ankle pain. Patient states she had ankle surgery following a fracture approximately one year ago. Patient reports afterwards he was affected and sees infectious disease along with wound care. Patient reports she saw yesterday and Dr Parker 2 days before that. The patient reports she is waiting to have a PICC line inserted for IV antibiotics. Patient also reports she was discharged from the hospital about 5 days ago with oral antibiotics. Patient reports, she takes [place] as for the pain but they providing minimal relief at this time. Patient reports she continues to have pain at the wound site. Does report no significant changes to the wound aside from increase in the pain. (Michael Leach) - Related Data Home Medications Medication Instructions Recorded Confirmed Lisinopril-Hctz 20-25 mg 1 tab PO DAILY 05/06/19 05/04/20 [Zestoretic 20-25] Melatonin 20 mg PO HS PRN 05/06/19 05/04/20 Omeprazole [PriLOSEC] 40 mg PO HS 05/06/19 05/04/20 Ziprasidone HCl [Geodon] 160 mg PO HS 05/06/19 05/04/20 Albuterol Inhaler [Ventolin Hfa 2 puff INHALATION RT-QID PRN 12/15/19 05/04/20 Inhaler] Potassium Chloride ER [K-Dur 20] 20 meq PO DAILY 12/15/19 05/04/20 Tiotropium [place] [Spiriva] 1 cap INHALATION RT-DAILY 12/15/19 05/04/20 tiZANidine HCL 4 mg PO QID PRN 12/15/19 05/04/20 traZODone HCL 300 mg PO HS 12/15/19 05/04/20 Bumetanide 2 mg PO BID 02/29/20 05/04/20 metFORMIN HCL [metFORMIN HCL ER] 1,000 mg PO BID 02/29/20 05/04/20 HYDROcodone/APAP 5-325MG [[place] 1 tab PO QID PRN 04/26/20 05/04/20 5-325] HYDROcodone/APAP 7.5-325MG [[place] 1 tab PO Q6HR PRN 05/04/20 05/04/20 7.5-325] Naproxen Sodium [Aleve] 220 mg PO BID PRN 05/04/20 05/04/20 Allergies Allergy/AdvReac Type Severity Reaction Status Date / Time No Known Allergies Allergy Verified 05/04/20 17:25 Review of Systems ROS Other: All systems not noted in ROS Statement are negative. <Cristi Mckeon - Last Filed: 05/04/20 17:58> ROS Other: All systems not noted in ROS Statement are negative. <Michael Leach - Last Filed: 05/04/20 18:28> ROS Statement: Those systems with pertinent positive or pertinent negative responses have been documented in the HPI. Past Medical History Past Medical History: COPD, Diabetes Mellitus, Eye Disorder, GERD/Reflux, Hypertension, Musculoskeletal Disorder, Pneumonia Additional Past Medical History / Comment(s): NIDDM type II, neuropathy bilateral hands/feet, chronic cervical/back pain, DDD, edema bilateral lower legs/feet, bilateral astigmatism. History of Any Multi-Drug Resistant Organisms: MRSA Date of last positivie culture/infection: 02/29/20 MDRO Source:: R ankle Past Surgical History: Appendectomy, Section, Hysterectomy, Orthopedic Surgery Additional Past Surgical History / Comment(s): 05/2019 ORIF R ankle, R ankle repair of wound dehiscence, 12/2019 R ankle hardware removed/I&D, PICC, mulriple teeth extracted Past Anesthesia/Blood Transfusion Reactions: No Reported Reaction Past Psychological History: Bipolar, Depression Smoking Status: Current every day smoker Past Alcohol Use History: None Reported Past Drug Use History: None Reported - Past Family History Mother Family Medical History: Hyperlipidemia, Hypertension Additional Family Medical History / Comment(s): Pt does not know her mother's medical history very well, they do not communicate much. Father History Unknown: Yes Family Medical History: Congestive Heart Failure (CHF) Additional Family Medical History / Comment(s): Father of CHF at the age of 46 yrs. <RuthyazMian hannaho - Last Filed: 05/04/20 18:28> General Exam Limitations: no limitations General appearance: alert, in no apparent distress, obese Head exam: Present: atraumatic, normocephalic, normal inspection Eye exam: Present: normal appearance, PERRL, EOMI Pupils: Present: normal accommodation ENT exam: Present: normal exam, normal oropharynx, mucous membranes moist Neck exam: Present: normal inspection, full ROM. Absent: tenderness Respiratory exam: Present: normal lung sounds bilaterally. Absent: respiratory distress, wheezes, rales Cardiovascular Exam: Present: regular rate, normal rhythm, normal heart sounds Extremities exam: Present: full ROM, tenderness (Tenderness at the wound site.), normal capillary refill, pedal edema (Bilaterally), other (+2 ulnar and radial pulses bilateral.). Absent: normal inspection (Nonhealing open wound on the right lateral malleolus. There is mild erythema along the border of the wound. There is dressing in place with Silvadene. No active discharge at this time.) Back exam: Present: normal inspection, full ROM. Absent: tenderness Neurological exam: Present: alert, oriented X3 Psychiatric exam: Present: normal affect, normal mood Skin exam: Present: warm, dry, intact <HanyMichael - Last Filed: 05/04/20 18:28> Course Vital Signs 05/04/20 15:38 Temperature 99.2 F Pulse Rate 95 Respiratory 20 Rate Blood Pressure 143/92 O2 Sat by Pulse 98 Oximetry Medical Decision Making - Lab Data Result diagrams: 05/04/20 16:04 05/04/20 16:04 <Cristi Mckeon - Last Filed: 05/04/20 17:58> - Lab Data Result diagrams: 05/04/20 16:04 05/04/20 16:04 <Michael Leach - Last Filed: 05/04/20 18:28> - Medical Decision Making Patient reevaluated and reexamined by myself, Dr. Mckeon. I agree with. Findings. This includes diagnostic interpretation and treatment plan. Patient does have right leg wound with yellowish discharge. Patient complains of discomfort. 99.2 temperature. 13 white count. Case was discussed in detail with Dr. Correa who is familiar with this patient and would like to admit with IV Zosyn and vancomycin as well as infectious disease consult. (Cristi Mcekon) - Lab Data Lab Results 05/04/20 05/04/20 05/04/20 Range/Units 16:04 16:04 16:29 WBC 13.2 H (3.8-10.6) k/uL RBC 4.63 (3.80-5.40) m/uL Hgb 12.0 (11.4-16.0) gm/dL Hct 37.8 (34.0-46.0) % MCV 81.8 (80.0-100.0) fL MCH 25.9 (25.0-35.0) pg MCHC 31.6 (31.0-37.0) g/dL RDW 16.1 H (11.5-15.5) % Plt Count 566 H (150-450) k/uL Neutrophils % 65 % Lymphocytes % 26 % Monocytes % 4 % Eosinophils % 3 % Basophils % 1 % Neutrophils # 8.5 H (1.3-7.7) k/uL Lymphocytes # 3.4 (1.0-4.8) k/uL Monocytes # 0.6 (0-1.0) k/uL Eosinophils # 0.4 (0-0.7) k/uL Basophils # 0.1 (0-0.2) k/uL Hypochromasia Slight Anisocytosis Slight PT (9.0-12.0) sec INR (<1.2) APTT (22.0-30.0) sec Sodium 133 L (137-145) mmol/L Potassium 4.4 (3.5-5.1) mmol/L Chloride 99 (98-107) mmol/L Carbon Dioxide 27 (22-30) mmol/L Anion Gap 7 mmol/L BUN 16 (7-17) mg/dL Creatinine 0.81 (0.52-1.04) mg/dL Est GFR (CKD-EPI)AfAm >90 (>60 ml/min/1.73 sqM) Est GFR (CKD-EPI)NonAf >90 (>60 ml/min/1.73 sqM) Glucose 140 H (74-99) mg/dL Plasma Lactic Acid Bill 1.1 (0.7-2.0) mmol/L Calcium 9.1 (8.4-10.2) mg/dL Total Bilirubin 0.4 (0.2-1.3) mg/dL AST 24 (14-36) U/L ALT 30 (4-34) U/L Alkaline Phosphatase 84 (38-126) U/L Total Protein 6.5 (6.3-8.2) g/dL Albumin 3.8 (3.5-5.0) g/dL 05/04/20 Range/Units 16:29 WBC (3.8-10.6) k/uL RBC (3.80-5.40) m/uL Hgb (11.4-16.0) gm/dL Hct (34.0-46.0) % MCV (80.0-100.0) fL MCH (25.0-35.0) pg MCHC (31.0-37.0) g/dL RDW (11.5-15.5) % Plt Count (150-450) k/uL Neutrophils % % Lymphocytes % % Monocytes % % Eosinophils % % Basophils % % Neutrophils # (1.3-7.7) k/uL Lymphocytes # (1.0-4.8) k/uL Monocytes # (0-1.0) k/uL Eosinophils # (0-0.7) k/uL Basophils # (0-0.2) k/uL Hypochromasia Anisocytosis PT 9.5 (9.0-12.0) sec INR 0.9 (<1.2) APTT 22.6 (22.0-30.0) sec Sodium (137-145) mmol/L Potassium (3.5-5.1) mmol/L Chloride (98-107) mmol/L Carbon Dioxide (22-30) mmol/L Anion Gap mmol/L BUN (7-17) mg/dL Creatinine (0.52-1.04) mg/dL Est GFR (CKD-EPI)AfAm (>60 ml/min/1.73 sqM) Est GFR (CKD-EPI)NonAf (>60 ml/min/1.73 sqM) Glucose (74-99) mg/dL Plasma Lactic Acid Bill (0.7-2.0) mmol/L Calcium (8.4-10.2) mg/dL Total Bilirubin (0.2-1.3) mg/dL AST (14-36) U/L ALT (4-34) U/L Alkaline Phosphatase (38-126) U/L Total Protein (6.3-8.2) g/dL Albumin (3.5-5.0) g/dL Disposition <Cristi cMkeon - Last Filed: 05/04/20 17:58> Is patient prescribed a controlled substance at d/c from ED?: No Time of Disposition: 18:27 <Michael Leach - Last Filed: 05/04/20 18:28> Clinical Impression: Infected open wound Disposition: ADMITTED IP TO THIS HOSP Condition: Fair Additional Instructions: She will be admitted Referrals: Jae Morley MD [Primary Care Provider] - 1-2 days
[2020-05-04] MEDS ORDERED: SODIUM CHLORIDE 0.9% 1,000 ML IV STA (16:06)
[2020-05-04 16:16] LABS: Anisocytosis Slight; Basophils # (A) 0.1 k/uL (0-0.2); Basophils % (A) 1 %; Eosinophils # (A) 0.4 k/uL (0-0.7); Eosinophils % (A) 3 %; HCT 37.8 % (34.0-46.0); Hypochromasia Slight; Lymphocytes # (A) 3.4 k/uL (1.0-4.8); Lymphocytes % (A) 26 %; MCH 25.9 pg (25.0-35.0); MCHC 31.6 g/dL (31.0-37.0); MCV 81.8 fL (80.0-100.0); Mean Platelet Volume 7.3; Monocytes # (A) 0.6 k/uL (0-1.0); Monocytes % (A) 4 %; Neutrophils # (A) 8.5 k/uL (1.3-7.7); Neutrophils % (A) 65 %; Platelet Count 566 k/uL (150-450); RBC 4.63 m/uL (3.80-5.40); RDW 16.1 % (11.5-15.5); WBC 13.2 k/uL (3.8-10.6)
[2020-05-04 16:43] LABS: ALT 30 U/L (4-34); AST 24 U/L (14-36); African American GFR (CKD) >90 (>60 ml/min/1.73 sqM); Albumin 3.8 g/dL (3.5-5.0); Alkaline Phosphatase 84 U/L (38-126); Anion Gap 7 mmol/L; Blood Urea Nitrogen 16 mg/dL (7-17); Calcium 9.1 mg/dL (8.4-10.2); Carbon Dioxide 27 mmol/L (22-30); Chloride 99 mmol/L (98-107); Glucose 140 mg/dL (74-99); Non-African American GFR(CKD) >90 (>60 ml/min/1.73 sqM); Potassium 4.4 mmol/L (3.5-5.1); Sodium 133 mmol/L (137-145); Total Bilirubin 0.4 mg/dL (0.2-1.3); Total Protein 6.5 g/dL (6.3-8.2)
[2020-05-04] MEDS ORDERED: HYDROmorphone 1 MG/ML 1 ML SYRINGE IVP STA (16:50)
[2020-05-04 17:02] LABS: INR 0.9 (<1.2); Partial Thromboplastin Time 22.6 sec (22.0-30.0); Prothrombin Time 9.5 sec (9.0-12.0)
--- NOTE | 2020-05-04 17:11 | XR ---
EXAMINATION TYPE: XR ankle complete RT DATE OF EXAM: 05/04/2020 COMPARISON: 04/26/2020 HISTORY: Pain TECHNIQUE: 2 views FINDINGS: There is plantar calcaneal spurring. Ankle mortise is anatomic. There is soft tissue swelli ng around the ankle joint. There is old fracture distal left fibula. I see no acute fracture. There i s no evidence of focal bone destruction. There is soft tissue deformity over the lateral distal fibul a consistent with ulceration in the wound. This appears not significantly different than last exam. IMPRESSION: Old fracture. No evidence of osteomyelitis. Soft tissue deformity. Lateral soft tissue sw elling.
[2020-05-04] MEDS ORDERED: VANCOMYCIN IV PER PHARMACY 1 EACH MISC MISCELLANE PRN (17:59)
[2020-05-04] MEDS ORDERED: PIPERACILLIN-TAZOBACTAM 3.375 GM in SODIUM CHLORIDE 0.9% 100 ML IVPB SCH (18:00)
[2020-05-04] MEDS ORDERED: VANCOMYCIN 2,000 MG in SODIUM CHLORIDE 0.9% 500 ML 500 ML IVPB STA (18:10)
[2020-05-04] MEDS ORDERED: ONDANSETRON 4 MG/2 ML VIAL IVP PRN (18:25)
[2020-05-04] MEDS ORDERED: NALOXONE 0.4 MG/ML 1 ML VIAL IV PRN (18:25)
[2020-05-04] MEDS ORDERED: HYDROmorphone 0.5 MG/0.5 ML SYRINGE IVP PRN (18:25)
[2020-05-04] MEDS ORDERED: LORazepam 2 MG/ML INJ IV PRN (18:25)
[2020-05-04 18:52] VITALS: RESP 18
[2020-05-04] MEDS: HYDROmorphone 1 MG/ML 1 ML SYRINGE IVP PRN (21:37)
[2020-05-04] MEDS: SODIUM CHLORIDE 0.9% 1,000 ML IV SCH (22:22)
[2020-05-04] MEDS ORDERED: tiZANidine 4 MG TAB PO PRN (22:30)
[2020-05-04] MEDS ORDERED: HYDROcodone/APAP 7.5-325MG 1 EACH TAB PO PRN (23:00)
[2020-05-05] MEDS: HYDROmorphone 1 MG/ML 1 ML SYRINGE IVP PRN ×3 (04:12→13:38)
[2020-05-05] MEDS: PIPERACILLIN-TAZOBACTAM 3.375 GM in SODIUM CHLORIDE 0.9% 100 ML IVPB SCH ×2 (05:39→15:13)
[2020-05-05] MEDS ORDERED: VANCOMYCIN 2,000 MG in SODIUM CHLORIDE 0.9% 500 ML 500 ML IVPB SCH (06:00)
[2020-05-05 06:51] LABS: Glucose,Whole Blood 172 mg/dL (75-99)
[2020-05-05] MEDS ORDERED: LISINOPRIL-HCTZ 20-25 MG 1 EACH TAB PO SCH (09:00)
[2020-05-05] MEDS ORDERED: metFORMIN 500 MG TAB PO SCH (09:00)
[2020-05-05] MEDS ORDERED: BUMETANIDE 1 MG TAB PO SCH (09:00)
[2020-05-05] MEDS: SODIUM CHLORIDE 0.9% 1,000 ML IV SCH (09:09)
[2020-05-05 11:16] LABS: African American GFR (CKD) >90 (>60 ml/min/1.73 sqM); Non-African American GFR(CKD) >90 (>60 ml/min/1.73 sqM)
[2020-05-05 11:41] LABS: Glucose,Whole Blood 102 mg/dL (75-99)
[2020-05-05] MEDS ORDERED: LIDOCAINE 1% INJ 10MG/ML (20 ML MDV) SQ ONE (14:30)
[2020-05-05 15:41] VITALS: BP 116/80; PULSE 74; TEMP 98.5
--- NOTE | 2020-05-05 15:41 | P.CONS ---
History of Present Illness - Reason for Consult Consult date: 05/05/20 right ankle wound and osteomyelitis Requesting physician: Jae Morley - Chief Complaint right ankle wound and pain worsening x days - History of Present Illness Patient is 44-year-old female past medical history significant for chronic nonhealing wound to the right ankle in this patient who was evaluated the wound care center last week patient did have wound cultures obtained and the cultures came back positive with Pseudomonas, given the process of arranging outpatient IV antibiotic for the patient however the patient ended up coming to the [facility] yesterday with concern for worsening pain to the right lateral ankle area and the [place] was not helping patient mention she was started on some IV pain medication and is feeling better patient denies having any fever no chills no chest pain shortness with cough no nausea vomiting abdominal pain no diarrhea on arrival to the ER patient has been afebrile patient did have white count of 13.2 creatinine 0.81 patient did have x-rays of the right ankle which did shows no evidence of osteomyelitis or fracture soft tissue deformity patient has been started on Zosyn admitted to hospital infectious disease was consulted for further management of antibiotic therapy. Review of Systems Positive point has been mentioned HPI rest of the systems negative Past Medical History Past Medical History: COPD, Diabetes Mellitus, Eye Disorder, GERD/Reflux, Hypertension, Musculoskeletal Disorder, Pneumonia Additional Past Medical History / Comment(s): NIDDM type II- patient reports bordeline diabetic, neuropathy bilateral hands/feet, chronic cervical/back pain, DDD, edema bilateral lower legs/feet, bilateral astigmatism. History of Any Multi-Drug Resistant Organisms: MRSA Year Discovered:: 02/29/20 MDRO Source:: R ankle Past Surgical History: Appendectomy, Section, Hysterectomy, Orthopedic Surgery Additional Past Surgical History / Comment(s): 05/2019 ORIF R ankle, R ankle repair of wound dehiscence, 12/2019 R ankle hardware removed/I&D, PICC, multiiple teeth extracted Past Anesthesia/Blood Transfusion Reactions: No Reported Reaction Past Psychological History: Anxiety, Bipolar, Depression Additional Psychological History / Comment(s): Pt resides with her significant other with 3 children. She has [facility] for wound care to R ankle. She is in a wheelchair. She does not drive, significant other drives her to [employer]. Smoking Status: Current every day smoker Past Alcohol Use History: Daily Additional Past Alcohol Use History / Comment(s): pt states smokes 1 pck per day Past Drug Use History: None Reported - Past Family History Mother Family Medical History: Hyperlipidemia, Hypertension Additional Family Medical History / Comment(s): Pt does not know her mother's medical history very well, they do not communicate much. Father History Unknown: Yes Family Medical History: Congestive Heart Failure (CHF) Additional Family Medical History / Comment(s): Father of CHF at the age of 46 yrs. Medications and Allergies Home Medications Medication Instructions Recorded Confirmed Type Lisinopril-Hctz 20-25 mg 1 tab PO DAILY 05/06/19 05/04/20 History [Zestoretic 20-25] Melatonin 20 mg PO HS PRN 05/06/19 05/04/20 History Omeprazole [PriLOSEC] 40 mg PO HS 05/06/19 05/04/20 History Ziprasidone HCl [Geodon] 160 mg PO HS 05/06/19 05/04/20 History Albuterol Inhaler [Ventolin Hfa 2 puff INHALATION RT-QID PRN 12/15/19 05/04/20 History Inhaler] Potassium Chloride ER [K-Dur 20] 20 meq PO DAILY 12/15/19 05/04/20 History Tiotropium [place] [Spiriva] 1 cap INHALATION RT-DAILY 12/15/19 05/04/20 History tiZANidine HCL 4 mg PO QID PRN 12/15/19 05/04/20 History traZODone HCL 300 mg PO HS 12/15/19 05/04/20 History Bumetanide 2 mg PO BID 02/29/20 05/04/20 History metFORMIN HCL [metFORMIN HCL ER] 1,000 mg PO BID 02/29/20 05/04/20 History HYDROcodone/APAP 5-325MG [[place] 1 tab PO QID PRN 04/26/20 05/04/20 History 5-325] HYDROcodone/APAP 7.5-325MG [[place] 1 tab PO Q6HR PRN 05/04/20 05/04/20 History 7.5-325] Naproxen Sodium [Aleve] 220 mg PO BID PRN 05/04/20 05/04/20 History Allergies Allergy/AdvReac Type Severity Reaction Status Date / Time No Known Allergies Allergy Verified 05/04/20 17:25 Physical Exam Vitals: Vital Signs Temp Pulse Pulse Pulse Resp BP BP 05/05/20 07:21 98.8 F 80 18 117/83 05/05/20 01:40 97.3 F L 79 113/72 05/05/20 00:00 80 18 05/04/20 21:17 98.5 F 80 18 113/73 05/04/20 20:38 98.6 F 78 18 139/70 05/04/20 18:51 98 F 83 18 137/69 05/04/20 15:38 99.2 F 95 20 143/92 Pulse Ox 05/05/20 07:21 94 L 05/05/20 01:40 93 L 05/05/20 00:00 05/04/20 21:17 97 05/04/20 20:38 97 05/04/20 18:51 96 05/04/20 15:38 98 Intake and Output 05/04/20 05/05/20 05/05/20 22:59 06:59 14:59 Other: Voiding Method Toilet # Voids 1 Weight 137.892 kg GENERAL DESCRIPTION: Middle-aged female lying in bed, no distress. No tachypnea or accessory muscle of respiration use. HEENT: Shows Pallor , no scleral icterus. Oral mucous membrane is dry. No pharyngeal erythema or thrush NECK: Trachea central, no thyromegaly. LUNGS: Unlabored breathing. Clear to auscultation anteriorly. No wheeze or crackle. HEART: S1, S2, regular rate and rhythm. No loud murmur ABDOMEN: Soft, no tenderness , guarding or rigidity, no organomegaly EXTREMITIES: Right lateral ankle wound is currently dressed there is no drainage on the dressing. SKIN: No rash, no masses palpable. NEUROLOGICAL: The patient is awake, alert, oriented x3, mood and affect normal. Results CBC & Chem 7: 05/04/20 16:04 05/05/20 10:40 Labs: Abnormal Lab Results - Last 24 Hours (Table) 05/04/20 05/04/20 05/05/20 Range/Units 16:04 16:04 06:50 WBC 13.2 H (3.8-10.6) k/uL RDW 16.1 H (11.5-15.5) % Plt Count 566 H (150-450) k/uL Neutrophils # 8.5 H (1.3-7.7) k/uL Sodium 133 L (137-145) mmol/L Glucose 140 H (74-99) mg/dL POC Glucose (mg/dL) 172 H (75-99) mg/dL Assessment and Plan Assessment: patient with a chronic nonhealing wound to the right lateral ankle area in this patient who did have a previous history of surgery for the fracture with subsequent removal of the hardware and previous episodes of osteomyelitis patient was recently admitted hospital and the bone scan was suspicious for osteomyelitis however the patient signed out AMA before the PICC line or IV antibiotic would be arranged subsequently presented the wound care center culture at that point is showing Pseudomonas and the patient has been advised cefepime 2 g every 12 awaiting insurance authorization and approval (1) Ankle osteomyelitis, right Status: Acute Code(s): M86.9 - OSTEOMYELITIS, UNSPECIFIED SNOMED Code(s): [id number] Plan: 1-patient will need a PICC line for outpatient antibiotic therapy 2-cefepime 2 g every 12 hours x6 weeks 3-weekly CBC BMP sed rate and CRP We will follow on clinical condition and cultures to further adjust medication if needed Thank you for this consultation will follow this patient along with you Time with Patient: Greater than 30
--- NOTE | 2020-05-05 15:45 | IR ---
EXAMINATION TYPE: IR cvc insert >=5 years DATE OF EXAM: 05/05/2020 COMPARISON: PICC placement 12/18/2019 CLINICAL HISTORY: Osteomyelitis, need for long-term antibiotics TEST AND BALANCE ENGINEER: Dr. Katy Freitas PROCEDURE: The procedure was discussed with the patient. The risks, complications, benefits, and alternatives we re discussed and any questions were answered. Informed consent was obtained. The patient was placed supine. Maximal barrier technique utilized. After informed consent, the skin o verlying the left basilic vein was localized with ultrasound and noted to be compressible and patent. An ultrasound image was obtained and submitted on the patient's chart. Sterile technique utilized w ith the ultrasound machine. The skin overlying was prepped and draped and Lidocaine used for local an esthesia. Access was gained to the vein under ultrasound guidance with a 21 gauge needle and a 0.018 inch wire was advanced. A skin dylan was made with a scalpel. Access site was dilated with Peel-Away s margaret. 4 FR single lumen catheter tailored to the appropriate length of 49 cm and advanced such that the distal tip is at the cavoatrial junction. Spot image was obtained verifying PICC placement. Torrie ter was fixed to the skin and a sterile dressing was placed following hemostasis. Catheter was aspira eitan and flushed with saline. Patient was discharged from the radiology department in stable condition without immediate complication. Fluoro time: 0.2 minutes Fluoroscopic images obtained: 8 IMPRESSION: Status post ultrasound-guided and fluoroscopic-guided PICC placement, ready for use.
[2020-05-05] MEDS ORDERED: PANTOPRAZOLE 40 MG TABLET PO SCH (21:00)
[2020-05-05] MEDS ORDERED: traZODone HCL 100 MG TAB PO SCH (21:00)
[2020-05-05 22:36] LABS: Hemoglobin A1C 6.4 % (4.0-6.0)
--- NOTE | 2020-05-11 11:14 | CDI ---
Documentation Clarification Form Date: 05/11/20 From: Rashmi De Paz Phone: If you have a question about this query, please contact Tika Carver, Jet [employer] at [phone] between 8am and 5pm. Admit Date: 05/04/20 Discharge Date:05/05/20 Patient Name: Dora Holguin Visit Number: [id number] ATTENTION: The Clinical Documentation Specialists (CDI) and [facility] Coding Staff appreciate your assistance in clarifying documentation. Please respond to the clarification below the line at the bottom and electronically sign. The CDI & [facility] Coding staff will review the response and follow-up if needed. Please note: Queries are made part of the Legal Health Record. If you have any questions, please contact the author of this message via ITS. Dear Dr. Morley The patient presented with the following: acute osteomyelitis of the left ankle. 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 99.2, P. 95, R. 20, BP 143/92 Treatment: ID Consult: Acute osteomyelitis right ankle Antibiotics: IV Zosyn, IV Vancomycin IV Bolus: No bolus, IV NS @130 mls/hr In your professional opinion, please clarify if these findings signify one of the following conditions, whether the condition is POA, and cause, if known: Condition SIRS, without underlying infectious process Sepsis Other, please specify Unable to determine Present on Admission Yes No Identify the (suspected) organism Link or clarify if there is associated (due to/with): Organ failure Shock SIRS Criteria (2 or more of the following may indicate SIRS): -Temperature < 96.8F (36C) or > 101.0F (38.3C) -Heart Rate > 90 bpm -Respiratory Rate > 20 breaths/min or PaCO2 < 32 mmHg -White Blood Cell Count > 12,000 or < 4,000 cells/mm3 or > 10% bands -Lactate >2.0 mmol/L (>4.0 is equivalent to septic shock) Sepsis due to suspected MRSA MTDD
--- NOTE | 2020-05-11 22:32 | P.DS ---
Providers Date of admission: 05/04/20 17:58 Expected date of discharge: 05/05/20 Attending physician: Jae Morley MD Consults: 05/04/20 17:59 Consult Physician Urgent Consulting Provider: Gokul Jesus Consult Reason/Comments: Leg wound Do you want consulting provider notified?: Yes Primary care physician: Jae Morley MD Hospital Course: Dora Holguin is a 44 yo F with PMH of morbid obesity, T2DM, diastolic CHF, HTN who presented from PCP office with worsening pain and drainage from RLE wound. She has been dealing with this since May 2019 after she had ORIF of a R ankle fracture. She initially suffered repeated dehiscence and then December of this year was admitted with removal of the hardware. The site subsequently became infected and became increasingly painful. Pt was recommended to complete a course of IV vancomycin but she has left AMA multiple times so this never happened. She did just have a bone scan which showed osteomyelitis. Pt was started on vancomycin and zoysn and a PICC line was placed. She then left AMA after getting her PICC due to family emergency. She plans to follow up with ID in their office to continue IV antibiotics. General: well nourished, obese, NAD. Vitals reviewed HENT: normocephalic, mucus membranes moist Lungs: normal respiratory effort, no wheezes or rales CV: Regular rate and rhythm, no murmur. Peripheral pulses 2+ Abdomen: soft, nondistended, no organomegaly Skin: warm and dry. RLE wound wrapped in gauze Neuro: A&Ox3, normal mood and affect Patient Condition at Discharge: Fair Plan - Discharge Summary Discharge Rx Participant: Yes New Discharge Prescriptions: No Action Melatonin 20 mg PO HS PRN PRN Reason: Insomnia Lisinopril-Hctz 20-25 mg [Zestoretic 20-25] 1 tab PO DAILY Omeprazole [PriLOSEC] 40 mg PO HS Ziprasidone HCl [Geodon] 160 mg PO HS Albuterol Inhaler [Ventolin Hfa Inhaler] 2 puff INHALATION RT-QID PRN PRN Reason: Shortness Of Breath Potassium Chloride ER [K-Dur 20] 20 meq PO DAILY Tiotropium [place] [Spiriva] 1 cap INHALATION RT-DAILY tiZANidine HCL 4 mg PO QID PRN PRN Reason: Muscle Spasm traZODone HCL 300 mg PO HS Bumetanide 2 mg PO BID metFORMIN HCL [metFORMIN HCL ER] 1,000 mg PO BID HYDROcodone/APAP 5-325MG [[place] 5-325] 1 tab PO QID PRN PRN Reason: Pain HYDROcodone/APAP 7.5-325MG [[place] 7.5-325] 1 tab PO Q6HR PRN PRN Reason: Pain Naproxen Sodium [Aleve] 220 mg PO BID PRN PRN Reason: Pain Discharge Medication List Lisinopril-Hctz 20-25 mg [Zestoretic 20-25] 1 tab PO DAILY 05/06/19 [History] Melatonin 20 mg PO HS PRN 05/06/19 [History] Omeprazole [PriLOSEC] 40 mg PO HS 05/06/19 [History] Ziprasidone HCl [Geodon] 160 mg PO HS 05/06/19 [History] Albuterol Inhaler [Ventolin Hfa Inhaler] 2 puff INHALATION RT-QID PRN 12/15/19 [History] Potassium Chloride ER [K-Dur 20] 20 meq PO DAILY 12/15/19 [History] Tiotropium [place] [Spiriva] 1 cap INHALATION RT-DAILY 12/15/19 [History] tiZANidine HCL 4 mg PO QID PRN 12/15/19 [History] traZODone HCL 300 mg PO HS 12/15/19 [History] Bumetanide 2 mg PO BID 02/29/20 [History] metFORMIN HCL [metFORMIN HCL ER] 1,000 mg PO BID 02/29/20 [History] HYDROcodone/APAP 5-325MG [[place] 5-325] 1 tab PO QID PRN 04/26/20 [History] HYDROcodone/APAP 7.5-325MG [[place] 7.5-325] 1 tab PO Q6HR PRN 05/04/20 [History] Naproxen Sodium [Aleve] 220 mg PO BID PRN 05/04/20 [History] Follow up Appointment(s)/Referral(s): Jae Morley MD [Primary Care Provider] - 1-2 days [facility], [NON-STAFF] - Activity/Diet/Wound Care/Special Instructions: She will be admitted [facility] for IV antibiotics: (checking coverage) Discharge Disposition: Left Against Medical Advice
== END 2020-05-05 15:34 | disposition left against medical advice (07) | DRG 862 ==
LOC: EC 15:30 → 4SSUR 17:58
PROVIDERS: ADMIT Family Medicine; ATTEND Family Medicine
PROC: 02HV33Z Insertion of Infusion Device into Superior Vena Cava, Percutaneous Approach (ICD-10-PCS; principal; 2020-05-05 09:25)
DX: T81.42XA Infection following a procedure, deep incisional surgical site, initial encounter (principal); A41.02 Sepsis due to Methicillin resistant Staphylococcus aureus; M86.171 Other acute osteomyelitis, right ankle and foot; I50.32 Chronic diastolic (congestive) heart failure; T81.44XA Sepsis following a procedure, initial encounter; E11.69 Type 2 diabetes mellitus with other specified complication; I11.0 Hypertensive heart disease with heart failure; E11.42 Type 2 diabetes mellitus with diabetic polyneuropathy; F32.9 Major depressive disorder, single episode, unspecified; E66.01 Morbid (severe) obesity due to excess calories; F17.210 Nicotine dependence, cigarettes, uncomplicated; F41.9 Anxiety disorder, unspecified; J44.9 Chronic obstructive pulmonary disease, unspecified; K21.9 Gastro-esophageal reflux disease without esophagitis; M54.9 Dorsalgia, unspecified; G89.29 Other chronic pain; M54.2 Cervicalgia; H52.203 Unspecified astigmatism, bilateral; Z79.84 Long term (current) use of oral hypoglycemic drugs; Z79.899 Other long term (current) drug therapy; Z90.49 Acquired absence of other specified parts of digestive tract; Z90.710 Acquired absence of both cervix and uterus; Z98.890 Other specified postprocedural states; Z98.818 Other dental procedure status; Z87.01 Personal history of pneumonia (recurrent); Z86.14 Personal history of Methicillin resistant Staphylococcus aureus infection; Z87.828 Personal history of other (healed) physical injury and trauma; Z82.49 Family history of ischemic heart disease and other diseases of the circulatory system; Z83.49 Family history of other endocrine, nutritional and metabolic diseases
CPT/HCPCS: 36415; 36573; 80053; 82565; 83036; 83605; 85025; 85610; 85730; 87040; 96361; 96365; 96366; 96375; 99284

== ENCOUNTER 2021-07-16 03:48 | Observation (INO) | payer MEDICARE, OTHER ==
--- NOTE | 2021-07-16 03:56 | ED ---
Altered Mental Status HPI - General Stated Complaint: Altered mental status Time Seen by Provider: 07/16/21 03:55 Source: patient, EMS, RN notes reviewed, old records reviewed Mode of arrival: EMS Limitations: altered mental status, physical limitation - History of Present Illness Initial Comments: This is a 45-year-old female to the emergency department for evaluation (patient became to after little bit more in appropriately throughout the course of the night. States patient has had similar episode where she presented in hospital before. At that time she did need to be put on life support per the . Patient is able to arouse and answer some questions here in the emergency department, but she is a poor story and does not answer questions fully throughout entire stay. History obtained from EMS and patient's chart patient does have significant history of psychiatric illness MD Complaint: altered mental status, confusion, decreased responsiveness, intoxication (Possible abusive psychiatric medications) -: hour(s) Severity: severe Consistency of Symptoms: getting worse Context: drug abuse, history of similar presentation Associated Symptoms: weakness Treatments Prior to Arrival: IV fluid, oxygen - Related Data Home Medications Medication Instructions Recorded Confirmed Lisinopril-Hctz 20-25 mg 1 tab PO DAILY 05/06/19 05/04/20 [Zestoretic 20-25] Melatonin 20 mg PO HS PRN 05/06/19 05/04/20 Omeprazole [PriLOSEC] 40 mg PO HS 05/06/19 05/04/20 Ziprasidone HCl [Geodon] 160 mg PO HS 05/06/19 05/04/20 Albuterol Inhaler [Ventolin Hfa 2 puff INHALATION RT-QID PRN 12/15/19 05/04/20 Inhaler] Potassium Chloride ER [K-Dur 20] 20 meq PO DAILY 12/15/19 05/04/20 Tiotropium [place] [Spiriva] 1 cap INHALATION RT-DAILY 12/15/19 05/04/20 tiZANidine HCL 4 mg PO QID PRN 12/15/19 05/04/20 traZODone HCL 300 mg PO HS 12/15/19 05/04/20 Bumetanide 2 mg PO BID 02/29/20 05/04/20 metFORMIN HCL [metFORMIN HCL ER] 1,000 mg PO BID 02/29/20 05/04/20 HYDROcodone/APAP 5-325MG [[place] 1 tab PO QID PRN 04/26/20 05/04/20 5-325] HYDROcodone/APAP 7.5-325MG [[place] 1 tab PO Q6HR PRN 05/04/20 05/04/20 7.5-325] Naproxen Sodium [Aleve] 220 mg PO BID PRN 05/04/20 05/04/20 Allergies Allergy/AdvReac Type Severity Reaction Status Date / Time No Known Allergies Allergy Verified 05/04/20 17:25 Review of Systems ROS Statement: Those systems with pertinent positive or pertinent negative responses have been documented in the HPI. ROS Other: All systems not noted in ROS Statement are negative. Past Medical History Past Medical History: COPD, Diabetes Mellitus, Eye Disorder, GERD/Reflux, Hypertension, Musculoskeletal Disorder, Pneumonia Additional Past Medical History / Comment(s): NIDDM type II- patient reports bordeline diabetic, neuropathy bilateral hands/feet, chronic cervical/back pain, DDD, edema bilateral lower legs/feet, bilateral astigmatism. History of Any Multi-Drug Resistant Organisms: MRSA Date of last positivie culture/infection: 02/29/20 MDRO Source:: R ankle Past Surgical History: Appendectomy, Section, Hysterectomy, Orthopedic Surgery Additional Past Surgical History / Comment(s): 05/2019 ORIF R ankle, R ankle repair of wound dehiscence, 12/2019 R ankle hardware removed/I&D, PICC, multiiple teeth extracted Past Anesthesia/Blood Transfusion Reactions: No Reported Reaction Past Psychological History: Anxiety, Bipolar, Depression Smoking Status: Current every day smoker Past Alcohol Use History: Daily Past Drug Use History: None Reported - Past Family History Mother Family Medical History: Hyperlipidemia, Hypertension Additional Family Medical History / Comment(s): Pt does not know her mother's medical history very well, they do not communicate much. Father History Unknown: Yes Family Medical History: Congestive Heart Failure (CHF) Additional Family Medical History / Comment(s): Father of CHF at the age of 46 yrs. General Exam Limitations: altered mental status, physical limitation General appearance: alert, appears intoxicated, anxious, obtunded, in distress Head exam: Present: atraumatic, normocephalic, normal inspection Eye exam: Present: normal appearance, PERRL, EOMI. Absent: scleral icterus, conjunctival injection, periorbital swelling ENT exam: Present: normal exam, mucous membranes moist Neck exam: Present: normal inspection. Absent: tenderness, meningismus, lymphadenopathy Respiratory exam: Present: normal lung sounds bilaterally. Absent: respiratory distress, wheezes, rales, rhonchi, stridor Cardiovascular Exam: Present: regular rate, normal rhythm, normal heart sounds. Absent: systolic murmur, diastolic murmur, rubs, gallop, clicks GI/Abdominal exam: Present: soft, normal bowel sounds. Absent: distended, tenderness, guarding, rebound, rigid Extremities exam: Present: normal inspection, full ROM, normal capillary refill. Absent: tenderness, pedal edema, joint swelling, calf tenderness Back exam: Present: normal inspection Neurological exam: Present: alert, oriented X3, CN II-XII intact Psychiatric exam: Present: normal affect, normal mood Skin exam: Present: warm, dry, intact, normal color. Absent: rash Course Vital Signs 07/16/21 07/16/21 07/16/21 03:49 04:58 05:13 Temperature 98.0 F Pulse Rate 57 L 68 Respiratory 22 12 14 Rate Blood Pressure 113/69 109/63 O2 Sat by Pulse 97 97 Oximetry 07/16/21 06:00 Temperature Pulse Rate 64 Respiratory 16 Rate Blood Pressure 125/81 O2 Sat by Pulse 95 Oximetry - Reevaluation(s) Reevaluation #1: 07/16/21 06:29 Medical record is reviewed Reevaluation #2: 07/16/21 06:29 Patient had no response to Narcan here in the ER Reevaluation #3: 07/16/21 06:29 Patient's history does show history of abuse and psychiatric medications - Consultations Consultation #1: Spoke with [facility] will admit this patient Medical Decision Making - Medical Decision Making 45 female DF for evaluation patient be admitted for monitoring, patient currently protecting airway with adequate pulse oxygenation, no response to Narcan. Patient be admitted for likely intentional versus accidental overdose - Lab Data Result diagrams: 07/16/21 04:15 07/16/21 04:40 Lab Results 07/16/21 07/16/21 07/16/21 Range/Units 04:15 04:15 04:15 WBC 11.3 H (3.8-10.6) k/uL RBC 5.01 (3.80-5.40) m/uL Hgb 11.3 L (11.4-16.0) gm/dL Hct 38.9 (34.0-46.0) % MCV 77.8 L (80.0-100.0) fL MCH 22.6 L (25.0-35.0) pg MCHC 29.1 L (31.0-37.0) g/dL RDW 21.1 H (11.5-15.5) % Plt Count 508 H (150-450) k/uL MPV 7.5 Neutrophils % 66 % Lymphocytes % 20 % Monocytes % 6 % Eosinophils % 5 % Basophils % 1 % Neutrophils # 7.5 (1.3-7.7) k/uL Lymphocytes # 2.3 (1.0-4.8) k/uL Monocytes # 0.7 (0-1.0) k/uL Eosinophils # 0.6 (0-0.7) k/uL Basophils # 0.1 (0-0.2) k/uL Hypochromasia Marked Poikilocytosis Slight Anisocytosis Moderate Microcytosis Moderate PT 9.8 (9.0-12.0) sec INR 0.9 (<1.2) APTT 21.1 L (22.0-30.0) sec Sodium (137-145) mmol/L Potassium (3.5-5.1) mmol/L Chloride (98-107) mmol/L Carbon Dioxide (22-30) mmol/L Anion Gap mmol/L BUN (7-17) mg/dL Creatinine (0.52-1.04) mg/dL Est GFR (CKD-EPI)AfAm (>60 ml/min/1.73 sqM) Est GFR (CKD-EPI)NonAf (>60 ml/min/1.73 sqM) Glucose (74-99) mg/dL POC Glucose (mg/dL) (75-99) mg/dL POC Glu Employee Relations Administrator ID Calcium (8.4-10.2) mg/dL Phosphorus (2.5-4.5) mg/dL Magnesium (1.6-2.3) mg/dL Total Bilirubin (0.2-1.3) mg/dL AST (14-36) U/L ALT (4-34) U/L Alkaline Phosphatase (38-126) U/L Ammonia 25 (<30) umol/L Troponin I (0.000-0.034) ng/mL Total Protein (6.3-8.2) g/dL Albumin (3.5-5.0) g/dL Urine Color Urine Appearance (Clear) Urine pH (5.0-8.0) Ur Specific [place] (1.001-1.035) Urine Protein (Negative) Urine Glucose (UA) (Negative) Urine Ketones (Negative) Urine Blood (Negative) Urine Nitrite (Negative) Urine Bilirubin (Negative) Urine Urobilinogen (<2.0) mg/dL Ur Leukocyte Esterase (Negative) Salicylates mg/dL Urine Opiates Screen (NotDetected) Ur Oxycodone Screen (NotDetected) Urine Methadone Screen (NotDetected) Ur Propoxyphene Screen (NotDetected) Acetaminophen ug/mL Ur Barbiturates Screen (NotDetected) U Tricyclic Antidepress (NotDetected) Ur Phencyclidine Scrn (NotDetected) Ur Amphetamines Screen (NotDetected) U Methamphetamines Scrn (NotDetected) U Benzodiazepines Scrn (NotDetected) Urine Cocaine Screen (NotDetected) U Marijuana (THC) Screen (NotDetected) Serum Alcohol mg/dL 07/16/21 07/16/21 07/16/21 Range/Units 04:26 04:40 04:40 WBC (3.8-10.6) k/uL RBC (3.80-5.40) m/uL Hgb (11.4-16.0) gm/dL Hct (34.0-46.0) % MCV (80.0-100.0) fL MCH (25.0-35.0) pg MCHC (31.0-37.0) g/dL RDW (11.5-15.5) % Plt Count (150-450) k/uL MPV Neutrophils % % Lymphocytes % % Monocytes % % Eosinophils % % Basophils % % Neutrophils # (1.3-7.7) k/uL Lymphocytes # (1.0-4.8) k/uL Monocytes # (0-1.0) k/uL Eosinophils # (0-0.7) k/uL Basophils # (0-0.2) k/uL Hypochromasia Poikilocytosis Anisocytosis Microcytosis PT (9.0-12.0) sec INR (<1.2) APTT (22.0-30.0) sec Sodium 141 (137-145) mmol/L Potassium 4.5 (3.5-5.1) mmol/L Chloride 115 H (98-107) mmol/L Carbon Dioxide 21 L (22-30) mmol/L Anion Gap 5 mmol/L BUN 15 (7-17) mg/dL Creatinine 0.88 (0.52-1.04) mg/dL Est GFR (CKD-EPI)AfAm >90 (>60 ml/min/1.73 sqM) Est GFR (CKD-EPI)NonAf 81 (>60 ml/min/1.73 sqM) Glucose 121 H (74-99) mg/dL POC Glucose (mg/dL) (75-99) mg/dL POC Glu Employee Relations Administrator ID Calcium 8.6 (8.4-10.2) mg/dL Phosphorus 3.8 (2.5-4.5) mg/dL Magnesium 2.1 (1.6-2.3) mg/dL Total Bilirubin 0.8 (0.2-1.3) mg/dL AST 25 (14-36) U/L ALT 22 (4-34) U/L Alkaline Phosphatase 81 (38-126) U/L Ammonia (<30) umol/L Troponin I <0.012 (0.000-0.034) ng/mL Total Protein 6.1 L (6.3-8.2) g/dL Albumin 3.3 L (3.5-5.0) g/dL Urine Color Light Yellow Urine Appearance Clear (Clear) Urine pH 6.0 (5.0-8.0) Ur Specific [place] 1.005 (1.001-1.035) Urine Protein Negative (Negative) Urine Glucose (UA) Negative (Negative) Urine Ketones Negative (Negative) Urine Blood Negative (Negative) Urine Nitrite Negative (Negative) Urine Bilirubin Negative (Negative) Urine Urobilinogen <2.0 (<2.0) mg/dL Ur Leukocyte Esterase Negative (Negative) Salicylates <1.0 mg/dL Urine Opiates Screen Not Detected (NotDetected) Ur Oxycodone Screen Not Detected (NotDetected) Urine Methadone Screen Not Detected (NotDetected) Ur Propoxyphene Screen Not Detected (NotDetected) Acetaminophen <10.0 ug/mL Ur Barbiturates Screen Not Detected (NotDetected) U Tricyclic Antidepress Not Detected (NotDetected) Ur Phencyclidine Scrn Not Detected (NotDetected) Ur Amphetamines Screen Not Detected (NotDetected) U Methamphetamines Scrn Not Detected (NotDetected) U Benzodiazepines Scrn Not Detected (NotDetected) Urine Cocaine Screen Not Detected (NotDetected) U Marijuana (THC) Screen Detected H (NotDetected) Serum Alcohol <10 mg/dL 07/16/21 Range/Units 05:05 WBC (3.8-10.6) k/uL RBC (3.80-5.40) m/uL Hgb (11.4-16.0) gm/dL Hct (34.0-46.0) % MCV (80.0-100.0) fL MCH (25.0-35.0) pg MCHC (31.0-37.0) g/dL RDW (11.5-15.5) % Plt Count (150-450) k/uL MPV Neutrophils % % Lymphocytes % % Monocytes % % Eosinophils % % Basophils % % Neutrophils # (1.3-7.7) k/uL Lymphocytes # (1.0-4.8) k/uL Monocytes # (0-1.0) k/uL Eosinophils # (0-0.7) k/uL Basophils # (0-0.2) k/uL Hypochromasia Poikilocytosis Anisocytosis Microcytosis PT (9.0-12.0) sec INR (<1.2) APTT (22.0-30.0) sec Sodium (137-145) mmol/L Potassium (3.5-5.1) mmol/L Chloride (98-107) mmol/L Carbon Dioxide (22-30) mmol/L Anion Gap mmol/L BUN (7-17) mg/dL Creatinine (0.52-1.04) mg/dL Est GFR (CKD-EPI)AfAm (>60 ml/min/1.73 sqM) Est GFR (CKD-EPI)NonAf (>60 ml/min/1.73 sqM) Glucose (74-99) mg/dL POC Glucose (mg/dL) 140 H (75-99) mg/dL POC Glu Employee Relations Administrator ID Riley Acosta Calcium (8.4-10.2) mg/dL Phosphorus (2.5-4.5) mg/dL Magnesium (1.6-2.3) mg/dL Total Bilirubin (0.2-1.3) mg/dL AST (14-36) U/L ALT (4-34) U/L Alkaline Phosphatase (38-126) U/L Ammonia (<30) umol/L Troponin I (0.000-0.034) ng/mL Total Protein (6.3-8.2) g/dL Albumin (3.5-5.0) g/dL Urine Color Urine Appearance (Clear) Urine pH (5.0-8.0) Ur Specific [place] (1.001-1.035) Urine Protein (Negative) Urine Glucose (UA) (Negative) Urine Ketones (Negative) Urine Blood (Negative) Urine Nitrite (Negative) Urine Bilirubin (Negative) Urine Urobilinogen (<2.0) mg/dL Ur Leukocyte Esterase (Negative) Salicylates mg/dL Urine Opiates Screen (NotDetected) Ur Oxycodone Screen (NotDetected) Urine Methadone Screen (NotDetected) Ur Propoxyphene Screen (NotDetected) Acetaminophen ug/mL Ur Barbiturates Screen (NotDetected) U Tricyclic Antidepress (NotDetected) Ur Phencyclidine Scrn (NotDetected) Ur Amphetamines Screen (NotDetected) U Methamphetamines Scrn (NotDetected) U Benzodiazepines Scrn (NotDetected) Urine Cocaine Screen (NotDetected) U Marijuana (THC) Screen (NotDetected) Serum Alcohol mg/dL - EKG Data -: EKG Interpreted by Me (EKG sinus rhythm 63 CO 146 QRS 70 QTc 470) - Radiology Data Radiology results: report reviewed (CT brain is negative for acute disease), image reviewed Disposition Clinical Impression: Wound of right ankle, Altered mental status, Acute delirium Disposition: ADMITTED IP TO THIS [facility] Condition: Fair Is patient prescribed a controlled substance at d/c from ED?: No
[2021-07-16] MEDS ORDERED: SODIUM CHLORIDE 0.9% 1,000 ML IV ONE (04:11)
[2021-07-16 04:33] LABS: Anisocytosis Moderate; Basophils # (A) 0.1 k/uL (0-0.2); Basophils % (A) 1 %; Eosinophils # (A) 0.6 k/uL (0-0.7); Eosinophils % (A) 5 %; HCT 38.9 % (34.0-46.0); HGB 11.3 gm/dL (11.4-16.0); Hypochromasia Marked; Lymphocytes # (A) 2.3 k/uL (1.0-4.8); Lymphocytes % (A) 20 %; MCH 22.6 pg (25.0-35.0); MCHC 29.1 g/dL (31.0-37.0); MCV 77.8 fL (80.0-100.0); Mean Platelet Volume 7.5; Microcytosis Moderate; Monocytes # (A) 0.7 k/uL (0-1.0); Monocytes % (A) 6 %; Neutrophils # (A) 7.5 k/uL (1.3-7.7); Neutrophils % (A) 66 %; Platelet Count 508 k/uL (150-450); Poikilocytosis Slight; RBC 5.01 m/uL (3.80-5.40); RDW 21.1 % (11.5-15.5); WBC 11.3 k/uL (3.8-10.6)
[2021-07-16] MEDS ORDERED: NALOXONE 0.4 MG/ML 1 ML VIAL IVP STA (04:43)
[2021-07-16] MEDS ORDERED: IPRATROPIUM-ALBUTEROL 3 ML NEB INHALATION PRN (04:44)
[2021-07-16] MEDS ORDERED: SODIUM CHLORIDE 0.9% 1,000 ML IV STA (04:44)
[2021-07-16] MEDS ORDERED: methylPREDNISolone SOD SUCCI 125 MG/2 ML VIAL IV STA (04:44)
--- NOTE | 2021-07-16 05:01 | CT ---
EXAMINATION TYPE: CT brain wo con DATE OF EXAM: 07/16/2021 COMPARISON: 05/31/2019 HISTORY: AMS CT DLP: 1082.4 mGycm Automated exposure control for dose reduction was used. Ventricles have normal size. There is no mass effect nor midline shift. There is no sign of intracran ial hemorrhage. There is no evidence of cerebral edema. Calvarium is intact. There is very little pne umatization of the mastoid sinuses. IMPRESSION: No acute intracranial abnormality. Bilateral chronic mastoiditis. No change compared to old exam.
[2021-07-16 05:03] LABS: INR 0.9 (<1.2); Prothrombin Time 9.8 sec (9.0-12.0)
[2021-07-16 05:04] LABS: Appearance,Urine Clear (Clear); Bilirubin,Urine Negative (Negative); Blood,Urine Negative (Negative); Color,Urine Light Yellow; Glucose,Urine (UA) Negative (Negative); Ketones,Urine Negative (Negative); Leukocyte Esterase,Urine Negative (Negative); Nitrite,Urine Negative (Negative); Protein,Urine Negative (Negative); Specific Gravity,Urine 1.005 (1.001-1.035); Urobilinogen,Urine <2.0 mg/dL (<2.0)
[2021-07-16 05:07] LABS: Glucose,Whole Blood 140 mg/dL (75-99)
[2021-07-16 05:10] LABS: Partial Thromboplastin Time 21.1 sec (22.0-30.0)
[2021-07-16 05:14] LABS: ALT 22 U/L (4-34); AST 25 U/L (14-36); Acetaminophen <10.0 ug/mL; African American GFR (CKD) >90 (>60 ml/min/1.73 sqM); Albumin 3.3 g/dL (3.5-5.0); Alcohol <10 mg/dL; Alkaline Phosphatase 81 U/L (38-126); Anion Gap 5 mmol/L; Blood Urea Nitrogen 15 mg/dL (7-17); Calcium 8.6 mg/dL (8.4-10.2); Carbon Dioxide 21 mmol/L (22-30); Chloride 115 mmol/L (98-107); Glucose 121 mg/dL (74-99); Magnesium 2.1 mg/dL (1.6-2.3); Non-African American GFR(CKD) 81 (>60 ml/min/1.73 sqM); Phosphorus 3.8 mg/dL (2.5-4.5); Potassium 4.5 mmol/L (3.5-5.1); Salicylate <1.0 mg/dL; Sodium 141 mmol/L (137-145); Total Bilirubin 0.8 mg/dL (0.2-1.3); Total Protein 6.1 g/dL (6.3-8.2)
[2021-07-16 05:17] LABS: Amphetamine Screen,Urine Not Detected (NotDetected); Barbiturate Screen,Urine Not Detected (NotDetected); Benzodiazepines Screen,Urine Not Detected (NotDetected); Cocaine Screen,Urine Not Detected (NotDetected); Methadone Screen, Urine Not Detected (NotDetected); Opiate Screen,Urine Not Detected (NotDetected); Oxycodone Screen, Urine Not Detected (NotDetected); Phencyclidine Screen,Urine Not Detected (NotDetected); Tricyclic Antidepressant,Urine Not Detected (NotDetected); Urn Cannabinoid Scrn Detected (NotDetected)
[2021-07-16] MEDS ORDERED: ONDANSETRON 4 MG/2 ML VIAL IVP PRN (05:22)
[2021-07-16] MEDS ORDERED: NALOXONE 0.4 MG/ML 1 ML VIAL IV STA (05:22)
[2021-07-16] MEDS: SODIUM CHLORIDE 0.9% 1,000 ML IV SCH ×2 (07:42→13:17)
[2021-07-16] MEDS ORDERED: ENOXAPARIN 40 MG/0.4 ML SYRINGE SQ SCH (09:00)
[2021-07-16 10:18] LABS: ABG Base Excess -0.7 mmol/L; ABG HCO3 25 mmol/L (21-25); ABG Oxygen Saturation 91.5 % (94-97); ABG PCO2 44 mmHg (35-45); ABG PH 7.36 (7.35-7.45); ABG PO2 60 mmHg (83-108); ABG TCO2 26 mmol/L (19-24); Allen Test Performed? Yes
[2021-07-16] MEDS ORDERED: LORazepam 2 MG/ML INJ IV STA (13:16)
--- NOTE | 2021-07-16 13:22 | P.CNNES ---
History of Present Illness Consult date: 07/16/21 Requesting physician: Richard Morton Reason for Consult: altered mental status History of Present Illness: This is a 45-year-old woman with history of diabetes mellitus, hypertension, bipolar who presented emergency department on 07/15/2021 for altered mental status. Unable to obtain history from patient. The patient's nurse stated the patient is confused and was not responding but pulling all her leads out. But later seems was more somewhat responsive and responding. He is on home medication of baclofen 10 mg 1 tab twice a day, Prozac's, Geodon, trazodone, omeprazole. Upon reviewing the medical record the patient was seen by neuro-hospitalist in our facility (Dr. Ramirez) on 05/07/2019 for altered mental status. Patient had an EEG at that time and it's reported as a toxic metabolic encephalopathy. And a p sychiatry the team was recommended. Some of the workup in the hospital consisted of: Initial vital signs is a blood pressure of 113/69, heart rate of 57, respiratory of 22, temperature of 98.0 Fahrenheit oral pulse ox of 97% at room air. White blood cell is 11.3. The MCV is 77.8. Otherwise the neutrophils and lymphocytes are normal. Upon reviewing the medical record the patient is a has had episodes of mild leukocytosis. Sodium is 141, creatinine is 0.88, serum glucose is 121, calcium is 8.6, phosphorus is 3.8, magnesium 2.1, AST is 25 and ALT of 22. Ammonia is 25. Urinalysis is negative for urinary tract infection. Urine drug screen the basic is nondetected. The serum alcohol was less than 10, acetaminophen is less than 10 and salicylates is less than 1.0. Payne virus PCR was not detected. CT of the head is reported as no acute intracranial abnormality. Bilateral chronic mastoiditis. No change compared to old exam. Attempted to review the CT of brain myself but is stated that access is not authorized. Review of Systems Review of system is limited but the pertitent positive and negative as per HPI. Past Medical History Past Medical History: COPD, Diabetes Mellitus, Eye Disorder, GERD/Reflux, Hypertension, Musculoskeletal Disorder, Pneumonia Additional Past Medical History / Comment(s): NIDDM type II- patient reports bordeline diabetic, neuropathy bilateral hands/feet, chronic cervical/back pain, DDD, edema bilateral lower legs/feet, bilateral astigmatism. History of Any Multi-Drug Resistant Organisms: MRSA Date of last positivie culture/infection: 02/29/20 MDRO Source:: R ankle Past Surgical History: Appendectomy, Section, Hysterectomy, Orthopedic Surgery Additional Past Surgical History / Comment(s): 05/2019 ORIF R ankle, R ankle repair of wound dehiscence, 12/2019 R ankle hardware removed/I&D, PICC, multiiple teeth extracted Past Anesthesia/Blood Transfusion Reactions: No Reported Reaction Past Psychological History: Anxiety, Bipolar, Depression Smoking Status: Current every day smoker Past Alcohol Use History: Daily Past Drug Use History: None Reported - Past Family History Mother Family Medical History: Hyperlipidemia, Hypertension Additional Family Medical History / Comment(s): Pt does not know her mother's medical history very well, they do not communicate much. Father History Unknown: Yes Family Medical History: Congestive Heart Failure (CHF) Additional Family Medical History / Comment(s): Father of CHF at the age of 46 yrs. Medications and Allergies Home Medications Medication Instructions Recorded Confirmed Type Ziprasidone HCl [Geodon] 160 mg PO HS 05/06/19 07/16/21 History Albuterol Inhaler [Ventolin Hfa 2 puff INHALATION RT-QID PRN 12/15/19 07/16/21 History Inhaler] traZODone HCL 300 mg PO HS 12/15/19 07/16/21 History Baclofen 10 mg PO BID 07/16/21 07/16/21 History Collagenase [Santyl] 1 applic TOPICAL DAILY 07/16/21 07/16/21 History FLUoxetine HCL [PROzac] 10 mg PO DAILY 07/16/21 07/16/21 History HYDROcodone/APAP 10-325MG [[place] 1 tab PO QID PRN 07/16/21 07/16/21 History 10-325] Lidocaine 2% Gel [Xylocaine Jelly 1 applic TOPICAL DAILY PRN 07/16/21 07/16/21 History 2%] Omeprazole 40 mg PO DAILY 07/16/21 07/16/21 History Allergies Allergy/AdvReac Type Severity Reaction Status Date / Time No Known Allergies Allergy Verified 05/04/20 17:25 Physical Examination - Vital Signs Vital Signs: Vital Signs Temp Pulse Resp BP Pulse Ox 07/16/21 11:13 98.4 F 57 L 23 176/87 94 L 07/16/21 08:23 71 20 134/76 97 07/16/21 07:40 98.4 F 92 20 148/107 95 07/16/21 06:00 64 16 125/81 95 07/16/21 05:13 68 14 109/63 97 07/16/21 04:58 12 07/16/21 03:49 98.0 F 57 L 22 113/69 97 Intake and Output 07/15/21 07/16/21 07/16/21 22:59 06:59 14:59 Other: Weight 124.738 kg GENERAL: The patient is lying and seems restless. CHEST: The heart rate is regular rate rhythm. No murmurs to auscultation. LUNG: Clear to auscultation bilaterally no wheezing noted throughout. Not labored breathing. ABDOMEN/GI: Bowel sounds present in all 4 quadrants. No tenderness to palpation throughout. NEUROLOGICAL: Limited because of her condition. Higher mental function: The patient is drowsy but awakeable to voice. She is oriented to self and stated she was in the hospital. For the year and month she kept on saying her name. She is following simple commands (thumbs up and sticking her tongue out. No neglect. No wernicke aphasia and language is limited because of condition. Cranial nerves: The pupils are round, equal and reactive to light. Visual barbour could not assess. Extraocular movement is intact no nystagmus is noted. No facial weakness. No dysarthria. Tongue moves side to side without difficulty. No tongue bite appreciated. Rest of cranial nerves could not be assessed. Motor: Gait is deferred. The strength is lifting all extremities above gravity. Normal tone and bulk. Has diffuse tremor of all body. Cerebellum: Could not assess. Sensation: Could not assess. Reflexes (right/left): 1+ throughout. Plantars are downgoing bilaterally. Results - Laboratory Findings CBC and BMP: 07/16/21 04:15 07/16/21 04:40 Abnormal Lab Findings: Abnormal Labs 07/16/21 07/16/21 07/16/21 04:15 04:15 04:26 WBC 11.3 H Hgb 11.3 L MCV 77.8 L MCH 22.6 L MCHC 29.1 L RDW 21.1 H Plt Count 508 H APTT 21.1 L ABG pO2 ABG Total CO2 ABG O2 Saturation Chloride Carbon Dioxide Glucose POC Glucose (mg/dL) Total Protein Albumin U Marijuana (THC) Screen Detected H 07/16/21 07/16/21 07/16/21 04:40 05:05 10:15 WBC Hgb MCV MCH MCHC RDW Plt Count APTT ABG pO2 60 L ABG Total CO2 26 H ABG O2 Saturation 91.5 L Chloride 115 H Carbon Dioxide 21 L Glucose 121 H POC Glucose (mg/dL) 140 H Total Protein 6.1 L Albumin 3.3 L U Marijuana (THC) Screen Assessment and Plan Assessment: * Altered mental status (on on examination had diffuse tremor of entire body). Encephalopathy of unknown etiology.--mentation is improving but still confused and has tremor. Beside neurological problems rule out any psychiatric in etiology. * Had episode of Encephalopathy in the past in our facility (seen by neurology team and had EEG in 2019 and felt toxic-metabolic encephalopathy) * Mild leukocytosis (with chronic history of leuocytosis) * Diabetes mellitus * Hypertension * Bipolar * Cannabinoid use Plan: I ordered MRI of the brain with and without. Ordered routine EEG. I will not start the patient on antiepileptic drug unless there is epileptiform discharges or seizure in the EEG. Ordered TSH, vitamin B12, folate level. Gave patient 1mg of Ativan since was restless. Every 4 hours neuro checks Consulted psychiatry team. We'll defer the rest of the medical management to the primary team Plan was discussed with the patient's nurse. Thank you for the consultation Chava Navarro M.D. Neuro-hospitalist Time with Patient: Greater than 30
[2021-07-16] MEDS ORDERED: ALBUTEROL HFA INHALER INHALATION PRN (18:22)
--- NOTE | 2021-07-16 18:24 | P.HPIM ---
History of Present Illness H&P Date: 07/16/21 Chief Complaint: Altered mental status 45-year-old female to the emergency department for evaluation (patient became to after little bit more in appropriately throughout the course of the night. States patient has had similar episode where she presented in hospital before. At that time she did need to be put on life support per the . Patient is able to arouse and answer some questions here in the emergency department, but she is a poor story and does not answer questions fully throughout entire stay. History obtained from EMS and patient's chart patient does have significant history of psychiatric illness White blood cell is 11.3. The MCV is 77.8. Otherwise the neutrophils and lymphocytes are normal. Upon reviewing the medical record the patient is a has had episodes of mild leukocytosis. Sodium is 141, creatinine is 0.88, serum glucose is 121, calcium is 8.6, phosphorus is 3.8, magnesium 2.1, AST is 25 and ALT of 22. Ammonia is 25. Urinalysis is negative for urinary tract infection. Urine drug screen the basic is nondetected. The serum alcohol was less than 10, acetaminophen is less than 10 and salicylates is less than 1.0. Payne virus PCR was not detected. CT of the head is reported as no acute intracranial abnormality. Bilateral chronic mastoiditis. No change compared to old exam. Attempted to review the CT of brain myself but is stated that access is not authorized. Review of Systems REVIEW OF SYSTEMS: CONSTITUTIONAL: No fever, no malaise, no fatigue. HEENT: No recent visual problems or hearing problems. Denied any sore throat. CARDIOVASCULAR: No chest pain, orthopnea, PND, no palpitations, no syncope. PULMONARY: No shortness of breath, no cough, no hemoptysis. GASTROINTESTINAL: No diarrhea, no nausea, no vomiting, no abdominal pain. NEUROLOGICAL: No headaches, no weakness, no numbness. HEMATOLOGICAL: Denies any bleeding or petechiae. GENITOURINARY: Denies any burning micturition, frequency, or urgency. MUSCULOSKELETAL/RHEUMATOLOGICAL: Denies any joint pain, swelling, or any muscle pain. ENDOCRINE: Denies any polyuria or polydipsia. The rest of the 14-point review of systems is negative. Past Medical History Past Medical History: COPD, Diabetes Mellitus, Eye Disorder, GERD/Reflux, Hypertension, Musculoskeletal Disorder, Pneumonia Additional Past Medical History / Comment(s): NIDDM type II- patient reports bordeline diabetic, neuropathy bilateral hands/feet, chronic cervical/back pain, DDD, edema bilateral lower legs/feet, bilateral astigmatism. History of Any Multi-Drug Resistant Organisms: MRSA Date of last positivie culture/infection: 02/29/20 MDRO Source:: R ankle Past Surgical History: Appendectomy, Section, Hysterectomy, Orthopedic Surgery Additional Past Surgical History / Comment(s): 05/2019 ORIF R ankle, R ankle repair of wound dehiscence, 12/2019 R ankle hardware removed/I&D, PICC, multiiple teeth extracted Past Anesthesia/Blood Transfusion Reactions: No Reported Reaction Past Psychological History: Anxiety, Bipolar, Depression Smoking Status: Current every day smoker Past Alcohol Use History: Daily Past Drug Use History: None Reported - Past Family History Mother Family Medical History: Hyperlipidemia, Hypertension Additional Family Medical History / Comment(s): Pt does not know her mother's medical history very well, they do not communicate much. Father History Unknown: Yes Family Medical History: Congestive Heart Failure (CHF) Additional Family Medical History / Comment(s): Father of CHF at the age of 46 yrs. Medications and Allergies Home Medications Medication Instructions Recorded Confirmed Type Ziprasidone HCl [Geodon] 160 mg PO HS 05/06/19 07/16/21 History Albuterol Inhaler [Ventolin Hfa 2 puff INHALATION RT-QID PRN 12/15/19 07/16/21 History Inhaler] traZODone HCL 300 mg PO HS 12/15/19 07/16/21 History Baclofen 10 mg PO BID 07/16/21 07/16/21 History Collagenase [Santyl] 1 applic TOPICAL DAILY 07/16/21 07/16/21 History FLUoxetine HCL [PROzac] 10 mg PO DAILY 07/16/21 07/16/21 History HYDROcodone/APAP 10-325MG [[place] 1 tab PO QID PRN 07/16/21 07/16/21 History 10-325] Lidocaine 2% Gel [Xylocaine Jelly 1 applic TOPICAL DAILY PRN 07/16/21 07/16/21 History 2%] Omeprazole 40 mg PO DAILY 07/16/21 07/16/21 History Allergies Allergy/AdvReac Type Severity Reaction Status Date / Time No Known Allergies Allergy Verified 05/04/20 17:25 Physical Exam Vitals: Vital Signs Temp Pulse Resp BP Pulse Ox 07/16/21 08:23 71 20 134/76 97 07/16/21 07:40 98.4 F 92 20 148/107 95 07/16/21 06:00 64 16 125/81 95 07/16/21 05:13 68 14 109/63 97 07/16/21 04:58 12 07/16/21 03:49 98.0 F 57 L 22 113/69 97 Intake and Output 07/15/21 07/16/21 07/16/21 22:59 06:59 14:59 Other: Weight 124.738 kg - Constitutional General appearance: Present: average body habitus, cooperative, no acute distress Neck: Present: normal ROM. Absent: lymphadenopathy, rigidity, thyromegaly Carotids: negative: bruit present Thyroid: bilateral: normal size, negative: enlarged, nodule Respiratory: bilateral: CTA, negative: rales, rhonchi, wheezing Cardiovascular: regular; normal: S1, S2 Abnormal Heart Sounds: Absent: systolic murmur, diastolic murmur Gastrointestinal: normal bowel sounds, soft. Absent: distended, organomegaly, tenderness Genitourinary Comment(s): deferred Integumentary: Present: normal turgor. Absent: jaundiced, rash, ulcer Neurologic: Patient is alert; does follows commands; Musculoskeletal: Present: gait normal, strength equal bilaterally Results CBC & Chem 7: 07/16/21 04:15 07/16/21 04:40 Labs: Abnormal Lab Results - Last 24 Hours (Table) 07/16/21 07/16/21 07/16/21 Range/Units 04:15 04:15 04:26 WBC 11.3 H (3.8-10.6) k/uL Hgb 11.3 L (11.4-16.0) gm/dL MCV 77.8 L (80.0-100.0) fL MCH 22.6 L (25.0-35.0) pg MCHC 29.1 L (31.0-37.0) g/dL RDW 21.1 H (11.5-15.5) % Plt Count 508 H (150-450) k/uL APTT 21.1 L (22.0-30.0) sec Chloride (98-107) mmol/L Carbon Dioxide (22-30) mmol/L Glucose (74-99) mg/dL POC Glucose (mg/dL) (75-99) mg/dL Total Protein (6.3-8.2) g/dL Albumin (3.5-5.0) g/dL U Marijuana (THC) Screen Detected H (NotDetected) 07/16/21 07/16/21 Range/Units 04:40 05:05 WBC (3.8-10.6) k/uL Hgb (11.4-16.0) gm/dL MCV (80.0-100.0) fL MCH (25.0-35.0) pg MCHC (31.0-37.0) g/dL RDW (11.5-15.5) % Plt Count (150-450) k/uL APTT (22.0-30.0) sec Chloride 115 H (98-107) mmol/L Carbon Dioxide 21 L (22-30) mmol/L Glucose 121 H (74-99) mg/dL POC Glucose (mg/dL) 140 H (75-99) mg/dL Total Protein 6.1 L (6.3-8.2) g/dL Albumin 3.3 L (3.5-5.0) g/dL U Marijuana (THC) Screen (NotDetected) Assessment and Plan Assessment: 1. Altered mental status; etiology unclear - Neurology on board; MRI of the brain is ordered with and without contrast; EEG is ordered and pending; antiseizure medications not recommended at this time prior to EEG - Order TSH, B12 and folic acid level; neurochecks every 4 hours - Neurology recommending psych evaluation; consultation placed 2. Leukocytosis; no signs of infection; possibly due to reactive; we'll monitor CBC; monitor CRP and pro-calcitonin; patient has been placed empirically on IV Rocephin 3. Substance abuse; drug screen is positive for cannabinoids; psych consult in place 4. Hypertension; currently not on any antihypertensive therapy; we will monitor blood pressure closely and make recommendations prior to discharge 5. Diabetes mellitus; monitor Accu-Cheks every before meals and at bedtime with insulin sliding scale 6. Bipolar disorder; psych consulted for medication review; patient takes Geodon, trazodone and Prozac at home; we will hold off these medications to m ental status improves DVT prophylaxis; SCDs/subcu Lovenox CODE STATUS; full code
[2021-07-16] MEDS ORDERED: VANCOMYCIN IV PER PHARMACY 1 EACH MISC MISCELLANE PRN (18:25)
[2021-07-16] MEDS ORDERED: VANCOMYCIN 2,000 MG in SODIUM CHLORIDE 0.9% 500 ML 500 ML IVPB SCH (19:00)
[2021-07-16] MEDS ORDERED: ACETAMINOPHEN TAB 325 MG TAB PO PRN (20:22)
[2021-07-16] MEDS ORDERED: LORazepam 2 MG/ML INJ IV PRN (20:22)
[2021-07-16] MEDS ORDERED: KETOROLAC 30 MG/ML 1 ML VIAL IVP PRN (23:42)
[2021-07-17] MEDS: SODIUM CHLORIDE 0.9% 1,000 ML IV SCH ×2 (03:00→04:54)
[2021-07-17 04:58] VITALS: BP 157/78; PULSE 90; RESP 18; TEMP 98
[2021-07-17 06:02] LABS: Anisocytosis Moderate; Basophils # (A) 0.1 k/uL (0-0.2); Basophils % (A) 0 %; Eosinophils % (A) 0 %; HCT 35.5 % (34.0-46.0); HGB 10.4 gm/dL (11.4-16.0); Hypochromasia Marked; Lymphocytes # (A) 2.6 k/uL (1.0-4.8); Lymphocytes % (A) 17 %; MCH 22.9 pg (25.0-35.0); MCHC 29.2 g/dL (31.0-37.0); MCV 78.4 fL (80.0-100.0); Mean Platelet Volume 7.7; Microcytosis Moderate; Monocytes # (A) 0.8 k/uL (0-1.0); Monocytes % (A) 5 %; Neutrophils # (A) 11.2 k/uL (1.3-7.7); Neutrophils % (A) 75 %; Platelet Count 478 k/uL (150-450); Poikilocytosis Slight; RBC 4.53 m/uL (3.80-5.40); WBC 14.8 k/uL (3.8-10.6)
[2021-07-17] MEDS ORDERED: PANTOPRAZOLE 40 MG TABLET PO SCH (07:30)
[2021-07-17 10:09] LABS: ALT 19 U/L (8-44); AST 14 U/L (13-35); African American GFR (CKD) 98.5 (60.0-200.0); Albumin 3.8 g/dL (3.8-4.9); Albumin/Globulin Ratio 1.57 (1.60-3.17); Alkaline Phosphatase 69 U/L (41-126); Blood Urea Nitrogen 13.2 mg/dL (9.0-27.0); Calcium 8.9 mg/dL (8.7-10.3); Chloride 108 mmol/L (96-109); Globulin 2.4 g/dL (1.6-3.3); Glucose 95 mg/dL (70-110); Magnesium 1.9 mg/dL (1.5-2.4); Phosphorus 2.6 mg/dL (2.4-5.1); Potassium 3.8 mmol/L (3.5-5.5); Sodium 139 mmol/L (135-145); Total Bilirubin <0.20 mg/dL (0.30-1.20); Total Protein 6.2 g/dL (6.2-8.2)
== END 2021-07-17 07:47 | disposition left against medical advice (07) ==
LOC: EC 03:48 → 5NMEDONC 05:22
PROVIDERS: ADMIT Hospitalist; ATTEND Hospitalist
DX: G93.40 Encephalopathy, unspecified (principal); D72.829 Elevated white blood cell count, unspecified; Z20.822 Contact with and (suspected) exposure to COVID-19; I10 Essential (primary) hypertension; F12.10 Cannabis abuse, uncomplicated; E11.40 Type 2 diabetes mellitus with diabetic neuropathy, unspecified; F31.9 Bipolar disorder, unspecified; H70.13 Chronic mastoiditis, bilateral; Z53.29 Procedure and treatment not carried out because of patient's decision for other reasons; F41.9 Anxiety disorder, unspecified; K08.409 Partial loss of teeth, unspecified cause, unspecified class; J44.9 Chronic obstructive pulmonary disease, unspecified; K21.9 Gastro-esophageal reflux disease without esophagitis; H52.203 Unspecified astigmatism, bilateral; G89.29 Other chronic pain; M54.9 Dorsalgia, unspecified; M54.2 Cervicalgia; F17.200 Nicotine dependence, unspecified, uncomplicated; Z79.84 Long term (current) use of oral hypoglycemic drugs; Z79.899 Other long term (current) drug therapy; Z87.81 Personal history of (healed) traumatic fracture; Z90.49 Acquired absence of other specified parts of digestive tract; Z98.891 History of uterine scar from previous surgery; Z87.01 Personal history of pneumonia (recurrent); Z90.710 Acquired absence of both cervix and uterus; Z86.14 Personal history of Methicillin resistant Staphylococcus aureus infection; Z82.49 Family history of ischemic heart disease and other diseases of the circulatory system; Z83.49 Family history of other endocrine, nutritional and metabolic diseases
CPT/HCPCS: 99285; 96361; 96366 ×2; 96375 ×2; 96376; 96365; 96367; 96372; 36415; 36600; 93005; 80053 ×2; 84443; 82607; 82140; 82746; 82805; 83735 ×2; 84100 ×2; 84484; 85025 ×2; 85610; 85730; 81003; 87040 ×2; 80306; 80143; 87077; 87186; 87635; 80179; 70450; G0378 ×2; G0480; J3370; J2060; J2310; J2930; J0696 ×3; J1650; J1885; 80320; 96368